=== PATIENT | male | born 1935 | race African-American/Black ===

== ENCOUNTER → 2016-09-22 | Outpatient (CLI) | payer MEDICARE, OTHER ==
[2016-03-27 14:38] VITALS: BP 157/66
[~2016-09-22] MED LIST: AMLO10TA2 PO; AMOX125T PO; ASPI-252 PO; ATEN50TA PO; DIPH25CA58 PO; GABA-585 PO; HYDR-971 PO; KRIL500C PO; LISI-338 PO; MAGN400O4 PO; METH4TAB2 PO; METH750T2 PO; MULT-659 PO; OMEP20CA9 PO
--- NOTE | 2016-09-22 16:35 | KCIC ---
PROCEDURE AP and lateral cervical spine radiographs 09/22/2016 HISTORY Neck stiffness. History of previous cervical spine surgery. FINDINGS AP and 2 lateral digital radiographs of the cervical spine were obtained. Comparison is made to a MRI of the cervical spine dated 05/16/2015. The patient is status post laminectomy and posterolateral fusion using pedicle screws and stabilizing rods extending from C3 to C7. Degenerative changes consisting disc space narrowing, vertebral endplate sclerosis and moderate anterior vertebral body osteophyte formation are seen throughout the cervical disc spaces. Degenerative changes are seen involving the uncovertebral and facet joints throughout the cervical disc spaces. No fracture or subluxation is seen. The fusion hardware is intact. The patient is status post median sternotomy. Atherosclerotic calcification is seen in the region of the carotid bifurcations. No prevertebral soft tissue swelling is seen. IMPRESSION 1. Post laminectomy and fusion extending from C3 to C7. 2. Degenerative changes are seen throughout the cervical spine as outlined above. No acute osseous abnormality is seen. Electronically signed by: Damir Florez MD (Sep 22, 2016 16:33:08)
== END | disposition home or self-care (01) ==
LOC: KCIC 15:39
PROVIDERS: ATTEND Neurological Surgery
DX: M43.22 Fusion of spine, cervical region (principal); Z98.1 Arthrodesis status
CPT/HCPCS: 72040

== ENCOUNTER → 2019-05-26 | Outpatient (CLI) | payer MEDICARE, OTHER ==
[2017-11-14 11:00] VITALS: BP 131/75
[~2019-05-26] MED LIST changes: -AMLO10TA2 PO; +AMLO10TA8 PO; +HYDR-3164 PO; -HYDR-971 PO; -MAGN400O4 PO; +MAGN400O7 PO; +OMEP20CA10 PO; -OMEP20CA9 PO
--- NOTE | 2019-05-26 16:53 | CARD ---
MR#: [id number] Date of Study: 05/26/2019 Ordering Physician: JAMI MOSLEY, Referring Physician: Gurwinder CANTOR: Yvonne Cordova APPROVED REPORT EXAM: Two-dimensional and M-mode echocardiogram with Doppler and color Doppler. Other Information Quality : AverageHR: 59bpm INDICATION Cardiac Disease: CAD 2D DIMENSIONS RVDd2.1 (2.9-3.5cm)Left Atrium(2D)2.9 (1.6-4.0cm) IVSd1.1 (0.7-1.1cm)Aortic Root(2D)2.4 (2.0-3.7cm) LVDd4.3 (3.9-5.9cm)LVOT Diameter2.0 (1.8-2.4cm) PWd0.7 (0.7-1.1cm)LVDs2.0 (2.5-4.0cm) FS (%) 52.9 %SV68.1 ml Aortic Valve AoV Peak Arvin.112.1cm/sAoV VTI24.4cm AO Peak GR.5.0mmHgLVOT Peak Arvin.90.9cm/s AO Mean GR.3mmHgAVA (VMAX)2.53cm2 AI P 1/2 [id number] Mitral Valve MV E Wdxztggn18.3cm/sMV E Peak Gr.2mmHg MV DECEL DJGY727inPN A Vohvrtdm85.6cm/s MV E Mean Gr.1mmHgE/A Ratio1.2 Pulmonary Valve PV Peak Stnxmrfn58.6cm/s Tricuspid Valve TR P. Esxzhghx393do/sRAP SVBOKKTV3lxHg TR Peak Gr.69acEwQKKV36tqXi Pulmonary Vein S1 Ydpudfnz23.1cm/sD2 Okfzmnsd62.3cm/s LEFT VENTRICLE The left ventricle is normal size. There is borderline concentric left ventricular hypertrophy. The l eft ventricular systolic function is normal and the ejection fraction is within normal range. The Eje ction Fraction is 55-60%. There is normal LV segmental wall motion. Transmitral Doppler flow pattern is Grade I-abnormal relaxation pattern. RIGHT VENTRICLE The right ventricle is normal size. There is normal right ventricular wall thickness. The right ventr icular systolic function is normal. ATRIA The left atrium is mildly dilated. The right atrium size is normal. The interatrial septum is intact with no evidence for an atrial septal defect or patent foramen ovale as noted on 2-D or Doppler imagi ng. AORTIC VALVE The aortic valve is mildly to moderately sclerotic. Doppler and Color Flow revealed trace to mild aor tic regurgitation. There is no significant aortic valvular stenosis. MITRAL VALVE The mitral valve is thickened but opens well. There is no evidence of mitral valve prolapse. There is no mitral valve stenosis. Doppler and Color-flow revealed trace mitral regurgitation. TRICUSPID VALVE The tricuspid valve is normal in structure and function. Doppler and Color Flow revealed trace tricus pid regurgitation with an estimated PAP of 25 mmHg. There is no tricuspid valve stenosis. PULMONIC VALVE The pulmonic valve is not well visualized. Doppler and Color Flow revealed mild pulmonic valvular reg urgitation. GREAT VESSELS The aortic root is normal in size. The IVC is normal in size and collapses >50% with inspiration. PERICARDIAL EFFUSION There is no evidence of significant pericardial effusion. Critical Notification Critical Value: No <Conclusion> The left ventricle is normal size. The left ventricular systolic function is normal and the ejection fraction is within normal range. The Ejection Fraction is 55-60%. There is borderline concentric left ventricular hypertrophy. Doppler and Color Flow revealed trace to mild aortic regurgitation. There is no significant aortic valvular stenosis. Doppler and Color-flow revealed trace mitral regurgitation. Doppler and Color Flow revealed trace tricuspid regurgitation with an estimated PAP of 25 mmHg. Signed by : Sid Dodd MD Electronically Approved : 05/26/2019 16:52:27
== END | disposition home or self-care (01) ==
LOC: ECHO 13:59
PROVIDERS: ATTEND Internal Medicine Cardiovascular Disease
DX: I08.8 Other rheumatic multiple valve diseases (principal); I11.9 Hypertensive heart disease without heart failure; I25.10 Atherosclerotic heart disease of native coronary artery without angina pectoris
CPT/HCPCS: 93306

== ENCOUNTER 2019-09-16 16:35 | Emergency (ER) | payer MEDICARE, OTHER ==
[~2019-09-16] VITALS: Ht 170.2 cm; Wt 57.7 kg
[~2019-09-16 16:35] MED LIST changes: -OMEP20CA10 PO; +OMEP20CA16 PO
--- NOTE | 2019-09-16 18:24 | PHYS DOC ---
Past Medical History Past Medical History: Arthritis, GERD, High Cholesterol, Heart Disease, Hypertension Additional Past Medical Histor: BACK PAIN Past Surgical History: Other Additional Past Surgical Histo: CARDIAC SURGERY, neck Smoking Status: Former Smoker Alcohol Use: Sober Drug Use: None Adult General Chief Complaint Chief Complaint: MECHANICAL FALL HPI HPI Patient is a 84 year old male who presents with the states he is walking with his walker from the kitchen into the dining room and his pajama pants were pulled up all the way and he tripped over the patient apparently leg and fell down one step. He states he fell onto his nose. Patient denies LOC, chest pain, shortness of air, nausea, vomiting, dizziness, headache, neck pain, back pain, visual changes, numbness or tingling. Patient rates his pain 0 out 10. Review of Systems Review of Systems HENT: Denies nasal congestion or sore throat. Pain to nasal bridge. [] All other systems were reviewed and found to be within normal limits, except as documented in this note. Allergies Allergies Allergies Coded Allergies Type Severity Reaction Last Updated Verified No Known Drug Allergies 07/28/15 No Physical Exam Physical Exam Constitutional: Well developed, well nourished, no acute distress, non-toxic appearance. [] HENT: Normocephalic, atraumatic, bilateral external ears normal, oropharynx moist, no oral exudates, nose normal. Nasal bridge tenderness. [] Eyes: PERRLA, EOMI, conjunctiva normal, no discharge. [] Neck: Normal range of motion, no tenderness, supple, no stridor. [] Cardiovascular:Heart rate regular rhythm, no murmur [] Lungs & Thorax: Bilateral breath sounds clear to auscultation [] Abdomen: Bowel sounds normal, soft, no tenderness, no masses, no pulsatile masses. [] Skin: Warm, dry, no erythema, no rash. [] Back: No tenderness, no CVA tenderness. [] Extremities: No tenderness, no cyanosis, no clubbing, ROM intact, no edema. [] Neurologic: Alert and oriented X 3, normal motor function, normal sensory function, no focal deficits noted. [] Psychologic: Affect normal, judgement normal, mood normal. [] Current Patient Data Vital Signs Vital Signs Date Time Temp Pulse Resp B/P (MAP) Pulse Ox O2 Delivery O2 Flow Rate FiO2 09/16/19 18:09 64 99 09/16/19 17:26 98.4 16 149/71 (97) Room Air 98.4 Lab Values Laboratory Tests Test 09/16/19 19:05 09/16/19 19:52 Prothrombin Time 13.5 SEC (11.7-14.0) Prothrombin Time INR 1.1 (0.8-1.1) White Blood Count 5.3 x10^3/uL (4.0-11.0) Red Blood Count 3.98 x10^6/uL (4.30-5.70) L Hemoglobin 12.8 g/dL (13.0-17.5) L Hematocrit 38.6 % (39.0-53.0) L Mean Corpuscular Volume 97 fL (79-100) Mean Corpuscular Hemoglobin 32 pg (25-35) Mean Corpuscular Hemoglobin Concent 33 g/dL (31-37) Red Cell Distribution Width 14.0 % (11.5-14.5) Platelet Count 154 x10^3/uL (140-400) Neutrophils (%) (Auto) 57 % (31-73) Lymphocytes (%) (Auto) 34 % (24-48) Monocytes (%) (Auto) 8 % (0-9) Eosinophils (%) (Auto) 2 % (0-3) Basophils (%) (Auto) 1 % (0-3) Neutrophils # (Auto) 3.0 x10^3/uL (1.8-7.7) Lymphocytes # (Auto) 1.8 x10^3/uL (1.0-4.8) Monocytes # (Auto) 0.4 x10^3/uL (0.0-1.1) Eosinophils # (Auto) 0.1 x10^3/uL (0.0-0.7) Basophils # (Auto) 0.0 x10^3/uL (0.0-0.2) Sodium Level 138 mmol/L (136-145) Potassium Level 4.0 mmol/L (3.5-5.1) Chloride Level 103 mmol/L (98-107) Carbon Dioxide Level 28 mmol/L (21-32) Anion Gap 7 (6-14) Blood Urea Nitrogen 10 mg/dL (8-26) Creatinine 1.0 mg/dL (0.7-1.3) Estimated GFR (Cockcroft-Gault) 86.3 BUN/Creatinine Ratio 10 (6-20) Glucose Level 95 mg/dL (70-99) Calcium Level 8.7 mg/dL (8.5-10.1) Total Bilirubin 0.5 mg/dL (0.2-1.0) Aspartate Amino Transferase (AST) 82 U/L (15-37) H Alanine Aminotransferase (ALT) 125 U/L (16-63) H Alkaline Phosphatase 105 U/L (46-116) Troponin I Quantitative < 0.017 ng/mL (0.000-0.055) Total Protein 6.6 g/dL (6.4-8.2) Albumin 3.3 g/dL (3.4-5.0) L Albumin/Globulin Ratio 1.0 (1.0-1.7) Laboratory Tests 09/16/19 19:52 Laboratory Tests 09/16/19 19:52 EKG EKG Sinus rhythm and no STEMI[] Interpretation Time: [address] Preciado Radiology/Procedures Radiology/Procedures [] Impressions: [facility] [address] [place] [address] IMAGING REPORT Signed PATIENT: SALTY COLLAZO EACCOUNT: [id number] : 1935 LOCATION: ER AGE: 84 SEX: M EXAM STATUS: REG ER ORD. PHYSICIAN: FRANSISCO VARELA APRN REASON: fall PROCEDURE: CT MAXILLOFACIAL WO CONTRAST CT brain without contrast, CT facial bones without contrast, CT cervical spine without contrast. HISTORY: Fall CT maxillofacial Axial CT images were obtained through the facial bones. There is mild mucosal thickening in the right sphenoid and ethmoid sinuses. There is mucosal thickening in the right maxillary sinus. Mandible is intact without fracture. Zygomatic arches are intact. There is no facial fracture or orbital fracture evident. Nasal septum is in the midline. IMPRESSION: 1. Mild sinusitis. 2. No acute facial fracture noted. End impression CT brain CT scan of brain was done without contrast. A skull fracture is not identified. There is diffuse atrophy. There is an old lacunar infarct in the right brainstem. There is no intracranial hemorrhage or subdural hematoma. There is an old lacunar infarct in the anterior limb of the internal capsule on the right. There is decreased density in the periventricular white matter. IMPRESSION: 1. Atrophy and chronic white matter changes. 2. Old lacunar infarcts. 3. No intracranial hemorrhage or acute finding noted. End impression CT cervical spine Axial CT images were obtained to the cervical spine. Sagittal and coronal reconstructed images were reviewed. Patient has marked hypertrophic change in the cervical spine. An acute fracture is not identified. Patient had a multilevel laminectomy and fusion. Thyroid is homogeneous. There is mild carotid artery calcification. Previous fusion extends from C3 to T1. There is degenerative disc disease at all levels in the cervical spine. There is prominent hypertrophic spurring. There is also spurring at C2-3. There is no acute fracture. There is lucency about the screws at C7-T1 suggesting motion. IMPRESSION: 1. Marked degenerative and hypertrophic changes in the cervical spine. 2. Previous fusion and laminectomy. 3. Lucency about the screws at C7-T1 suggesting motion at that level. PQRS Compliance Statement: One or more of the following individualized dose reduction techniques were utilized for this examination: 1. Automated exposure control 2. Adjustment of the mA and/or kV according to patient size 3. Use of iterative reconstruction technique Electronically signed by: Tom Porter MD (09/16/2019 7:07 PM) [id number] DICTATED and SIGNED BY: TOM PROTER MD DATE: 09/16/191906 [facility] [address] [place] [address] IMAGING REPORT Signed PATIENT: SALTY COLLAZO EACCOUNT: [id number] : 1935 LOCATION: ER AGE: 84 SEX: M EXAM STATUS: REG ER ORD. PHYSICIAN: FRANSISCO VARELA APRN REASON: fall PROCEDURE: PORTABLE CHEST 1V Portable AP chest. HISTORY: Fall AP view was taken of the chest. There is elevation of the left diaphragm which is chronic. There is mild linear scarring or atelectasis in the left lung base. There are no acute infiltrates. Heart is normal in size with evidence of prior bypass. IMPRESSION: 1. Elevated left diaphragm. 2. Linear basilar scarring or atelectasis. 3. No other acute chest disease. Electronically signed by: Tom Porter MD (09/16/2019 7:30 PM) [id number] DICTATED and SIGNED BY: TOM PORTER MD DATE: 09/16/191929 Course & Med Decision Making Course & Med Decision Making Pertinent Labs and Imaging studies reviewed. (See chart for details) Alert and oriented. Speaks in full clear sentences. Lungs are clear to auscultation in all lobes. No extremity swelling. No extremity tenderness with palpation. No joint deformity, swelling, redness. No tenderness to the patient's skull. Only tenderness to the patient's face is to the bridge of his nose. There is no deformity no swelling seen. No lacerations to the patients bodies. No bruising. Patient is moving all extremities without complication. No laxity in any joints. No pelvic or hip pain with pelvic rock. No pain or crepitus with palpation over the rib cage or the chest. No bruising over the chest or rib cage. Full range of motion of the neck. No tenderness with palpation over cervical spine, thoracic spine, lumbar spine. No bruising to his back. Patient denies any pain. ALENA. [] Dragon Disclaimer Dragon Disclaimer This electronic medical record was generated, in whole or in part, using a voice recognition dictation system. Departure Departure Impression: Primary Impression: Fall Additional Impression: Facial pain Disposition: 01 HOME, SELF-CARE Condition: STABLE Referrals: NORA CONTRERAS (PCP) Patient Instructions: Fall Prevention and Home Safety, [id number] Additional Instructions: Follow-up with primary care provider if needed. Take Tylenol or ibuprofen for ear pain. Problem Qualifiers Primary Impression: Fall Encounter type: initial encounter Qualified Codes: W19.XXXA - Unspecified fall, initial encounter FRANSISCO VARELA APRN Sep 16, 2019 18:24
--- NOTE | 2019-09-16 19:10 | RAD ---
CT brain without contrast, CT facial bones without contrast, CT cervical spine without contrast. HISTORY: Fall CT maxillofacial Axial CT images were obtained through the facial bones. There is mild mucosal thickening in the right sphenoid and ethmoid sinuses. There is mucosal thickening in the right maxillary sinus. Mandible is intact without fracture. Zygomatic arches are intact. There is no facial fracture or orbital fracture evident. Nasal septum is in the midline. IMPRESSION: 1. Mild sinusitis. 2. No acute facial fracture noted. End impression CT brain CT scan of brain was done without contrast. A skull fracture is not identified. There is diffuse atrophy. There is an old lacunar infarct in the right brainstem. There is no intracranial hemorrhage or subdural hematoma. There is an old lacunar infarct in the anterior limb of the internal capsule on the right. There is decreased density in the periventricular white matter. IMPRESSION: 1. Atrophy and chronic white matter changes. 2. Old lacunar infarcts. 3. No intracranial hemorrhage or acute finding noted. End impression CT cervical spine Axial CT images were obtained to the cervical spine. Sagittal and coronal reconstructed images were reviewed. Patient has marked hypertrophic change in the cervical spine. An acute fracture is not identified. Patient had a multilevel laminectomy and fusion. Thyroid is homogeneous. There is mild carotid artery calcification. Previous fusion extends from C3 to T1. There is degenerative disc disease at all levels in the cervical spine. There is prominent hypertrophic spurring. There is also spurring at C2-3. There is no acute fracture. There is lucency about the screws at C7-T1 suggesting motion. IMPRESSION: 1. Marked degenerative and hypertrophic changes in the cervical spine. 2. Previous fusion and laminectomy. 3. Lucency about the screws at C7-T1 suggesting motion at that level. PQRS Compliance Statement: One or more of the following individualized dose reduction techniques were utilized for this examination: 1. Automated exposure control 2. Adjustment of the mA and/or kV according to patient size 3. Use of iterative reconstruction technique Electronically signed by: Tom Porter MD (09/16/2019 7:07 PM) [id number]
[2019-09-16 19:27] LABS: PROTHROMBIN TIME PATIENT 13.5 SEC (11.7-14.0)
--- NOTE | 2019-09-16 19:33 | RAD ---
Portable AP chest. HISTORY: Fall AP view was taken of the chest. There is elevation of the left diaphragm which is chronic. There is mild linear scarring or atelectasis in the left lung base. There are no acute infiltrates. Heart is normal in size with evidence of prior bypass. IMPRESSION: 1. Elevated left diaphragm. 2. Linear basilar scarring or atelectasis. 3. No other acute chest disease. Electronically signed by: Tom Porter MD (09/16/2019 7:30 PM) [email or web address]
[2019-09-16 20:05] LABS: BASO % 1 % (0-3); EOS # 0.1 x10^3/uL (0.0-0.7); EOS % 2 % (0-3); HEMATOCRIT 38.6 % (39.0-53.0); HEMOGLOBIN 12.8 g/dL (13.0-17.5); LYMPH # 1.8 x10^3/uL (1.0-4.8); LYMPH % 34 % (24-48); MEAN CORPUSCULAR HEMOGLOBIN 32 pg (25-35); MEAN CORPUSCULAR HGB CONC 33 g/dL (31-37); MEAN CORPUSCULAR VOLUME 97 fL (79-100); MONO # 0.4 x10^3/uL (0.0-1.1); MONO % 8 % (0-9); NEUT % 57 % (31-73); PLATELET COUNT 154 x10^3/uL (140-400); RED BLOOD COUNT 3.98 x10^6/uL (4.30-5.70); WHITE BLOOD COUNT 5.3 x10^3/uL (4.0-11.0)
[2019-09-16 20:17] LABS: CALCIUM 8.7 mg/dL (8.5-10.1); GFR 86.3
[2019-09-16 20:22] LABS: ALBUMIN 3.3 g/dL (3.4-5.0); TOTAL BILIRUBIN 0.5 mg/dL (0.2-1.0); TOTAL PROTEIN 6.6 g/dL (6.4-8.2)
[2019-09-16 21:39] VITALS: BP 135/92
--- NOTE | 2019-09-17 06:10 | EKG ---
[facility] [address] [place] [address] Test Date: 2019-09-16 Test Time: 17:35:54 Pat Name: SALTY COLLAZO Department: Room: Gender: M [employer]: : 1935 Requested By: FRANSISCO VARELA Order Number: [id number] Reading MD: Measurements Intervals [place] Rate: 67 P: 54 [place]: 132 QRS: 32 QRSD: 94 T: -10 QT: 380 QTc: 404 Interpretive Statements SINUS RHYTHM QRS(T) CONTOUR ABNORMALITY CANNOT RULE OUT ANTEROSEPTAL MYOCARDIAL DAMAGE BORDERLINE ECG No previous ECG available for comparison
== END 2019-09-16 21:50 | disposition home or self-care (01) ==
LOC: ER 16:35
DX: R51 Headache (principal); J34.89 Other specified disorders of nose and nasal sinuses; G89.11 Acute pain due to trauma; K21.9 Gastro-esophageal reflux disease without esophagitis; I11.9 Hypertensive heart disease without heart failure; E78.00 Pure hypercholesterolemia, unspecified; Z87.891 Personal history of nicotine dependence; W01.0XXA Fall on same level from slipping, tripping and stumbling without subsequent striking against object, initial encounter; Y93.01 Activity, walking, marching and hiking; Y92.090 Kitchen in other non-institutional residence as the place of occurrence of the external cause; Y99.8 Other external cause status
CPT/HCPCS: 36415; 70450; 70486; 71045; 72125; 80053; 84484; 85025; 85610; 93005; 99285-25

== ENCOUNTER 2020-02-08 18:35 | Emergency (ER) | payer MEDICARE, OTHER ==
[~2020-02-08] VITALS: Ht 170.2 cm; Wt 59.0 kg
[2020-02-08] MEDS ORDERED: NEOMY/BACITR/POLYMYXIN OINT PACKET. TP ONE (19:00)
[2020-02-08 19:06] LABS: BASO % 1 % (0-3); EOS # 0.1 x10^3/uL (0.0-0.7); EOS % 3 % (0-3); HEMATOCRIT 35.6 % (39.0-53.0); HEMOGLOBIN 12.2 g/dL (13.0-17.5); LYMPH # 1.7 x10^3/uL (1.0-4.8); LYMPH % 38 % (24-48); MEAN CORPUSCULAR HEMOGLOBIN 33 pg (25-35); MEAN CORPUSCULAR HGB CONC 34 g/dL (31-37); MEAN CORPUSCULAR VOLUME 98 fL (79-100); MONO # 0.4 x10^3/uL (0.0-1.1); MONO % 8 % (0-9); NEUT # 2.4 x10^3/uL (1.8-7.7); NEUT % 51 % (31-73); PLATELET COUNT 142 x10^3/uL (140-400); RED BLOOD COUNT 3.64 x10^6/uL (4.30-5.70); RED CELL DISTRIBUTION WIDTH 13.8 % (11.5-14.5); WHITE BLOOD COUNT 4.7 x10^3/uL (4.0-11.0)
[2020-02-08 19:14] LABS: CALCIUM 8.2 mg/dL (8.5-10.1); CREATININE 1.3 mg/dL (0.7-1.3); GFR 63.8; POTASSIUM 4.1 mmol/L (3.5-5.1)
[2020-02-08 19:20] LABS: ALBUMIN/GLOBULIN RATIO 0.8 (1.0-1.7); TOTAL BILIRUBIN 0.3 mg/dL (0.2-1.0); TOTAL PROTEIN 6.6 g/dL (6.4-8.2)
[2020-02-08 19:24] LABS: PROTHROMBIN TIME PATIENT 14.3 SEC (11.7-14.0)
--- NOTE | 2020-02-08 19:43 | RAD ---
Exam: CT head, maxillofacial and cervical spine without contrast INDICATION: Hit head on carotid or TECHNIQUE: Sequential axial images through the head, face and cervical spine were obtained without the administration of IV contrast. Comparisons: 09/16/2019 FINDINGS: Head: No focal parenchymal lesion or hemorrhage is identified. There is no midline shift or sulcal effacement. Patchy hypodensity in the periventricular white matter. No acute vascular territory infarction is identified. Enciso-white distinction is preserved. The ventricular system is within normal limits without compression hydrocephalus. The basal cisterns are well maintained. Face: Globes and intraorbital contents are normal. The visualized portions of the paranasal sinuses and mastoid air cells are well-pneumatized. No acute fractures. Extensive periodontal disease with edentulous mandible. Cervical spine: Posterior cervical fusion hardware from C3 to C6 with bilateral advanced facet screws and laminectomy changes. Fracture through the cervical spine is not identified. Multilevel spondylotic change in cervical spine with degenerative disc disease diffusely present. Visualized paraspinal soft tissues are unremarkable. IMPRESSION: 1. No acute intracranial abnormality. 2. No acute traumatic injury identified at the face. 3. Negative CT C-spine for acute traumatic injury. Exposure: One or more of the following in the visualized dose reduction techniques were utilized for this examination: 1. Automated exposure control 2. Adjustment of the MA and/or KV according to patient size Use of iterative of reconstructive technique Electronically signed by: France Gomes MD (02/08/2020 7:41 PM) [id number]
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
[2020-02-08 20:27] LABS: BILIRUBIN,URINE NEGATIVE (NEG); CLARITY,URINE CLEAR; COLOR,URINE YELLOW; NITRITE,URINE NEGATIVE (NEG); PH,URINE 6.5 (<5.0-8.0); PROTEIN,URINE NEGATIVE (NEG-TRACE); UROBILINOGEN,URINE 0.2 mg/dL (0.2 mg/dL)
[2020-02-08 20:31] LABS: BACTERIA,URINE 0 /HPF (0-FEW); RBC,URINE 0 /HPF (0-2); WBC,URINE OCC /HPF (0-4)
[2020-02-08 20:32] LABS: HYALINE CASTS, URINE FEW /HPF; SQUAMOUS EPITHELIAL CELL,UR OCC /LPF
[2020-02-08 20:40] VITALS: BP 162/85
--- NOTE | 2020-02-10 07:10 | EKG ---
[facility] [address] [place] [address] Test Date: 2020-02-08 Test Time: 18:44:45 Pat Name: SALTY COLLAZO Department: Room: Gender: M Spike Maker: : [id number] Requested By: COCO WERNER Order Number: [id number] Reading MD: Measurements Intervals [place] Rate: 76 P: 54 UT: 126 QRS: 39 QRSD: 80 T: 0 QT: 370 QTc: 420 Interpretive Statements SINUS RHYTHM NO SPECIFIC ECG ABNORMALITIES RI6.01 No previous ECG available for comparison
== END 2020-02-08 21:06 | disposition home or self-care (01) ==
LOC: ER 18:35
DX: S00.31XA Abrasion of nose, initial encounter (principal); R79.89 Other specified abnormal findings of blood chemistry; R41.0 Disorientation, unspecified; K21.9 Gastro-esophageal reflux disease without esophagitis; E78.00 Pure hypercholesterolemia, unspecified; I11.9 Hypertensive heart disease without heart failure; F03.90 Unspecified dementia, unspecified severity, without behavioral disturbance, psychotic disturbance, mood disturbance, and anxiety; I25.2 Old myocardial infarction; Z87.891 Personal history of nicotine dependence; W17.81XA Fall down embankment (hill), initial encounter; Y93.89 Activity, other specified; Y92.89 Other specified places as the place of occurrence of the external cause; Y99.8 Other external cause status
CPT/HCPCS: 36415; 70450; 70486; 72125; 80053; 81001; 82553; 85025; 85610; 85730; 93005; 99285-25

== ENCOUNTER 2020-03-02 16:30 | Inpatient (IN) | payer MEDICARE, OTHER ==
[~2020-03-02] VITALS: Ht 170.2 cm; Wt 64.3 kg
[2020-03-02] MEDS ORDERED: IV NORMAL SALINE 500ML BAG 500 ML IV ONE (18:30)
--- NOTE | 2020-03-02 19:04 | RAD ---
EXAM: CT Head without IV contrast CLINICAL HISTORY: Multiple falls, head injury COMPARISON: CT head 09/16/2019, 02/08/2020 TECHNIQUE: Routine CT of the head without contrast. PQRS compliance statement - One or more of the following individualized dose reduction techniques were utilized for this study: 1. Automated exposure control 2. Adjustment of the mA and/or kV according to patient size 3. Use of iterative reconstruction technique FINDINGS: There is no evidence of hemorrhage, mass or extra-axial fluid collection. Houser-white differentiation is maintained with no evidence of edema. Subcortical, periventricular as well as deep white matter and pontine hypoattenuation likely changes of chronic small vessel disease. There is no mass effect or shift of the intracranial structures. There is prominence of the ventricles and sulci bilaterally consistent with generalized cerebral atrophy. The cerebellum and brainstem are unremarkable. The calvarium demonstrates no evidence of fracture or focal lesion. Mastoid air cells are clear. Multifocal paranasal sinus thickening/partial opacification, sinusitis. No air fluid levels are seen. The visualized portions of the orbits are normal. Atherosclerotic calcifications of the intracranial internal carotid and vertebral arteries is seen. IMPRESSION: 1. No evidence for acute intracranial process. 2. White matter changes likely chronic small vessel disease 3. Changes of generalized cerebral volume loss/atrophy. 4. Multifocal paranasal sinus disease. Electronically signed by: Zoltan Naranjo MD (03/02/2020 7:00 PM) [facility]UCE
--- NOTE | 2020-03-02 20:07 | RAD ---
CHEST AP ONLY History: Reason: fall left arm trauma / Spl. Instructions: / History: Pain. Comparison: September 16, 2019 Findings: Elevation of the left hemidiaphragm, unchanged. No consolidation or pleural effusion. No pneumothorax. Prior median sternotomy. Partially imaged postoperative changes lower cervical spine. Impression: 1. No acute cardiopulmonary process. Electronically signed by: Johnny Machado DO (03/02/2020 8:04 PM) [facility]
--- NOTE | 2020-03-02 20:10 | RAD ---
SHOULDER 2+V LEFT, HUMERUS LEFT History: Reason: fall left arm trauma / Spl. Instructions: / History: PA pain. Technique: 3 views left shoulder and 2 views left humerus. Comparison: None. Findings: Normal alignment of the left glenohumeral and acromioclavicular joints. No fracture. Soft tissues unremarkable. Normal alignment of the humerus. No fracture. Impression: 1. No acute osseous abnormality. Electronically signed by: Johnny Machado DO (03/02/2020 8:07 PM) DELISA
--- NOTE | 2020-03-02 20:22 | PHYS DOC ---
Past Medical History Past Medical History: Arthritis, Dementia, GERD, High Cholesterol, Heart Disease, Hypertension, [place], Other Additional Past Medical Histor: BACK PAIN Past Surgical History: Other Additional Past Surgical Histo: CARDIAC SURGERY, neck Smoking Status: Former Smoker Alcohol Use: Sober Drug Use: None General Adult EDM: Chief Complaint: MECHANICAL FALL HPI: HPI: Patient is an 84-year-old male who lives at home who has been falling multiple times every day. At this point, he is unable to perform his activities of daily living. He is not had any fever chills or sweats. He denies any chest pain. He does state that he just does not feel like his arms and his legs work right. The most recent fall patient states he landed on his left side injured his left shoulder and arm. He states it is painful when he tries to move it. He also has had increased swelling in his hands to the point that the family thinks that his wedding ring is cutting into the skin of his left fourth finger. There is also been some issues with lower extremity swelling. He does not have any pain in that area. [] Review of Systems: Review of Systems: Constitutional: Denies fever or chills. [] Eyes: Denies change in visual acuity. [] HENT: Denies nasal congestion or sore throat. [] Respiratory: Denies cough or shortness of breath. [] Cardiovascular: Denies chest pain or edema. [] GI: Denies abdominal pain, nausea, vomiting, bloody stools or diarrhea. [] : Denies dysuria. [] Musculoskeletal: Denies back pain or joint pain. [] Integument: Reports lower extremity swelling. [] Neurologic: Denies headache, focal weakness or sensory changes. [] Endocrine: Denies polyuria or polydipsia. [] Lymphatic: Denies swollen glands. [] Psychiatric: Depressed. [] Heart Score: Risk Factors: Risk Factors: DM, Current or recent (<one month) smoker, HTN, HLP, family history of CAD, obesity. Risk Scores: Score 0 - 3: 2.5% MACE over next 6 weeks - Discharge Home Score 4 - 6: 20.3% MACE over next 6 weeks - Admit for Clinical Observation Score 7 - 10: 72.7% MACE over next 6 weeks - Early Invasive Strategies Current Medications: Current Medications Medications (Trade) Dose Ordered Sig/Kay Start Time Stop Time Status Last Admin Dose Admin Sodium Chloride 500 ml @ 500 mls/hr 1X ONCE 03/02/20 18:30 03/02/20 19:29 DC 03/02/20 19:00 500 MLS/HR Allergies: Allergies: Allergies Coded Allergies Type Severity Reaction Last Updated Verified No Known Drug Allergies 07/28/15 No Physical Exam: PE: Constitutional: Well developed, well nourished, no acute distress, non-toxic appearance. [] HENT: Normocephalic, atraumatic, bilateral external ears normal, oropharynx moist, no oral exudates, nose normal. [] Eyes: PERRLA, EOMI, conjunctiva normal, no discharge. [] Neck: Normal range of motion, no tenderness, supple, no stridor. [] Cardiovascular:Heart rate regular rhythm, no murmur [] Lungs & Thorax: Bilateral breath sounds clear to auscultation [] Abdomen: Bowel sounds normal, soft, no tenderness, no masses, no pulsatile mass es. [] Skin: Warm, dry, no erythema, no rash. [] Back: No tenderness, no CVA tenderness. [] Extremities: No tenderness, no cyanosis, no clubbing, ROM intact, no edema. [] Neurologic: Alert and oriented X 3, normal motor function, normal sensory function, no focal deficits noted. [] Psychologic: Affect normal, judgement normal, mood normal. [] Current Patient Data: Vital Signs: Vital Signs Date Time Temp Pulse Resp B/P (MAP) Pulse Ox O2 Delivery O2 Flow Rate FiO2 03/02/20 17:30 98.3 67 18 176/74 (108) 100 Room Air 98.3 EKG: EKG: [] Radiology/Procedures: Radiology/Procedures: []REASON: multiple falls PROCEDURE: CT HEAD WO CONTRAST EXAM: CT Head without IV contrast CLINICAL HISTORY: Multiple falls, head injury COMPARISON: CT head 09/16/2019, 02/08/2020 TECHNIQUE: Routine CT of the head without contrast. PQRS compliance statement - One or more of the following individualized dose reduction techniques were utilized for this study: 1. Automated exposure control 2. Adjustment of the mA and/or kV according to patient size 3. Use of iterative reconstruction technique FINDINGS: There is no evidence of hemorrhage, mass or extra-axial fluid collection. Houser-white differentiation is maintained with no evidence of edema. Subcortical, periventricular as well as deep white matter and pontine hypoattenuation likely changes of chronic small vessel disease. There is no mass effect or shift of the intracranial structures. There is prominence of the ventricles and sulci bilaterally consistent with generalized cerebral atrophy. The cerebellum and brainstem are unremarkable. The calvarium demonstrates no evidence of fracture or focal lesion. Mastoid air cells are clear. Multifocal paranasal sinus thickening/partial opacification, sinusitis. No air fluid levels are seen. The visualized portions of the orbits are normal. Atherosclerotic calcifications of the intracranial internal carotid and vertebral arteries is seen. IMPRESSION: 1. No evidence for acute intracranial process. 2. White matter changes likely chronic small vessel disease 3. Changes of generalized cerebral volume loss/atrophy. 4. Multifocal paranasal sinus disease. Impression: REASON: fall left arm trauma PROCEDURE: CHEST AP ONLY CHEST AP ONLY History: Reason: fall left arm trauma / Spl. Instructions: / History: Pain. Comparison: September 16, 2019 Findings: Elevation of the left hemidiaphragm, unchanged. No consolidation or pleural effusion. No pneumothorax. Prior median sternotomy. Partially imaged postoperative changes lower cervical spine. Impression: 1. No acute cardiopulmonary process. PROCEDURE: HUMERUS LEFT SHOULDER 2+V LEFT, HUMERUS LEFT History: Reason: fall left arm trauma / Spl. Instructions: / History: PA pain. Technique: 3 views left shoulder and 2 views left humerus. Comparison: None. Findings: Normal alignment of the left glenohumeral and acromioclavicular joints. No fracture. Soft tissues unremarkable. Normal alignment of the humerus. No fracture. Impression: 1. No acute osseous abnormality. Course & Med Decision Making: Course & Med Decision Making Pertinent Labs and Imaging studies reviewed. (See chart for details) [Procedure: Ring removal Patient had a gold band on his left fourth finger with significant swelling distal to the ring. Using a ring cutter the ring was easily removed there was no underlying skin breakdown.] Zeina Disclaimer: Zeina Disclaimer: This electronic medical record was generated, in whole or in part, using a voice recognition dictation system. Departure Departure Impression: Primary Impression: Multiple falls Disposition: 09 ADMITTED INPATIENT Admitting Physician: AMELIA Condition: STABLE Referrals: NORA CONTRERAS (PCP) Justicifation of Admission Dx: Justifications for Admission: Justification of Admission Dx: Yes Comments: multiple falls MERCY SUAREZ DO Mar 02, 2020 20:22
[2020-03-02 20:29] LABS: BASO % 1 % (0-3); EOS # 0.1 x10^3/uL (0.0-0.7); EOS % 3 % (0-3); LYMPH # 2.2 x10^3/uL (1.0-4.8); LYMPH % 42 % (24-48); MEAN CORPUSCULAR HEMOGLOBIN 34 pg (25-35); MEAN CORPUSCULAR HGB CONC 34 g/dL (31-37); MEAN CORPUSCULAR VOLUME 98 fL (79-100); MONO # 0.5 x10^3/uL (0.0-1.1); MONO % 9 % (0-9); NEUT # 2.4 x10^3/uL (1.8-7.7); NEUT % 46 % (31-73); PLATELET COUNT 137 x10^3/uL (140-400); RED BLOOD COUNT 3.29 x10^6/uL (4.30-5.70); RED CELL DISTRIBUTION WIDTH 13.3 % (11.5-14.5); WHITE BLOOD COUNT 5.3 x10^3/uL (4.0-11.0)
[2020-03-02 20:45] LABS: CALCIUM 8.2 mg/dL (8.5-10.1); GFR 86.3
[2020-03-02 20:51] LABS: ALBUMIN 2.6 g/dL (3.4-5.0); ALBUMIN/GLOBULIN RATIO 0.8 (1.0-1.7); MAGNESIUM 1.7 mg/dL (1.8-2.4); TOTAL BILIRUBIN 0.4 mg/dL (0.2-1.0); TOTAL PROTEIN 5.9 g/dL (6.4-8.2)
[2020-03-02] MEDS ORDERED: ONDANSETRON PF 4 MG/2 ML VIAL. IV PRN (21:00)
--- NOTE | 2020-03-02 21:31 | PDOC1 ---
History and Physical Date of Admission: Date of Admission DATE: 03/02/20 TIME: 21:24 Chief Complaint: Chief Complain: Multiple falls History of Present Illness: HPI: Patient is a 84-year-old male with past medical history of dementia, dyslipidemia, hypertension, CABG who presents to the ED for a fall. Most of the history was obtained from the daughter in the room due to patient's dementia. Daughter states that the patient is currently not at his baseline. It appears that the patient has a mild hypo-delirium. He will wax and wane with consciousness but still able to follow commands and answer questions appropriately at times. Daughter states that patient has been falling multiple times in the past 6 months. Finally the patient who lives with his stated that the patient fell off the bed and had multiple abrasions on his left arm and shoulder and also a skin tear on his the bridge of the nose. Patient's was concerned that he was appearing more swollen and that he had a ring on his third digit that looks like circulation was being cut off. In the ED this ring was removed. On baseline, patient's daughter states that he is able to walk around the block without assistance. Patient states that he is able to clean and do some painting at home. Past Medical/Surgical History: PMH/PSH: Past Medical History: Arthritis, Dementia, GERD, High Cholesterol, Heart Di sease, Hypertension, [place] Past Surgical History: CABG Allergies: Allergies: Coded Allergies: No Known Drug Allergies (Unverified , 07/28/15) Family History: Family History: Reviewed and none reported Social History: Social History: Smoking Status: Former Smoker Alcohol Use: Denies Drug Use: None Current Medications: Current Medications Current Medications Sodium Chloride 500 ml @ 500 mls/hr 1X ONCE IV Last administered on 03/02/20at 19:00; Start 03/02/20 at 18:30; Stop 03/02/20 at 19:29; Status DC Ondansetron HCl (Zofran) 4 mg PRN Q8HRS PRN IV NAUSEA/VOMITING; Start 03/02/20 at 21:00; Stop 03/03/20 at 20:59 Sodium Chloride 1,000 ml @ 125 mls/hr Q8H IV ; Start 03/02/20 at 21:15; Stop 03/03/20 at 21:14 Active Scripts Active Amlodipine Besylate 10 Mg Tablet 10 Mg PO DAILY [place] 5-325 Tablet (Acetaminophen/Hydrocodone Bitart) 1 Each Tablet 1 Tab PO PRN BID PRN Reported Milk Of Magnesia (Magnesium Hydroxide) 400 Mg/5 Ml Oral.susp 400 Mg PO QHS PRN Methocarbamol 750 Mg Tablet 750 Mg PO QHS Benadryl (Diphenhydramine Hcl) 25 Mg Capsule 1 Cap PO QHS Amoxicillin 125 Mg Tab.chew 125 Mg PO BID Krill Oil 500 Mg Capsule 500 Mg PO DAILY Centrum Men's Tablet (Multivits,Ca,Min/Iron/FA/Lycop) 1 Each Tablet 1 Each PO DAILY Gabapentin 100 Mg Capsule 100 Mg PO DAILY Lisinopril 5 Mg Tablet 5 Mg PO DAILY Omeprazole 20 Mg Capsule. 20 Mg PO DAILY Ecotrin (Aspirin) 325 Mg Tablet. 325 Mg PO DAILY ROS: Review of Systems Review of System REVIEW OF SYSTEMS: GENERAL: Denies weakness SKIN: No bruising, hair changes or rashes. EYES: No blurred, double or loss of vision. NOSE AND THROAT: No history of nosebleeds, hoarseness or sore throat. HEART: No history of palpitations, chest pain or shortness of breath on exertion. LUNGS: Denies cough, hemoptysis, wheezing or shortness of breath. GASTROINTESTINAL: Denies changes in appetite, nausea, vomiting, diarrhea or constipation. GENITOURINARY: No history of frequency, urgency, hesitancy or nocturia. NEUROLOGIC: Denies history of numbness, tingling, or tremor. PSYCHIATRIC: No history of panic, anxiety or depression. ENDOCRINE: No history of heat or cold intolerance, polyuria or polydipsia. EXTREMITIES: Denies joint pain, pain on walking or stiffness. Physical Exam: Vital Signs: Vital Signs Date Time Temp Pulse Resp B/P (MAP) Pulse Ox O2 Delivery O2 Flow Rate FiO2 03/02/20 17:30 98.3 67 18 176/74 (108) 100 Room Air 98.3 Physcial Exam: GEN: No apparent distress. Alert and oriented HEENT: Normal cephalic, atraumatic, external auditory canals are patent EYES: Extraocular muscles are intact, pupil are equally round and reactive to light and accommodation MUSCULOSKELETAL: Well developed , well nourished, good range of motion ENDOCRINE: No thyromegaly was palpated LYMPHATICS: No cervical chain or axillary nodes were noted HEMATOPOIETIC: No bruising NECK: Supple, no JVD, no thyromegaly was noted LUNGS: Clear to auscultation in all lung cardona without rhonchi or wheezing HEART: RRR, S!, S2 present. Peripheral pulses intact, no obvious murmurs noted ABDOMEN: Soft, nontender. Positive bowel sounds, no organomegaly, normal bowel sounds EXTREMITIES: Without clubbing, cyanosis, or edema. Pedal pulses intact. Negative Homans sign NEUROLOGIC: Normal speech and tone. A&O x 3, moves all extremities, no obvious focal deficits PSYCHIATRIC: Normal affect, normal mood. Stable SKIN: No ulcerations or rashes, good skin turgor, no jaundice VASCULAR: Good capillary refill, neurovascular bundle appears to be intact Labs: Labs: Laboratory Tests Test 03/02/20 20:19 White Blood Count 5.3 x10^3/uL (4.0-11.0) Red Blood Count 3.29 x10^6/uL (4.30-5.70) Hemoglobin 11.0 g/dL (13.0-17.5) Hematocrit 32.0 % (39.0-53.0) Mean Corpuscular Volume 98 fL (79-100) Mean Corpuscular Hemoglobin 34 pg (25-35) Mean Corpuscular Hemoglobin Concent 34 g/dL (31-37) Red Cell Distribution Width 13.3 % (11.5-14.5) Platelet Count 137 x10^3/uL (140-400) Neutrophils (%) (Auto) 46 % (31-73) Lymphocytes (%) (Auto) 42 % (24-48) Monocytes (%) (Auto) 9 % (0-9) Eosinophils (%) (Auto) 3 % (0-3) Basophils (%) (Auto) 1 % (0-3) Neutrophils # (Auto) 2.4 x10^3/uL (1.8-7.7) Lymphocytes # (Auto) 2.2 x10^3/uL (1.0-4.8) Monocytes # (Auto) 0.5 x10^3/uL (0.0-1.1) Eosinophils # (Auto) 0.1 x10^3/uL (0.0-0.7) Basophils # (Auto) 0.0 x10^3/uL (0.0-0.2) Sodium Level 141 mmol/L (136-145) Potassium Level 4.0 mmol/L (3.5-5.1) Chloride Level 109 mmol/L (98-107) Carbon Dioxide Level 25 mmol/L (21-32) Anion Gap 7 (6-14) Blood Urea Nitrogen 11 mg/dL (8-26) Creatinine 1.0 mg/dL (0.7-1.3) Estimated GFR (Cockcroft-Gault) 86.3 BUN/Creatinine Ratio 11 (6-20) Glucose Level 83 mg/dL (70-99) Calcium Level 8.2 mg/dL (8.5-10.1) Magnesium Level 1.7 mg/dL (1.8-2.4) Total Bilirubin 0.4 mg/dL (0.2-1.0) Aspartate Amino Transf (AST/SGOT) 91 U/L (15-37) Alanine Aminotransferase (ALT/SGPT) 117 U/L (16-63) Alkaline Phosphatase 131 U/L (46-116) Creatine Kinase 97 U/L (39-308) Troponin I Quantitative 0.018 ng/mL (0.000-0.055) WY-Vpw-L-Type Natriuretic Peptide 417 pg/mL (0-449) Total Protein 5.9 g/dL (6.4-8.2) Albumin 2.6 g/dL (3.4-5.0) Albumin/Globulin Ratio 0.8 (1.0-1.7) Laboratory Tests Test 03/02/20 20:19 White Blood Count 5.3 x10^3/uL (4.0-11.0) Red Blood Count 3.29 x10^6/uL (4.30-5.70) Hemoglobin 11.0 g/dL (13.0-17.5) Hematocrit 32.0 % (39.0-53.0) Mean Corpuscular Volume 98 fL (79-100) Mean Corpuscular Hemoglobin 34 pg (25-35) Mean Corpuscular Hemoglobin Concent 34 g/dL (31-37) Red Cell Distribution Width 13.3 % (11.5-14.5) Platelet Count 137 x10^3/uL (140-400) Neutrophils (%) (Auto) 46 % (31-73) Lymphocytes (%) (Auto) 42 % (24-48) Monocytes (%) (Auto) 9 % (0-9) Eosinophils (%) (Auto) 3 % (0-3) Basophils (%) (Auto) 1 % (0-3) Neutrophils # (Auto) 2.4 x10^3/uL (1.8-7.7) Lymphocytes # (Auto) 2.2 x10^3/uL (1.0-4.8) Monocytes # (Auto) 0.5 x10^3/uL (0.0-1.1) Eosinophils # (Auto) 0.1 x10^3/uL (0.0-0.7) Basophils # (Auto) 0.0 x10^3/uL (0.0-0.2) Sodium Level 141 mmol/L (136-145) Potassium Level 4.0 mmol/L (3.5-5.1) Chloride Level 109 mmol/L (98-107) Carbon Dioxide Level 25 mmol/L (21-32) Anion Gap 7 (6-14) Blood Urea Nitrogen 11 mg/dL (8-26) Creatinine 1.0 mg/dL (0.7-1.3) Estimated GFR (Cockcroft-Gault) 86.3 BUN/Creatinine Ratio 11 (6-20) Glucose Level 83 mg/dL (70-99) Calcium Level 8.2 mg/dL (8.5-10.1) Magnesium Level 1.7 mg/dL (1.8-2.4) Total Bilirubin 0.4 mg/dL (0.2-1.0) Aspartate Amino Transf (AST/SGOT) 91 U/L (15-37) Alanine Aminotransferase (ALT/SGPT) 117 U/L (16-63) Alkaline Phosphatase 131 U/L (46-116) Creatine Kinase 97 U/L (39-308) Troponin I Quantitative 0.018 ng/mL (0.000-0.055) EX-Ckt-V-Type Natriuretic Peptide 417 pg/mL (0-449) Total Protein 5.9 g/dL (6.4-8.2) Albumin 2.6 g/dL (3.4-5.0) Albumin/Globulin Ratio 0.8 (1.0-1.7) Images: Images All labs, images, and reports were reviewed by me personally CHEST AP ONLY History: Reason: fall left arm trauma / Spl. Instructions: / History: Pain. Comparison: September 16, 2019 Findings: Elevation of the left hemidiaphragm, unchanged. No consolidation or pleural effusion. No pneumothorax. Prior median sternotomy. Partially imaged postoperative changes lower cervical spine. Impression: 1. No acute cardiopulmonary process. EXAM: CT Head without IV contrast CLINICAL HISTORY: Multiple falls, head injury COMPARISON: CT head 09/16/2019, 02/08/2020 TECHNIQUE: Routine CT of the head without contrast. PQRS compliance statement - One or more of the following individualized dose reduction techniques were utilized for this study: 1. Automated exposure control 2. Adjustment of the mA and/or kV according to patient size 3. Use of iterative reconstruction technique FINDINGS: There is no evidence of hemorrhage, mass or extra-axial fluid collection. Houser-white differentiation is maintained with no evidence of edema. Subcortical, periventricular as well as deep white matter and pontine hypoattenuation likely changes of chronic small vessel disease. There is no mass effect or shift of the intracranial structures. There is prominence of the ventricles and sulci bilaterally consistent with generalized cerebral atrophy. The cerebellum and brainstem are unremarkable. The calvarium demonstrates no evidence of fracture or focal lesion. Mastoid air cells are clear. Multifocal paranasal sinus thickening/partial opacification, sinusitis. No air fluid levels are seen. The visualized portions of the orbits are normal. Atherosclerotic calcifications of the intracranial internal carotid and vertebral arteries is seen. IMPRESSION: 1. No evidence for acute intracranial process. 2. White matter changes likely chronic small vessel disease 3. Changes of generalized cerebral volume loss/atrophy. 4. Multifocal paranasal sinus disease. SHOULDER 2+V LEFT, HUMERUS LEFT History: Reason: fall left arm trauma / Spl. Instructions: / History: PA pain. Technique: 3 views left shoulder and 2 views left humerus. Comparison: None. Findings: Normal alignment of the left glenohumeral and acromioclavicular joints. No fracture. Soft tissues unremarkable. Normal alignment of the humerus. No fracture. Impression: 1. No acute osseous abnormality. SHOULDER 2+V LEFT, HUMERUS LEFT History: Reason: fall left arm trauma / Spl. Instructions: / History: PA pain. Technique: 3 views left shoulder and 2 views left humerus. Comparison: None. Findings: Normal alignment of the left glenohumeral and acromioclavicular joints. No fracture. Soft tissues unremarkable. Normal alignment of the humerus. No fracture. Impression: 1. No acute osseous abnormality. Assessment/Plan Assessment/Plan Multiple falls Acute hypo-delirium or confusional state due to infectious versus toxic versus metabolic disturbance Anasarca Normocytic anemia Hypomagnesemia Mild transaminitis Elevated alkaline phosphatase suggesting hepatobiliary disease Moderate debilitation Moderate frailty Severe malnutrition History of CABG Hypertension Admit to medicine No obvious centrally acting medications currently. No obvious signs of infection on physical exam. No fevers or nuchal rigidity. CT head is negative for acute etiology. No history or signs of trauma Pending orthostatic vital signs Pending medication reconciliation Will hold amlodipine for now as this can contribute to his pedal edema Pending TSH, B12, levels Pending UA Performed bladder scan if there is concern for urinary retention Consider dementia prevention protocol Provide adequate lighting (open curtains during the day, turn the lights off at night) Provide frequent personal contact with family, friends, and staff or TV Encourage early and frequent mobilization Rehab screening ordered Avoid physical restraints, catheters or tubes, and benzodiazepines Nutrition consult if there is malnutrition or concern for vitamin deficiencies SCD for DVT prophylaxis Protonix for GI prophylaxis Cardiac diet Full code Discussed with RN and ED physician Dispo pending discussion with healthcare social worker for safe discharge Justicifation of Admission Dx: Justifications for Admission: Justification of Admission Dx: N/A ALPHONSO RODRÍGUEZ MD Mar 02, 2020 21:31
[2020-03-02 22:40] VITALS: BP 143/67
--- NOTE | 2020-03-02 22:45 | NUR ---
The patient, SALTY COLLAZO, 84 y/o, M admitted by ALPHONSO RODRÍGUEZ MD, was given written information regarding hospital policies, unit procedures and contact persons. Valuables were checked and left with him.
[2020-03-03] MEDS: IV NORMAL SALINE 1000ML BAG 1,000 ML IV SCH ×3 (00:53→13:15)
[2020-03-03 03:02] VITALS: BP 148/65
--- NOTE | 2020-03-03 04:19 | EKG ---
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
[2020-03-03] MEDS ORDERED: AMLO5TAB10 PO (04:50)
[2020-03-03] MEDS ORDERED: TAMS0.4C97 PO (04:57)
[2020-03-03] MEDS ORDERED: ATOR10TA60 PO (04:57)
[2020-03-03] MEDS ORDERED: LATA2.5D3 EACHEYE (04:57)
[2020-03-03] MEDS ORDERED: HYDR25TA PO (04:57)
[2020-03-03 07:00] VITALS: BP 161/76
--- NOTE | 2020-03-03 07:54 | NUR ---
Bag of fluids still running, non administered 0500 dose.
--- NOTE | 2020-03-03 10:02 | PDOC ---
PROGRESS NOTES Chief Complaint Chief Complaint Multiple falls Acute delirium toxic versus metabolic disturbance Anasarca Normocytic anemia Hypomagnesemia Mild transaminitis Elevated alkaline phosphatase suggesting hepatobiliary disease Moderate debilitation Moderate frailty Severe malnutrition History of CABG Hypertension Vitals Vitals Vital Signs Date Time Temp Pulse Resp B/P (MAP) Pulse Ox O2 Delivery O2 Flow Rate FiO2 03/03/20 07:00 97.6 57 18 161/76 (104) 99 Room Air 97.6 Physical Exam General: Cooperative, No acute distress Heart: Regular rate Lungs: Clear, Other Extremities: No clubbing, No cyanosis Skin: No breakdown Labs LABS Laboratory Tests Test 03/02/20 20:19 White Blood Count 5.3 x10^3/uL (4.0-11.0) Red Blood Count 3.29 x10^6/uL (4.30-5.70) Hemoglobin 11.0 g/dL (13.0-17.5) Hematocrit 32.0 % (39.0-53.0) Mean Corpuscular Volume 98 fL (79-100) Mean Corpuscular Hemoglobin 34 pg (25-35) Mean Corpuscular Hemoglobin Concent 34 g/dL (31-37) Red Cell Distribution Width 13.3 % (11.5-14.5) Platelet Count 137 x10^3/uL (140-400) Neutrophils (%) (Auto) 46 % (31-73) Lymphocytes (%) (Auto) 42 % (24-48) Monocytes (%) (Auto) 9 % (0-9) Eosinophils (%) (Auto) 3 % (0-3) Basophils (%) (Auto) 1 % (0-3) Neutrophils # (Auto) 2.4 x10^3/uL (1.8-7.7) Lymphocytes # (Auto) 2.2 x10^3/uL (1.0-4.8) Monocytes # (Auto) 0.5 x10^3/uL (0.0-1.1) Eosinophils # (Auto) 0.1 x10^3/uL (0.0-0.7) Basophils # (Auto) 0.0 x10^3/uL (0.0-0.2) Sodium Level 141 mmol/L (136-145) Potassium Level 4.0 mmol/L (3.5-5.1) Chloride Level 109 mmol/L (98-107) Carbon Dioxide Level 25 mmol/L (21-32) Anion Gap 7 (6-14) Blood Urea Nitrogen 11 mg/dL (8-26) Creatinine 1.0 mg/dL (0.7-1.3) Estimated GFR (Cockcroft-Gault) 86.3 BUN/Creatinine Ratio 11 (6-20) Glucose Level 83 mg/dL (70-99) Calcium Level 8.2 mg/dL (8.5-10.1) Magnesium Level 1.7 mg/dL (1.8-2.4) Total Bilirubin 0.4 mg/dL (0.2-1.0) Gamma Glutamyl Transpeptidase 129 U/L (10-85) Aspartate Amino Transf (AST/SGOT) 91 U/L (15-37) Alanine Aminotransferase (ALT/SGPT) 117 U/L (16-63) Alkaline Phosphatase 131 U/L (46-116) Creatine Kinase 97 U/L (39-308) Troponin I Quantitative 0.018 ng/mL (0.000-0.055) NV-Wkh-R-Type Natriuretic Peptide 417 pg/mL (0-449) Total Protein 5.9 g/dL (6.4-8.2) Albumin 2.6 g/dL (3.4-5.0) Albumin/Globulin Ratio 0.8 (1.0-1.7) Vitamin B12 Level 1466 pg/mL (247-911) Thyroid Stimulating Hormone (TSH) 1.677 uIU/mL (0.358-3.74) Review of Systems Review of Systems no n.v.d Comment Review of Relevant I have reviewed the following items rahul (where applicable) has been applied. Labs Laboratory Tests Test 03/02/20 20:19 White Blood Count 5.3 x10^3/uL (4.0-11.0) Red Blood Count 3.29 x10^6/uL (4.30-5.70) Hemoglobin 11.0 g/dL (13.0-17.5) Hematocrit 32.0 % (39.0-53.0) Mean Corpuscular Volume 98 fL (79-100) Mean Corpuscular Hemoglobin 34 pg (25-35) Mean Corpuscular Hemoglobin Concent 34 g/dL (31-37) Red Cell Distribution Width 13.3 % (11.5-14.5) Platelet Count 137 x10^3/uL (140-400) Neutrophils (%) (Auto) 46 % (31-73) Lymphocytes (%) (Auto) 42 % (24-48) Monocytes (%) (Auto) 9 % (0-9) Eosinophils (%) (Auto) 3 % (0-3) Basophils (%) (Auto) 1 % (0-3) Neutrophils # (Auto) 2.4 x10^3/uL (1.8-7.7) Lymphocytes # (Auto) 2.2 x10^3/uL (1.0-4.8) Monocytes # (Auto) 0.5 x10^3/uL (0.0-1.1) Eosinophils # (Auto) 0.1 x10^3/uL (0.0-0.7) Basophils # (Auto) 0.0 x10^3/uL (0.0-0.2) Sodium Level 141 mmol/L (136-145) Potassium Level 4.0 mmol/L (3.5-5.1) Chloride Level 109 mmol/L (98-107) Carbon Dioxide Level 25 mmol/L (21-32) Anion Gap 7 (6-14) Blood Urea Nitrogen 11 mg/dL (8-26) Creatinine 1.0 mg/dL (0.7-1.3) Estimated GFR (Cockcroft-Gault) 86.3 BUN/Creatinine Ratio 11 (6-20) Glucose Level 83 mg/dL (70-99) Calcium Level 8.2 mg/dL (8.5-10.1) Magnesium Level 1.7 mg/dL (1.8-2.4) Total Bilirubin 0.4 mg/dL (0.2-1.0) Gamma Glutamyl Transpeptidase 129 U/L (10-85) Aspartate Amino Transf (AST/SGOT) 91 U/L (15-37) Alanine Aminotransferase (ALT/SGPT) 117 U/L (16-63) Alkaline Phosphatase 131 U/L (46-116) Creatine Kinase 97 U/L (39-308) Troponin I Quantitative 0.018 ng/mL (0.000-0.055) ER-Rhn-F-Type Natriuretic Peptide 417 pg/mL (0-449) Total Protein 5.9 g/dL (6.4-8.2) Albumin 2.6 g/dL (3.4-5.0) Albumin/Globulin Ratio 0.8 (1.0-1.7) Vitamin B12 Level 1466 pg/mL (247-911) Thyroid Stimulating Hormone (TSH) 1.677 uIU/mL (0.358-3.74) Laboratory Tests Test 03/02/20 20:19 White Blood Count 5.3 x10^3/uL (4.0-11.0) Red Blood Count 3.29 x10^6/uL (4.30-5.70) Hemoglobin 11.0 g/dL (13.0-17.5) Hematocrit 32.0 % (39.0-53.0) Mean Corpuscular Volume 98 fL (79-100) Mean Corpuscular Hemoglobin 34 pg (25-35) Mean Corpuscular Hemoglobin Concent 34 g/dL (31-37) Red Cell Distribution Width 13.3 % (11.5-14.5) Platelet Count 137 x10^3/uL (140-400) Neutrophils (%) (Auto) 46 % (31-73) Lymphocytes (%) (Auto) 42 % (24-48) Monocytes (%) (Auto) 9 % (0-9) Eosinophils (%) (Auto) 3 % (0-3) Basophils (%) (Auto) 1 % (0-3) Neutrophils # (Auto) 2.4 x10^3/uL (1.8-7.7) Lymphocytes # (Auto) 2.2 x10^3/uL (1.0-4.8) Monocytes # (Auto) 0.5 x10^3/uL (0.0-1.1) Eosinophils # (Auto) 0.1 x10^3/uL (0.0-0.7) Basophils # (Auto) 0.0 x10^3/uL (0.0-0.2) Sodium Level 141 mmol/L (136-145) Potassium Level 4.0 mmol/L (3.5-5.1) Chloride Level 109 mmol/L (98-107) Carbon Dioxide Level 25 mmol/L (21-32) Anion Gap 7 (6-14) Blood Urea Nitrogen 11 mg/dL (8-26) Creatinine 1.0 mg/dL (0.7-1.3) Estimated GFR (Cockcroft-Gault) 86.3 BUN/Creatinine Ratio 11 (6-20) Glucose Level 83 mg/dL (70-99) Calcium Level 8.2 mg/dL (8.5-10.1) Magnesium Level 1.7 mg/dL (1.8-2.4) Total Bilirubin 0.4 mg/dL (0.2-1.0) Gamma Glutamyl Transpeptidase 129 U/L (10-85) Aspartate Amino Transf (AST/SGOT) 91 U/L (15-37) Alanine Aminotransferase (ALT/SGPT) 117 U/L (16-63) Alkaline Phosphatase 131 U/L (46-116) Creatine Kinase 97 U/L (39-308) Troponin I Quantitative 0.018 ng/mL (0.000-0.055) ED-Qvk-I-Type Natriuretic Peptide 417 pg/mL (0-449) Total Protein 5.9 g/dL (6.4-8.2) Albumin 2.6 g/dL (3.4-5.0) Albumin/Globulin Ratio 0.8 (1.0-1.7) Vitamin B12 Level 1466 pg/mL (247-911) Thyroid Stimulating Hormone (TSH) 1.677 uIU/mL (0.358-3.74) Medications Current Medications Sodium Chloride 500 ml @ 500 mls/hr 1X ONCE IV Last administered on 03/02/20at 19:00; Start 03/02/20 at 18:30; Stop 03/02/20 at 19:29; Status DC Ondansetron HCl (Zofran) 4 mg PRN Q8HRS PRN IV NAUSEA/VOMITING; Start 03/02/20 at 21:00; Stop 03/03/20 at 20:59 Sodium Chloride 1,000 ml @ 125 mls/hr Q8H IV Last administered on 03/03/20at 00:53; Start 03/02/20 at 21:15; Stop 03/03/20 at 21:14 Active Scripts Active Reported Latanoprost 2.5 Ml Drops 1 Drop EACHEYE QHS Atorvastatin Calcium 10 Mg Tablet 10 Mg PO HS Flomax (Tamsulosin Hcl) 0.4 Mg Cap.er.24h 0.4 Mg PO DAILY Hydroxyzine Hcl 25 Mg Tablet 1 Tab PO HS Amlodipine Besylate 5 Mg Tablet 5 Mg PO DAILY Methocarbamol 750 Mg Tablet 750 Mg PO QHS Lisinopril 5 Mg Tablet 5 Mg PO DAILY Ecotrin (Aspirin) 325 Mg Tablet.dr 325 Mg PO DAILY Vitals/I & O Vital Sign - Last 24 Hours 03/02/20 03/02/20 03/02/20 03/02/20 17:30 17:57 18:27 19:00 Temp 98.3 98.3 Pulse 67 62 68 68 Resp 18 22 B/P (MAP) 176/74 (108) Pulse Ox 100 100 100 100 O2 Delivery Room Air 03/02/20 03/02/20 03/02/20 03/02/20 19:30 20:00 20:30 22:40 Temp 98.5 98.5 Pulse 68 62 68 62 Resp 23 20 B/P (MAP) 143/67 (92) Pulse Ox 100 100 100 98 O2 Delivery Room Air 03/02/20 03/03/20 03/03/20 22:45 03:02 07:00 Temp 97.6 97.6 97.6 97.6 Pulse 60 57 Resp 18 B/P (MAP) 148/65 (92) 161/76 (104) Pulse Ox 98 99 O2 Delivery Room Air Room Air Room Air Intake and Output 03/02/20 03/02/20 03/03/20 15:00 23:00 07:00 Intake Total 500 ml Output Total 0 ml Balance 500 ml 0 ml Justicifation of Admission Dx: Justifications for Admission: Justification of Admission Dx: Yes SAIDA GLYNN MD Mar 03, 2020 10:02
[2020-03-03] MEDS ORDERED: MAGNESIUM SULFATE 2GM 50 ML IV ONE (10:30)
[2020-03-03 10:52] VITALS: BP 145/64
--- NOTE | 2020-03-03 11:27 | NUR ---
SW following. Discussed with RN, pt from home with . unable to take care of patient at home, as she has mobility issues herself. PT/OT ordered, pt has dementia. COVID swab needed for placement. SW will continue to follow.
[2020-03-03] MEDS: DICLOFENAC SODIUM 1% TOPICAL GEL 100GM TUBE. TP SCH (11:42)
[2020-03-03] MEDS: LISINOPRIL 5 MG TABLET. PO SCH (11:42)
[2020-03-03] MEDS: TAMSULOSIN 0.4 MG CAP.ER.24H. PO SCH (11:42)
[2020-03-03] MEDS: amLODIPine BESYLATE 5 MG TABLET PO SCH (11:43)
[2020-03-03] MEDS ORDERED: HALOPERIDOL 2 MG TABLET. PO ONE (13:15)
[2020-03-03 14:52] VITALS: BP 138/62
[2020-03-03 19:00] VITALS: BP 168/69
[2020-03-03] MEDS: ATORVASTATIN CALCIUM 10 MG TABLET. PO SCH (21:10)
[2020-03-03] MEDS: LATANOPROST 0.005% OPHTH SOLUTION 2.5ML BOTTLE. OU SCH (21:11)
[2020-03-03 23:00] VITALS: BP_SYST 105; BP_SYST 155; BP_DIAS 47; BP_DIAS 69
[2020-03-04 03:00] VITALS: BP 178/84
[2020-03-04 07:00] VITALS: BP 148/75
[2020-03-04] MEDS ORDERED: LORazepam 0.5 MG TABLET PO ONE ×2 (07:45→12:15)
[2020-03-04] MEDS: TAMSULOSIN 0.4 MG CAP.ER.24H. PO SCH (08:00)
[2020-03-04] MEDS: LISINOPRIL 5 MG TABLET. PO SCH (08:00)
[2020-03-04] MEDS: amLODIPine BESYLATE 5 MG TABLET PO SCH (08:01)
[2020-03-04] MEDS: DICLOFENAC SODIUM 1% TOPICAL GEL 100GM TUBE. TP SCH (08:01)
--- NOTE | 2020-03-04 08:10 | NUR ---
patient seen pressing buttons at the edge of bed. Patient educated on need for bed alarm. Chair alarm put under patient. Will continue to monitor.
--- NOTE | 2020-03-04 09:03 | NUR ---
PREETHI following Chart reviewed, PT/OT recommending SNU. PREETHI spoke with pt's , Maru (ph: [phone]), she would like referral to sent to [facility], as pt has been there before. PREETHI faxed referral, pt will need 1 more midnight, and COVID result (pending) for placement. Awaiting acceptance decision. Addendum: 03/04/20 at 1342 by NICHOLE ORO Pt accepted at [facility], pending COVID result. RN notified. PREETHI attempted to call pt's to notify - no answer.
--- NOTE | 2020-03-04 10:05 | EKG ---
[facility] [address] [place] [address] Test Date: 2020-03-02 Test Time: 19:14:15 Pat Name: SALTY COLLAZO Department: Room: Gender: M [employer] House [employer]: : 1935 Requested By: MERCY SUAREZ Order Number: [id number] Reading MD: Measurements Intervals [place] Rate: 66 P: 54 RI: 110 QRS: 59 QRSD: 68 T: 17 QT: 394 QTc: 415 Interpretive Statements SINUS RHYTHM NORMAL ECG RI6.01 Compared to ECG 02/08/2020 18:44:45 No significant changes
[2020-03-04 11:00] VITALS: BP 147/70
--- NOTE | 2020-03-04 12:27 | CONS ---
DATE OF CONSULTATION: 03/04/2020 ATTENDING PHYSICIAN: Dr. Banerjee. REASON FOR CONSULTATION: The patient was seen at the request of Dr. Baker for rehab evaluation. HISTORY OF PRESENT ILLNESS: This is an 84-year-old male with known dementia, dyslipidemia, hypertension, coronary artery bypass graft, degenerative joint disease, gastroesophageal reflux disease, hypercholesterolemia, hypertension, previous myocardial infarction, also cervical spinal stenosis, admitted through the Emergency Room on 03/02/2020 after recent falls and more confusion. The patient lives with his and he fell out of bed and had multiple abrasions in the left arm and shoulder area and also a skin tear over the bridge of his nose. The patient used to walk around the block without assistance until recently. The patient also used to clean and do some painting at home, which apparently he could not do recently. ALLERGIES: The patient is not known allergic to any medication. SOCIAL HISTORY: He is a former smoker. PHYSICAL EXAMINATION: On physical examination today revealed an elderly male. He is awake, oriented to place and person, follows commands appropriately, moves all 4 extremities voluntarily where he had generalized muscle weakness more so of hip abductors. Deep tendon reflexes are 1-2+ and symmetrical and he had equal perception of touch and pinprick sensation bilaterally. He had crepitus on range of motion of his knees with mild right knee joint effusion and he had minimal tenderness to palpation over right sacroiliac joint area and straight leg raising test is negative bilaterally. He had pain free range of motion of both hip joints. He requires significant assistance with bed mobility and transfers. Once up, he tries to walk with narrow base gait, not quite steady requiring physical assistance and recent roller walker. No obvious facial asymmetry or visual field cut noted. He had incoordination using both upper and lower extremities. ASSESSMENT: Elderly male with known degenerative joint disease of knees, chronic lower back pain from degenerative disk disease of lumbar vertebrae without any clinical evidence of ongoing lumbar radiculopathy, cervical spinal stenosis, dementia, gastroesophageal reflux disease, hypercholesterolemia, hypertension, and status post coronary artery bypass graft, presents with frequent falls, most probably ataxia from cervical spinal stenosis recent with dementia. RECOMMENDATIONS: Agree with the plan for physical therapy and occupational therapy to get him up as tolerated and to [facility] care unit when medically stable for continued care. Dr. Baker, I appreciate asking me to participate in the care of this interesting patient. I will be glad to follow him with you as needed for rehabilitation. NIECY VICENTE MD DR: JANNETH/sylvie JOB#: [id number] / [id number]
[2020-03-04] MEDS ORDERED: cefTRIAXone IV Push 1 GM VIAL. IVP SCH (13:00)
--- NOTE | 2020-03-04 14:04 | NUR ---
At approximately 1330 RN was called to patients room. Patient in bed, vitals being taken, at bedside and 2 CNAs in room. Per , patient " just stood up and wanted to walk. He didnt say anything. Then he just fell." VSS. Dr. Lao came to bedside. Dr. Lao completed bedside physical assessment. Dr. Baker notified. Patient has yellow socks present, fall protocol in place for patient. Will continue to monitor.
[2020-03-04 15:00] VITALS: BP 164/86
--- NOTE | 2020-03-04 18:10 | NUR ---
At approximately 1810 RN was called to room by family member of patient. Family member wanted to know why patient was "so confused". Patient vital signs were checked and as follows : BP : 159/77, HR 65 100 O2 and RR 16. Patient stated " I just want to get to [facility]." Family member became upset by this statement by patient. Family member stated " He has just been declining so much these last 3 to 4 months. He keeps losing weight." Will continue to monitor.
[2020-03-04 19:00] VITALS: BP 172/72
[2020-03-04] MEDS: ATORVASTATIN CALCIUM 10 MG TABLET. PO SCH (22:09)
[2020-03-04] MEDS: LATANOPROST 0.005% OPHTH SOLUTION 2.5ML BOTTLE. OU SCH (22:10)
[2020-03-04 23:00] VITALS: BP 181/76
[2020-03-05] MEDS ORDERED: amLODIPine BESYLATE 5 MG TABLET PO ONE (00:30)
[2020-03-05 03:00] VITALS: BP 172/86
[2020-03-05 07:54] VITALS: BP 163/76
--- NOTE | 2020-03-05 08:59 | PDOC ---
PROGRESS NOTES Chief Complaint Chief Complaint LATE ENTRY, pt seen 03/04 Multiple falls Acute delirium toxic versus metabolic disturbance Anasarca Normocytic anemia Hypomagnesemia Mild transaminitis Elevated alkaline phosphatase suggesting hepatobiliary disease Moderate debilitation Moderate frailty Severe malnutrition History of CABG Hypertension History of Present Illness History of Present Illness consult Dr. Lao for odd gait pattern confusion, a little better, stop the anticholenergic HS, Vitals Vitals Vital Signs Date Time Temp Pulse Resp B/P (MAP) Pulse Ox O2 Delivery O2 Flow Rate FiO2 03/05/20 07:54 97.9 64 18 163/76 (105) 99 Room Air 97.9 Physical Exam General: Cooperative, No acute distress Heart: Regular rate Lungs: Clear, Other Extremities: No clubbing, No cyanosis Skin: No breakdown Comment Review of Relevant I have reviewed the following items rahul (where applicable) has been applied. Labs Laboratory Tests Test 03/03/20 22:05 Coronavirus (PCR) Not detected (Not Detected) Medications Current Medications Sodium Chloride 500 ml @ 500 mls/hr 1X ONCE IV Last administered on 03/02/20at 19:00; Start 03/02/20 at 18:30; Stop 03/02/20 at 19:29; Status DC Ondansetron HCl (Zofran) 4 mg PRN Q8HRS PRN IV NAUSEA/VOMITING; Start 03/02/20 at 21:00; Stop 03/03/20 at 20:59; Status DC Sodium Chloride 1,000 ml @ 125 mls/hr Q8H IV Last administered on 03/03/20at 00:53; Start 03/02/20 at 21:15; Stop 03/03/20 at 21:14; Status DC Amlodipine Besylate (Norvasc) 5 mg DAILY PO Last administered on 03/04/20at 08:01; Start 03/03/20 at 11:00 Atorvastatin Calcium (Lipitor) 10 mg HS PO Last administered on 03/04/20at 22:09; Start 03/03/20 at 21:00 Latanoprost (Xalatan) 1 drop QHS OU Last administered on 03/04/20at 22:10; Start 03/03/20 at 21:00 Lisinopril (Prinivil) 5 mg DAILY PO Last administered on 03/04/20at 08:00; Start 03/03/20 at 11:00 Tamsulosin HCl (Flomax) 0.4 mg DAILY PO Last administered on 03/04/20at 08:00; Start 03/03/20 at 11:00 Magnesium Sulfate 50 ml @ 25 mls/hr 1X ONCE IV Last administered on 03/03/20at 11:42; Start 03/03/20 at 10:30; Stop 03/03/20 at 12:29; Status DC Diclofenac Sodium (Voltaren) 1 ernestina DAILY TP Last administered on 03/04/20at 08:01; Start 03/03/20 at 10:15 Haloperidol (Haldol) 2 mg 1X ONCE PO Last administered on 03/03/20at 14:05; Start 03/03/20 at 13:15; Stop 03/03/20 at 13:16; Status DC Lorazepam (Ativan) 0.5 mg 1X ONCE PO Last administered on 03/04/20at 08:01; Start 03/04/20 at 07:45; Stop 03/04/20 at 07:46; Status DC Ceftriaxone Sodium (Rocephin) 1 gm Q24H IVP Last administered on 03/04/20at 17:02; Start 03/04/20 at 13:00 Lorazepam (Ativan) 0.5 mg 1X ONCE PO Last administered on 03/04/20at 17:02; Start 03/04/20 at 12:15; Stop 03/04/20 at 12:16; Status DC Amlodipine Besylate (Norvasc) 5 mg 1X ONCE PO Last administered on 03/05/20at 00:35; Start 03/05/20 at 00:30; Stop 03/05/20 at 00:31; Status DC Active Scripts Active Reported Latanoprost 2.5 Ml Drops 1 Drop EACHEYE QHS Atorvastatin Calcium 10 Mg Tablet 10 Mg PO HS Flomax (Tamsulosin Hcl) 0.4 Mg Cap.er.24h 0.4 Mg PO DAILY Hydroxyzine Hcl 25 Mg Tablet 1 Tab PO HS Amlodipine Besylate 5 Mg Tablet 5 Mg PO DAILY Methocarbamol 750 Mg Tablet 750 Mg PO QHS Lisinopril 5 Mg Tablet 5 Mg PO DAILY Ecotrin (Aspirin) 325 Mg Tablet.dr 325 Mg PO DAILY Vitals/I & O Vital Sign - Last 24 Hours 03/04/20 03/04/20 03/04/20 03/04/20 11:00 15:00 19:00 20:00 Temp 97.7 98.9 98.9 97.7 98.9 98.9 Pulse 65 76 65 Resp 16 18 18 B/P (MAP) 147/70 (95) 164/86 (112) 172/72 (105) Pulse Ox 98 98 96 O2 Delivery Room Air Room Air Room Air Room Air 03/04/20 03/05/20 03/05/20 03/05/20 23:00 00:35 03:00 07:54 Temp 97.8 97.0 97.9 97.8 97.0 97.9 Pulse 64 64 69 64 Resp 18 18 18 B/P (MAP) 181/76 (111) 181/76 172/86 (114) 163/76 (105) Pulse Ox 100 99 99 O2 Delivery Room Air Room Air Room Air Nutrition Consultation Dietary Evaluation: Recommendations by RD: Dietary education by RD, Increase Calorie Intake, Protei n supplementation Comments: cardiac ensure bid Expected Outcomes/Goals: to meet >75% est nurtition needs Malnutrition Findings: Body Fat Depletion (Non Severe: Mild Depletion Weight Status: Underweight Justicifation of Admission Dx: Justifications for Admission: Justification of Admission Dx: Yes SAIDA GLYNN MD Mar 05, 2020 08:59
[2020-03-05] MEDS ORDERED: TRAM-48 PO (09:00)
--- NOTE | 2020-03-05 09:02 | SNU/HH DC ---
DISCHARGE ORDERS DISCHARGE INFORMATION: DISCHARGE DATE: Mar 05, 2020 FINAL DIAGNOSIS Multiple falls Acute delirium toxic versus metabolic disturbance Anasarca Normocytic anemia Hypomagnesemia Mild transaminitis Elevated alkaline phosphatase suggesting hepatobiliary disease Moderate debilitation Moderate frailty Severe malnutrition History of CABG Hypertension CONDITION ON DISCHARGE: Stable CODE STATUS: Code Status: Full PENITENTIARY: SNF STAY <30 DAYS: Yes POST DISCHARGE ORDERS: ACTIVITY ORDERS: No restrictions WEIGHT BEARING STATUS: No restrictions BATHING ORDERS: Shower-keep dressing dry DIET AFTER DISCHARGE: Cardiac WOUND/INCISION CARE: Change dressing FOLLOW-UP: PHYSICIAN FOLLOW-UP: primary care 2 weeks TREATMENT/EQUIPMENT ORDERS: ADAPTIVE EQUIPMENT NEEDED: None Physical Therapy For: Evalulation/Treatment Occupational Therapy For: Evaluation/Treatment DISCHARGE MEDICATIONS: Home Meds Active Scripts Tramadol Hcl (ULTRAM) 50 Mg Tablet, 1 TAB PO PRN BID PRN for pain MDD 2 Tablet(s) for 15 Days, #25 TAB 0 Refills Prov:SAIDA GLYNN MD 03/05/20 Reported Medications Latanoprost (LATANOPROST) 2.5 Ml Drops, 1 DROP EACHEYE QHS for dry eye, #7.5 ML 3 Refills 03/03/20 Atorvastatin Calcium (ATORVASTATIN CALCIUM) 10 Mg Tablet, 10 MG PO HS for FOR CHOLESTEROL, #30 TAB 0 Refills 03/03/20 Tamsulosin Hcl (FLOMAX) 0.4 Mg Cap.er.24h, 0.4 MG PO DAILY for prostate, TAB 03/03/20 Amlodipine Besylate (AMLODIPINE BESYLATE) 5 Mg Tablet, 5 MG PO DAILY for HTN, TAB 03/03/20 Lisinopril (LISINOPRIL) 5 Mg Tablet, 5 MG PO DAILY for FOR HYPERTENSION, #30 TAB 0 Refills 06/18/15 Aspirin (ECOTRIN) 325 Mg Tablet.dr, 325 MG PO DAILY 10/01/13 Discontinued Reported Medications Hydroxyzine Hcl (HYDROXYZINE HCL) 25 Mg Tablet, 1 TAB PO HS for itching, #30 TAB 03/03/20 Methocarbamol (METHOCARBAMOL) 750 Mg Tablet, 750 MG PO QHS, #30 12/26/15 Magnesium Hydroxide (MILK OF MAGNESIA) 400 Mg/5 Ml Oral.susp, 400 MG PO QHS PRN for MUSCLE SPASMS 12/26/15 Diphenhydramine Hcl (BENADRYL) 25 Mg Capsule, 1 CAP PO QHS for ITCHING, #30 CAP 1 Refill 06/18/15 Amoxicillin (AMOXICILLIN) 125 Mg Tab.chew, 125 MG PO BID, TAB.CHEW 0 Refills 06/18/15 Krill Oil (KRILL OIL) 500 Mg Capsule, 500 MG PO DAILY 06/18/15 Multivits,Ca,Min/Iron/FA/Lycop (Centrum Men's Tablet) 1 Each Tablet, 1 EACH PO DAILY 06/18/15 Gabapentin (GABAPENTIN ) 100 Mg Capsule, 100 MG PO DAILY, CAP 06/18/15 Omeprazole (OMEPRAZOLE) 20 Mg Capsule.dr, 20 MG PO DAILY, CAP 06/18/15 SAIDA GLYNN MD Mar 05, 2020 09:02
--- NOTE | 2020-03-05 09:10 | NUR ---
PREETHI following. Discussed with RN, pt COVID-19 negative. Pt discharging to [facility] today for SNU. PREETHI notified pt's , Maru. Discharge orders faxed, awaiting transportation time. Addendum: 03/05/20 at 1007 by [employer] Transportation set up for 1130. PREETHI attempted to notify pt's - no answer. PREETHI had advised pt's of possibility of time being 1130 during last conversation. RN notified. No further PREETHI needs.
--- NOTE | 2020-03-05 09:24 | PDOC ---
PROGRESS NOTES Subjective Subjective No new complaints. Objective Objective Vital Signs Date Time Temp Pulse Resp B/P (MAP) Pulse Ox O2 Delivery O2 Flow Rate FiO2 03/05/20 07:54 97.9 64 18 163/76 (105) 99 Room Air 97.9 Intake and Output 03/05/20 07:00 # Voids 7 Physical Exam Physical Exam He is supine in bed and seems to be slightly more confused today when compared to yesterday and he continues with ataxia and he is a fall risk when he gets up without maximal assistance. I spoke to his yesterday after he fell off bed with her in the room. Plan Plan of Care To SNF when medically stable. Comment Review of Relevant I have reviewed the following items rahul (where applicable) has been applied. Labs Laboratory Tests Test 03/03/20 22:05 Coronavirus (PCR) Not detected (Not Detected) Medications Current Medications Sodium Chloride 500 ml @ 500 mls/hr 1X ONCE IV Last administered on 03/02/20at 19:00; Start 03/02/20 at 18:30; Stop 03/02/20 at 19:29; Status DC Ondansetron HCl (Zofran) 4 mg PRN Q8HRS PRN IV NAUSEA/VOMITING; Start 03/02/20 at 21:00; Stop 03/03/20 at 20:59; Status DC Sodium Chloride 1,000 ml @ 125 mls/hr Q8H IV Last administered on 03/03/20at 00:53; Start 03/02/20 at 21:15; Stop 03/03/20 at 21:14; Status DC Amlodipine Besylate (Norvasc) 5 mg DAILY PO Last administered on 03/04/20at 08:01; Start 03/03/20 at 11:00 Atorvastatin Calcium (Lipitor) 10 mg HS PO Last administered on 03/04/20 22:09; Start 03/03/20 at 21:00 Latanoprost (Xalatan) 1 drop QHS OU Last administered on 03/04/20 22:10; Start 03/03/20 at 21:00 Lisinopril (Prinivil) 5 mg DAILY PO Last administered on 03/04/20at 08:00; Start 03/03/20 at 11:00 Tamsulosin HCl (Flomax) 0.4 mg DAILY PO Last administered on 7/30/20at 08:00; Start 03/03/20 at 11:00 Magnesium Sulfate 50 ml @ 25 mls/hr 1X ONCE IV Last administered on 03/03/20at 11:42; Start 03/03/20 at 10:30; Stop 03/03/20 at 12:29; Status DC Diclofenac Sodium (Voltaren) 1 ernestina DAILY TP Last administered on 03/04/20at 08:01; Start 03/03/20 at 10:15 Haloperidol (Haldol) 2 mg 1X ONCE PO Last administered on 03/03/20at 14:05; Start 03/03/20 at 13:15; Stop 03/03/20 at 13:16; Status DC Lorazepam (Ativan) 0.5 mg 1X ONCE PO Last administered on 03/04/20at 08:01; Start 03/04/20 at 07:45; Stop 03/04/20 at 07:46; Status DC Ceftriaxone Sodium (Rocephin) 1 gm Q24H IVP Last administered on 03/04/20at 17:02; Start 03/04/20 at 13:00 Lorazepam (Ativan) 0.5 mg 1X ONCE PO Last administered on 03/04/20at 17:02; Start 03/04/20 at 12:15; Stop 03/04/20 at 12:16; Status DC Amlodipine Besylate (Norvasc) 5 mg 1X ONCE PO Last administered on 03/05/20at 00:35; Start 03/05/20 at 00:30; Stop 03/05/20 at 00:31; Status DC Active Scripts Active Ultram (Tramadol Hcl) 50 Mg Tablet 1 Tab PO PRN BID PRN MDD 2 Tablet(s) 15 Days Reported Latanoprost 2.5 Ml Drops 1 Drop EACHEYE QHS Atorvastatin Calcium 10 Mg Tablet 10 Mg PO HS Flomax (Tamsulosin Hcl) 0.4 Mg Cap.er.24h 0.4 Mg PO DAILY Amlodipine Besylate 5 Mg Tablet 5 Mg PO DAILY Lisinopril 5 Mg Tablet 5 Mg PO DAILY Ecotrin (Aspirin) 325 Mg Tablet.dr 325 Mg PO DAILY Vitals/I & O Vital Sign - Last 24 Hours 03/04/20 03/04/20 03/04/20 03/04/20 11:00 15:00 19:00 20:00 Temp 97.7 98.9 98.9 97.7 98.9 98.9 Pulse 65 76 65 Resp 16 18 18 B/P (MAP) 147/70 (95) 164/86 (112) 172/72 (105) Pulse Ox 98 98 96 O2 Delivery Room Air Room Air Room Air Room Air 03/04/20 03/05/20 03/05/20 03/05/20 23:00 00:35 03:00 07:54 Temp 97.8 97.0 97.9 97.8 97.0 97.9 Pulse 64 64 69 64 Resp 18 18 18 B/P (MAP) 181/76 (111) 181/76 172/86 (114) 163/76 (105) Pulse Ox 100 99 99 O2 Delivery Room Air Room Air Room Air Justicifation of Admission Dx: Justifications for Admission: Justification of Admission Dx: Yes Nutrition Consultation Dietary Evaluation: Recommendations by RD: Dietary education by RD, Increase Calorie Intake, Protein supplementation Comments: cardiac ensure bid Expected Outcomes/Goals: to meet >75% est nurtition needs Malnutrition Findings: Body Fat Depletion (Non Severe: Mild Depletion Weight Status: Underweight NIECY VICENTE MD Mar 05, 2020 09:24
[2020-03-05] MEDS: TAMSULOSIN 0.4 MG CAP.ER.24H. PO SCH (10:12)
[2020-03-05] MEDS: LISINOPRIL 5 MG TABLET. PO SCH (10:13)
[2020-03-05] MEDS: amLODIPine BESYLATE 5 MG TABLET PO SCH (10:13)
[2020-03-05] MEDS: DICLOFENAC SODIUM 1% TOPICAL GEL 100GM TUBE. TP SCH (10:13)
[2020-03-05 11:05] VITALS: BP 162/78
--- NOTE | 2020-03-05 11:52 | NUR ---
pt is discharged to [facility] at 1141 via wheelchair via transportation. pt is in stable condition. pt has all belongings with him. discharge instructions and report given to [place], at [facility] and she stated she had no further questions for me. discharge packet given to transportation with prescriptions inside.
[2020-03-10] MEDS ORDERED: GUAI100L12 PO (10:54)
[2020-03-10] MEDS ORDERED: LACT1CAP19 PO (10:54)
[2020-03-10] MEDS ORDERED: ALBU2.5V8 NEB (10:54)
[2020-03-10] MEDS ORDERED: AMOX1TAB58 PO (10:54)
[2020-03-10] MEDS ORDERED: DOCU-153 PO (10:54)
--- NOTE | 2020-03-19 15:39 | PDOC3 ---
Discharge Summary Visit Information Date of Admission: Mar 02, 2020 Date of Discharge: Mar 05, 2020 Final Diagnosis Multiple falls Acute delirium toxic versus metabolic disturbance Anasarca Normocytic anemia Hypomagnesemia Mild transaminitis Elevated alkaline phosphatase suggesting hepatobiliary disease Moderate debilitation Moderate frailty Severe malnutrition History of CABG Hypertension Brief Hospital Course Allergies Allergies Coded Allergies Type Severity Reaction Last Updated Verified No Known Drug Allergies 07/28/15 No Brief Hospital Course Mr. Osorio is a 84 old male with past medical history of dementia, dyslipidemia, hypertension, CABG who presents to the ED for a fall. Most of the history was obtained from the daughter in the room due to patient's dementia. consulted Dr. Lao for odd gait pattern, he improved slowly, confusion was better over days stoped the anticholenergic HS, Discharge Information Condition at Discharge: Improved Follow Up: Weeks Disposition/Orders: D/C to Home Scheduled Amlodipine Besylate (Amlodipine Besylate) 5 Mg Tablet, 5 MG PO DAILY for HTN, (Reported) Entered as Reported by: TABITHA TOLBERT on 03/03/20449 Last Action: Continued on 03/03/201002 by SAIDA GLYNN Amoxicillin/Potassium Clav (Augmentin 500-125 Tablet) 1 Each Tablet, 1 TAB PO BID for COUGH for 7 Days, #14 Ref 0 Prescribed by: JERMAIN GOMEZ MD on 03/10/20 1054 Aspirin (Ecotrin) 325 Mg Tablet.dr, 325 MG PO DAILY, (Reported) Entered as Reported by: NIMISHA MAST on 10/01/13 0659 Last Action: Reviewed on 03/03/20452 by TABITHA TOLBERT Atorvastatin Calcium (Atorvastatin Calcium) 10 Mg Tablet, 10 MG PO HS for FOR CHOLESTEROL, #30 Ref 0 (Reported) Entered as Reported by: TABITHA TOLBERT on 03/03/20456 Last Action: Continued on 03/03/201002 by SAIDA GLYNN Lactobacillus Rhamnosus Gg (Culturelle) 1 Each Cap.sprink, 1 CAP PO BID for SUPPLEMENT for 30 Days, #60 Prescribed by: JERMAIN GOMEZ MD on 03/10/20 1054 Latanoprost (Latanoprost) 2.5 Ml Drops, 1 DROP EACHEYE QHS for dry eye, #7.5 Ref 3 (Reported) Entered as Reported by: TABITHA TOLBERT on 7/29/20 0457 Last Action: Continued on 03/03/20 1003 by SAIDA GLYNN Lisinopril (Lisinopril) 5 Mg Tablet, 5 MG PO DAILY for FOR HYPERTENSION, #30 Ref 0 (Reported) Entered as Reported by: SABRINA CHEN on 06/18/15 1134 Last Action: Continued on 03/03/20 1003 by SAIDA GLNYN Tamsulosin Hcl (Flomax) 0.4 Mg Cap.er.24h, 0.4 MG PO DAILY for prostate, (Reported) Entered as Reported by: TABITHA TOLBERT on 03/03/207 Last Action: Continued on 03/03/20 1003 by SAIDA GLYNN Scheduled PRN Albuterol Sulfate (Proair Hfa) 8.5 Gm Hfa.aer.ad, 2.5 MG NEB PRN Q4HRS PRN for SHORTNESS OF BREATH for 14 Days, #90 Prescribed by: JERMAIN GOMEZ MD on 03/10/20 1054 Docusate Sodium (Dok) 100 Mg Capsule, 100 MG PO PRN BID PRN for HARD STOOLS 1ST CHOICE for 30 Days, #60 Prescribed by: JERMAIN GOMZE MD on 03/10/20 1054 Guaifenesin (Guaifenesin) 100 Mg/5 Ml Liquid, 200 MG PO PRN Q4HRS PRN for COUGH for 10 Days, #240 Prescribed by: JERMAIN GOMEZ MD on 03/10/20 1054 Patient Instructions Patient Instructions face to face Justicifation of Admission Dx: Justifications for Admission: Justification of Admission Dx: Yes SAIDA GLYNN MD Mar 19, 2020 15:39
== END 2020-03-05 11:41 | DRG 70 ==
LOC: ER 16:30 → ED HOLD 20:35 → 4 NORTH 21:59
PROVIDERS: ADMIT Internal Medicine; ATTEND Internal Medicine
DX: G93.41 Metabolic encephalopathy (principal); E43 Unspecified severe protein-calorie malnutrition; E88.9 Metabolic disorder, unspecified; E83.42 Hypomagnesemia; D64.9 Anemia, unspecified; E78.00 Pure hypercholesterolemia, unspecified; E78.5 Hyperlipidemia, unspecified; F03.90 Unspecified dementia, unspecified severity, without behavioral disturbance, psychotic disturbance, mood disturbance, and anxiety; G89.29 Other chronic pain; I10 Essential (primary) hypertension; I25.2 Old myocardial infarction; I73.9 Peripheral vascular disease, unspecified; K21.9 Gastro-esophageal reflux disease without esophagitis; M17.0 Bilateral primary osteoarthritis of knee; M48.02 Spinal stenosis, cervical region; M51.36 Other intervertebral disc degeneration, lumbar region; R29.6 Repeated falls; Z87.891 Personal history of nicotine dependence; Z95.1 Presence of aortocoronary bypass graft; Z20.828 Contact with and (suspected) exposure to other viral communicable diseases; W18.39XA Other fall on same level, initial encounter; Y93.89 Activity, other specified; Y92.89 Other specified places as the place of occurrence of the external cause; Y99.8 Other external cause status; Z68.22 Body mass index [BMI] 22.0-22.9, adult; R74.0 Nonspecific elevation of levels of transaminase and lactic acid dehydrogenase [LDH]
CPT/HCPCS: 36415; 70450; 71045; 73030; 73060; 80053; 82550; 82607; 82977; 83735; 83880; 84443; 84484; 85025; 93005; 96360; 99285; J0696; J3475; J7030; J7040; 97116-GP; 97530-GP; G0378; U0003-CS

== ENCOUNTER 2020-03-08 10:59 | Inpatient (IN) | payer MEDICARE, OTHER ==
[~2020-03-08] VITALS: Ht 170.2 cm; Wt 57.9 kg
[~2020-03-08 10:59] MED LIST changes: +AMLO5TAB10 PO; +ATOR10TA60 PO; +HYDR25TA PO; +LATA2.5D3 EACHEYE; +TAMS0.4C97 PO; +TRAM-48 PO
[2020-03-08] MEDS ORDERED: IV NORMAL SALINE 1000ML BAG 1,000 ML IV ONE (11:45)
[2020-03-08 11:53] LABS: BASO % 1 % (0-3); EOS # 0.1 x10^3/uL (0.0-0.7); EOS % 2 % (0-3); HEMATOCRIT 36.8 % (39.0-53.0); HEMOGLOBIN 12.3 g/dL (13.0-17.5); LYMPH # 1.6 x10^3/uL (1.0-4.8); LYMPH % 31 % (24-48); MEAN CORPUSCULAR HEMOGLOBIN 33 pg (25-35); MEAN CORPUSCULAR HGB CONC 33 g/dL (31-37); MEAN CORPUSCULAR VOLUME 98 fL (79-100); MONO # 0.5 x10^3/uL (0.0-1.1); MONO % 10 % (0-9); NEUT # 2.8 x10^3/uL (1.8-7.7); NEUT % 56 % (31-73); PLATELET COUNT 153 x10^3/uL (140-400); RED BLOOD COUNT 3.77 x10^6/uL (4.30-5.70); RED CELL DISTRIBUTION WIDTH 13.4 % (11.5-14.5)
[2020-03-08 12:02] LABS: CALCIUM 8.6 mg/dL (8.5-10.1); GFR 86.3; POTASSIUM 4.2 mmol/L (3.5-5.1)
[2020-03-08 12:18] LABS: ALBUMIN 2.8 g/dL (3.4-5.0); ALBUMIN/GLOBULIN RATIO 0.8 (1.0-1.7); TOTAL BILIRUBIN 0.6 mg/dL (0.2-1.0); TOTAL PROTEIN 6.5 g/dL (6.4-8.2)
--- NOTE | 2020-03-08 12:48 | RAD ---
EXAM: AP View of the chest DATE: 03/08/2020 11:12 AM INDICATION: Altered mental status COMPARISON: No Prior FINDINGS: The heart is not enlarged. Aorta is mildly tortuous. Patchy opacity left lung base likely atelectasis. Trace left pleural effusion. No pneumothorax. IMPRESSION: Mild patchy opacities left lung base may represent atelectasis given elevated left hemidiaphragm. Trace left pleural effusion. Electronically signed by: Zoltan Naranjo MD (03/08/2020 12:45 PM) [id number]
--- NOTE | 2020-03-08 13:49 | PHYS DOC ---
Past Medical History Past Medical History: Arthritis, Dementia, GERD, High Cholesterol, Heart Disease, Hypertension, SC, Other Additional Past Medical Histor: BACK PAIN Past Surgical History: Other Additional Past Surgical Histo: CARDIAC SURGERY, neck Smoking Status: Former Smoker Alcohol Use: Sober Drug Use: None General Adult EDM: Chief Complaint: ALTERED MENTAL STATUS HPI: HPI: The history was obtained from EMS. Patient is a 84-year-old male with PMH dementia who presents with a chief complaint of altered mental status. Per EMS were called the patient's assisted living facility due to altered mentation. They state that he is normally oriented to person only at baseline. They state the staff were concerned that he was less vocal than normal. EMS states that the staff reported low blood pressures at his facility. EMS states upon their arrival the patient had normal blood pressure and vitals. No further history can be obtained from the patient given his history of dementia. Review of Systems: Review of Systems: Unable to obtain review of systems secondary to patient's history of dementia Heart Score: Risk Factors: Risk Factors: DM, Current or recent (<one month) smoker, HTN, HLP, family history of CAD, obesity. Risk Scores: Score 0 - 3: 2.5% MACE over next 6 weeks - Discharge Home Score 4 - 6: 20.3% MACE over next 6 weeks - Admit for Clinical Observation Score 7 - 10: 72.7% MACE over next 6 weeks - Early Invasive Strategies Current Medications: Current Medications Medications (Trade) Dose Ordered Sig/Kay Start Time Stop Time Status Last Admin Dose Admin Sodium Chloride 1,000 ml @ 1,000 mls/hr 1X ONCE 03/08/20 11:45 03/08/20 12:44 DC 03/08/20 11:45 1,000 MLS/HR Allergies: Allergies: Allergies Coded Allergies Type Severity Reaction Last Updated Verified No Known Drug Allergies 07/28/15 No Physical Exam: PE: Constitutional: Well developed, well nourished, no acute distress, non-toxic appearance. [] HENT: Normocephalic, atraumatic, bilateral external ears normal, oropharynx moist, no oral exudates, nose normal. [] Eyes: PERRLA, EOMI, conjunctiva normal, no discharge. [] Neck: Normal range of motion, no tenderness, supple, no stridor. [] Cardiovascular:Heart rate regular rhythm, no murmur [] Lungs & Thorax: Bilateral breath sounds clear to auscultation [] Abdomen: Bowel sounds normal, soft, no tenderness, no masses, no pulsatile masses. [] Skin: Warm, dry, no erythema, no rash. [] Back: No tenderness, no CVA tenderness. [] Extremities: No tenderness, no cyanosis, no clubbing, ROM intact, no edema. [] Neurologic: Alert, oriented to person only. Moves all 4 extremities spontaneously. Current Patient Data: Labs: Laboratory Tests Test 03/08/20 11:34 White Blood Count 5.0 x10^3/uL (4.0-11.0) Red Blood Count 3.77 x10^6/uL (4.30-5.70) L Hemoglobin 12.3 g/dL (13.0-17.5) L Hematocrit 36.8 % (39.0-53.0) L Mean Corpuscular Volume 98 fL (79-100) Mean Corpuscular Hemoglobin 33 pg (25-35) Mean Corpuscular Hemoglobin Concent 33 g/dL (31-37) Red Cell Distribution Width 13.4 % (11.5-14.5) Platelet Count 153 x10^3/uL (140-400) Neutrophils (%) (Auto) 56 % (31-73) Lymphocytes (%) (Auto) 31 % (24-48) Monocytes (%) (Auto) 10 % (0-9) H Eosinophils (%) (Auto) 2 % (0-3) Basophils (%) (Auto) 1 % (0-3) Neutrophils # (Auto) 2.8 x10^3/uL (1.8-7.7) Lymphocytes # (Auto) 1.6 x10^3/uL (1.0-4.8) Monocytes # (Auto) 0.5 x10^3/uL (0.0-1.1) Eosinophils # (Auto) 0.1 x10^3/uL (0.0-0.7) Basophils # (Auto) 0.0 x10^3/uL (0.0-0.2) Sodium Level 141 mmol/L (136-145) Potassium Level 4.2 mmol/L (3.5-5.1) Chloride Level 107 mmol/L (98-107) Carbon Dioxide Level 27 mmol/L (21-32) Anion Gap 7 (6-14) Blood Urea Nitrogen 16 mg/dL (8-26) Creatinine 1.0 mg/dL (0.7-1.3) Estimated GFR (Cockcroft-Gault) 86.3 BUN/Creatinine Ratio 16 (6-20) Glucose Level 63 mg/dL (70-99) L Lactic Acid Level 1.7 mmol/L (0.4-2.0) Calcium Level 8.6 mg/dL (8.5-10.1) Total Bilirubin 0.6 mg/dL (0.2-1.0) Aspartate Amino Transferase (AST) 130 U/L (15-37) H Alanine Aminotransferase (ALT) 144 U/L (16-63) H Alkaline Phosphatase 120 U/L (46-116) H Total Protein 6.5 g/dL (6.4-8.2) Albumin 2.8 g/dL (3.4-5.0) L Albumin/Globulin Ratio 0.8 (1.0-1.7) L Laboratory Tests 03/08/20 11:34 Laboratory Tests 03/08/20 11:34 Vital Signs: Vital Signs Date Time Temp Pulse Resp B/P (MAP) Pulse Ox O2 Delivery O2 Flow Rate FiO2 03/08/20 11:00 98.0 72 17 98.0 EKG: EKG: EKG consistent with normal sinus rhythm. Ventricular to 74 bpm. [place] normal. Significant artifact present. No obvious ST elevation appreciated. Intervals otherwise normal. Radiology/Procedures: Radiology/Procedures: [] Course & Med Decision Making: Course & Med Decision Making Pertinent Labs and Imaging studies reviewed. (See chart for details) Patient is a an 84-year-old malnourished appearing male who presents with a chief complaint of altered mental status from his alf facility. Vital signs grossly unremarkable. No focal neurologic deficits appreciated. He does move all 4 extremity spontaneously. Broad work-up was obtained. Does have concerning findings for right lower lobe pneumonia. On chart review patient was recently hospitalized for adult failure to thrive. I do feel it is reasonable to hospitalize the patient for further care given his change in mentation. He will be given broad-spectrum antibiotics including vancomycin and cefepime given his recent hospitalization and residence at a local alf facility. COVID swab obtained and pending. He has remained hemodynamically stable while in the ER. Signout given to hospitalist. Zeina Disclaimer: Zeina Disclaimer: This electronic medical record was generated, in whole or in part, using a voice recognition dictation system. Departure Departure Disposition: ADMITTED INPATIENT Condition: IMPROVED Referrals: SAIDA GLYNN MD (PCP) Justicifation of Admission Dx: Justifications for Admission: Justification of Admission Dx: Yes Comments: pneumonia with AMS SURINDER GABRIEL DO Mar 08, 2020 13:49
[2020-03-08] MEDS ORDERED: VANCOMYCIN 1.75 GM in IV NORMAL SALINE 500ML BAG 500 ML IV ONE (15:15)
[2020-03-08] MEDS ORDERED: CEFEPIME HCL IV Push 1 GM VIAL. IVP ONE (15:15)
--- NOTE | 2020-03-08 15:22 | PDOC1 ---
History and Physical Date of Admission Date of Admission DATE: 03/08/20 TIME: 15:21 Identification/Chief Complaint Chief Complaint seen in er with concern for covid-19 [id number] male with PMH dementia who presents with a chief complaint of altered mental status. Per EMS were called the patient's assisted living facility due to altered mentation. They state that he is normally oriented to person only at baseline. staff at [facility] concerned that he was less vocal than normal. EMS states that the staff reported low blood pressures at his facility. EMS states upon their arrival the patient had normal blood pressure and vitals. No further history can be obtained from the patient given his history of dementia. Past Medical History Past Medical History Past Medical History Past Medical History Past Medical History: Arthritis, Dementia, GERD, High Cholesterol, Heart Disease, Hypertension, [place], Other Additional Past Medical Histor: BACK PAIN Past Surgical History: Other Additional Past Surgical Histo: CARDIAC SURGERY, neck Smoking Status: Former Smoker Alcohol Use: Sober Drug Use: None Past Medical/Surgical History: PMH/PSH: Past Medical History: Arthritis, Dementia, GERD, High Cholesterol, Heart Disease, Hypertension, TN Past Surgical History: CABG Allergies: Allergies: Coded Allergies: No Known Drug Allergies (Unverified , 07/28/15) Family History: Family History: HTN Social History: Social History: Smoking Status: Former Smoker Alcohol Use: Denies Drug Use: None FHX HTN Cardiovascular: CAD, HTN, Hyperlipidemia Pulmonary: No pertinent hx CENTRAL NERVOUS SYSTEM: Other GI: GERD Heme/Onc: No pertinent hx Hepatobiliary: No pertinent hx Psych: No pertinent hx Musculoskeletal: Other Rheumatologic: No pertinent hx Infectious disease: No pertinent hx Renal/: Benign prostatic enlarg. Endocrine: No pertinent hx Past Surgical History Past Surgical History: CABG, Hernia Repair, Other Family History Family History: Heart Disease, High Cholestrol Social History Smoke: No ALCOHOL: none Drugs: None Current Medications Current Medications Current Medications Sodium Chloride 1,000 ml @ 1,000 mls/hr 1X ONCE IV Last administered on 03/08/20at 11:45; Start 03/08/20 at 11:45; Stop 03/08/20 at 12:44; Status DC Vancomycin HCl 1.75 gm/Sodium Chloride 500 ml @ 250 mls/hr 1X ONCE IV ; Start 03/08/20 at 15:15; Stop 8/3/20 at 17:14; Status UNV Cefepime HCl (Maxipime) 1 gm 1X ONCE IVP ; Start 03/08/20 at 15:15; Stop 03/08/20 at 15:18; Status DC Active Scripts Active Ultram (Tramadol Hcl) 50 Mg Tablet 1 Tab PO PRN BID PRN MDD 2 Tablet(s) 15 Days Reported Latanoprost 2.5 Ml Drops 1 Drop EACHEYE QHS Atorvastatin Calcium 10 Mg Tablet 10 Mg PO HS Flomax (Tamsulosin Hcl) 0.4 Mg Cap.er.24h 0.4 Mg PO DAILY Amlodipine Besylate 5 Mg Tablet 5 Mg PO DAILY Lisinopril 5 Mg Tablet 5 Mg PO DAILY Ecotrin (Aspirin) 325 Mg Tablet.dr 325 Mg PO DAILY Allergies Allergies: Coded Allergies: No Known Drug Allergies (Unverified , 07/28/15) ROS Review of System UNABLE TO PARTICIPATE DUE TO DEMENTIA Physical Exam Physical Exam Constitutional: Well developed, well nourished, no acute distress, non-toxic appearance. [] HENT: Normocephalic, atraumatic, bilateral external ears normal, oropharynx moist, no oral exudates, nose normal. [] Eyes: PERRLA, EOMI, conjunctiva normal, no discharge. [] Neck: Normal range of motion, no tenderness, supple, no stridor. [] Cardiovascular:Heart rate regular rhythm, no murmur [] Lungs & Thorax: Bilateral breath sounds clear to auscultation [] Abdomen: Bowel sounds normal, soft, no tenderness, no masses, no pulsatile masses. [] Skin: Warm, dry, no erythema, no rash. [] Back: No tenderness, no CVA tenderness. [] Extremities: No tenderness, no cyanosis, no clubbing, ROM intact, no edema. [] Neurologic: Alert, oriented to person only. Moves all 4 extremities spontaneously. General: Cooperative HEENT: Atraumatic Abdomen: Soft Extremities: No cyanosis Vitals Vitals Vital Signs Date Time Temp Pulse Resp B/P (MAP) Pulse Ox O2 Delivery O2 Flow Rate FiO2 03/08/20 11:00 98.0 72 17 98.0 Labs Labs Laboratory Tests Test 03/08/20 11:34 White Blood Count 5.0 x10^3/uL (4.0-11.0) Red Blood Count 3.77 x10^6/uL (4.30-5.70) Hemoglobin 12.3 g/dL (13.0-17.5) Hematocrit 36.8 % (39.0-53.0) Mean Corpuscular Volume 98 fL (79-100) Mean Corpuscular Hemoglobin 33 pg (25-35) Mean Corpuscular Hemoglobin Concent 33 g/dL (31-37) Red Cell Distribution Width 13.4 % (11.5-14.5) Platelet Count 153 x10^3/uL (140-400) Neutrophils (%) (Auto) 56 % (31-73) Lymphocytes (%) (Auto) 31 % (24-48) Monocytes (%) (Auto) 10 % (0-9) Eosinophils (%) (Auto) 2 % (0-3) Basophils (%) (Auto) 1 % (0-3) Neutrophils # (Auto) 2.8 x10^3/uL (1.8-7.7) Lymphocytes # (Auto) 1.6 x10^3/uL (1.0-4.8) Monocytes # (Auto) 0.5 x10^3/uL (0.0-1.1) Eosinophils # (Auto) 0.1 x10^3/uL (0.0-0.7) Basophils # (Auto) 0.0 x10^3/uL (0.0-0.2) Sodium Level 141 mmol/L (136-145) Potassium Level 4.2 mmol/L (3.5-5.1) Chloride Level 107 mmol/L (98-107) Carbon Dioxide Level 27 mmol/L (21-32) Anion Gap 7 (6-14) Blood Urea Nitrogen 16 mg/dL (8-26) Creatinine 1.0 mg/dL (0.7-1.3) Estimated GFR (Cockcroft-Gault) 86.3 BUN/Creatinine Ratio 16 (6-20) Glucose Level 63 mg/dL (70-99) Lactic Acid Level 1.7 mmol/L (0.4-2.0) Calcium Level 8.6 mg/dL (8.5-10.1) Total Bilirubin 0.6 mg/dL (0.2-1.0) Aspartate Amino Transf (AST/SGOT) 130 U/L (15-37) Alanine Aminotransferase (ALT/SGPT) 144 U/L (16-63) Alkaline Phosphatase 120 U/L (46-116) Total Protein 6.5 g/dL (6.4-8.2) Albumin 2.8 g/dL (3.4-5.0) Albumin/Globulin Ratio 0.8 (1.0-1.7) Laboratory Tests Test 03/08/20 11:34 White Blood Count 5.0 x10^3/uL (4.0-11.0) Red Blood Count 3.77 x10^6/uL (4.30-5.70) Hemoglobin 12.3 g/dL (13.0-17.5) Hematocrit 36.8 % (39.0-53.0) Mean Corpuscular Volume 98 fL (79-100) Mean Corpuscular Hemoglobin 33 pg (25-35) Mean Corpuscular Hemoglobin Concent 33 g/dL (31-37) Red Cell Distribution Width 13.4 % (11.5-14.5) Platelet Count 153 x10^3/uL (140-400) Neutrophils (%) (Auto) 56 % (31-73) Lymphocytes (%) (Auto) 31 % (24-48) Monocytes (%) (Auto) 10 % (0-9) Eosinophils (%) (Auto) 2 % (0-3) Basophils (%) (Auto) 1 % (0-3) Neutrophils # (Auto) 2.8 x10^3/uL (1.8-7.7) Lymphocytes # (Auto) 1.6 x10^3/uL (1.0-4.8) Monocytes # (Auto) 0.5 x10^3/uL (0.0-1.1) Eosinophils # (Auto) 0.1 x10^3/uL (0.0-0.7) Basophils # (Auto) 0.0 x10^3/uL (0.0-0.2) Sodium Level 141 mmol/L (136-145) Potassium Level 4.2 mmol/L (3.5-5.1) Chloride Level 107 mmol/L (98-107) Carbon Dioxide Level 27 mmol/L (21-32) Anion Gap 7 (6-14) Blood Urea Nitrogen 16 mg/dL (8-26) Creatinine 1.0 mg/dL (0.7-1.3) Estimated GFR (Cockcroft-Gault) 86.3 BUN/Creatinine Ratio 16 (6-20) Glucose Level 63 mg/dL (70-99) Lactic Acid Level 1.7 mmol/L (0.4-2.0) Calcium Level 8.6 mg/dL (8.5-10.1) Total Bilirubin 0.6 mg/dL (0.2-1.0) Aspartate Amino Transf (AST/SGOT) 130 U/L (15-37) Alanine Aminotransferase (ALT/SGPT) 144 U/L (16-63) Alkaline Phosphatase 120 U/L (46-116) Total Protein 6.5 g/dL (6.4-8.2) Albumin 2.8 g/dL (3.4-5.0) Albumin/Globulin Ratio 0.8 (1.0-1.7) Images Images CT HEAD WO CONTRAST History: Reason: ALTERED MENTAL STATUS / Spl. Instructions: / History: Comparison: March 02, 2020 Technique: Noncontrast CT imaging was performed of the head. Exposure: One or more of the following individualized dose reduction techniques were utilized for this examination: 1. Automated exposure control 2. Adjustment of the mA and/or kV according to patient size 3. Use of iterative reconstruction technique. Findings: No intracranial hemorrhage. No mass effect. No hydrocephalus. Mild brain parenchymal volume loss. Moderate foci of decreased aeration within the hemispheric white matter, most often due to chronic microvascular ischemia, unchanged. Intracranial atheromatous calcifications. Chronic right pontine infarct. Imaged orbits are unremarkable. Secretions within the right sphenoid sinus. Scattered mucosal thickening. Mastoid air cells are clear. No acute calvarial fracture. Impression: 1. No acute intracranial abnormality. 2. Sequela chronic microvascular ischemia, unchanged. 3. Chronic right pontine infarct. Electronically signed by: Johnny Jean DO (03/08/2020 4:24 PM) [id number] DICTATED and SIGNED BY: JOHNNY JEAN DO DATE: 03/08/20 1624 EXAM: AP View of the chest DATE: 03/08/2020 11:12 AM INDICATION: Altered mental status COMPARISON: No Prior FINDINGS: The heart is not enlarged. Aorta is mildly tortuous. Patchy opacity left lung base likely atelectasis. Trace left pleural effusion. No pneumothorax. IMPRESSION: Mild patchy opacities left lung base may represent atelectasis given elevated left hemidiaphragm. Trace left pleural effusion. Electronically signed by: Zoltan Jung MD (03/08/2020 12:45 PM) [id number] DICTATED and SIGNED BY: ZOLTAN JUNG MD DATE: 03/08/20 1245 VTE Prophylaxis Ordered VTE Prophylaxis Devices: Yes VTE Pharmacological Prophylaxi: Yes Assessment/Plan Assessment/Plan IMPRESSION: Mild patchy opacities left lung base may represent atelectasis given elevated left hemidiaphragm. Trace left pleural effusion. CONCERN FOR COVID-19 SYNDROME Altered mental status confusional state due to infectious versus toxic versus metabolic disturbance, hold tramadol Sequela chronic microvascular ischemia, unchanged. on ct head Chronic right pontine infarct. Anasarca Normocytic anemia Hypomagnesemia Mild transaminitis Elevated alkaline phosphatase suggesting hepatobiliary disease Moderate debilitation Moderate frailty malnutrition History of CABG Hypertension recent CT head is negative for acute etiology. No history or signs of trauma d/c tramadol due to potential for toxicity in the elderly Provide adequate lighting (open curtains during the day, turn the lights off at night) Avoid physical restraints, catheters or tubes, and benzodiazepines Nutrition consult SCD for DVT prophylaxis Protonix for GI prophylaxis Cardiac diet Full code Discussed with ED physician iv antibiotics, emperic PLAN ADMIT COVID-19 SCREEN PULM CONSULT blood cult urine culture emperic iv zosyn ua 67 min pt exam, chart review, > 50% of time spent with exam, chart review, pt care cfoordination Justicifation of Admission Dx: Justifications for Admission: Justification of Admission Dx: Yes JERMAIN GOMEZ MD Mar 08, 2020 15:22
[2020-03-08 15:23] LABS: BILIRUBIN,URINE NEGATIVE (NEG); CLARITY,URINE CLEAR; COLOR,URINE YELLOW; NITRITE,URINE NEGATIVE (NEG); PROTEIN,URINE NEGATIVE (NEG-TRACE)
[2020-03-08] MEDS ORDERED: PIP/TAZO PER PHARMACY MC PRN (15:30)
[2020-03-08] MEDS ORDERED: ONDANSETRON PF 4 MG/2 ML VIAL. IV PRN ×2 (15:30→21:45)
[2020-03-08 15:51] LABS: BACTERIA,URINE 0 /HPF (0-FEW); RBC,URINE 0 /HPF (0-2); WBC,URINE 0 /HPF (0-4)
--- NOTE | 2020-03-08 16:27 | RAD ---
CT HEAD WO CONTRAST History: Reason: ALTERED MENTAL STATUS / Spl. Instructions: / History: Comparison: March 02, 2020 Technique: Noncontrast CT imaging was performed of the head. Exposure: One or more of the following individualized dose reduction techniques were utilized for this examination: 1. Automated exposure control 2. Adjustment of the mA and/or kV according to patient size 3. Use of iterative reconstruction technique. Findings: No intracranial hemorrhage. No mass effect. No hydrocephalus. Mild brain parenchymal volume loss. Moderate foci of decreased aeration within the hemispheric white matter, most often due to chronic microvascular ischemia, unchanged. Intracranial atheromatous calcifications. Chronic right pontine infarct. Imaged orbits are unremarkable. Secretions within the right sphenoid sinus. Scattered mucosal thickening. Mastoid air cells are clear. No acute calvarial fracture. Impression: 1. No acute intracranial abnormality. 2. Sequela chronic microvascular ischemia, unchanged. 3. Chronic right pontine infarct. Electronically signed by: Johnny Machado DO (03/08/2020 4:24 PM) [id number]
[2020-03-08 19:00] VITALS: BP 121/56
[2020-03-08] MEDS: LATANOPROST 0.005% OPHTH SOLUTION 2.5ML BOTTLE. OU SCH (21:00)
[2020-03-08] MEDS: PIPERACILLIN/TAZOBACTAM 4.5 GM in IV NORMAL SALINE 100ML 100 ML IV SCH (21:15)
[2020-03-08] MEDS: ATORVASTATIN CALCIUM 10 MG TABLET. PO SCH (21:15)
[2020-03-08] MEDS ORDERED: guaiFENesin ORAL 200 MG/10 ML LIQUID. PO PRN (21:45)
[2020-03-08] MEDS ORDERED: MAG HYDROX/ALUMINUM HYD/SIMETH 30 ML ORAL.SUSP PO PRN (21:45)
[2020-03-08] MEDS ORDERED: ALBUTEROL SULFATE 2.5 MG/3 ML NEBU. NEB PRN (21:45)
[2020-03-08] MEDS ORDERED: DOCUSATE SODIUM 100 MG CAPSULE. PO PRN (21:45)
[2020-03-08] MEDS ORDERED: SODIUM PHOSPHATES 19/7GM 133 ML ENEMA. PR PRN (21:45)
[2020-03-08] MEDS ORDERED: 0.9 % SODIUM CHLORIDE 10 ML DISP.SYRIN. IV PRN (21:45)
[2020-03-08 23:00] VITALS: BP 155/72
[2020-03-08] MEDS: ENOXAPARIN 40 MG/0.4 ML SYRINGE. SQ SCH (23:02)
[2020-03-08] MEDS: IV NORMAL SALINE 1000ML BAG 1,000 ML IV SCH (23:02)
[2020-03-09] MEDS ORDERED: PIPERACILLIN/TAZOBACTAM 3.375 GM in IV NORMAL SALINE 50ML 50 ML IV SCH
[2020-03-09] MEDS: PIPERACILLIN/TAZOBACTAM 4.5 GM in IV NORMAL SALINE 100ML 100 ML IV SCH ×4 (02:27→18:06)
[2020-03-09 03:24] VITALS: BP 155/75
[2020-03-09 07:15] VITALS: BP 154/79
[2020-03-09] MEDS: TAMSULOSIN 0.4 MG CAP.ER.24H. PO SCH (08:10)
[2020-03-09] MEDS: amLODIPine BESYLATE 5 MG TABLET PO SCH (08:10)
[2020-03-09] MEDS: ASPIRIN ENTERIC COATED 325 MG TABLET.DR. PO SCH (08:11)
[2020-03-09] MEDS: LISINOPRIL 5 MG TABLET. PO SCH (08:11)
--- NOTE | 2020-03-09 10:34 | EKG ---
[facility] [address] [place] [address] Test Date: 2020-03-08 Test Time: 11:18:22 Pat Name: SALTY COLLAZO Department: Room: 673 1 Gender: M [place] [employer] Installer: : 1935 Requested By: SURINDER GABRIEL Order Number: [id number] Reading MD: Measurements Intervals [place] Rate: 74 P: 90 VT: 132 QRS: 73 QRSD: 88 T: -77 QT: 386 QTc: 429 Interpretive Statements SINUS RHYTHM LEFT ATRIAL ABNORMALITY T ABNORMALITY IN ANTEROLATERAL LEADS INFEROLATERAL LEADS ABNORMAL ECG RI6.02 Compared to ECG 03/02/2020 19:14:15 Atrial abnormality now present T-wave abnormality now present
[2020-03-09 10:40] VITALS: BP 143/80
--- NOTE | 2020-03-09 10:50 | CONS ---
DATE OF CONSULTATION: PULMONARY CONSULTATION ATTENDING PHYSICIAN: Efrain Lu MD REASON FOR CONSULTATION: Possible COVID pneumonia. HISTORY OF PRESENT ILLNESS: The patient is an 84-year-old male who has history of dementia. He was brought into the hospital with altered mental status. He lives at assisted living facility. The patient denies any obvious respiratory distress. I am unable to obtain much history from the patient due to his confusion. I have reviewed the patient's chest x-ray and there is an elevated left hemidiaphragm with associated atelectasis. No definite consolidation seen. His COVID testing is pending. PAST MEDICAL HISTORY: Significant for dementia, GERD, dyslipidemia, heart disease, hypertension, ND, back pain. PAST SURGICAL HISTORY: Cardiac surgery and neck surgery. SOCIAL HISTORY: Former smoker. ALLERGIES: None. CURRENT MEDICATIONS: Reviewed as listed in the MRAD including antibiotic Zosyn. REVIEW OF SYSTEMS: Unable to obtain from the patient. PHYSICAL EXAMINATION: VITAL SIGNS: Reviewed. He is afebrile, pulse ox 100% on room air. NECK: Supple. LUNGS: Clear. CARDIOVASCULAR: With a regular rate. ABDOMEN: Soft. EXTREMITIES: With no pitting edema. LABORATORY DATA: Reviewed. White cell count 5.0, hemoglobin 12.3 and platelets are 153. BUN 16, creatinine 1.0. AST and ALT elevated. IMPRESSION: 1. Abnormal chest x-ray with elevated left hemidiaphragm with no obvious consolidation. The patient has no cough, no fever. From a pulmonary standpoint, he is very stable. He is on room air. COVID testing is pending, but clinical suspicion is low. 2. Underlying dementia with a recent admission for altered mental status. Clinically, looked stable. 3. Abnormal LFTs. 4. Moderate protein-calorie malnutrition. RECOMMENDATIONS: 1. From a pulmonary standpoint, his saturation is 99% on room air. He is stable. I do not see any obvious consolidation on his chest x-ray. He does not have a fever. COVID testing is pending. I have no further recommendation from a pulmonary standpoint. He could be discharged back to assisted living facility. 2. Abnormal LFTs, followed by GI. 3. Underlying dementia. 4. Discussed with RN. Discussed with Dr. Evans. RAFFY SERRANO MD DR: YARELY/sylvie JOB#: [id number] / [id number]
--- NOTE | 2020-03-09 10:53 | NUR ---
SW following. Reviewed chart and spoke with RN. Pt discharged from [facility] last month to [facility]. Spoke with Vil[facility] form [facility], , (fax) and they will take pt back at discharge. Pt's long-term plan remains rehab to home. PREETHI attempted to call pt's [facility] ([phone]) but there was no answer or ability to leave a message. Pt on IV Zosyn and room air. SW to follow. Addendum: 03/09/20 at 1101 by MIREYA ORO Pt is COVID pending.
[2020-03-09 11:15] LABS: BASO % 1 % (0-3); EOS # 0.1 x10^3/uL (0.0-0.7); EOS % 3 % (0-3); HEMATOCRIT 35.5 % (39.0-53.0); HEMOGLOBIN 11.8 g/dL (13.0-17.5); LYMPH # 1.5 x10^3/uL (1.0-4.8); LYMPH % 34 % (24-48); MEAN CORPUSCULAR HEMOGLOBIN 33 pg (25-35); MEAN CORPUSCULAR HGB CONC 33 g/dL (31-37); MEAN CORPUSCULAR VOLUME 98 fL (79-100); MONO # 0.4 x10^3/uL (0.0-1.1); MONO % 9 % (0-9); NEUT # 2.5 x10^3/uL (1.8-7.7); NEUT % 54 % (31-73); PLATELET COUNT 170 x10^3/uL (140-400); RED BLOOD COUNT 3.63 x10^6/uL (4.30-5.70); RED CELL DISTRIBUTION WIDTH 13.7 % (11.5-14.5); WHITE BLOOD COUNT 4.6 x10^3/uL (4.0-11.0)
[2020-03-09 11:27] LABS: CALCIUM 8.3 mg/dL (8.5-10.1); CREATININE 0.9 mg/dL (0.7-1.3); GFR 97.5; POTASSIUM 4.5 mmol/L (3.5-5.1)
[2020-03-09 11:32] LABS: ALBUMIN 2.7 g/dL (3.4-5.0); ALBUMIN/GLOBULIN RATIO 0.8 (1.0-1.7); TOTAL BILIRUBIN 0.9 mg/dL (0.2-1.0); TOTAL PROTEIN 5.9 g/dL (6.4-8.2)
--- NOTE | 2020-03-09 11:50 | PDOC ---
[employer] PROGRESS NOTE Date of Service DOS: DATE: 03/09/20 TIME: 11:41 Chief Complaint Chief Complaint Pneumonia Ams Dementia History of Present Illness History of Present Illness 03/09/20 Patient seen and examined Chart reviewed Discussed with RN Patient gets confused Vitals/I&O Vitals/I&O: Vital Signs Date Time Temp Pulse Resp B/P (MAP) Pulse Ox O2 Delivery O2 Flow Rate FiO2 03/09/20 10:40 97.3 66 16 143/80 (101) 99 Room Air 97.3 I & O 03/08/20 03/08/20 03/09/20 15:00 23:00 07:00 Intake Total 200 ml Output Total 150 ml Balance 50 ml Physical Exam General: Alert, Cooperative Heart: Regular rate Lungs: Clear, Other Abdomen: Soft Extremities: No cyanosis Skin: No breakdown Labs Labs: Laboratory Tests Test 03/08/20 15:10 03/09/20 05:00 Urine Collection Type Void Urine Color Yellow Urine Clarity Clear Urine pH 7.0 (<5.0-8.0) Urine Specific [place] 1.020 (1.000-1.030) Urine Protein Negative mg/dL (NEG-TRACE) Urine Glucose (UA) Negative mg/dL (NEG) Urine Ketones (Stick) Negative mg/dL (NEG) Urine Blood Negative (NEG) Urine Nitrite Negative (NEG) Urine Bilirubin Negative (NEG) Urine Urobilinogen Dipstick 1.0 mg/dL (0.2 mg/dL) Urine Leukocyte Esterase Negative (NEG) Urine RBC 0 /HPF (0-2) Urine WBC 0 /HPF (0-4) Urine Squamous Epithelial Cells None /LPF Urine Bacteria 0 /HPF (0-FEW) Urine Mucus Slight /LPF Sodium Level 142 mmol/L (136-145) Potassium Level 4.5 mmol/L (3.5-5.1) Chloride Level 109 mmol/L (98-107) Carbon Dioxide Level 27 mmol/L (21-32) Anion Gap 6 (6-14) Blood Urea Nitrogen 13 mg/dL (8-26) Creatinine 0.9 mg/dL (0.7-1.3) Estimated GFR (Cockcroft-Gault) 97.5 BUN/Creatinine Ratio 14 (6-20) Glucose Level 59 mg/dL (70-99) Calcium Level 8.3 mg/dL (8.5-10.1) Total Bilirubin 0.9 mg/dL (0.2-1.0) Aspartate Amino Transf (AST/SGOT) 126 U/L (15-37) Alanine Aminotransferase (ALT/SGPT) 135 U/L (16-63) Alkaline Phosphatase 111 U/L (46-116) Total Protein 5.9 g/dL (6.4-8.2) Albumin 2.7 g/dL (3.4-5.0) Albumin/Globulin Ratio 0.8 (1.0-1.7) Assessment and Plan Assessmemt and Plan Assessment: Pneumonia Ams Dementia Covid results pending Chest X-ray showed some mild patchy opacities in the L lung base Patient at baseline only oriented to person Plan: Respiratory isolation Full code DVT prophylaxis Cardiac monitoring Await pulmonary input Continue Zosyn PT/OT Trend labs Comment Review of Relevant I have reviewed the following items rahul (where applicable) has been applied. Medications: Current Medications Medications (Trade) Dose Ordered Sig/Kay Route PRN Reason Start Time Stop Time Status Last Admin Dose Admin Sodium Chloride 1,000 ml @ 1,000 mls/hr 1X ONCE IV 03/08/20 11:45 03/08/20 12:44 DC 03/08/20 11:45 Vancomycin HCl 1.75 gm/Sodium Chloride 500 ml @ 250 mls/hr 1X ONCE IV 03/08/20 15:15 03/08/20 17:14 DC 03/08/20 16:33 Cefepime HCl (Maxipime) 1 gm 1X ONCE IVP 03/08/20 15:15 03/08/20 15:18 DC 03/08/20 16:32 Piperacillin Sod/ Tazobactam Sod 4.5 gm/Sodium Chloride 100 ml @ 200 mls/hr Q6HRS IV 03/08/20 18:00 03/09/20 05:28 Amlodipine Besylate (Norvasc) 5 mg DAILY PO 03/09/20 09:00 03/09/20 08:10 Aspirin (Ecotrin) 325 mg DAILY PO 03/09/20 09:00 03/09/20 08:11 Atorvastatin Calcium (Lipitor) 10 mg HS PO 03/08/20 21:00 03/08/20 21:15 Lisinopril (Prinivil) 5 mg DAILY PO 03/09/20 09:00 03/09/20 08:11 Tamsulosin HCl (Flomax) 0.4 mg DAILY PO 03/09/20 09:00 03/09/20 08:10 Sodium Chloride 1,000 ml @ 70 mls/hr [id number] IV 03/08/20 21:35 03/08/20 23:02 Enoxaparin Sodium (Lovenox 40mg Syringe) 40 mg Q24H SQ 03/08/20 22:00 03/08/20 23:02 Lorazepam (Ativan Inj) 1 mg PRN Q6HRS PRN IVP ANXIETY / AGITATION 03/09/20 09:45 03/09/20 10:38 Justicifation of Admission Dx: Justifications for Admission: Justification of Admission Dx: Yes KELLY SPEARS III DO Mar 09, 2020 11:50
[2020-03-09] MEDS: IV NORMAL SALINE 1000ML BAG 1,000 ML IV SCH (12:08)
[2020-03-09 15:15] VITALS: BP 143/70
[2020-03-09 20:30] VITALS: BP 143/82
[2020-03-09] MEDS: LATANOPROST 0.005% OPHTH SOLUTION 2.5ML BOTTLE. OU SCH ×2 (21:00→22:27)
[2020-03-09] MEDS: LACTOBACILLUS RHAMNOSUS GG 1 CAPSULE. PO SCH ×2 (21:00→22:27)
[2020-03-09] MEDS: ATORVASTATIN CALCIUM 10 MG TABLET. PO SCH ×2 (21:00→22:27)
[2020-03-09] MEDS: ENOXAPARIN 40 MG/0.4 ML SYRINGE. SQ SCH ×2 (22:00→22:28)
[2020-03-09 23:05] VITALS: BP 143/86
[2020-03-10] MEDS: PIPERACILLIN/TAZOBACTAM 4.5 GM in IV NORMAL SALINE 100ML 100 ML IV SCH ×3 (00:15→11:34)
--- NOTE | 2020-03-10 02:56 | NUR ---
Patient rec'd to room 506, drowsy, belongings with him, this journalists and other writers had noted that in an order per Dr Lu, documented on 03/08/2020, @ 4667, that patient is to have a medical monitored bed, requested to be given a set of leads to monitor the patient.
[2020-03-10] MEDS: IV NORMAL SALINE 1000ML BAG 1,000 ML IV SCH (03:41)
[2020-03-10 06:40] VITALS: BP 180/76
[2020-03-10] MEDS: ASPIRIN ENTERIC COATED 325 MG TABLET.DR. PO SCH (08:20)
[2020-03-10] MEDS: LACTOBACILLUS RHAMNOSUS GG 1 CAPSULE. PO SCH (08:20)
[2020-03-10] MEDS: LISINOPRIL 5 MG TABLET. PO SCH (08:20)
[2020-03-10] MEDS: amLODIPine BESYLATE 5 MG TABLET PO SCH (08:20)
[2020-03-10] MEDS: TAMSULOSIN 0.4 MG CAP.ER.24H. PO SCH (08:20)
--- NOTE | 2020-03-10 09:31 | PDOC ---
PROGRESS NOTES Date of Service: DATE: 03/10/20 TIME: 09:30 Chief Complaint Chief Complaint Pneumonia Ams Dementia VTE Prophylaxis Ordered VTE Prophylaxis Devices: Yes VTE Pharmacological Prophylaxi: Yes DISCHARGE DX Assessment/Plan IMPRESSION: Mild patchy opacities left lung base may represent atelectasis given elevated left hemidiaphragm. Trace left pleural effusion. CONCERN FOR COVID-19 SYNDROME Altered mental status confusional state due to infectious versus toxic versus metabolic disturbance, hold tramadol Sequela chronic microvascular ischemia, unchanged. on ct head Chronic right pontine infarct. Anasarca Normocytic anemia Hypomagnesemia Mild transaminitis Elevated alkaline phosphatase suggesting hepatobiliary disease Moderate debilitation Moderate frailty malnutrition History of CABG Hypertension recent CT head is negative for acute etiology. No history or signs of trauma d/c tramadol due to potential for toxicity in the elderly Provide adequate lighting (open curtains during the day, turn the lights off at night) Avoid physical restraints, catheters or tubes, and benzodiazepines Nutrition consult SCD for DVT prophylaxis Protonix for GI prophylaxis Cardiac diet Full code Discussed with ED physician iv antibiotics, emperic PLAN ADMIT COVID-19 SCREEN PULM CONSULT blood cult urine culture emperic iv zosyn, d/c ua d/c tramadol po augmentin 500mg po bid x 7 days 37 min pt exam, chart review d/c planning , > 50% of time spent with exam, chart review, pt care cfoordination Justicifation of Admission Dx: Justicifation of Admission Dx: Justifications for Admission: Justification of Admission Dx: Yes History of Present Illness History of Present Illness 03/10/20 Patient seen and examined Chart reviewed Discussed with RN Patient gets confused Vitals Vitals Vital Signs Date Time Temp Pulse Resp B/P (MAP) Pulse Ox O2 Delivery O2 Flow Rate FiO2 03/10/20 08:20 67 180/76 03/10/20 06:40 98.3 20 99 Room Air 98.3 Physical Exam General: Alert, Cooperative Heart: Regular rate Lungs: Clear, Other Abdomen: Soft Extremities: No cyanosis Skin: No breakdown Comment Review of Relevant I have reviewed the following items rahul (where applicable) has been applied. Labs Laboratory Tests Test 03/08/20 11:34 03/08/20 15:10 03/08/20 17:07 03/09/20 05:00 White Blood Count 5.0 x10^3/uL (4.0-11.0) 4.6 x10^3/uL (4.0-11.0) Red Blood Count 3.77 x10^6/uL (4.30-5.70) 3.63 x10^6/uL (4.30-5.70) Hemoglobin 12.3 g/dL (13.0-17.5) 11.8 g/dL (13.0-17.5) Hematocrit 36.8 % (39.0-53.0) 35.5 % (39.0-53.0) Mean Corpuscular Volume 98 fL (79-100) 98 fL (79-100) Mean Corpuscular Hemoglobin 33 pg (25-35) 33 pg (25-35) Mean Corpuscular Hemoglobin Concent 33 g/dL (31-37) 33 g/dL (31-37) Red Cell Distribution Width 13.4 % (11.5-14.5) 13.7 % (11.5-14.5) Platelet Count 153 x10^3/uL (140-400) 170 x10^3/uL (140-400) Neutrophils (%) (Auto) 56 % (31-73) 54 % (31-73) Lymphocytes (%) (Auto) 31 % (24-48) 34 % (24-48) Monocytes (%) (Auto) 10 % (0-9) 9 % (0-9) Eosinophils (%) (Auto) 2 % (0-3) 3 % (0-3) Basophils (%) (Auto) 1 % (0-3) 1 % (0-3) Neutrophils # (Auto) 2.8 x10^3/uL (1.8-7.7) 2.5 x10^3/uL (1.8-7.7) Lymphocytes # (Auto) 1.6 x10^3/uL (1.0-4.8) 1.5 x10^3/uL (1.0-4.8) Monocytes # (Auto) 0.5 x10^3/uL (0.0-1.1) 0.4 x10^3/uL (0.0-1.1) Eosinophils # (Auto) 0.1 x10^3/uL (0.0-0.7) 0.1 x10^3/uL (0.0-0.7) Basophils # (Auto) 0.0 x10^3/uL (0.0-0.2) 0.0 x10^3/uL (0.0-0.2) Sodium Level 141 mmol/L (136-145) 142 mmol/L (136-145) Potassium Level 4.2 mmol/L (3.5-5.1) 4.5 mmol/L (3.5-5.1) Chloride Level 107 mmol/L (98-107) 109 mmol/L (98-107) Carbon Dioxide Level 27 mmol/L (21-32) 27 mmol/L (21-32) Anion Gap 7 (6-14) 6 (6-14) Blood Urea Nitrogen 16 mg/dL (8-26) 13 mg/dL (8-26) Creatinine 1.0 mg/dL (0.7-1.3) 0.9 mg/dL (0.7-1.3) Estimated GFR (Cockcroft-Gault) 86.3 97.5 BUN/Creatinine Ratio 16 (6-20) 14 (6-20) Glucose Level 63 mg/dL (70-99) 59 mg/dL (70-99) Lactic Acid Level 1.7 mmol/L (0.4-2.0) Calcium Level 8.6 mg/dL (8.5-10.1) 8.3 mg/dL (8.5-10.1) Total Bilirubin 0.6 mg/dL (0.2-1.0) 0.9 mg/dL (0.2-1.0) Aspartate Amino Transf (AST/SGOT) 130 U/L (15-37) 126 U/L (15-37) Alanine Aminotransferase (ALT/SGPT) 144 U/L (16-63) 135 U/L (16-63) Alkaline Phosphatase 120 U/L (46-116) 111 U/L (46-116) Total Protein 6.5 g/dL (6.4-8.2) 5.9 g/dL (6.4-8.2) Albumin 2.8 g/dL (3.4-5.0) 2.7 g/dL (3.4-5.0) Albumin/Globulin Ratio 0.8 (1.0-1.7) 0.8 (1.0-1.7) Urine Collection Type Void Urine Color Yellow Urine Clarity Clear Urine pH 7.0 (<5.0-8.0) Urine Specific [place] 1.020 (1.000-1.030) Urine Protein Negative mg/dL (NEG-TRACE) Urine Glucose (UA) Negative mg/dL (NEG) Urine Ketones (Stick) Negative mg/dL (NEG) Urine Blood Negative (NEG) Urine Nitrite Negative (NEG) Urine Bilirubin Negative (NEG) Urine Urobilinogen Dipstick 1.0 mg/dL (0.2 mg/dL) Urine Leukocyte Esterase Negative (NEG) Urine RBC 0 /HPF (0-2) Urine WBC 0 /HPF (0-4) Urine Squamous Epithelial Cells None /LPF Urine Bacteria 0 /HPF (0-FEW) Urine Mucus Slight /LPF Coronavirus (PCR) Not detected (Not Detected) Procalcitonin 0.32 ng/mL (0.00-0.10) Microbiology 03/08/20 Blood Culture - Preliminary, Resulted NO GROWTH AFTER 1 DAY Medications Current Medications Sodium Chloride 1,000 ml @ 1,000 mls/hr 1X ONCE IV Last administered on 03/08/20at 11:45; Start 03/08/20 at 11:45; Stop 03/08/20 at 12:44; Status DC Vancomycin HCl 1.75 gm/Sodium Chloride 500 ml @ 250 mls/hr 1X ONCE IV Last administered on 03/08/20at 16:33; Start 03/08/20 at 15:15; Stop 03/08/20 at 17:14; Status DC Cefepime HCl (Maxipime) 1 gm 1X ONCE IVP Last administered on 03/08/20at 16:32; Start 03/08/20 at 15:15; Stop 03/08/20 at 15:18; Status DC Ondansetron HCl (Zofran) 4 mg PRN Q8HRS PRN IV NAUSEA/VOMITING; Start 03/08/20 at 15:30; Stop 03/09/20 at 15:29; Status DC Piperacillin Sod/ Tazobactam Sod (Zosyn Per Pharmacy) 1 each PRN DAILY PRN MC SEE COMMENTS; Start 03/08/20 at 15:30 Piperacillin Sod/ Tazobactam Sod 4.5 gm/Sodium Chloride 100 ml @ 200 mls/hr Q 6HRS IV Last administered on 03/10/20at 06:17; Start 03/08/20 at 18:00 Amlodipine Besylate (Norvasc) 5 mg DAILY PO Last administered on 03/10/20at 08:20; Start 03/09/20 at 09:00 Aspirin (Ecotrin) 325 mg DAILY PO Last administered on 03/10/20at 08:20; Start 03/09/20 at 09:00 Atorvastatin Calcium (Lipitor) 10 mg HS PO Last administered on 03/08/20at 21:15; Start 03/08/20 at 21:00 Latanoprost (Xalatan) 1 drop QHS OU ; Start 03/08/20 at 21:00 Lisinopril (Prinivil) 5 mg DAILY PO Last administered on 03/10/20at 08:20; Start 03/09/20 at 09:00 Tamsulosin HCl (Flomax) 0.4 mg DAILY PO Last administered on 03/10/20at 08:20; Start 03/09/20 at 09:00 Sodium Chloride (Normal Saline Flush) 3 ml QSHIFT PRN IV AFTER MEDS AND BLOOD DRAWS; Start 03/08/20 at 21:45 Sodium Chloride 1,000 ml @ 70 mls/hr [id number] IV Last administered on 03/10/20at 03:41; Start 03/08/20 at 21:35 Ondansetron HCl (Zofran) 4 mg PRN Q4HRS PRN IV NAUSEA/VOMITING 1ST CHOICE; Start 03/08/20 at 21:45 Al Hydroxide/Mg Hydroxide (Mylanta Plus Xs) 30 ml PRN DAILY PRN PO HEARTBURN / GAS; Start 03/08/20 at 21:45 Sodium Monofluorophosphate (Fleet Adult) 133 ml PRN DAILY PRN [place] CONSTIPATION 2ND CHOICE; Start 03/08/20 at 21:45 Docusate Sodium (Colace) 100 mg PRN BID PRN PO HARD STOOLS 1ST CHOICE; Start 03/08/20 at 21:45 Albuterol Sulfate (Ventolin Neb Soln) 2.5 mg PRN Q4HRS PRN NEB SHORTNESS OF BREATH; Start 03/08/20 at 21:45 Guaifenesin (Robitussin) 200 mg PRN Q4HRS PRN PO COUGH; Start 03/08/20 at 21:45 Enoxaparin Sodium (Lovenox 40mg Syringe) 40 mg Q24H SQ Last administered on 03/08/20at 23:02; Start 03/08/20 at 22:00 Piperacillin Sod/ Tazobactam Sod 3.375 gm/Sodium Chloride 50 ml @ 100 mls/hr Q6HRS IV ; Start 03/09/20 at 00:00; Status UNV Lorazepam (Ativan Inj) 1 mg PRN Q6HRS PRN IVP ANXIETY / AGITATION Last administered on 03/09/20at 10:38; Start 03/09/20 at 09:45 Lactobacillus Rhamnosus (Culturelle) 1 cap BID PO Last administered on 03/10/20at 08:20; Start 03/09/20 at 21:00 Active Scripts Active Ultram (Tramadol Hcl) 50 Mg Tablet 1 Tab PO PRN BID PRN MDD 2 Tablet(s) 15 Days Reported Latanoprost 2.5 Ml Drops 1 Drop EACHEYE QHS Atorvastatin Calcium 10 Mg Tablet 10 Mg PO HS Flomax (Tamsulosin Hcl) 0.4 Mg Cap.er.24h 0.4 Mg PO DAILY Amlodipine Besylate 5 Mg Tablet 5 Mg PO DAILY Lisinopril 5 Mg Tablet 5 Mg PO DAILY Ecotrin (Aspirin) 325 Mg Tablet.dr 325 Mg PO DAILY Vitals/I & O Vital Sign - Last 24 Hours 03/09/20 03/09/20 03/09/20 03/09/20 10:40 15:15 19:00 20:00 Temp 97.3 97.5 97.3 97.5 Pulse 66 60 60 Resp 16 16 B/P (MAP) 143/80 (101) 143/70 (94) Pulse Ox 99 100 O2 Delivery Room Air Room Air Room Air 03/09/20 03/09/20 03/10/20 03/10/20 20:30 23:05 06:40 08:20 Temp 97.2 97.7 98.3 97.2 97.7 98.3 Pulse 61 64 67 67 Resp 20 20 20 B/P (MAP) 143/82 (102) 143/86 (105) 180/76 (110) 180/76 Pulse Ox 98 98 99 O2 Delivery Room Air Room Air Room Air 03/10/20 08:20 Pulse 67 B/P (MAP) 180/76 Intake and Output 03/09/20 03/09/20 03/10/20 15:00 23:00 07:00 Intake Total 0 ml Balance 0 ml Nutrition Consultation Dietary Evaluation: Recommendations by RD: Dietary education by RD, Increase Calorie Intake, Protein supplementation Comments: sending ensure enlive bid for extra 240 ml, 350 kcal, 20 g protein per serving Expected Outcomes/Goals: to meet >75% est nutr needs Malnutrition Findings: Body Fat Depletion (Non Severe: Mild Depletion Weight Status: Underweight Justicifation of Admission Dx: Justifications for Admission: Justification of Admission Dx: Yes JERMAIN GOMEZ MD Mar 10, 2020 09:31
[2020-03-10 10:34] VITALS: BP 130/69
--- NOTE | 2020-03-10 10:43 | PDOC ---
PULMONARY PROGRESS NOTES DATE: 03/10/20 TIME: 10:42 Subjective no soa on RA Vitals Vital Signs Date Time Temp Pulse Resp B/P (MAP) Pulse Ox O2 Delivery O2 Flow Rate FiO2 03/10/20 10:34 98.0 79 18 130/69 (89) 99 Room Air 98.0 General: Alert, No acute distress Lungs: Clear Cardiovascular: S1 Abdomen: Soft Neuro Exam: Alert Extremities: No Edema Skin: Warm Labs Laboratory Tests Test 03/08/20 11:34 03/08/20 15:10 03/08/20 17:07 03/09/20 05:00 White Blood Count 5.0 x10^3/uL (4.0-11.0) 4.6 x10^3/uL (4.0-11.0) Red Blood Count 3.77 x10^6/uL (4.30-5.70) 3.63 x10^6/uL (4.30-5.70) Hemoglobin 12.3 g/dL (13.0-17.5) 11.8 g/dL (13.0-17.5) Hematocrit 36.8 % (39.0-53.0) 35.5 % (39.0-53.0) Mean Corpuscular Volume 98 fL (79-100) 98 fL (79-100) Mean Corpuscular Hemoglobin 33 pg (25-35) 33 pg (25-35) Mean Corpuscular Hemoglobin Concent 33 g/dL (31-37) 33 g/dL (31-37) Red Cell Distribution Width 13.4 % (11.5-14.5) 13.7 % (11.5-14.5) Platelet Count 153 x10^3/uL (140-400) 170 x10^3/uL (140-400) Neutrophils (%) (Auto) 56 % (31-73) 54 % (31-73) Lymphocytes (%) (Auto) 31 % (24-48) 34 % (24-48) Monocytes (%) (Auto) 10 % (0-9) 9 % (0-9) Eosinophils (%) (Auto) 2 % (0-3) 3 % (0-3) Basophils (%) (Auto) 1 % (0-3) 1 % (0-3) Neutrophils # (Auto) 2.8 x10^3/uL (1.8-7.7) 2.5 x10^3/uL (1.8-7.7) Lymphocytes # (Auto) 1.6 x10^3/uL (1.0-4.8) 1.5 x10^3/uL (1.0-4.8) Monocytes # (Auto) 0.5 x10^3/uL (0.0-1.1) 0.4 x10^3/uL (0.0-1.1) Eosinophils # (Auto) 0.1 x10^3/uL (0.0-0.7) 0.1 x10^3/uL (0.0-0.7) Basophils # (Auto) 0.0 x10^3/uL (0.0-0.2) 0.0 x10^3/uL (0.0-0.2) Sodium Level 141 mmol/L (136-145) 142 mmol/L (136-145) Potassium Level 4.2 mmol/L (3.5-5.1) 4.5 mmol/L (3.5-5.1) Chloride Level 107 mmol/L (98-107) 109 mmol/L (98-107) Carbon Dioxide Level 27 mmol/L (21-32) 27 mmol/L (21-32) Anion Gap 7 (6-14) 6 (6-14) Blood Urea Nitrogen 16 mg/dL (8-26) 13 mg/dL (8-26) Creatinine 1.0 mg/dL (0.7-1.3) 0.9 mg/dL (0.7-1.3) Estimated GFR (Cockcroft-Gault) 86.3 97.5 BUN/Creatinine Ratio 16 (6-20) 14 (6-20) Glucose Level 63 mg/dL (70-99) 59 mg/dL (70-99) Lactic Acid Level 1.7 mmol/L (0.4-2.0) Calcium Level 8.6 mg/dL (8.5-10.1) 8.3 mg/dL (8.5-10.1) Total Bilirubin 0.6 mg/dL (0.2-1.0) 0.9 mg/dL (0.2-1.0) Aspartate Amino Transf (AST/SGOT) 130 U/L (15-37) 126 U/L (15-37) Alanine Aminotransferase (ALT/SGPT) 144 U/L (16-63) 135 U/L (16-63) Alkaline Phosphatase 120 U/L (46-116) 111 U/L (46-116) Total Protein 6.5 g/dL (6.4-8.2) 5.9 g/dL (6.4-8.2) Albumin 2.8 g/dL (3.4-5.0) 2.7 g/dL (3.4-5.0) Albumin/Globulin Ratio 0.8 (1.0-1.7) 0.8 (1.0-1.7) Urine Collection Type Void Urine Color Yellow Urine Clarity Clear Urine pH 7.0 (<5.0-8.0) Urine Specific [place] 1.020 (1.000-1.030) Urine Protein Negative mg/dL (NEG-TRACE) Urine Glucose (UA) Negative mg/dL (NEG) Urine Ketones (Stick) Negative mg/dL (NEG) Urine Blood Negative (NEG) Urine Nitrite Negative (NEG) Urine Bilirubin Negative (NEG) Urine Urobilinogen Dipstick 1.0 mg/dL (0.2 mg/dL) Urine Leukocyte Esterase Negative (NEG) Urine RBC 0 /HPF (0-2) Urine WBC 0 /HPF (0-4) Urine Squamous Epithelial Cells None /LPF Urine Bacteria 0 /HPF (0-FEW) Urine Mucus Slight /LPF Coronavirus (PCR) Not detected (Not Detected) Procalcitonin 0.32 ng/mL (0.00-0.10) Medications Active Scripts Medications Dose Route/Sig Max Daily Dose Days Date Category Ultram (Tramadol Hcl) 50 Mg Tablet 1 Tab PO PRN BID PRN MDD 2 Tablet(s) 15 03/05/20 Rx Latanoprost 2.5 Ml Drops 1 Drop EACHEYE QHS 03/03/20 Reported Atorvastatin Calcium 10 Mg Tablet 10 Mg PO HS 03/03/20 Reported Flomax (Tamsulosin Hcl) 0.4 Mg Cap.er.24h 0.4 Mg PO DAILY 03/03/20 Reported Amlodipine Besylate 5 Mg Tablet 5 Mg PO DAILY 03/03/20 Reported Lisinopril 5 Mg Tablet 5 Mg PO DAILY 06/18/15 Reported Ecotrin (Aspirin) 325 Mg Tablet. 325 Mg PO DAILY 10/01/13 Reported Impression . 1. Abnormal chest x-ray with elevated left hemidiaphragm with no obvious consolidation. The patient has no cough, no fever. From a pulmonary standpoint, he is very stable. He is on room air. COVID testing is neg but clinical suspicion is low. 2. Underlying dementia with a recent admission for altered mental status. Clinically, looked stable. 3. Abnormal LFTs. 4. Moderate protein-calorie malnutrition. Plan . 1. From a pulmonary standpoint, his saturation is 99% on room air. He is stable. I do not see any obvious consolidation on his chest x-ray. He does not have a fever. COVID testing is neg. I have no further recommendation from a pulmonary standpoint. He could be discharged back to assisted living facility. 2. Abnormal LFTs, followed by GI. 3. Underlying dementia. 4. Discussed with RN. will sign off RAFFY SERRANO MD Mar 10, 2020 10:43
--- NOTE | 2020-03-10 10:51 | PDOC3 ---
Discharge Summary Date of Admission: Mar 08, 2020 Date of Discharge: Mar 10, 2020 Follow-Up: 1-2 days Admitting Diagnosis comment: DISCHARGE DX Assessment/Plan IMPRESSION: Mild patchy opacities left lung base may represent atelectasis given elevated left hemidiaphragm. Trace left pleural effusion. CONCERN FOR COVID-19 SYNDROME Altered mental status confusional state due to infectious versus toxic versus metabolic disturbance, hold tramadol Sequela chronic microvascular ischemia, unchanged. on ct head Chronic right pontine infarct. Anasarca Normocytic anemia Hypomagnesemia Mild transaminitis Elevated alkaline phosphatase suggesting hepatobiliary disease Moderate debilitation Moderate frailty malnutrition History of CABG Hypertension recent CT head is negative for acute etiology. No history or signs of trauma d/c tramadol due to potential for toxicity in the elderly Provide adequate lighting (open curtains during the day, turn the lights off at night) Avoid physical restraints, catheters or tubes, and benzodiazepines Nutrition consult SCD for DVT prophylaxis Protonix for GI prophylaxis Cardiac diet Full code Discussed with ED physician iv antibiotics, emperic PLAN ADMIT COVID-19 SCREEN PULM CONSULT blood cult urine culture emperic iv zosyn, d/c ua d/c tramadol po augmentin 500mg po bid x 7 days 37 min pt exam, chart review d/c planning , > 50% of time spent with exam, chart review, pt care cfoordination Justicifation of Admission Dx: Justicifation of Admission Dx: Justifications for Admission: Justification of Admission Dx: Yes History of Present Illness History of Present Illness 03/10/20 Patient seen and examined Chart reviewed Discussed with RN Patient gets confused Brief Hospital Course Mr. Osorio is a 84 old [sex] who presented with [ALTERED MENTATION ] CONDITION AT DISCHARGE: Improved Discharge Medications Current Medications Sodium Chloride 1,000 ml @ 1,000 mls/hr 1X ONCE IV Last administered on 03/08/20at 11:45; Start 03/08/20 at 11:45; Stop 03/08/20 at 12:44; Status DC Vancomycin HCl 1.75 gm/Sodium Chloride 500 ml @ 250 mls/hr 1X ONCE IV Last administered on 03/08/20at 16:33; Start 03/08/20 at 15:15; Stop 03/08/20 at 17:14; Status DC Cefepime HCl (Maxipime) 1 gm 1X ONCE IVP Last administered on 03/08/20at 16:32; Start 03/08/20 at 15:15; Stop 03/08/20 at 15:18; Status DC Ondansetron HCl (Zofran) 4 mg PRN Q8HRS PRN IV NAUSEA/VOMITING; Start 03/08/20 at 15:30; Stop 03/09/20 at 15:29; Status DC Piperacillin Sod/ Tazobactam Sod (Zosyn Per Pharmacy) 1 each PRN DAILY PRN [facility] SEE COMMENTS; Start 03/08/20 at 15:30 Piperacillin Sod/ Tazobactam Sod 4.5 gm/Sodium Chloride 100 ml @ 200 mls/hr Q6HRS IV Last administered on 03/10/20at 06:17; Start 03/08/20 at 18:00 Amlodipine Besylate (Norvasc) 5 mg DAILY PO Last administered on 03/10/20at 08:20; Start 03/09/20 at 09:00 Aspirin (Ecotrin) 325 mg DAILY PO Last administered on 03/10/20at 08:20; Start 03/09/20 at 09:00 Atorvastatin Calcium (Lipitor) 10 mg HS PO Last administered on 03/08/20at 21:15; Start 03/08/20 at 21:00 Latanoprost (Xalatan) 1 drop QHS OU ; Start 03/08/20 at 21:00 Lisinopril (Prinivil) 5 mg DAILY PO Last administered on 03/10/20at 08:20; Start 03/09/20 at 09:00 Tamsulosin HCl (Flomax) 0.4 mg DAILY PO Last administered on 03/10/20at 08:20; Start 03/09/20 at 09:00 Sodium Chloride (Normal Saline Flush) 3 ml QSHIFT PRN IV AFTER MEDS AND BLOOD DRAWS; Start 03/08/20 at 21:45 Sodium Chloride 1,000 ml @ 70 mls/hr [id number] IV Last administered on 03/10/20at 03:41; Start 03/08/20 at 21:35 Ondansetron HCl (Zofran) 4 mg PRN Q4HRS PRN IV NAUSEA/VOMITING 1ST CHOICE; Start 03/08/20 at 21:45 Al Hydroxide/Mg Hydroxide (Mylanta Plus Xs) 30 ml PRN DAILY PRN PO HEARTBURN / GAS; Start 03/08/20 at 21:45 Sodium Monofluorophosphate (Fleet Adult) 133 ml PRN DAILY PRN [place] CONSTIPATION 2ND CHOICE; Start 03/08/20 at 21:45 Docusate Sodium (Colace) 100 mg PRN BID PRN PO HARD STOOLS 1ST CHOICE; Start 03/08/20 at 21:45 Albuterol Sulfate (Ventolin Neb Soln) 2.5 mg PRN Q4HRS PRN NEB SHORTNESS OF BREATH; Start 03/08/20 at 21:45 Guaifenesin (Robitussin) 200 mg PRN Q4HRS PRN PO COUGH; Start 03/08/20 at 21:45 Enoxaparin Sodium (Lovenox 40mg Syringe) 40 mg Q24H SQ Last administered on 03/08/20at 23:02; Start 03/08/20 at 22:00 Piperacillin Sod/ Tazobactam Sod 3.375 gm/Sodium Chloride 50 ml @ 100 mls/hr Q6HRS IV ; Start 03/09/20 at 00:00; Status UNV Lorazepam (Ativan Inj) 1 mg PRN Q6HRS PRN IVP ANXIETY / AGITATION Last administered on 03/09/20at 10:38; Start 03/09/20 at 09:45 Lactobacillus Rhamnosus (Culturelle) 1 cap BID PO Last administered on 03/10/20at 08:20; Start 03/09/20 at 21:00 Active Scripts Active Ultram (Tramadol Hcl) 50 Mg Tablet 1 Tab PO PRN BID PRN MDD 2 Tablet(s) 15 Days Reported Latanoprost 2.5 Ml Drops 1 Drop EACHEYE QHS Atorvastatin Calcium 10 Mg Tablet 10 Mg PO HS Flomax (Tamsulosin Hcl) 0.4 Mg Cap.er.24h 0.4 Mg PO DAILY Amlodipine Besylate 5 Mg Tablet 5 Mg PO DAILY Lisinopril 5 Mg Tablet 5 Mg PO DAILY Ecotrin (Aspirin) 325 Mg Tablet.dr 325 Mg PO DAILY Vital Signs Vital Signs Date Time Temp Pulse Resp B/P (MAP) Pulse Ox O2 Delivery O2 Flow Rate FiO2 03/10/20 10:34 98.0 79 18 130/69 (89) 99 Room Air 98.0 Labs Laboratory Tests Test 03/08/20 11:34 03/08/20 15:10 03/08/20 17:07 03/09/20 05:00 White Blood Count 5.0 x10^3/uL (4.0-11.0) 4.6 x10^3/uL (4.0-11.0) Red Blood Count 3.77 x10^6/uL (4.30-5.70) 3.63 x10^6/uL (4.30-5.70) Hemoglobin 12.3 g/dL (13.0-17.5) 11.8 g/dL (13.0-17.5) Hematocrit 36.8 % (39.0-53.0) 35.5 % (39.0-53.0) Mean Corpuscular Volume 98 fL (79-100) 98 fL (79-100) Mean Corpuscular Hemoglobin 33 pg (25-35) 33 pg (25-35) Mean Corpuscular Hemoglobin Concent 33 g/dL (31-37) 33 g/dL (31-37) Red Cell Distribution Width 13.4 % (11.5-14.5) 13.7 % (11.5-14.5) Platelet Count 153 x10^3/uL (140-400) 170 x10^3/uL (140-400) Neutrophils (%) (Auto) 56 % (31-73) 54 % (31-73) Lymphocytes (%) (Auto) 31 % (24-48) 34 % (24-48) Monocytes (%) (Auto) 10 % (0-9) 9 % (0-9) Eosinophils (%) (Auto) 2 % (0-3) 3 % (0-3) Basophils (%) (Auto) 1 % (0-3) 1 % (0-3) Neutrophils # (Auto) 2.8 x10^3/uL (1.8-7.7) 2.5 x10^3/uL (1.8-7.7) Lymphocytes # (Auto) 1.6 x10^3/uL (1.0-4.8) 1.5 x10^3/uL (1.0-4.8) Monocytes # (Auto) 0.5 x10^3/uL (0.0-1.1) 0.4 x10^3/uL (0.0-1.1) Eosinophils # (Auto) 0.1 x10^3/uL (0.0-0.7) 0.1 x10^3/uL (0.0-0.7) Basophils # (Auto) 0.0 x10^3/uL (0.0-0.2) 0.0 x10^3/uL (0.0-0.2) Sodium Level 141 mmol/L (136-145) 142 mmol/L (136-145) Potassium Level 4.2 mmol/L (3.5-5.1) 4.5 mmol/L (3.5-5.1) Chloride Level 107 mmol/L (98-107) 109 mmol/L (98-107) Carbon Dioxide Level 27 mmol/L (21-32) 27 mmol/L (21-32) Anion Gap 7 (6-14) 6 (6-14) Blood Urea Nitrogen 16 mg/dL (8-26) 13 mg/dL (8-26) Creatinine 1.0 mg/dL (0.7-1.3) 0.9 mg/dL (0.7-1.3) Estimated GFR (Cockcroft-Gault) 86.3 97.5 BUN/Creatinine Ratio 16 (6-20) 14 (6-20) Glucose Level 63 mg/dL (70-99) 59 mg/dL (70-99) Lactic Acid Level 1.7 mmol/L (0.4-2.0) Calcium Level 8.6 mg/dL (8.5-10.1) 8.3 mg/dL (8.5-10.1) Total Bilirubin 0.6 mg/dL (0.2-1.0) 0.9 mg/dL (0.2-1.0) Aspartate Amino Transf (AST/SGOT) 130 U/L (15-37) 126 U/L (15-37) Alanine Aminotransferase (ALT/SGPT) 144 U/L (16-63) 135 U/L (16-63) Alkaline Phosphatase 120 U/L (46-116) 111 U/L (46-116) Total Protein 6.5 g/dL (6.4-8.2) 5.9 g/dL (6.4-8.2) Albumin 2.8 g/dL (3.4-5.0) 2.7 g/dL (3.4-5.0) Albumin/Globulin Ratio 0.8 (1.0-1.7) 0.8 (1.0-1.7) Urine Collection Type Void Urine Color Yellow Urine Clarity Clear Urine pH 7.0 (<5.0-8.0) Urine Specific [place] 1.020 (1.000-1.030) Urine Protein Negative mg/dL (NEG-TRACE) Urine Glucose (UA) Negative mg/dL (NEG) Urine Ketones (Stick) Negative mg/dL (NEG) Urine Blood Negative (NEG) Urine Nitrite Negative (NEG) Urine Bilirubin Negative (NEG) Urine Urobilinogen Dipstick 1.0 mg/dL (0.2 mg/dL) Urine Leukocyte Esterase Negative (NEG) Urine RBC 0 /HPF (0-2) Urine WBC 0 /HPF (0-4) Urine Squamous Epithelial Cells None /LPF Urine Bacteria 0 /HPF (0-FEW) Urine Mucus Slight /LPF Coronavirus (PCR) Not detected (Not Detected) Procalcitonin 0.32 ng/mL (0.00-0.10) Allergies Allergies Coded Allergies Type Severity Reaction Last Updated Verified No Known Drug Allergies 07/28/15 No Disposition/Orders: Other (D/C TO [facility]) Justicifation of Admission Dx: Justifications for Admission: Justification of Admission Dx: Yes JERMAIN GOMEZ MD Mar 10, 2020 10:51
[2020-03-10] MEDS ORDERED: DOCU-153 PO (10:54)
[2020-03-10] MEDS ORDERED: AMOX1TAB58 PO (10:54)
[2020-03-10] MEDS ORDERED: GUAI100L12 PO (10:54)
[2020-03-10] MEDS ORDERED: LACT1CAP19 PO (10:54)
[2020-03-10] MEDS ORDERED: ALBU2.5V8 NEB (10:54)
--- NOTE | 2020-03-10 10:55 | SNU/HH DC ---
DISCHARGE WITH HOME HEALTH DISCHARGE INFORMATION: Condition on Discharge: Stable CODE STATUS: Code Status: Full HOME HEALTH: Face to Face: I certify this patient is under my care and that I, or a nurse practitioner or physician's assistant manager airside operations working with me, had a face to face encounter that meets the physician face to face encounter requirements with this patient on []. Medical Complications: Dementia, Pneumonia RN For Eval/Treatment: Yes Physical Therapy For: Evalulation/Treatment Occupational Therapy For: Evaluation/Treatment Speech Language Pathology For: Evaluation/Treatment Home Health Aide For: Self-care RELIGION TEACHER For: Community Resources Pt Meets Homebound Status: Fatigue w/ amb. POST DISCHARGE ORDERS: Activity Instructions for Disc: Activity as tolerated Weight Bearing Status after Di: No restrictions Bathing Instructions: Shower-keep dressing dry DIET AFTER DISCHARGE: Cardiac Wound/Incision Care: Change dressing CHECKS AFTER DISCHARGE: Checks after discharge: Check blood press - daily TREATMENT/EQUIPMENT ORDERS: Adaptive Equipment Issued: None, Front wheeled walker CERTIFICATION STATEMENT: Certification Statement: Certification Statement: Based on the above finding, I certify that this patient is confined to the home and needs intermittent correction care, physical therapy and/or speech therapy, or continues to need occupational therapy.~ This patient is under my care, and I have initiated the establishment of the plan of care.~ This patient will be followed by myself or a community physician who will periodically review the plan of care. Home Meds Active Scripts Amoxicillin/Potassium Clav (AUGMENTIN 500-125 TABLET) 1 Each Tablet, 1 TAB PO BID for COUGH for 7 Days, #14 TAB 0 Refills Prov:JERMAIN GOMEZ MD 03/10/20 Lactobacillus Rhamnosus Gg (CULTURELLE) 1 Each Cap.sprink, 1 CAP PO BID for SUPPLEMENT for 30 Days, #60 CAP Prov:JERMAIN GOMEZ MD 03/10/20 Docusate Sodium (DOK) 100 Mg Capsule, 100 MG PO PRN BID PRN for HARD STOOLS 1ST CHOICE for 30 Days, #60 CAP Prov:JERMAIN GOMEZ MD 03/10/20 Guaifenesin (GUAIFENESIN) 100 Mg/5 Ml Liquid, 200 MG PO PRN Q4HRS PRN for COUGH for 10 Days, #240 LIQUID Prov:JERMAIN GOMEZ MD 03/10/20 Albuterol Sulfate (Proair Hfa) 8.5 Gm Hfa.aer.ad, 2.5 MG NEB PRN Q4HRS PRN for SHORTNESS OF BREATH for 14 Days, #90 EACH Prov:JERMAIN GOMEZ MD 03/10/20 Reported Medications Latanoprost (LATANOPROST) 2.5 Ml Drops, 1 DROP EACHEYE QHS for dry eye, #7.5 ML 3 Refills 03/03/20 Atorvastatin Calcium (ATORVASTATIN CALCIUM) 10 Mg Tablet, 10 MG PO HS for FOR CHOLESTEROL, #30 TAB 0 Refills 03/03/20 Tamsulosin Hcl (FLOMAX) 0.4 Mg Cap.er.24h, 0.4 MG PO DAILY for prostate, TAB 03/03/20 Amlodipine Besylate (AMLODIPINE BESYLATE) 5 Mg Tablet, 5 MG PO DAILY for HTN, TAB 03/03/20 Lisinopril (LISINOPRIL) 5 Mg Tablet, 5 MG PO DAILY for FOR HYPERTENSION, #30 TAB 0 Refills 06/18/15 Aspirin (ECOTRIN) 325 Mg Tablet.dr, 325 MG PO DAILY 10/01/13 Discontinued Reported Medications Hydroxyzine Hcl (HYDROXYZINE HCL) 25 Mg Tablet, 1 TAB PO HS for itching, #30 TAB 03/03/20 Methocarbamol (METHOCARBAMOL) 750 Mg Tablet, 750 MG PO QHS, #30 12/26/15 Magnesium Hydroxide (MILK OF MAGNESIA) 400 Mg/5 Ml Oral.susp, 400 MG PO QHS PRN for MUSCLE SPASMS 12/26/15 Diphenhydramine Hcl (BENADRYL) 25 Mg Capsule, 1 CAP PO QHS for ITCHING, #30 CAP 1 Refill 06/18/15 Amoxicillin (AMOXICILLIN) 125 Mg Tab.chew, 125 MG PO BID, TAB.CHEW 0 Refills 06/18/15 Krill Oil (KRILL OIL) 500 Mg Capsule, 500 MG PO DAILY 06/18/15 Multivits,Ca,Min/Iron/FA/Lycop (Centrum Men's Tablet) 1 Each Tablet, 1 EACH PO DAILY 06/18/15 Gabapentin (GABAPENTIN ) 100 Mg Capsule, 100 MG PO DAILY, CAP 06/18/15 Omeprazole (OMEPRAZOLE) 20 Mg Capsule.dr, 20 MG PO DAILY, CAP 06/18/15 Discontinued Scripts Tramadol Hcl (ULTRAM) 50 Mg Tablet, 1 TAB PO PRN BID PRN for pain MDD 2 Tablet(s) for 15 Days, #25 TAB 0 Refills Prov:SAIDA GLYNN MD 03/05/20 JERMAIN GOMEZ MD Mar 10, 2020 10:55
--- NOTE | 2020-03-10 11:25 | SNU/HH DC ---
DISCHARGE ORDERS DISCHARGE INFORMATION: DISCHARGE DATE: Mar 10, 2020 CONDITION ON DISCHARGE: Stable CODE STATUS: Code Status: Full CORRECTION: SNF STAY <30 DAYS: Yes HOSPICE: HOSPICE: No HOSPICE EVAL & TREAT: No LTAC: ADMIT TO LTAC: No POST DISCHARGE ORDERS: ACTIVITY ORDERS: Activity as tolerated WEIGHT BEARING STATUS: No restrictions BATHING ORDERS: Shower-keep dressing dry DIET AFTER DISCHARGE: Cardiac WOUND/INCISION CARE: Change dressing CHECKS AFTER DISCHARGE: CHECKS AFTER DISCHARGE: Check blood press - daily TREATMENT/EQUIPMENT ORDERS: ADAPTIVE EQUIPMENT NEEDED: None, Front wheeled walker RESPIRATORY EQUIPMENT NEEDED: Nebulizer Physical Therapy For: Evalulation/Treatment Occupational Therapy For: Evaluation/Treatment Speech Language Pathology For: Evaluation/Treatment DISCHARGE MEDICATIONS: Home Meds Active Scripts Amoxicillin/Potassium Clav (AUGMENTIN 500-125 TABLET) 1 Each Tablet, 1 TAB PO BID for COUGH for 7 Days, #14 TAB 0 Refills Prov:JERMAIN GOMEZ MD 03/10/20 Lactobacillus Rhamnosus Gg (CULTURELLE) 1 Each Cap.sprink, 1 CAP PO BID for SUPPLEMENT for 30 Days, #60 CAP Prov:JERMAIN GOMEZ MD 03/10/20 Docusate Sodium (DOK) 100 Mg Capsule, 100 MG PO PRN BID PRN for HARD STOOLS 1ST CHOICE for 30 Days, #60 CAP Prov:JERMAIN GOMEZ MD 03/10/20 Guaifenesin (GUAIFENESIN) 100 Mg/5 Ml Liquid, 200 MG PO PRN Q4HRS PRN for COUGH for 10 Days, #240 LIQUID Prov:JERMAIN GOMEZ MD 03/10/20 Albuterol Sulfate (Proair Hfa) 8.5 Gm Hfa.aer.ad, 2.5 MG NEB PRN Q4HRS PRN for SHORTNESS OF BREATH for 14 Days, #90 EACH Prov:JERMAIN GOMEZ MD 03/10/20 Reported Medications Latanoprost (LATANOPROST) 2.5 Ml Drops, 1 DROP EACHEYE QHS for dry eye, #7.5 ML 3 Refills 03/03/20 Atorvastatin Calcium (ATORVASTATIN CALCIUM) 10 Mg Tablet, 10 MG PO HS for FOR CHOLESTEROL, #30 TAB 0 Refills 03/03/20 Tamsulosin Hcl (FLOMAX) 0.4 Mg Cap.er.24h, 0.4 MG PO DAILY for prostate, TAB 03/03/20 Amlodipine Besylate (AMLODIPINE BESYLATE) 5 Mg Tablet, 5 MG PO DAILY for HTN, TAB 03/03/20 Lisinopril (LISINOPRIL) 5 Mg Tablet, 5 MG PO DAILY for FOR HYPERTENSION, #30 TAB 0 Refills 06/18/15 Aspirin (ECOTRIN) 325 Mg Tablet.dr, 325 MG PO DAILY 10/01/13 Discontinued Reported Medications Hydroxyzine Hcl (HYDROXYZINE HCL) 25 Mg Tablet, 1 TAB PO HS for itching, #30 TAB 03/03/20 Methocarbamol (METHOCARBAMOL) 750 Mg Tablet, 750 MG PO QHS, #30 12/26/15 Magnesium Hydroxide (MILK OF MAGNESIA) 400 Mg/5 Ml Oral.susp, 400 MG PO QHS PRN for MUSCLE SPASMS 12/26/15 Diphenhydramine Hcl (BENADRYL) 25 Mg Capsule, 1 CAP PO QHS for ITCHING, #30 CAP 1 Refill 06/18/15 Amoxicillin (AMOXICILLIN) 125 Mg Tab.chew, 125 MG PO BID, TAB.CHEW 0 Refills 06/18/15 Krill Oil (KRILL OIL) 500 Mg Capsule, 500 MG PO DAILY 06/18/15 Multivits,Ca,Min/Iron/FA/Lycop (Centrum Men's Tablet) 1 Each Tablet, 1 EACH PO DAILY 06/18/15 Gabapentin (GABAPENTIN ) 100 Mg Capsule, 100 MG PO DAILY, CAP 06/18/15 Omeprazole (OMEPRAZOLE) 20 Mg Capsule.dr, 20 MG PO DAILY, CAP 06/18/15 Discontinued Scripts Tramadol Hcl (ULTRAM) 50 Mg Tablet, 1 TAB PO PRN BID PRN for pain MDD 2 Tablet(s) for 15 Days, #25 TAB 0 Refills Prov:SAIDA GLYNN MD 03/05/20 JERMAIN GOMEZ MD Mar 10, 2020 11:25
--- NOTE | 2020-03-10 12:06 | NUR ---
SW following. Reviewed chart and spoke with RN. Coordinated care with Dr. Lu. Pt to discharge back to [facility] today. PREETHI phoned and faxed discharge orders to Vilma from [facility], , (fax). Vilma arranged for 1500 transport. Pt to discharge on room air and oral medications. Pt COVID negative. RN to call report. Packet of clinicals ready to be sent with patient. Pt's long-term plan remains rehab to home. No further SW needs at this time.
--- NOTE | 2020-03-10 14:48 | NUR ---
Discharge Note: SALTY COLLAZO [address] Discharge instructions and discharge home medications reviewed with Other facility and a copy given. All questions have been answered and understanding verbalized. The following instructions and handouts were given: Patient sent with education regarding follow ups and discharge paperwork. 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 Patient had pulled on accidemrt. Patient discharged to [facility]. report given to FLYNN Perry.
== END 2020-03-10 14:50 | DRG 177 ==
LOC: ER 10:59 → 6 SOUTH 15:20 → 5 NORTH 03-10 02:54
PROVIDERS: ADMIT Family Medicine; ATTEND Family Medicine
DX: J15.6 Pneumonia due to other Gram-negative bacteria (principal); G93.41 Metabolic encephalopathy; E44.0 Moderate protein-calorie malnutrition; J98.11 Atelectasis; D64.9 Anemia, unspecified; E78.00 Pure hypercholesterolemia, unspecified; E78.5 Hyperlipidemia, unspecified; E83.42 Hypomagnesemia; F03.90 Unspecified dementia, unspecified severity, without behavioral disturbance, psychotic disturbance, mood disturbance, and anxiety; M19.90 Unspecified osteoarthritis, unspecified site; I10 Essential (primary) hypertension; I25.10 Atherosclerotic heart disease of native coronary artery without angina pectoris; K21.9 Gastro-esophageal reflux disease without esophagitis; Z20.828 Contact with and (suspected) exposure to other viral communicable diseases; Z82.49 Family history of ischemic heart disease and other diseases of the circulatory system; Z87.891 Personal history of nicotine dependence; Z95.1 Presence of aortocoronary bypass graft; Z68.20 Body mass index [BMI] 20.0-20.9, adult
CPT/HCPCS: 36415; 70450; 71045; 80053; 81001; 83605; 84145; 85025; 87040; 93005; 96361; 96365; 96366; 96375; 99285; J0692; J1650; J2060; J2543; J3370; J7030; J7040; 97530-GO; 97530-GP; G0378; U0003-CS

== ENCOUNTER 2020-04-29 12:13 | Inpatient (IN) | payer MEDICARE, OTHER ==
[~2020-04-29] VITALS: Ht 170.2 cm; Wt 63.0 kg
[~2020-04-29 12:13] MED LIST changes: +ALBU2.5V8 NEB; +AMOX1TAB58 PO; +DOCU-153 PO; +GUAI100L12 PO; +LACT1CAP19 PO
[2020-04-29] MEDS ORDERED: IV NORMAL SALINE 500ML BAG 500 ML IV ONE (12:30)
[2020-04-29] MEDS ORDERED: CONTRAST GIVEN. MC PRN (12:30)
[2020-04-29] MEDS ORDERED: IOHEXOL 350 MG/ML 100 ML VIAL. IV ONE (12:30)
--- NOTE | 2020-04-29 12:43 | PHYS DOC ---
Past Medical History Past Medical History: Arthritis, Dementia, GERD, High Cholesterol, Heart Disease, Hypertension, [place], Other Additional Past Medical Histor: BACK PAIN Past Surgical History: Other Additional Past Surgical Histo: CARDIAC SURGERY, neck Smoking Status: Former Smoker Alcohol Use: Sober Drug Use: None General Adult EDM: Chief Complaint: HYPOTENSION, syncope, left-sided weakness HPI: HPI: 84-year-old male with a history of CVA in the past presenting to the emergency department today with multiple syncopal episodes. He was originally brought in by paramedics and initially hypotensive in the 80s however on arrival his blood pressure was retaken which was about 130 systolic. On evaluation the patient has dementia and is a poor historian. I am able to speak with his to help clear up his history. He has been passing out about 3 times and then today specifically he passed out about an hour ago. Quick neurologic exam the patient shows left upper extremity drift. It is unclear when the patient's last known well was. Speaking with the the patient over the past 3 weeks has slowly been declining and she reports that this left upper extremity weakness is not acute. She would say his last known well was about 3 weeks ago. He denies having any fevers and has clear speech. Review of systems is negative for chest pain shortness of breath abdominal pain vomiting fevers or chills. All other review of systems negative. ED course: 84-year-old male presenting with multiple syncopal episodes and left upper extremity weakness with last known well of 3 weeks ago. Initially code stroke was called as the timing of this deficit was unclear. Head CT unremarkable. Further clarification shows the patient's last known well to be about [address] angiogram called by radiologist shows supraclinoid right stenosis worse from previous about 60% now was about 50% without large vessel occlusion. Patient is excluded from TPA based on timeframe of the patient's clinical symptoms. Hemoglobin mildly low. Otherwise chemistry panel unremarkable. Will admit the patient to the hospital. I will speak with the hospitalist. We will consult neurology. The patient was then admitted for further treatment and care. Heart Score: Risk Factors: Risk Factors: DM, Current or recent (<one month) smoker, HTN, HLP, family history of CAD, obesity. Risk Scores: Score 0 - 3: 2.5% MACE over next 6 weeks - Discharge Home Score 4 - 6: 20.3% MACE over next 6 weeks - Admit for Clinical Observation Score 7 - 10: 72.7% MACE over next 6 weeks - Early Invasive Strategies Current Medications: Current Medications Medications (Trade) Dose Ordered Sig/Kay Start Time Stop Time Status Last Admin Dose Admin Info (CONTRAST GIVEN -- Rx MONITORING) 1 each PRN DAILY PRN 04/29/20 12:30 05/01/20 12:29 Iohexol (Omnipaque 350 Mg/ml) 75 ml 1X ONCE 04/29/20 12:30 04/29/20 12:31 DC Sodium Chloride 500 ml @ 500 mls/hr 1X ONCE 04/29/20 12:30 04/29/20 13:29 Allergies: Allergies: Allergies Coded Allergies Type Severity Reaction Last Updated Verified No Known Drug Allergies 07/28/15 No Physical Exam: PE: Constitutional: Well developed, well nourished, no acute distress, non-toxic appearance. [] HENT: Normocephalic, atraumatic, bilateral external ears normal, oropharynx moist, no oral exudates, nose normal. [] Eyes: PERRLA, EOMI, conjunctiva normal, no discharge. [] Neck: Normal range of motion, no tenderness, supple, no stridor. [] Cardiovascular:Heart rate regular rhythm, no murmur [] Lungs & Thorax: Bilateral breath sounds clear to auscultation [] Abdomen: Bowel sounds normal, soft, no tenderness, no masses, no pulsatile masses. [] Skin: Warm, dry, no erythema, no rash. [] Back: No tenderness, no CVA tenderness. [] Extremities: No tenderness, no cyanosis, no clubbing, ROM intact, no edema. [] Neurologic: Mental status: Awake oriented and confused (baseline) Cranial nerves: Extraocular movements intact, eyebrows tawanna bilaterally, smile symmetric, uvula elevation nl, shoulder shrug intact bilaterally, tongue protrusion normal Speech is mildly slurred (spoke with about whether this was new, she reports this to be a chronic finding.) DTRs: 2+ Sensation: equal and normal in all extremities Strength: 4 out of 5 strength in the left upper extremity. There is pronator drift present. His left upper extremity does not hit the bed before 5 seconds. 5 out of 5 strength in the lower extremities Psychologic: Affect normal, judgement normal, mood normal. [] Current Patient Data: Labs: Laboratory Tests Test 04/29/20 12:20 Glucose (Fingerstick) 89 mg/dL (70-99) EKG: EKG: [] Radiology/Procedures: Radiology/Procedures: [] Course & Med Decision Making: Course & Med Decision Making Pertinent Labs and Imaging studies reviewed. (See chart for details) [] Dragon Disclaimer: Dragon Disclaimer: This electronic medical record was generated, in whole or in part, using a voice recognition dictation system. Departure Departure Impression: Primary Impression: Syncope Additional Impression: Left arm weakness Referrals: SAIDA GLYNN MD (PCP) Justicifation of Admission Dx: Justifications for Admission: Justification of Admission Dx: Yes Comments: Stroke HANNAH BRYANT MD Apr 29, 2020 12:43
--- NOTE | 2020-04-29 12:45 | RAD ---
Examination: CT CODE STROKE HEAD WO History: Reason: SYNCOPE AND LUE WEAKNESS / Spl. Instructions: / History: Comparison/Correlation: 03/08/2020 CT head without contrast Findings: Axial images were obtained without contrast. Coronal reformatted images were provided. Atrophy and chronic ischemic changes in the white matter noted. Right external capsular lacunar infarct is present. Old pontine infarcts again seen. No midline shift or mass effect. No evidence of evolving infarct. Bony structures are grossly unremarkable. Postoperative cervical spine fusion noted with rods and screws apparently seen on the tomogram. Impression: Atrophy and chronic ischemic change. Old infarcts. No acute process. Consider further imaging if infarct is a persistent concern. Discussed with referring ED provider 04/29/2020 at 12:41 PM. PQRS Compliance Statement: One or more of the following individualized dose reduction techniques were utilized for this examination: 1. Automated exposure control 2. Adjustment of the mA and/or kV according to patient size 3. Use of iterative reconstruction technique Electronically signed by: Juan Carlos Wright MD (04/29/2020 12:42 PM) [email or web address]
[2020-04-29 12:46] LABS: BASO % 1 % (0-3); EOS # 0.1 x10^3/uL (0.0-0.7); EOS % 2 % (0-3); HEMATOCRIT 36.8 % (39.0-53.0); HEMOGLOBIN 12.5 g/dL (13.0-17.5); LYMPH # 1.6 x10^3/uL (1.0-4.8); LYMPH % 31 % (24-48); MEAN CORPUSCULAR HEMOGLOBIN 33 pg (25-35); MEAN CORPUSCULAR HGB CONC 34 g/dL (31-37); MEAN CORPUSCULAR VOLUME 98 fL (79-100); MONO # 0.5 x10^3/uL (0.0-1.1); MONO % 11 % (0-9); NEUT # 2.9 x10^3/uL (1.8-7.7); NEUT % 56 % (31-73); PLATELET COUNT 196 x10^3/uL (140-400); RED BLOOD COUNT 3.75 x10^6/uL (4.30-5.70); RED CELL DISTRIBUTION WIDTH 13.2 % (11.5-14.5); WHITE BLOOD COUNT 5.1 x10^3/uL (4.0-11.0)
[2020-04-29 12:57] LABS: PROTHROMBIN TIME PATIENT 14.3 SEC (11.7-14.0)
[2020-04-29 13:20] LABS: CALCIUM 8.7 mg/dL (8.5-10.1); CREATININE 1.3 mg/dL (0.7-1.3); GFR 63.8; POTASSIUM 4.1 mmol/L (3.5-5.1)
[2020-04-29 13:25] LABS: ALBUMIN 2.5 g/dL (3.4-5.0); DIRECT BILIRUBIN 0.2 mg/dL (0.0-0.2); TOTAL BILIRUBIN 0.6 mg/dL (0.2-1.0); TOTAL PROTEIN 6.4 g/dL (6.4-8.2)
--- NOTE | 2020-04-29 13:27 | RAD ---
Examination: CT ANGIOGRAPHY HEAD AND NECK History: Reason: SYNCOPE AND LUE WEAKNESS / Spl. Instructions: [id number] / History: Comparison/Correlation: 11/13/2017 CTA head and neck TECHNIQUE: Computed tomographic angiography of the head and neck was performed following IV contrast according to arteriography protocol. Three-dimensional reconstructions were also performed. Maximum intensity projection images were provided. FINDINGS: Angiographic findings: The aortic arch has a typical branching pattern. Approximately 50 percent stenosis of the left carotid artery is again seen measuring length of 0.5 cm distal to the left vertebral artery origin. No aortic arch branch vessel stenosis otherwise seen. Significant calcific involvement of the distal right common carotid artery and proximal internal carotid artery noted with approximately percent stenosis. Associated noncalcific plaque also is present to a much lesser extent. Calcific involvement of the distal left common carotid artery and carotid bulb also seen with no significant stenosis. Supraclinoid right internal carotid artery calcific plaque is notable with up to 60 percent stenosis. This is similar upon correlation with the previous exam. Calcific plaque of the left intracranial internal carotid arteries also present but without significant stenosis. Anterior cerebral, middle cerebral, and posterior cerebral arteries are patent. No significant stenoses. No aneurysm evident. Tortuosity of the basilar artery is evident. Vertebral arteries are patent with no significant stenoses. Dominant left vertebral artery is identified. No suspicious intracranial enhancement. The vertex was not fully included. No enlarged cervical lymph nodes. Mild emphysematous involvement of the lung apices noted. Severe multilevel disc space narrowing is present. Postoperative decompression of the cervical spine with bilateral laminectomy from C3 to C6 is present. Spinal rods and associated screws bilaterally are seen involving the cervical spine. Left maxillary sinus mucous retention cyst noted. Soft tissues of the neck are unremarkable. Thyroid gland is unremarkable. True and false cords are symmetric. The epiglottis is normal. 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 Significant calcific plaque involves the distal right common carotid artery bifurcation and carotid bulb as well as proximal right internal carotid artery with stenosis of approximately 50 percent similar to the prior exam. 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 No aneurysm or dissection. 04/29/2020 1:05 PM, results discussed with referring ED physician. PQRS Compliance Statement - Stenosis calculations for CT, MR and conventional angiography are based upon measurement of the distal ICA diameter in accordance with the NASCET methodology. Stenosis calculations for carotid ultrasound studies are derived from validated velocity criteria which are known to correlate with the NASCET methodology. *One or more of the following individualized dose reduction techniques were utilized for this examination: 1. Automated exposure control. 2. Adjustment of the mA and/or kV according to patient size. 3. Use of iterative reconstruction technique. Electronically signed by: Juan Carlos Wright MD (04/29/2020 1:24 PM) [id number]
[2020-04-29] MEDS ORDERED: IV NORMAL SALINE 1000ML BAG 1,000 ML IV SCH (13:44)
[2020-04-29 14:00] LABS: BILIRUBIN,URINE NEGATIVE (NEG); CLARITY,URINE CLEAR; COLOR,URINE YELLOW; NITRITE,URINE NEGATIVE (NEG); PROTEIN,URINE NEGATIVE (NEG-TRACE)
[2020-04-29 14:06] LABS: BACTERIA,URINE 0 /HPF (0-FEW); HYALINE CASTS, URINE FEW /HPF; RBC,URINE OCC /HPF (0-2); WBC,URINE 0 /HPF (0-4)
[2020-04-29] MEDS ORDERED: DOCUSATE SODIUM 100 MG CAPSULE. PO PRN ×2 (15:45)
[2020-04-29] MEDS ORDERED: ALBUTEROL SULFATE 2.5 MG/3 ML NEBU. NEB PRN ×2 (15:45)
[2020-04-29] MEDS ORDERED: ONDANSETRON PF 4 MG/2 ML VIAL. IV PRN (15:45)
[2020-04-29] MEDS ORDERED: guaiFENesin ORAL 200 MG/10 ML LIQUID. PO PRN ×2 (15:45)
--- NOTE | 2020-04-29 16:09 | PDOC2 ---
NEUROLOGY CONSULT Date of Service DOS: DATE: 04/29/20 TIME: 15:55 Referring Physician Referring Physician: Hospitalist Source Source: Caregiver (), Chart review, Patient History of Present Illness History of Present Illness The patient is an 84-year-old right-handed male with several episodes of syncope. Systolic blood pressure was 80 in the field. He has had several falls over the past several months. He was admitted here with a fall in February. He went to the correction. He has been in and out of the correction, coming home on April 14. His notes that he has great difficulty walking. He seems to favor his left arm for the last several weeks, she says. She has been told that he has had strokes, but knows no details. She says the usually comes here, but the last time neurology saw him was in November 2017, when he came in with syncope. EEG showed slowing. He already had a diagnosis of dementia at that time. He has never had a convulsive seizure or significant head injury. He also has a diagnosis of cervical spinal stenosis and a spinal cord contusion treated with laminectomy in 2014. Past Medical History Cardiovascular: CAD, HTN, RI, Hyperlipidemia CENTRAL NERVOUS SYSTEM: CVA, Dementia, Other (Cervical spinal stenosis) GI: GERD, Other (Dysphagia) Musculoskeletal: low back pain, Osteoarthritis ENT: Other (Bilateral hearing loss) Renal/: UTI, Benign prostatic enlarg., Urinary Incontinence Past Surgical History Past Surgical History: CABG, Cataract Removal, Hernia Repair, Other (Cervical laminectomy at C3-C4, C4-C5, and C5-C6 with instrumentation) Family History Family History: No pertinent hx Social History Social History , remote use of alcohol and tobacco, retired Current Medications Current Medications Current Medications Sodium Chloride 500 ml @ 500 mls/hr 1X ONCE IV Last administered on 04/29/20at 12:45; Start 04/29/20 at 12:30; Stop 04/29/20 at 13:29; Status DC Iohexol (Omnipaque 350 Mg/ml) 75 ml 1X ONCE IV Last administered on 04/29/20at 12:40; Start 04/29/20 at 12:30; Stop 04/29/20 at 12:31; Status DC Info (CONTRAST GIVEN -- Rx MONITORING) 1 each PRN DAILY PRN MC SEE COMMENTS; Start 04/29/20 at 12:30; Stop 05/01/20 at 12:29 Sodium Chloride 1,000 ml @ 100 mls/hr Q10H IV ; Start 04/29/20 at 13:44; Stop 04/29/20 at 17:43 Albuterol Sulfate (Ventolin Neb Soln) 2.5 mg PRN Q4HRS PRN NEB SHORTNESS OF BREATH; Start 04/29/20 at 15:45 Amlodipine Besylate (Norvasc) 5 mg DAILY PO ; Start 04/30/20 at 09:00 Aspirin (Ecotrin) 325 mg DAILY PO ; Start 04/30/20 at 09:00 Atorvastatin Calcium (Lipitor) 10 mg HS PO ; Start 04/29/20 at 21:00; Status UNV Docusate Sodium (Colace) 100 mg PRN BID PRN PO HARD STOOLS 1ST CHOICE; Start 04/29/20 at 15:45 Guaifenesin (Robitussin) 200 mg PRN Q4HRS PRN PO COUGH; Start 04/29/20 at 15:45 Lactobacillus Rhamnosus (Culturelle) 1 cap BID PO ; Start 04/29/20 at 21:00; St atus UNV Latanoprost (Xalatan) 1 drop QHS OU ; Start 04/29/20 at 21:00; Status UNV Lisinopril (Prinivil) 5 mg DAILY PO ; Start 04/30/20 at 09:00; Status UNV Tamsulosin HCl (Flomax) 0.4 mg DAILY PO ; Start 04/30/20 at 09:00; Status UNV Ondansetron HCl (Zofran) 4 mg PRN Q4HRS PRN IV NAUSEA/VOMITING; Start 04/29/20 at 15:45 Acetaminophen (Tylenol) 650 mg PRN Q4HRS PRN PO TEMP OVER 100.4F OR MILD PAIN; Start 04/29/20 at 15:45 Docusate Sodium (Colace) 100 mg PRN BID PRN PO HARD STOOLS; Start 04/29/20 at 15:45; Status UNV Albuterol Sulfate (Ventolin Neb Soln) 2.5 mg PRN Q4HRS PRN NEB SHORTNESS OF BREATH; Start 04/29/20 at 15:45; Status UNV Guaifenesin (Robitussin) 200 mg PRN Q4HRS PRN PO COUGH; Start 04/29/20 at 15:45; Status UNV Lorazepam (Ativan) 0.5 mg PRN Q4HRS PRN PO ANXIETY / AGITATION; Start 04/29/20 at 15:45 Enoxaparin Sodium (Lovenox 40mg Syringe) 40 mg Q24H SQ ; Start 04/29/20 at 15:45; Status UNV Active Scripts Active Augmentin 500-125 Tablet (Amoxicillin/Potassium Clav) 1 Each Tablet 1 Tab PO BID 7 Days Culturelle (Lactobacillus Rhamnosus Gg) 1 Each Cap.sprink 1 Cap PO BID 30 Days Dok (Docusate Sodium) 100 Mg Capsule 100 Mg PO PRN BID PRN 30 Days Guaifenesin 100 Mg/5 Ml Liquid 200 Mg PO PRN Q4HRS PRN 10 Days Proair Hfa (Albuterol Sulfate) 8.5 Gm Hfa.aer.ad 2.5 Mg NEB PRN Q4HRS PRN 14 Days Reported Latanoprost 2.5 Ml Drops 1 Drop EACHEYE QHS Atorvastatin Calcium 10 Mg Tablet 10 Mg PO HS Flomax (Tamsulosin Hcl) 0.4 Mg Cap.er.24h 0.4 Mg PO DAILY Amlodipine Besylate 5 Mg Tablet 5 Mg PO DAILY Lisinopril 5 Mg Tablet 5 Mg PO DAILY Ecotrin (Aspirin) 325 Mg Tablet.dr 325 Mg PO DAILY Allergies Allergies: Coded Allergies: No Known Drug Allergies (Unverified , 07/28/15) ROS Review of System Negative for fever, chills, weight loss, shortness of breath, chest pain, indigestion, hematochezia, melena, and dysuria. Full 14-point review of systems is negative. Physical Exam Physical Examination General: Well-developed, well-nourished black male in no acute distress HEENT: Normocephalic andatraumatic. Temporal arteriespulsatile and nontender. Neck: Supple without bruit, no meningismus Musculoskeletal: Stability:see neurologic. Gait exam:see neurologic. Tone:see neurologic.Strength:see neurologic. Neurological: Mental Status: orientation, memory, attention span/concentration, language, fund of knowledge: Alert, says that he is at [facility], does not know the date, does not know precise location, names and repeats well, he is hard of hearing. Cranial Nerves:Pupils equal and reactive to light, extraocular movements areintact, visual cardona are full to confrontation. Facial sensation is normal. There is no facial asymmetry. Vestibulo-ocular reflex is intact. Palate elevates and tongue protrudes in midline. All other cranial related problems are negative except as mentioned before.Reflexes:1+ and symmetric with flexor plantar responses. Motor:3/5 left arm, 4-/5 left leg, 5-/5 on right, increased tone on the left. Coordination:Finger-nose finger and myxp-qt-[id number] testing are normal. Rapid alternating movements and fine finger movements are intact, accounting for hemiparesis. Gait:not tested. Sensory:Normal pinprick, vibration, light touch, proprioception. Vitals VITALS Vital Signs Date Time Temp Pulse Resp B/P (MAP) Pulse Ox O2 Delivery O2 Flow Rate FiO2 04/29/20 12:15 97.1 67 16 142/63 (89) 100 Room Air 97.1 Labs Labs Laboratory Tests Test 04/29/20 12:20 04/29/20 12:25 04/29/20 13:00 04/29/20 13:45 Glucose (Fingerstick) 89 mg/dL (70-99) White Blood Count 5.1 x10^3/uL (4.0-11.0) Red Blood Count 3.75 x10^6/uL (4.30-5.70) Hemoglobin 12.5 g/dL (13.0-17.5) Hematocrit 36.8 % (39.0-53.0) Mean Corpuscular Volume 98 fL (79-100) Mean Corpuscular Hemoglobin 33 pg (25-35) Mean Corpuscular Hemoglobin Concent 34 g/dL (31-37) Red Cell Distribution Width 13.2 % (11.5-14.5) Platelet Count 196 x10^3/uL (140-400) Neutrophils (%) (Auto) 56 % (31-73) Lymphocytes (%) (Auto) 31 % (24-48) Monocytes (%) (Auto) 11 % (0-9) Eosinophils (%) (Auto) 2 % (0-3) Basophils (%) (Auto) 1 % (0-3) Neutrophils # (Auto) 2.9 x10^3/uL (1.8-7.7) Lymphocytes # (Auto) 1.6 x10^3/uL (1.0-4.8) Monocytes # (Auto) 0.5 x10^3/uL (0.0-1.1) Eosinophils # (Auto) 0.1 x10^3/uL (0.0-0.7) Basophils # (Auto) 0.0 x10^3/uL (0.0-0.2) Prothrombin Time 14.3 SEC (11.7-14.0) Prothromb Time International Ratio 1.2 (0.8-1.1) Activated Partial Thromboplast Time 29 SEC (24-38) Sodium Level 137 mmol/L (136-145) Potassium Level 4.1 mmol/L (3.5-5.1) Chloride Level 105 mmol/L (98-107) Carbon Dioxide Level 26 mmol/L (21-32) Anion Gap 6 (6-14) Blood Urea Nitrogen 22 mg/dL (8-26) Creatinine 1.3 mg/dL (0.7-1.3) Estimated GFR (Cockcroft-Gault) 63.8 Glucose Level 80 mg/dL (70-99) Calcium Level 8.7 mg/dL (8.5-10.1) Total Bilirubin 0.6 mg/dL (0.2-1.0) Direct Bilirubin 0.2 mg/dL (0.0-0.2) Aspartate Amino Transf (AST/SGOT) 71 U/L (15-37) Alanine Aminotransferase (ALT/SGPT) 81 U/L (16-63) Alkaline Phosphatase 117 U/L (46-116) Troponin I Quantitative < 0.017 ng/mL (0.000-0.055) NP-Ikh-U-Type Natriuretic Peptide 352 pg/mL (0-449) Total Protein 6.4 g/dL (6.4-8.2) Albumin 2.5 g/dL (3.4-5.0) Lipase 150 U/L (73-393) Urine Collection Type U cath Urine Color Yellow Urine Clarity Clear Urine pH 7.0 (<5.0-8.0) Urine Specific [place] 1.025 (1.000-1.030) Urine Protein Negative mg/dL (NEG-TRACE) Urine Glucose (UA) Negative mg/dL (NEG) Urine Ketones (Stick) Negative mg/dL (NEG) Urine Blood Negative (NEG) Urine Nitrite Negative (NEG) Urine Bilirubin Negative (NEG) Urine Urobilinogen Dipstick 1.0 mg/dL (0.2 mg/dL) Urine Leukocyte Esterase Negative (NEG) Urine RBC Occ /HPF (0-2) Urine WBC 0 /HPF (0-4) Urine Bacteria 0 /HPF (0-FEW) Urine Hyaline Casts Few /HPF Urine Mucus Mod /LPF Laboratory Tests Test 04/29/20 12:20 04/29/20 12:25 04/29/20 13:00 04/29/20 13:45 Glucose (Fingerstick) 89 mg/dL (70-99) White Blood Count 5.1 x10^3/uL (4.0-11.0) Red Blood Count 3.75 x10^6/uL (4.30-5.70) Hemoglobin 12.5 g/dL (13.0-17.5) Hematocrit 36.8 % (39.0-53.0) Mean Corpuscular Volume 98 fL (79-100) Mean Corpuscular Hemoglobin 33 pg (25-35) Mean Corpuscular Hemoglobin Concent 34 g/dL (31-37) Red Cell Distribution Width 13.2 % (11.5-14.5) Platelet Count 196 x10^3/uL (140-400) Neutrophils (%) (Auto) 56 % (31-73) Lymphocytes (%) (Auto) 31 % (24-48) Monocytes (%) (Auto) 11 % (0-9) Eosinophils (%) (Auto) 2 % (0-3) Basophils (%) (Auto) 1 % (0-3) Neutrophils # (Auto) 2.9 x10^3/uL (1.8-7.7) Lymphocytes # (Auto) 1.6 x10^3/uL (1.0-4.8) Monocytes # (Auto) 0.5 x10^3/uL (0.0-1.1) Eosinophils # (Auto) 0.1 x10^3/uL (0.0-0.7) Basophils # (Auto) 0.0 x10^3/uL (0.0-0.2) Prothrombin Time 14.3 SEC (11.7-14.0) Prothromb Time International Ratio 1.2 (0.8-1.1) Activated Partial Thromboplast Time 29 SEC (24-38) Sodium Level 137 mmol/L (136-145) Potassium Level 4.1 mmol/L (3.5-5.1) Chloride Level 105 mmol/L (98-107) Carbon Dioxide Level 26 mmol/L (21-32) Anion Gap 6 (6-14) Blood Urea Nitrogen 22 mg/dL (8-26) Creatinine 1.3 mg/dL (0.7-1.3) Estimated GFR (Cockcroft-Gault) 63.8 Glucose Level 80 mg/dL (70-99) Calcium Level 8.7 mg/dL (8.5-10.1) Total Bilirubin 0.6 mg/dL (0.2-1.0) Direct Bilirubin 0.2 mg/dL (0.0-0.2) Aspartate Amino Transf (AST/SGOT) 71 U/L (15-37) Alanine Aminotransferase (ALT/SGPT) 81 U/L (16-63) Alkaline Phosphatase 117 U/L (46-116) Troponin I Quantitative < 0.017 ng/mL (0.000-0.055) SC-Atj-U-Type Natriuretic Peptide 352 pg/mL (0-449) Total Protein 6.4 g/dL (6.4-8.2) Albumin 2.5 g/dL (3.4-5.0) Lipase 150 U/L (73-393) Urine Collection Type U cath Urine Color Yellow Urine Clarity Clear Urine pH 7.0 (<5.0-8.0) Urine Specific [place] 1.025 (1.000-1.030) Urine Protein Negative mg/dL (NEG-TRACE) Urine Glucose (UA) Negative mg/dL (NEG) Urine Ketones (Stick) Negative mg/dL (NEG) Urine Blood Negative (NEG) Urine Nitrite Negative (NEG) Urine Bilirubin Negative (NEG) Urine Urobilinogen Dipstick 1.0 mg/dL (0.2 mg/dL) Urine Leukocyte Esterase Negative (NEG) Urine RBC Occ /HPF (0-2) Urine WBC 0 /HPF (0-4) Urine Bacteria 0 /HPF (0-FEW) Urine Hyaline Casts Few /HPF Urine Mucus Mod /LPF Images Images CT head without contrast Findings: Axial images were obtained without contrast. Coronal reformatted images were provided. Atrophy and chronic ischemic changes in the white matter noted. Right external capsular lacunar infarct is present. Old pontine infarcts again seen. No midline shift or mass effect. No evidence of evolving infarct. Bony structures are grossly unremarkable. Postoperative cervical spine fusion noted with rods and screws apparently seen on the tomogram. Impression: Atrophy and chronic ischemic change. Old infarcts. No acute process. Consider further imaging if infarct is a persistent concern. CT ANGIOGRAPHY HEAD AND NECK History: Reason: SYNCOPE AND LUE WEAKNESS / Spl. Instructions: [id number] / History: Comparison/Correlation: 11/13/2017 CTA head and neck TECHNIQUE: Computed tomographic angiography of the head and neck was performed following IV contrast according to arteriography protocol. Three-dimensional reconstructions were also performed. Maximum intensity projection images were provided. FINDINGS: Angiographic findings: The aortic arch has a typical branching pattern. Approximately 50 percent stenosis of the left carotid artery is again seen measuring length of 0.5 cm distal to the left vertebral artery origin. No aortic arch branch vessel stenosis otherwise seen. Significant calcific involvement of the distal right common carotid artery and proximal internal carotid artery noted with approximately percent stenosis. Associated noncalcific plaque also is present to a much lesser extent. Calcific involvement of the distal left common carotid artery and carotid bulb also seen with no significant stenosis. Supraclinoid right internal carotid artery calcific plaque is notable with up to 60 percent stenosis. This is similar upon correlation with the previous exam. Calcific plaque of the left intracranial internal carotid arteries also present but without significant stenosis. Anterior cerebral, middle cerebral, and posterior cerebral arteries are patent. No significant stenoses. No aneurysm evident. Tortuosity of the basilar artery is evident. Vertebral arteries are patent with no significant stenoses. Dominant left vertebral artery is identified. No suspicious intracranial enhancement. The vertex was not fully included. No enlarged cervical lymph nodes. Mild emphysematous involvement of the lung apices noted. Severe multilevel disc space narrowing is present. Postoperative decompression of the cervical spine with bilateral laminectomy from C3 to C6 is present. Spinal rods and associated screws bilaterally are seen involving the cervical spine. Left maxillary sinus mucous retention cyst noted. Soft tissues of the neck are unremarkable. Thyroid gland is unremarkable. True and false cords are symmetric. The epiglottis is normal. 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 Significant calcific plaque involves the distal right common carotid artery bifurcation and carotid bulb as well as proximal right internal carotid artery with stenosis of approximately 50 percent similar to the prior exam. 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 No aneurysm or dissection. Assessment/Plan Assessment/Plan Impression: Clearly a case of prior right hemispheric stroke, with spasticity and weakness on the left side, this probably happened sometime in the last several months. 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 60 percent supraclinoid right internal carotid arterial stenosis due to calcific plaque Recommendations: Again, no acute stroke, no relevance of alteplase. Aspirin and statin Rehabilitation modalities Cardiac work-up I will send off some laboratory studies for easily reversible causes of dementia. Patient has an appointment with neurology regarding his dementia in about a month. I asked the to check and see if the patient had been on dementia medication such as donepezil or memantine, she thinks he has been on the latter, but they decided to stop it. Medical treatment of the internal carotid artery stenosis. Fully discussed with the patient's . Discussed with Dr. Braga Thank you for letting me help with the patient's care. SALTY FORDE MD Apr 29, 2020 16:09
--- NOTE | 2020-04-29 17:12 | PDOC1 ---
History and Physical Date of Admission Date of Admission 04/29/2020 Identification/Chief Complaint Chief Complaint he was unresponsive Source Source: Caregiver, Chart review, Patient History of Present Illness History of Present Illness Patient is a right handed gentleman who has several commrobitdities including CAD, HTN history of dyslipidemia and dementia who was in his usual state of ehalth until the day of his admission when he had an episode of "fainting" as per his family member who is at bedside helping with the history taking. Patient had been in a rehab facility until April 14 and had been doing quite a lright at home. He had regained his independence but presented an episode similar to the events today more or less a week ago. Patient has not had changes to his medications. He denies lightheadedness, no aura type of symptoms, he has not presented seizure like activity and did not have post ictal period either. He has been prescribed "memory pills " in the past but currently is not taking medications, He has an appointment with neurolgy in the outpatient setting to discuss medication adjustment. Patient denies headache blurred vision no vision loss, no odynophagia slurred speech no facial droop. No chest pain palpitations or shortness of breath has been reported. No nausea vomiting or diarrhea. Oral intake has bee adequate as per family members. Patient at the time of my evaluation seems to be in no acute distress,He responds slowly to questions and is very interested in knowing how long he will need to be in the hospital. Plan of care discussed with patient and family member at bedside. Past Medical History Cardiovascular: CAD, HTN, CT, Hyperlipidemia Pulmonary: No pertinent hx CENTRAL NERVOUS SYSTEM: CVA, Dementia, Other (Cervical spinal stenosis) GI: GERD, Other (Dysphagia) Heme/Onc: No pertinent hx Hepatobiliary: No pertinent hx Psych: No pertinent hx Rheumatologic: No pertinent hx Infectious disease: No pertinent hx ENT: Other (Bilateral hearing loss) Renal/: UTI, Benign prostatic enlarg., Urinary Incontinence Endocrine: No pertinent hx Past Surgical History Past Surgical History: CABG, Cataract Removal, Hernia Repair, Other (Cervical laminectomy at C3-C4, C4-C5, and C5-C6 with instrumentation) Family History Family History: Heart Disease, High Cholestrol Social History ALCOHOL: none Drugs: None Current Problem List Problem List Problems Medical Problems: (1) Left arm weakness Status: Acute (2) Syncope Status: Acute Current Medications Current Medications Current Medications Medications (Trade) Dose Ordered Sig/Kay Start Time Stop Time Status Last Admin Dose Admin Acetaminophen (Tylenol) 650 mg PRN Q4HRS PRN 04/29/20 15:45 Albuterol Sulfate (Ventolin Neb Soln) 2.5 mg PRN Q4HRS PRN 04/29/20 15:45 UNV Amlodipine Besylate (Norvasc) 5 mg DAILY 04/30/20 09:00 Aspirin (Ecotrin) 325 mg DAILY 04/30/20 09:00 Atorvastatin Calcium (Lipitor) 10 mg HS 04/29/20 21:00 UNV Docusate Sodium (Colace) 100 mg PRN BID PRN 04/29/20 15:45 UNV Enoxaparin Sodium (Lovenox 40mg Syringe) 40 mg Q24H 04/29/20 15:45 UNV Guaifenesin (Robitussin) 200 mg PRN Q4HRS PRN 04/29/20 15:45 UNV Info (CONTRAST GIVEN -- Rx MONITORING) 1 each PRN DAILY PRN 04/29/20 12:30 05/01/20 12:29 Iohexol (Omnipaque 350 Mg/ml) 75 ml 1X ONCE 04/29/20 12:30 04/29/20 12:31 DC 04/29/20 12:40 75 ML Lactobacillus Rhamnosus (Culturelle) 1 cap BID 04/29/20 21:00 UNV Latanoprost (Xalatan) 1 drop QHS 04/29/20 21:00 UNV Lisinopril (Prinivil) 5 mg DAILY 04/30/20 09:00 UNV Lorazepam (Ativan) 0.5 mg PRN Q4HRS PRN 04/29/20 15:45 Ondansetron HCl (Zofran) 4 mg PRN Q4HRS PRN 04/29/20 15:45 Sodium Chloride 1,000 ml @ 100 mls/hr Q10H 04/29/20 13:44 04/29/20 17:43 Tamsulosin HCl (Flomax) 0.4 mg DAILY 04/30/20 09:00 UNV Allergies Allergies Allergies Coded Allergies Type Severity Reaction Last Updated Verified No Known Drug Allergies 07/28/15 No ROS Review of System CONSTITUTIONAL: No fever or chills EYES: No recent changes SKIN: No rash or itching CARDIOVASCULAR: No chest pain, syncope, palpitations, or edema RESPIRATORY: No SOB or cough GASTROINTESTINAL: No nausea, vomiting or abdominal pain NEUROLOGICAL: No headaches or weakness ENDOCRINE: No cold or heat intolerance GENITOURINARY: No urgency or frequency of urination MUSCULOSKELETAL: No back pain or joint pain LYMPHATICS: No enlarged lymph nodes PSYCHIATRIC: No anxiety or depression unreliable given cognitive impairment. Physical Exam Physical Exam GEN.: No apparent distress. Alert and oriented. HEENT: Head is normocephalic, atraumatic NECK: Supple. LUNGS: Clear to auscultation. HEART: RRR, S1, S2 present. Peripheral pulses intact ABDOMEN: Soft, nontender. Positive bowel sounds. EXTREMITIES: Without any cyanosis. NEUROLOGIC: Seems to be oriented in person and in place nevertheless he calls the [facility]. Cranial nerves II through XII intact overall no motor nor sensory deficits appreciated PSYCHIATRIC: Normal affect, normal mood. SKIN: No ulcerations Vitals Vitals Vital Signs Date Time Temp Pulse Resp B/P (MAP) Pulse Ox O2 Delivery O2 Flow Rate FiO2 04/29/20 12:15 97.1 67 16 142/63 (89) 100 Room Air 97.1 Labs Labs Laboratory Tests Test 04/29/20 12:20 04/29/20 12:25 04/29/20 13:00 04/29/20 13:45 Glucose (Fingerstick) 89 mg/dL (70-99) White Blood Count 5.1 x10^3/uL (4.0-11.0) Red Blood Count 3.75 x10^6/uL (4.30-5.70) Hemoglobin 12.5 g/dL (13.0-17.5) Hematocrit 36.8 % (39.0-53.0) Mean Corpuscular Volume 98 fL (79-100) Mean Corpuscular Hemoglobin 33 pg (25-35) Mean Corpuscular Hemoglobin Concent 34 g/dL (31-37) Red Cell Distribution Width 13.2 % (11.5-14.5) Platelet Count 196 x10^3/uL (140-400) Neutrophils (%) (Auto) 56 % (31-73) Lymphocytes (%) (Auto) 31 % (24-48) Monocytes (%) (Auto) 11 % (0-9) Eosinophils (%) (Auto) 2 % (0-3) Basophils (%) (Auto) 1 % (0-3) Neutrophils # (Auto) 2.9 x10^3/uL (1.8-7.7) Lymphocytes # (Auto) 1.6 x10^3/uL (1.0-4.8) Monocytes # (Auto) 0.5 x10^3/uL (0.0-1.1) Eosinophils # (Auto) 0.1 x10^3/uL (0.0-0.7) Basophils # (Auto) 0.0 x10^3/uL (0.0-0.2) Prothrombin Time 14.3 SEC (11.7-14.0) Prothromb Time International Ratio 1.2 (0.8-1.1) Activated Partial Thromboplast Time 29 SEC (24-38) Sodium Level 137 mmol/L (136-145) Potassium Level 4.1 mmol/L (3.5-5.1) Chloride Level 105 mmol/L (98-107) Carbon Dioxide Level 26 mmol/L (21-32) Anion Gap 6 (6-14) Blood Urea Nitrogen 22 mg/dL (8-26) Creatinine 1.3 mg/dL (0.7-1.3) Estimated GFR (Cockcroft-Gault) 63.8 Glucose Level 80 mg/dL (70-99) Calcium Level 8.7 mg/dL (8.5-10.1) Total Bilirubin 0.6 mg/dL (0.2-1.0) Direct Bilirubin 0.2 mg/dL (0.0-0.2) Aspartate Amino Transf (AST/SGOT) 71 U/L (15-37) Alanine Aminotransferase (ALT/SGPT) 81 U/L (16-63) Alkaline Phosphatase 117 U/L (46-116) Troponin I Quantitative < 0.017 ng/mL (0.000-0.055) PR-Izi-Z-Type Natriuretic Peptide 352 pg/mL (0-449) Total Protein 6.4 g/dL (6.4-8.2) Albumin 2.5 g/dL (3.4-5.0) Lipase 150 U/L (73-393) Urine Collection Type U cath Urine Color Yellow Urine Clarity Clear Urine pH 7.0 (<5.0-8.0) Urine Specific Galt 1.025 (1.000-1.030) Urine Protein Negative mg/dL (NEG-TRACE) Urine Glucose (UA) Negative mg/dL (NEG) Urine Ketones (Stick) Negative mg/dL (NEG) Urine Blood Negative (NEG) Urine Nitrite Negative (NEG) Urine Bilirubin Negative (NEG) Urine Urobilinogen Dipstick 1.0 mg/dL (0.2 mg/dL) Urine Leukocyte Esterase Negative (NEG) Urine RBC Occ /HPF (0-2) Urine WBC 0 /HPF (0-4) Urine Bacteria 0 /HPF (0-FEW) Urine Hyaline Casts Few /HPF Urine Mucus Mod /LPF Laboratory Tests Test 04/29/20 12:20 04/29/20 12:25 04/29/20 13:00 04/29/20 13:45 Glucose (Fingerstick) 89 mg/dL (70-99) White Blood Count 5.1 x10^3/uL (4.0-11.0) Red Blood Count 3.75 x10^6/uL (4.30-5.70) Hemoglobin 12.5 g/dL (13.0-17.5) Hematocrit 36.8 % (39.0-53.0) Mean Corpuscular Volume 98 fL (79-100) Mean Corpuscular Hemoglobin 33 pg (25-35) Mean Corpuscular Hemoglobin Concent 34 g/dL (31-37) Red Cell Distribution Width 13.2 % (11.5-14.5) Platelet Count 196 x10^3/uL (140-400) Neutrophils (%) (Auto) 56 % (31-73) Lymphocytes (%) (Auto) 31 % (24-48) Monocytes (%) (Auto) 11 % (0-9) Eosinophils (%) (Auto) 2 % (0-3) Basophils (%) (Auto) 1 % (0-3) Neutrophils # (Auto) 2.9 x10^3/uL (1.8-7.7) Lymphocytes # (Auto) 1.6 x10^3/uL (1.0-4.8) Monocytes # (Auto) 0.5 x10^3/uL (0.0-1.1) Eosinophils # (Auto) 0.1 x10^3/uL (0.0-0.7) Basophils # (Auto) 0.0 x10^3/uL (0.0-0.2) Prothrombin Time 14.3 SEC (11.7-14.0) Prothromb Time International Ratio 1.2 (0.8-1.1) Activated Partial Thromboplast Time 29 SEC (24-38) Sodium Level 137 mmol/L (136-145) Potassium Level 4.1 mmol/L (3.5-5.1) Chloride Level 105 mmol/L (98-107) Carbon Dioxide Level 26 mmol/L (21-32) Anion Gap 6 (6-14) Blood Urea Nitrogen 22 mg/dL (8-26) Creatinine 1.3 mg/dL (0.7-1.3) Estimated GFR (Cockcroft-Gault) 63.8 Glucose Level 80 mg/dL (70-99) Calcium Level 8.7 mg/dL (8.5-10.1) Total Bilirubin 0.6 mg/dL (0.2-1.0) Direct Bilirubin 0.2 mg/dL (0.0-0.2) Aspartate Amino Transf (AST/SGOT) 71 U/L (15-37) Alanine Aminotransferase (ALT/SGPT) 81 U/L (16-63) Alkaline Phosphatase 117 U/L (46-116) Troponin I Quantitative < 0.017 ng/mL (0.000-0.055) EB-Yao-V-Type Natriuretic Peptide 352 pg/mL (0-449) Total Protein 6.4 g/dL (6.4-8.2) Albumin 2.5 g/dL (3.4-5.0) Lipase 150 U/L (73-393) Urine Collection Type U cath Urine Color Yellow Urine Clarity Clear Urine pH 7.0 (<5.0-8.0) Urine Specific Galt 1.025 (1.000-1.030) Urine Protein Negative mg/dL (NEG-TRACE) Urine Glucose (UA) Negative mg/dL (NEG) Urine Ketones (Stick) Negative mg/dL (NEG) Urine Blood Negative (NEG) Urine Nitrite Negative (NEG) Urine Bilirubin Negative (NEG) Urine Urobilinogen Dipstick 1.0 mg/dL (0.2 mg/dL) Urine Leukocyte Esterase Negative (NEG) Urine RBC Occ /HPF (0-2) Urine WBC 0 /HPF (0-4) Urine Bacteria 0 /HPF (0-FEW) Urine Hyaline Casts Few /HPF Urine Mucus Mod /LPF Images Images CT head without contrast Findings: Axial images were obtained without contrast. Coronal reformatted images were provided. Atrophy and chronic ischemic changes in the white matter noted. Right external capsular lacunar infarct is present. Old pontine infarcts again seen. No midline shift or mass effect. No evidence of evolving infarct. Bony structures are grossly unremarkable. Postoperative cervical spine fusion noted with rods and screws apparently seen on the tomogram. Impression: Atrophy and chronic ischemic change. Old infarcts. No acute process. Consider further imaging if infarct is a persistent concern. CT ANGIOGRAPHY HEAD AND NECK History: Reason: SYNCOPE AND LUE WEAKNESS / Spl. Instructions: [id number] 75ML / History: Comparison/Correlation: 11/13/2017 CTA head and neck TECHNIQUE: Computed tomographic angiography of the head and neck was performed following IV contrast according to arteriography protocol. Three-dimensional reconstructions were also performed. Maximum intensity projection images were provided. FINDINGS: Angiographic findings: The aortic arch has a typical branching pattern. Approximately 50 percent stenosis of the left carotid artery is again seen measuring length of 0.5 cm distal to the left vertebral artery origin. No aortic arch branch vessel stenosis otherwise seen. Significant calcific involvement of the distal right common carotid artery and proximal internal carotid artery noted with approximately percent stenosis. Associated noncalcific plaque also is present to a much lesser extent. Calcific involvement of the distal left common carotid artery and carotid bulb also seen with no significant stenosis. Supraclinoid right internal carotid artery calcific plaque is notable with up to 60 percent stenosis. This is similar upon correlation with the previous exam. Calcific plaque of the left intracranial internal carotid arteries also present but without significant stenosis. Anterior cerebral, middle cerebral, and posterior cerebral arteries are patent. No significant stenoses. No aneurysm evident. Tortuosity of the basilar artery is evident. Vertebral arteries are patent with no significant stenoses. Dominant left vertebral artery is identified. No suspicious intracranial enhancement. The vertex was not fully included. No enlarged cervical lymph nodes. Mild emphysematous involvement of the lung apices noted. Severe multilevel disc space narrowing is present. Postoperative decompression of the cervical spine with bilateral laminectomy from C3 to C6 is present. Spinal rods and associated screws bilaterally are seen involving the cervical spine. Left maxillary sinus mucous retention cyst noted. Soft tissues of the neck are unremarkable. Thyroid gland is unremarkable. True and false cords are symmetric. The epiglottis is normal. 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 Significant calcific plaque involves the distal right common carotid artery bifurcation and carotid bulb as well as proximal right internal carotid artery with stenosis of approximately 50 percent similar to the prior exam. 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 No aneurysm or dissection. VTE Prophylaxis Ordered VTE Prophylaxis Devices: Yes VTE Pharmacological Prophylaxi: Yes Assessment/Plan Assessment/Plan Syncope etiology undetermined at the present time. Neuro vs Cardiac in nature History of dementia which most liekly is Alzheimer's type Carotid stenosis history of CAd asymptomatic history of essential hypertension history of dyslipidemia mild transaminitis of unknown clinical significance. Plan: patient will be admitted for neurological evaluation will do orthostatics resume home meds once available for review further recommendations based on clinical course dVT prophylaxis: Lovenox Justifications for Admission Other Justification AMANDA HARRIS MD Apr 29, 2020 17:12
[2020-04-29 17:45] VITALS: BP 142/64
[2020-04-29] MEDS ORDERED: ASPI81TA59 PO (18:04)
[2020-04-29] MEDS ORDERED: FLU VACC QS 2020-21(6MOS+)/PF 0.5 ML SYRINGE. VAX IM ONE (18:15)
[2020-04-29 19:00] VITALS: BP 169/88
[2020-04-29] MEDS: ACETAMINOPHEN 325 MG TABLET. PO PRN (21:56)
[2020-04-29] MEDS: LORazepam 0.5 MG TABLET PO PRN (21:56)
[2020-04-29] MEDS: LACTOBACILLUS RHAMNOSUS GG 1 CAPSULE. PO SCH (21:56)
[2020-04-29] MEDS: ATORVASTATIN CALCIUM 10 MG TABLET. PO SCH (21:56)
[2020-04-29] MEDS: LATANOPROST 0.005% OPHTH SOLUTION 2.5ML BOTTLE. OU SCH (21:57)
[2020-04-29] MEDS: ENOXAPARIN 40 MG/0.4 ML SYRINGE. SQ SCH (21:59)
[2020-04-29 23:01] VITALS: BP 160/83
[2020-04-30 03:02] VITALS: BP 164/81
[2020-04-30 07:00] VITALS: BP 166/83
--- NOTE | 2020-04-30 08:17 | PDOC ---
PROGRESS NOTES Date of Service: DATE: 04/30/20 TIME: 08:16 Chief Complaint Chief Complaint VTE Prophylaxis Ordered VTE Prophylaxis Devices: Yes VTE Pharmacological Prophylaxi: Yes IMPRESSION Assessment/Plan Syncope etiology undetermined Neuro vs Cardiac History of dementia which most liekly is Alzheimer's type Atrophy and chronic ischemic change. 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 Plan: admitted for neurological evaluation orthostatics resume home meds once available for review further recommendations based on clinical course dVT prophylaxis: Lovenox cardiology consult 37 min pt exam, chart review, > 50% of time spent with exam, chart review, pt care coordination Justifications for Admission Justifications for Admission Other Justification History of Present Illness History of Present Illness History of Present Illness History of Present Illness Patient is a right handed gentleman who has several commrobitdities including CAD, HTN history of dyslipidemia and dementia who was in his usual state of health until the day of his admission when he had an episode of "fainting" as per his family member who is at bedside helping with the history taking. Patient had been in a rehab facility until April 14 and had been doing quite alright at home. He had regained his independence but presented an episode similar to the events today more or less a week ago. Patient has not had changes to his medications. He denies lightheadedness, no aura type of symptoms, he has not presented seizure like activity and did not have post ictal period either. He has been prescribed "memory pills " in the past but currently is not taking medications, He has an appointment with neurolgy in the outpatient setting to discuss medication adjustment. Patient denies headache blurred vision no vision loss, no odynophagia slurred speech no facial droop. No chest pain palpitations or shortness of breath has been reported. No nausea vomiting or diarrhea. Oral intake has been adequate as per family members. Patient at the time of my evaluation seems to be in no acute distress,He responds slowly to questions and is very interested in knowing how long he will need to be in the hospital. Plan of care discussed with patient and family member at bedside. Past Medical History Cardiovascular: CAD, HTN, [place], Hyperlipidemia Pulmonary: No pertinent hx CENTRAL NERVOUS SYSTEM: CVA, Dementia, Other (Cervical spinal stenosis) GI: GERD, Other (Dysphagia) Heme/Onc: No pertinent hx Hepatobiliary: No pertinent hx Psych: No pertinent hx Rheumatologic: No pertinent hx Infectious disease: No pertinent hx ENT: Other (Bilateral hearing loss) Renal/: UTI, Benign prostatic enlarg., Urinary Incontinence Endocrine: No pertinent hx Past Surgical History Past Surgical History: CABG, Cataract Removal, Hernia Repair, Other (Cervical laminectomy at C3-C4, C4-C5, and C5-C6 with instrumentation) Family History Family History: Heart Disease, High Cholestrol Social History ALCOHOL: none Drugs: None Current Problem List Problem List Problems Medical Problems: (1) Left arm weakness Status: Acute (2) Syncope Status: Acute Vitals Vitals Vital Signs Date Time Temp Pulse Resp B/P (MAP) Pulse Ox O2 Delivery O2 Flow Rate FiO2 04/30/20 07:00 97.6 69 16 166/83 (110) 98 Room Air 97.6 Physical Exam Physical Exam GEN.: No apparent distress. Alert and oriented. HEENT: Head is normocephalic, atraumatic NECK: Supple. LUNGS: Clear to auscultation. HEART: RRR, S1, S2 present. Peripheral pulses intact ABDOMEN: Soft, nontender. Positive bowel sounds. EXTREMITIES: Without any cyanosis. NEUROLOGIC: Seems to be oriented in person Cranial nerves II through XII intact overall no motor nor sensory deficits appreciated PSYCHIATRIC: Normal affect, normal mood. SKIN: No ulcerations General: Alert, Cooperative, No acute distress Lungs: Clear Abdomen: Soft, No tenderness Extremities: No cyanosis Labs LABS Examination: CT ANGIOGRAPHY HEAD AND NECK History: Reason: SYNCOPE AND LUE WEAKNESS / Spl. Instructions: [id number] / History: Comparison/Correlation: 11/13/2017 CTA head and neck TECHNIQUE: Computed tomographic angiography of the head and neck was performed following IV contrast according to arteriography protocol. Three-dimensional reconstructions were also performed. Maximum intensity projection images were provided. FINDINGS: Angiographic findings: The aortic arch has a typical branching pattern. Approximately 50 percent stenosis of the left carotid artery is again seen measuring length of 0.5 cm distal to the left vertebral artery origin. No aortic arch branch vessel stenosis otherwise seen. Significant calcific involvement of the distal right common carotid artery and proximal internal carotid artery noted with approximately percent stenosis. Associated noncalcific plaque also is present to a much lesser extent. Calcific involvement of the distal left common carotid artery and carotid bulb also seen with no significant stenosis. Supraclinoid right internal carotid artery calcific plaque is notable with up to 60 percent stenosis. This is similar upon correlation with the previous exam. Calcific plaque of the left intracranial internal carotid arteries also present but without significant stenosis. Anterior cerebral, middle cerebral, and posterior cerebral arteries are patent. No significant stenoses. No aneurysm evident. Tortuosity of the basilar artery is evident. Vertebral arteries are patent with no significant stenoses. Dominant left vertebral artery is identified. No suspicious intracranial enhancement. The vertex was not fully included. No enlarged cervical lymph nodes. Mild emphysematous involvement of the lung apices noted. Severe multilevel disc space narrowing is present. Postoperative decompression of the cervical spine with bilateral laminectomy from C3 to C6 is present. Spinal rods and associated screws bilaterally are seen involving the cervical spine. Left maxillary sinus mucous retention cyst noted. Soft tissues of the neck are unremarkable. Thyroid gland is unremarkable. True and false cords are symmetric. The epiglottis is normal. 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 Significant calcific plaque involves the distal right common carotid artery bifurcation and carotid bulb as well as proximal right internal carotid artery with stenosis of approximately 50 percent similar to the prior exam. 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 No aneurysm or dissection. 04/29/2020 1:05 PM, results discussed with referring ED physician. PQRS Compliance Statement - Stenosis calculations for CT, MR and conventional angiography are based upon measurement of the distal ICA diameter in accordance with the NASCET methodology. Stenosis calculations for carotid ultrasound studies are derived from validated velocity criteria which are known to correlate with the NASCET methodology. *One or more of the following individualized dose reduction techniques were utilized for this examination: 1. Automated exposure control. 2. Adjustment of the mA and/or kV according to patient size. 3. Use of iterative reconstruction technique. Electronically signed by: Matt Woods MD (04/29/2020 1:24 PM) [email or web address] DICTATED and SIGNED BY: MATT WOODS MD DATE: 04/29/20 1324 Examination: CT CODE STROKE HEAD WO History: Reason: SYNCOPE AND LUE WEAKNESS / Spl. Instructions: / History: Comparison/Correlation: 03/08/2020 CT head without contrast Findings: Axial images were obtained without contrast. Coronal reformatted images were provided. Atrophy and chronic ischemic changes in the white matter noted. Right external capsular lacunar infarct is present. Old pontine infarcts again seen. No midline shift or mass effect. No evidence of evolving infarct. Bony structures are grossly unremarkable. Postoperative cervical spine fusion noted with rods and screws apparently seen on the tomogram. Impression: Atrophy and chronic ischemic change. Old infarcts. No acute process. Consider further imaging if infarct is a persistent concern. Discussed with referring ED provider 04/29/2020 at 12:41 PM. PQRS Compliance Statement: One or more of the following individualized dose reduction techniques were utilized for this examination: 1. Automated exposure control 2. Adjustment of the mA and/or kV according to patient size 3. Use of iterative reconstruction technique Electronically signed by: Matt Woods MD (04/29/2020 12:42 PM) [email or web address] DICTATED and SIGNED BY: MATT WOODS MD DATE: 04/29/20 1242 Laboratory Tests Test 04/29/20 12:20 04/29/20 12:25 04/29/20 13:00 04/29/20 13:45 Glucose (Fingerstick) 89 mg/dL (70-99) White Blood Count 5.1 x10^3/uL (4.0-11.0) Red Blood Count 3.75 x10^6/uL (4.30-5.70) Hemoglobin 12.5 g/dL (13.0-17.5) Hematocrit 36.8 % (39.0-53.0) Mean Corpuscular Volume 98 fL (79-100) Mean Corpuscular Hemoglobin 33 pg (25-35) Mean Corpuscular Hemoglobin Concent 34 g/dL (31-37) Red Cell Distribution Width 13.2 % (11.5-14.5) Platelet Count 196 x10^3/uL (140-400) Neutrophils (%) (Auto) 56 % (31-73) Lymphocytes (%) (Auto) 31 % (24-48) Monocytes (%) (Auto) 11 % (0-9) Eosinophils (%) (Auto) 2 % (0-3) Basophils (%) (Auto) 1 % (0-3) Neutrophils # (Auto) 2.9 x10^3/uL (1.8-7.7) Lymphocytes # (Auto) 1.6 x10^3/uL (1.0-4.8) Monocytes # (Auto) 0.5 x10^3/uL (0.0-1.1) Eosinophils # (Auto) 0.1 x10^3/uL (0.0-0.7) Basophils # (Auto) 0.0 x10^3/uL (0.0-0.2) Prothrombin Time 14.3 SEC (11.7-14.0) Prothromb Time International Ratio 1.2 (0.8-1.1) Activated Partial Thromboplast Time 29 SEC (24-38) Sodium Level 137 mmol/L (136-145) Potassium Level 4.1 mmol/L (3.5-5.1) Chloride Level 105 mmol/L (98-107) Carbon Dioxide Level 26 mmol/L (21-32) Anion Gap 6 (6-14) Blood Urea Nitrogen 22 mg/dL (8-26) Creatinine 1.3 mg/dL (0.7-1.3) Estimated GFR (Cockcroft-Gault) 63.8 Glucose Level 80 mg/dL (70-99) Calcium Level 8.7 mg/dL (8.5-10.1) Total Bilirubin 0.6 mg/dL (0.2-1.0) Direct Bilirubin 0.2 mg/dL (0.0-0.2) Aspartate Amino Transf (AST/SGOT) 71 U/L (15-37) Alanine Aminotransferase (ALT/SGPT) 81 U/L (16-63) Alkaline Phosphatase 117 U/L (46-116) Troponin I Quantitative < 0.017 ng/mL (0.000-0.055) XP-Ceu-G-Type Natriuretic Peptide 352 pg/mL (0-449) Total Protein 6.4 g/dL (6.4-8.2) Albumin 2.5 g/dL (3.4-5.0) Lipase 150 U/L (73-393) Urine Collection Type U cath Urine Color Yellow Urine Clarity Clear Urine pH 7.0 (<5.0-8.0) Urine Specific [place] 1.025 (1.000-1.030) Urine Protein Negative mg/dL (NEG-TRACE) Urine Glucose (UA) Negative mg/dL (NEG) Urine Ketones (Stick) Negative mg/dL (NEG) Urine Blood Negative (NEG) Urine Nitrite Negative (NEG) Urine Bilirubin Negative (NEG) Urine Urobilinogen Dipstick 1.0 mg/dL (0.2 mg/dL) Urine Leukocyte Esterase Negative (NEG) Urine RBC Occ /HPF (0-2) Urine WBC 0 /HPF (0-4) Urine Bacteria 0 /HPF (0-FEW) Urine Hyaline Casts Few /HPF Urine Mucus Mod /LPF Assessment and Plan Assessmemt and Plan Problems Medical Problems: (1) Left arm weakness Status: Acute (2) Syncope Status: Acute DPOA REVIEW 19 MIN What Is a Power of Web Development Intern? A power of commercial litigation attorney (POA) is a legal document giving one person (the agent or asscbdbo-dy-fyyk) the power to act for another person (the principal). The agent can have broad legal authority or limited authority to make legal decisions about the principal's property, finances or medical care. The power of commercial litigation attorney is frequently used in the event of a principal's illness or disability, or when the principal can't be present to sign necessary legal documents for financial transactions. A power of commercial litigation attorney can end for a number of reasons, such as when the principal dies, the principal revokes it, a court invalidates it, the principal divorces their spouse, who happens to be the agent, or the agent can no longer carry out the outlined responsibilities. Conventional POAs lapse when the creator becomes incapacitated, but a durable POA remains in force to enable the agent to manage the creators affairs, and a springing POA comes into effect only if and when the creator of the POA becomes incapacitated. A medical or healthcare POA enables an agent to make medical decisions on behalf of an incapacitated person. [place] Take[employer] A power of commercial litigation attorney (POA) is a legal document giving one person, the agent or [id number] the power to act for another person, the principal. The agent can have broad legal authority or limited authority to make decisions about the principal's property, finances or medical care. The power of commercial litigation attorney is often used when a principal becomes ill or disabled, or when they can't be present to sign necessary legal documents for financial transactions. Understanding Power of Web Development Intern A power of commercial litigation attorney should be considered when planning for long-term care. There are different types of POAs that fall under either a general power of commercial litigation attorney or limited power of commercial litigation attorney. A general power of commercial litigation attorney acts on behalf of the principal in any and all matters, as allowed by the state. The agent under a general POA agreement may be authorized to take care of issues such as handling bank accounts, signing checks, selling property and assets like stocks, f A limited power of commercial litigation attorney gives the agent the power to act on behalf of the principal in specific matters or events. For example, the limited POA may explicitly state that the agent is only allowed to manage the principal's senior care accounts. A limited POA may also be limited to a specific period of time (e.g., if the principal will be out of the country for, say, two years). Most hickey of commercial litigation attorney documents allow an agent to represent the principal in all property and financial matters as long as the principals mental state of mind is good. If a situation occurs where the principal becomes incapable of making decisions for him or herself, the POA agreement would automatically end. However, someone who wants the POA to remain in effect after the persons health deteriorates would need to sign a durable power of commercial litigation attorney (DPOA). What is an advance directive? An advance directive is a legal document that says how you want to be cared for if you are unable to make decisions. You can include what medical treatments you would want and who you would trust to make decisions for you. An advance directive can also include other legal documents. A living will is a list of treatment preferences. It can be used to indicate whether you would want cardiopulmonary resuscitation (CPR), tube feedings, a breathing machine, or certain medicines, like antibiotics. The durable power of commercial litigation attorney for health care document identifies the person you would want to make medical decisions for you. This person is also called a proxy. Your proxy should be familiar with your values and wishes. How do I get started? You can get advance directive documents for your state from your doctor's office or from [email or web address].org. Review the forms, and ask your doctor if you have any questions. Pick a person to be your proxy, and talk it over with that person. Comment Review of Relevant I have reviewed the following items rahul (where applicable) has been applied. Labs Laboratory Tests Test 04/29/20 12:20 04/29/20 12:25 04/29/20 13:00 04/29/20 13:45 Glucose (Fingerstick) 89 mg/dL (70-99) White Blood Count 5.1 x10^3/uL (4.0-11.0) Red Blood Count 3.75 x10^6/uL (4.30-5.70) Hemoglobin 12.5 g/dL (13.0-17.5) Hematocrit 36.8 % (39.0-53.0) Mean Corpuscular Volume 98 fL (79-100) Mean Corpuscular Hemoglobin 33 pg (25-35) Mean Corpuscular Hemoglobin Concent 34 g/dL (31-37) Red Cell Distribution Width 13.2 % (11.5-14.5) Platelet Count 196 x10^3/uL (140-400) Neutrophils (%) (Auto) 56 % (31-73) Lymphocytes (%) (Auto) 31 % (24-48) Monocytes (%) (Auto) 11 % (0-9) Eosinophils (%) (Auto) 2 % (0-3) Basophils (%) (Auto) 1 % (0-3) Neutrophils # (Auto) 2.9 x10^3/uL (1.8-7.7) Lymphocytes # (Auto) 1.6 x10^3/uL (1.0-4.8) Monocytes # (Auto) 0.5 x10^3/uL (0.0-1.1) Eosinophils # (Auto) 0.1 x10^3/uL (0.0-0.7) Basophils # (Auto) 0.0 x10^3/uL (0.0-0.2) Prothrombin Time 14.3 SEC (11.7-14.0) Prothromb Time International Ratio 1.2 (0.8-1.1) Activated Partial Thromboplast Time 29 SEC (24-38) Sodium Level 137 mmol/L (136-145) Potassium Level 4.1 mmol/L (3.5-5.1) Chloride Level 105 mmol/L (98-107) Carbon Dioxide Level 26 mmol/L (21-32) Anion Gap 6 (6-14) Blood Urea Nitrogen 22 mg/dL (8-26) Creatinine 1.3 mg/dL (0.7-1.3) Estimated GFR (Cockcroft-Gault) 63.8 Glucose Level 80 mg/dL (70-99) Calcium Level 8.7 mg/dL (8.5-10.1) Total Bilirubin 0.6 mg/dL (0.2-1.0) Direct Bilirubin 0.2 mg/dL (0.0-0.2) Aspartate Amino Transf (AST/SGOT) 71 U/L (15-37) Alanine Aminotransferase (ALT/SGPT) 81 U/L (16-63) Alkaline Phosphatase 117 U/L (46-116) Troponin I Quantitative < 0.017 ng/mL (0.000-0.055) SF-Hhy-A-Type Natriuretic Peptide 352 pg/mL (0-449) Total Protein 6.4 g/dL (6.4-8.2) Albumin 2.5 g/dL (3.4-5.0) Lipase 150 U/L (73-393) Urine Collection Type U cath Urine Color Yellow Urine Clarity Clear Urine pH 7.0 (<5.0-8.0) Urine Specific [place] 1.025 (1.000-1.030) Urine Protein Negative mg/dL (NEG-TRACE) Urine Glucose (UA) Negative mg/dL (NEG) Urine Ketones (Stick) Negative mg/dL (NEG) Urine Blood Negative (NEG) Urine Nitrite Negative (NEG) Urine Bilirubin Negative (NEG) Urine Urobilinogen Dipstick 1.0 mg/dL (0.2 mg/dL) Urine Leukocyte Esterase Negative (NEG) Urine RBC Occ /HPF (0-2) Urine WBC 0 /HPF (0-4) Urine Bacteria 0 /HPF (0-FEW) Urine Hyaline Casts Few /HPF Urine Mucus Mod /LPF Laboratory Tests Test 04/29/20 12:20 04/29/20 12:25 04/29/20 13:00 04/29/20 13:45 Glucose (Fingerstick) 89 mg/dL (70-99) White Blood Count 5.1 x10^3/uL (4.0-11.0) Red Blood Count 3.75 x10^6/uL (4.30-5.70) Hemoglobin 12.5 g/dL (13.0-17.5) Hematocrit 36.8 % (39.0-53.0) Mean Corpuscular Volume 98 fL (79-100) Mean Corpuscular Hemoglobin 33 pg (25-35) Mean Corpuscular Hemoglobin Concent 34 g/dL (31-37) Red Cell Distribution Width 13.2 % (11.5-14.5) Platelet Count 196 x10^3/uL (140-400) Neutrophils (%) (Auto) 56 % (31-73) Lymphocytes (%) (Auto) 31 % (24-48) Monocytes (%) (Auto) 11 % (0-9) Eosinophils (%) (Auto) 2 % (0-3) Basophils (%) (Auto) 1 % (0-3) Neutrophils # (Auto) 2.9 x10^3/uL (1.8-7.7) Lymphocytes # (Auto) 1.6 x10^3/uL (1.0-4.8) Monocytes # (Auto) 0.5 x10^3/uL (0.0-1.1) Eosinophils # (Auto) 0.1 x10^3/uL (0.0-0.7) Basophils # (Auto) 0.0 x10^3/uL (0.0-0.2) Prothrombin Time 14.3 SEC (11.7-14.0) Prothromb Time International Ratio 1.2 (0.8-1.1) Activated Partial Thromboplast Time 29 SEC (24-38) Sodium Level 137 mmol/L (136-145) Potassium Level 4.1 mmol/L (3.5-5.1) Chloride Level 105 mmol/L (98-107) Carbon Dioxide Level 26 mmol/L (21-32) Anion Gap 6 (6-14) Blood Urea Nitrogen 22 mg/dL (8-26) Creatinine 1.3 mg/dL (0.7-1.3) Estimated GFR (Cockcroft-Gault) 63.8 Glucose Level 80 mg/dL (70-99) Calcium Level 8.7 mg/dL (8.5-10.1) Total Bilirubin 0.6 mg/dL (0.2-1.0) Direct Bilirubin 0.2 mg/dL (0.0-0.2) Aspartate Amino Transf (AST/SGOT) 71 U/L (15-37) Alanine Aminotransferase (ALT/SGPT) 81 U/L (16-63) Alkaline Phosphatase 117 U/L (46-116) Troponin I Quantitative < 0.017 ng/mL (0.000-0.055) TU-Qcr-I-Type Natriuretic Peptide 352 pg/mL (0-449) Total Protein 6.4 g/dL (6.4-8.2) Albumin 2.5 g/dL (3.4-5.0) Lipase 150 U/L (73-393) Urine Collection Type U cath Urine Color Yellow Urine Clarity Clear Urine pH 7.0 (<5.0-8.0) Urine Specific [place] 1.025 (1.000-1.030) Urine Protein Negative mg/dL (NEG-TRACE) Urine Glucose (UA) Negative mg/dL (NEG) Urine Ketones (Stick) Negative mg/dL (NEG) Urine Blood Negative (NEG) Urine Nitrite Negative (NEG) Urine Bilirubin Negative (NEG) Urine Urobilinogen Dipstick 1.0 mg/dL (0.2 mg/dL) Urine Leukocyte Esterase Negative (NEG) Urine RBC Occ /HPF (0-2) Urine WBC 0 /HPF (0-4) Urine Bacteria 0 /HPF (0-FEW) Urine Hyaline Casts Few /HPF Urine Mucus Mod /LPF Medications Current Medications Sodium Chloride 500 ml @ 500 mls/hr 1X ONCE IV Last administered on 04/29/20at 12:45; Start 04/29/20 at 12:30; Stop 04/29/20 at 13:29; Status DC Iohexol (Omnipaque 350 Mg/ml) 75 ml 1X ONCE IV Last administered on 04/29/20at 12:40; Start 04/29/20 at 12:30; Stop 04/29/20 at 12:31; Status DC Info (CONTRAST GIVEN -- Rx MONITORING) 1 each PRN DAILY PRN MC SEE COMMENTS; Start 04/29/20 at 12:30; Stop 05/01/20 at 12:29 Sodium Chloride 1,000 ml @ 100 mls/hr Q10H IV Last administered on 04/29/20at 17:48; Start 04/29/20 at 13:44; Stop 04/29/20 at 17:43; Status DC Albuterol Sulfate (Ventolin Neb Soln) 2.5 mg PRN Q4HRS PRN NEB SHORTNESS OF BREATH; Start 04/29/20 at 15:45 Amlodipine Besylate (Norvasc) 5 mg DAILY PO ; Start 04/30/20 at 09:00 Aspirin (Ecotrin) 325 mg DAILY PO ; Start 04/30/20 at 09:00 Atorvastatin Calcium (Lipitor) 10 mg HS PO Last administered on 04/29/20at 21:56; Start 04/29/20 at 21:00 Docusate Sodium (Colace) 100 mg PRN BID PRN PO HARD STOOLS 1ST CHOICE; Start 04/29/20 at 15:45 Guaifenesin (Robitussin) 200 mg PRN Q4HRS PRN PO COUGH; Start 04/29/20 at 15:45 Lactobacillus Rhamnosus (Culturelle) 1 cap BID PO Last administered on 04/29/20at 21:56; Start 04/29/20 at 21:00 Latanoprost (Xalatan) 1 drop QHS OU Last administered on 04/29/20at 21:57; Start 04/29/20 at 21:00 Lisinopril (Prinivil) 5 mg DAILY PO ; Start 04/30/20 at 09:00 Tamsulosin HCl (Flomax) 0.4 mg DAILY PO ; Start 04/30/20 at 09:00 Ondansetron HCl (Zofran) 4 mg PRN Q4HRS PRN IV NAUSEA/VOMITING; Start 04/29/20 at 15:45 Acetaminophen (Tylenol) 650 mg PRN Q4HRS PRN PO TEMP OVER 100.4F OR MILD PAIN Last administered on 04/29/20at 21:56; Start 04/29/20 at 15:45 Docusate Sodium (Colace) 100 mg PRN BID PRN PO HARD STOOLS; Start 04/29/20 at 15:45 Albuterol Sulfate (Ventolin Neb Soln) 2.5 mg PRN Q4HRS PRN NEB SHORTNESS OF BREATH; Start 04/29/20 at 15:45 Guaifenesin (Robitussin) 200 mg PRN Q4HRS PRN PO COUGH; Start 04/29/20 at 15:45 Lorazepam (Ativan) 0.5 mg PRN Q4HRS PRN PO ANXIETY / AGITATION Last administered on 04/29/20at 21:56; Start 04/29/20 at 15:45 Enoxaparin Sodium (Lovenox 40mg Syringe) 40 mg Q24H SQ Last administered on 04/29/20at 21:59; Start 04/29/20 at 21:00 Influenza Virus Vaccine Quadrival (Fluzone Quad Syringe) 0.5 ml ONCE ONCE VAX IM Last administered on 04/29/20at 18:15; Start 04/29/20 at 18:15; Stop 04/29/20 at 18:16; Status DC Active Scripts Active Culturelle (Lactobacillus Rhamnosus Gg) 1 Each Cap.sprink 1 Cap PO BID 30 Days Dok (Docusate Sodium) 100 Mg Capsule 100 Mg PO PRN BID PRN 30 Days Guaifenesin 100 Mg/5 Ml Liquid 200 Mg PO PRN Q4HRS PRN 10 Days Proair Hfa (Albuterol Sulfate) 8.5 Gm Hfa.aer.ad 2.5 Mg NEB PRN Q4HRS PRN 14 Days Reported Children's Aspirin (Aspirin) 81 Mg Tab.chew 81 Mg PO DAILY Latanoprost 2.5 Ml Drops 1 Drop EACHEYE QHS Atorvastatin Calcium 10 Mg Tablet 10 Mg PO HS Flomax (Tamsulosin Hcl) 0.4 Mg Cap.er.24h 0.4 Mg PO DAILY Lisinopril 5 Mg Tablet 5 Mg PO DAILY Vitals/I & O Vital Sign - Last 24 Hours 04/29/20 04/29/20 04/29/20 04/29/20 12:15 13:34 14:34 15:34 Temp 97.1 97.1 Pulse 67 70 70 72 Resp 16 B/P (MAP) 142/63 (89) 132/60 (84) 165/80 (108) 166/73 (104) Pulse Ox 100 99 100 100 O2 Delivery Room Air Room Air Room Air Room Air 04/29/20 04/29/20 04/29/20 04/29/20 16:34 17:04 17:45 18:32 Temp 97.2 97.2 Pulse 76 72 68 Resp 17 B/P (MAP) 172/90 (117) 164/74 (104) 142/64 (90) Pulse Ox 100 95 O2 Delivery Room Air Room Air Room Air Room Air 04/29/20 04/29/20 04/29/20 04/30/20 19:00 20:00 23:01 03:02 Temp 98.3 98.1 97.6 98.3 98.1 97.6 Pulse 74 63 68 Resp 20 20 20 B/P (MAP) 169/88 (115) 160/83 (108) 164/81 (108) Pulse Ox 97 98 99 O2 Delivery Room Air Room Air Room Air Room Air 04/30/20 07:00 Temp 97.6 97.6 Pulse 69 Resp 16 B/P (MAP) 166/83 (110) Pulse Ox 98 O2 Delivery Room Air Intake and Output 04/29/20 04/29/20 04/30/20 15:00 23:00 07:00 Intake Total 500 ml Balance 500 ml Justicifation of Admission Dx: Justifications for Admission: Justification of Admission Dx: Yes JERMAIN GOMEZ MD Apr 30, 2020 08:17
[2020-04-30] MEDS: LACTOBACILLUS RHAMNOSUS GG 1 CAPSULE. PO SCH ×2 (08:24→20:28)
[2020-04-30] MEDS: TAMSULOSIN 0.4 MG CAP.ER.24H. PO SCH (08:24)
[2020-04-30] MEDS: ASPIRIN ENTERIC COATED 325 MG TABLET.DR. PO SCH (08:24)
[2020-04-30] MEDS: amLODIPine BESYLATE 5 MG TABLET PO SCH (08:25)
[2020-04-30] MEDS: LISINOPRIL 5 MG TABLET. PO SCH (08:25)
--- NOTE | 2020-04-30 09:31 | NUR ---
PREETHI following. Discussed with RN, pt from home, room air, cardiac diet. New consult for Dr. Garcia. PT/OT ordered. Pt has been to [facility] in the past (March). PREETHI sent message to Vilma at [facility] to determine if pt has any SNU days left. PREETHI will continue to follow. Addendum: 04/30/20 at 1503 by NICHOLE ORO PT/OT recommending home health. Vilma at [facility] notified PREETHI pt discharged from [facility] with [facility]. PREETHI verified with [facility] pt is current. PREETHI faxed clinical updates to [facility] (ph: [phone], fax: [phone]). 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 PREETHI will continue to follow.
[2020-04-30 10:09] LABS: BASO % 1 % (0-3); EOS # 0.1 x10^3/uL (0.0-0.7); EOS % 1 % (0-3); HEMOGLOBIN 12.8 g/dL (13.0-17.5); LYMPH # 1.1 x10^3/uL (1.0-4.8); LYMPH % 20 % (24-48); MEAN CORPUSCULAR HEMOGLOBIN 32 pg (25-35); MEAN CORPUSCULAR HGB CONC 33 g/dL (31-37); MEAN CORPUSCULAR VOLUME 99 fL (79-100); MONO # 0.4 x10^3/uL (0.0-1.1); MONO % 7 % (0-9); NEUT # 3.7 x10^3/uL (1.8-7.7); NEUT % 71 % (31-73); PLATELET COUNT 159 x10^3/uL (140-400); RED BLOOD COUNT 3.95 x10^6/uL (4.30-5.70); RED CELL DISTRIBUTION WIDTH 13.2 % (11.5-14.5); WHITE BLOOD COUNT 5.3 x10^3/uL (4.0-11.0)
--- NOTE | 2020-04-30 10:18 | PDOC ---
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 Patient took memantine in the past, it made him sleepy, he has never been on donepezil. 60 percent supraclinoid right internal carotid arterial stenosis due to calcific plaque Plan Aspirin and statin Rehabilitation modalities Cardiac work-up Await laboratory studies for easily reversible causes of dementia. Medical treatment of the internal carotid artery stenosis. will consider a trial of donepezil, I discussed side effects. Instead of going to neurology, patient is welcome to follow-up with me in the office. Fully discussed with the patient's . Subjective No complaints Objective Vital Signs Date Time Temp Pulse Resp B/P (MAP) Pulse Ox O2 Delivery O2 Flow Rate FiO2 04/30/20 08:25 69 166/83 04/30/20 07:45 Room Air 04/30/20 07:00 97.6 16 98 97.6 Intake and Output 04/30/20 07:00 Intake Total 500 ml Balance 500 ml IV Total 500 ml # Voids 4 # Bowel Movements 2 PHYSICAL EXAM Alert. Oriented only to person. PERRL. EOMI. CN: no focal findings. Muscle tone: increased on the left. Muscle strength: 3/5 left arm, 4-/5 left leg, 5-/5 on right DTR: 1+ Plantar reflex: flexor Gait: not examined in bed. Sensory exam: no abnormal findings. No cerebellar signs elicited. Review of Relevant I have reviewed the following items rahul (where applicable) has been applied. Labs Laboratory Tests Test 04/29/20 12:20 04/29/20 12:25 04/29/20 13:00 04/29/20 13:45 Glucose (Fingerstick) 89 mg/dL (70-99) White Blood Count 5.1 x10^3/uL (4.0-11.0) Red Blood Count 3.75 x10^6/uL (4.30-5.70) Hemoglobin 12.5 g/dL (13.0-17.5) Hematocrit 36.8 % (39.0-53.0) Mean Corpuscular Volume 98 fL (79-100) Mean Corpuscular Hemoglobin 33 pg (25-35) Mean Corpuscular Hemoglobin Concent 34 g/dL (31-37) Red Cell Distribution Width 13.2 % (11.5-14.5) Platelet Count 196 x10^3/uL (140-400) Neutrophils (%) (Auto) 56 % (31-73) Lymphocytes (%) (Auto) 31 % (24-48) Monocytes (%) (Auto) 11 % (0-9) Eosinophils (%) (Auto) 2 % (0-3) Basophils (%) (Auto) 1 % (0-3) Neutrophils # (Auto) 2.9 x10^3/uL (1.8-7.7) Lymphocytes # (Auto) 1.6 x10^3/uL (1.0-4.8) Monocytes # (Auto) 0.5 x10^3/uL (0.0-1.1) Eosinophils # (Auto) 0.1 x10^3/uL (0.0-0.7) Basophils # (Auto) 0.0 x10^3/uL (0.0-0.2) Prothrombin Time 14.3 SEC (11.7-14.0) Prothromb Time International Ratio 1.2 (0.8-1.1) Activated Partial Thromboplast Time 29 SEC (24-38) Sodium Level 137 mmol/L (136-145) Potassium Level 4.1 mmol/L (3.5-5.1) Chloride Level 105 mmol/L (98-107) Carbon Dioxide Level 26 mmol/L (21-32) Anion Gap 6 (6-14) Blood Urea Nitrogen 22 mg/dL (8-26) Creatinine 1.3 mg/dL (0.7-1.3) Estimated GFR (Cockcroft-Gault) 63.8 Glucose Level 80 mg/dL (70-99) Calcium Level 8.7 mg/dL (8.5-10.1) Total Bilirubin 0.6 mg/dL (0.2-1.0) Direct Bilirubin 0.2 mg/dL (0.0-0.2) Aspartate Amino Transf (AST/SGOT) 71 U/L (15-37) Alanine Aminotransferase (ALT/SGPT) 81 U/L (16-63) Alkaline Phosphatase 117 U/L (46-116) Troponin I Quantitative < 0.017 ng/mL (0.000-0.055) ST-Xrb-I-Type Natriuretic Peptide 352 pg/mL (0-449) Total Protein 6.4 g/dL (6.4-8.2) Albumin 2.5 g/dL (3.4-5.0) Lipase 150 U/L (73-393) Urine Collection Type U cath Urine Color Yellow Urine Clarity Clear Urine pH 7.0 (<5.0-8.0) Urine Specific Ackworth 1.025 (1.000-1.030) Urine Protein Negative mg/dL (NEG-TRACE) Urine Glucose (UA) Negative mg/dL (NEG) Urine Ketones (Stick) Negative mg/dL (NEG) Urine Blood Negative (NEG) Urine Nitrite Negative (NEG) Urine Bilirubin Negative (NEG) Urine Urobilinogen Dipstick 1.0 mg/dL (0.2 mg/dL) Urine Leukocyte Esterase Negative (NEG) Urine RBC Occ /HPF (0-2) Urine WBC 0 /HPF (0-4) Urine Bacteria 0 /HPF (0-FEW) Urine Hyaline Casts Few /HPF Urine Mucus Mod /LPF Laboratory Tests Test 04/29/20 12:20 04/29/20 12:25 04/29/20 13:00 04/29/20 13:45 Glucose (Fingerstick) 89 mg/dL (70-99) White Blood Count 5.1 x10^3/uL (4.0-11.0) Red Blood Count 3.75 x10^6/uL (4.30-5.70) Hemoglobin 12.5 g/dL (13.0-17.5) Hematocrit 36.8 % (39.0-53.0) Mean Corpuscular Volume 98 fL (79-100) Mean Corpuscular Hemoglobin 33 pg (25-35) Mean Corpuscular Hemoglobin Concent 34 g/dL (31-37) Red Cell Distribution Width 13.2 % (11.5-14.5) Platelet Count 196 x10^3/uL (140-400) Neutrophils (%) (Auto) 56 % (31-73) Lymphocytes (%) (Auto) 31 % (24-48) Monocytes (%) (Auto) 11 % (0-9) Eosinophils (%) (Auto) 2 % (0-3) Basophils (%) (Auto) 1 % (0-3) Neutrophils # (Auto) 2.9 x10^3/uL (1.8-7.7) Lymphocytes # (Auto) 1.6 x10^3/uL (1.0-4.8) Monocytes # (Auto) 0.5 x10^3/uL (0.0-1.1) Eosinophils # (Auto) 0.1 x10^3/uL (0.0-0.7) Basophils # (Auto) 0.0 x10^3/uL (0.0-0.2) Prothrombin Time 14.3 SEC (11.7-14.0) Prothromb Time International Ratio 1.2 (0.8-1.1) Activated Partial Thromboplast Time 29 SEC (24-38) Sodium Level 137 mmol/L (136-145) Potassium Level 4.1 mmol/L (3.5-5.1) Chloride Level 105 mmol/L (98-107) Carbon Dioxide Level 26 mmol/L (21-32) Anion Gap 6 (6-14) Blood Urea Nitrogen 22 mg/dL (8-26) Creatinine 1.3 mg/dL (0.7-1.3) Estimated GFR (Cockcroft-Gault) 63.8 Glucose Level 80 mg/dL (70-99) Calcium Level 8.7 mg/dL (8.5-10.1) Total Bilirubin 0.6 mg/dL (0.2-1.0) Direct Bilirubin 0.2 mg/dL (0.0-0.2) Aspartate Amino Transf (AST/SGOT) 71 U/L (15-37) Alanine Aminotransferase (ALT/SGPT) 81 U/L (16-63) Alkaline Phosphatase 117 U/L (46-116) Troponin I Quantitative < 0.017 ng/mL (0.000-0.055) CS-Ige-L-Type Natriuretic Peptide 352 pg/mL (0-449) Total Protein 6.4 g/dL (6.4-8.2) Albumin 2.5 g/dL (3.4-5.0) Lipase 150 U/L (73-393) Urine Collection Type U cath Urine Color Yellow Urine Clarity Clear Urine pH 7.0 (<5.0-8.0) Urine Specific Ackworth 1.025 (1.000-1.030) Urine Protein Negative mg/dL (NEG-TRACE) Urine Glucose (UA) Negative mg/dL (NEG) Urine Ketones (Stick) Negative mg/dL (NEG) Urine Blood Negative (NEG) Urine Nitrite Negative (NEG) Urine Bilirubin Negative (NEG) Urine Urobilinogen Dipstick 1.0 mg/dL (0.2 mg/dL) Urine Leukocyte Esterase Negative (NEG) Urine RBC Occ /HPF (0-2) Urine WBC 0 /HPF (0-4) Urine Bacteria 0 /HPF (0-FEW) Urine Hyaline Casts Few /HPF Urine Mucus Mod /LPF Medications Current Medications Sodium Chloride 500 ml @ 500 mls/hr 1X ONCE IV Last administered on 04/29/20at 12:45; Start 04/29/20 at 12:30; Stop 04/29/20 at 13:29; Status DC Iohexol (Omnipaque 350 Mg/ml) 75 ml 1X ONCE IV Last administered on 04/29/20at 12:40; Start 04/29/20 at 12:30; Stop 04/29/20 at 12:31; Status DC Info (CONTRAST GIVEN -- Rx MONITORING) 1 each PRN DAILY PRN MC SEE COMMENTS; Start 04/29/20 at 12:30; Stop 05/01/20 at 12:29 Sodium Chloride 1,000 ml @ 100 mls/hr Q10H IV Last administered on 04/29/20at 17:48; Start 04/29/20 at 13:44; Stop 04/29/20 at 17:43; Status DC Albuterol Sulfate (Ventolin Neb Soln) 2.5 mg PRN Q4HRS PRN NEB SHORTNESS OF B REATH; Start 04/29/20 at 15:45 Amlodipine Besylate (Norvasc) 5 mg DAILY PO Last administered on 04/30/20at 08:25; Start 04/30/20 at 09:00 Aspirin (Ecotrin) 325 mg DAILY PO Last administered on 04/30/20at 08:24; Start 04/30/20 at 09:00 Atorvastatin Calcium (Lipitor) 10 mg HS PO Last administered on 04/29/20at 21:56; Start 04/29/20 at 21:00 Docusate Sodium (Colace) 100 mg PRN BID PRN PO HARD STOOLS 1ST CHOICE; Start 04/29/20 at 15:45 Guaifenesin (Robitussin) 200 mg PRN Q4HRS PRN PO COUGH; Start 04/29/20 at 15:45 Lactobacillus Rhamnosus (Culturelle) 1 cap BID PO Last administered on 04/30/20at 08:24; Start 04/29/20 at 21:00 Latanoprost (Xalatan) 1 drop QHS OU Last administered on 04/29/20at 21:57; Start 04/29/20 at 21:00 Lisinopril (Prinivil) 5 mg DAILY PO Last administered on 04/30/20at 08:25; Start 04/30/20 at 09:00 Tamsulosin HCl (Flomax) 0.4 mg DAILY PO Last administered on 04/30/20at 08:24; Start 04/30/20 at 09:00 Ondansetron HCl (Zofran) 4 mg PRN Q4HRS PRN IV NAUSEA/VOMITING; Start 04/29/20 at 15:45 Acetaminophen (Tylenol) 650 mg PRN Q4HRS PRN PO TEMP OVER 100.4F OR MILD PAIN Last administered on 04/29/20at 21:56; Start 04/29/20 at 15:45 Docusate Sodium (Colace) 100 mg PRN BID PRN PO HARD STOOLS; Start 04/29/20 at 15:45 Albuterol Sulfate (Ventolin Neb Soln) 2.5 mg PRN Q4HRS PRN NEB SHORTNESS OF BREATH; Start 04/29/20 at 15:45 Guaifenesin (Robitussin) 200 mg PRN Q4HRS PRN PO COUGH; Start 04/29/20 at 15:45 Lorazepam (Ativan) 0.5 mg PRN Q4HRS PRN PO ANXIETY / AGITATION Last administered on 04/29/20at 21:56; Start 04/29/20 at 15:45 Enoxaparin Sodium (Lovenox 40mg Syringe) 40 mg Q24H SQ Last administered on 04/29/20at 21:59; Start 04/29/20 at 21:00 Influenza Virus Vaccine Quadrival (Fluzone Quad Syringe) 0.5 ml ONCE ONCE VAX IM Last administered on 04/29/20at 18:15; Start 04/29/20 at 18:15; Stop 04/29/20 at 18:16; Status DC Active Scripts Active Culturelle (Lactobacillus Rhamnosus Gg) 1 Each Cap.sprink 1 Cap PO BID 30 Days Dok (Docusate Sodium) 100 Mg Capsule 100 Mg PO PRN BID PRN 30 Days Guaifenesin 100 Mg/5 Ml Liquid 200 Mg PO PRN Q4HRS PRN 10 Days Proair Hfa (Albuterol Sulfate) 8.5 Gm Hfa.aer.ad 2.5 Mg NEB PRN Q4HRS PRN 14 Days Reported Children's Aspirin (Aspirin) 81 Mg Tab.chew 81 Mg PO DAILY Latanoprost 2.5 Ml Drops 1 Drop EACHEYE QHS Atorvastatin Calcium 10 Mg Tablet 10 Mg PO HS Flomax (Tamsulosin Hcl) 0.4 Mg Cap.er.24h 0.4 Mg PO DAILY Lisinopril 5 Mg Tablet 5 Mg PO DAILY Vitals/I & O Vital Sign - Last 24 Hours 04/29/20 04/29/20 04/29/20 04/29/20 12:15 13:34 14:34 15:34 Temp 97.1 97.1 Pulse 67 70 70 72 Resp 16 B/P (MAP) 142/63 (89) 132/60 (84) 165/80 (108) 166/73 (104) Pulse Ox 100 99 100 100 O2 Delivery Room Air Room Air Room Air Room Air 04/29/20 04/29/20 04/29/20 04/29/20 16:34 17:04 17:45 18:32 Temp 97.2 97.2 Pulse 76 72 68 Resp 17 B/P (MAP) 172/90 (117) 164/74 (104) 142/64 (90) Pulse Ox 100 95 O2 Delivery Room Air Room Air Room Air Room Air 04/29/20 04/29/20 04/29/20 04/30/20 19:00 20:00 23:01 03:02 Temp 98.3 98.1 97.6 98.3 98.1 97.6 Pulse 74 63 68 Resp 20 20 20 B/P (MAP) 169/88 (115) 160/83 (108) 164/81 (108) Pulse Ox 97 98 99 O2 Delivery Room Air Room Air Room Air Room Air 04/30/20 04/30/20 04/30/20 04/30/20 07:00 07:45 08:25 08:25 Temp 97.6 97.6 Pulse 69 69 69 Resp 16 B/P (MAP) 166/83 (110) 166/83 166/83 Pulse Ox 98 O2 Delivery Room Air Room Air Intake and Output 04/29/20 04/29/20 04/30/20 15:00 23:00 07:00 Intake Total 500 ml Balance 500 ml Justicifation of Admission Dx: Justifications for Admission: Justification of Admission Dx: Yes SALTY FORDE MD Apr 30, 2020 10:18
[2020-04-30 10:26] LABS: CALCIUM 8.8 mg/dL (8.5-10.1); GFR 86.3; POTASSIUM 4.3 mmol/L (3.5-5.1)
[2020-04-30] MEDS ORDERED: ACET325T21 PO (10:29)
[2020-04-30] MEDS ORDERED: MEMA10TA PO (10:29)
[2020-04-30] MEDS ORDERED: CHLO25TA10 PO (10:29)
[2020-04-30] MEDS ORDERED: ASPI325T11 PO (10:29)
[2020-04-30] MEDS ORDERED: ALOE25CA PO (10:29)
[2020-04-30] MEDS ORDERED: MULT-658 PO (10:29)
[2020-04-30] MEDS ORDERED: METH-38 PO (10:29)
[2020-04-30] MEDS ORDERED: BACL10TA PO (10:29)
[2020-04-30] MEDS ORDERED: TEMA15CA PO (10:29)
[2020-04-30 10:33] VITALS: BP 103/53
[2020-04-30 14:48] VITALS: BP 130/69
--- NOTE | 2020-04-30 14:57 | CARD ---
MR#: [id number] Date of Study: 04/30/2020 Ordering Physician: KAILEY LAZARO, Referring Physician: KAILEY LAZARO, Tech: Stella Escalante [facility] APPROVED REPORT EXAM: Two-dimensional and M-mode echocardiogram with Doppler and color Doppler. Other Information Quality : Good INDICATION Syncope 2D DIMENSIONS Left Atrium(2D)2.9 (1.6-4.0cm)IVSd0.9 (0.7-1.1cm) Aortic Root(2D)3.2 (2.0-3.7cm)LVDd3.5 (3.9-5.9cm) LVOT Diameter1.8 (1.8-2.4cm)PWd0.9 (0.7-1.1cm) LVDs2.2 (2.5-4.0cm)FS (%) 36.9 % SV34.0 mlLVEF(%)60.0 (>50%) Aortic Valve AoV Peak Arvin.107.9cm/sAoV VTI22.2cm AO Peak GR.4.7mmHgLVOT VTI 17.40cm AO Mean GR.2mmHgAVA (VTI)2.11cm2 Mitral Valve MV E Dzdiuxob74.1cm/sMV DECEL [id number] MV A Nssdsdgf17.1cm/sE/A Ratio0.7 TDI Lateral E' P. V7.66cm/sMedial E' P. V7.47cm/s E/Lateral E'7.1E/Medial E'7.2 LEFT VENTRICLE The left ventricle is normal size. There is borderline concentric left ventricular hypertrophy. The l eft ventricular systolic function is normal and the ejection fraction is within normal range. The Eje ction Fraction is 60-65%. There is normal LV segmental wall motion. Transmitral Doppler flow pattern is Grade I-abnormal relaxation pattern. RIGHT VENTRICLE The right ventricle is normal size. The right ventricular systolic function is normal. ATRIA The left atrium size is normal. The right atrium size is normal. The interatrial septum is intact wit h no evidence for an atrial septal defect or patent foramen ovale as noted on 2-D or Doppler imaging. AORTIC VALVE The aortic valve is not well visualized but appears thickened. Doppler and Color Flow revealed no sig nificant aortic regurgitation. There is no significant aortic valvular stenosis. MITRAL VALVE The mitral valve is calcified but opens well. Mitral annular calcification is mild. There is no evide nce of mitral valve prolapse. There is no mitral valve stenosis. Doppler and Color-flow revealed trac e mitral regurgitation. TRICUSPID VALVE The tricuspid valve is normal in structure and function. Doppler and Color Flow revealed no tricuspid valve regurgitation noted. There is no tricuspid valve stenosis. PULMONIC VALVE The pulmonic valve is not well visualized. GREAT VESSELS The aortic root is normal in size. The ascending aorta is not well seen. The IVC is normal in size an d collapses >50% with inspiration. PERICARDIAL EFFUSION There is no evidence of significant pericardial effusion. Critical Notification Critical Value: No <Conclusion> The left ventricle is normal size. The left ventricular systolic function is normal and the ejection fraction is within normal range. The Ejection Fraction is 60-65%. There is borderline concentric left ventricular hypertrophy. Doppler and Color Flow revealed no significant aortic regurgitation. There is no significant aortic valvular stenosis. Doppler and Color-flow revealed trace mitral regurgitation. Doppler and Color Flow revealed no tricuspid valve regurgitation noted. Signed by : Sid Dodd MD Electronically Approved : 04/30/2020 14:57:03
--- NOTE | 2020-04-30 15:12 | PDOC2 ---
KAILEY LAZARO TUB ATTENDANT 04/30/20 1512: CARDIAC CONSULT DATE OF CONSULT Date of Consult DATE: 04/30/20 TIME: 14:57 REASON FOR CONSULT Reason for Consult: syncope vs near syncope, hx of CAD REFERRING PHYSICIAN Referring Physician: Fullbright SOURCE Source: Chart review HISTORY OF PRESENT ILLNESS HISTORY OF PRESENT ILLNESS This is a 84 yo male admitted for multiple syncopal episodes. He was then noted yesterday with left sided weakness and facial droop. He was noted with low BP initially. It is unclear in regards to other symptoms as pt has dementia and presently confused. He is WC bound and full 2 P assist for transfers. Presently he sal any discomfort and not in any distress. No significant arrhythmias so far and BP has been stable. No CP or SOA. No symptoms of palpitations. PAST MEDICAL HISTORY Past Medical History Cardiovascular: CAD (s/p CABG), HTN, Hyperlipidemia Pulmonary: No pertinent hx CENTRAL NERVOUS SYSTEM: Other (no pertinent hx) GI: GERD Heme/Onc: No pertinent hx Hepatobiliary: No pertinent hx Psych: No pertinent hx Musculoskeletal: Other (DJD) Rheumatologic: No pertinent hx Infectious disease: No pertinent hx ENT: No pertinent hx Renal/: BPH Endocrine: No pertinent hx Dermatology: No pertinent hx PAST SURGICAL HISTORY Past Surgical History CABG, Hernia Repair, Other (neck surgery) FAMILY HISTORY Family History: Heart Disease SOCIAL HISTORY Smoke: Quit ALCOHOL: none Drugs: None Lives: with Family CURRENT MEDICATIONS CURRENT MEDICATIONS Current Medications Medications (Trade) Dose Ordered Sig/Kay Route PRN Reason Start Time Stop Time Status Last Admin Dose Admin Amlodipine Besylate (Norvasc) 5 mg DAILY PO 04/30/20 09:00 04/30/20 08:25 Aspirin (Ecotrin) 325 mg DAILY PO 04/30/20 09:00 04/30/20 08:24 Atorvastatin Calcium (Lipitor) 10 mg HS PO 04/29/20 21:00 04/29/20 21:56 Lactobacillus Rhamnosus (Culturelle) 1 cap BID PO 04/29/20 21:00 04/30/20 08:24 Latanoprost (Xalatan) 1 drop QHS OU 04/29/20 21:00 04/29/20 21:57 Lisinopril (Prinivil) 5 mg DAILY PO 04/30/20 09:00 04/30/20 08:25 Tamsulosin HCl (Flomax) 0.4 mg DAILY PO 04/30/20 09:00 04/30/20 08:24 Acetaminophen (Tylenol) 650 mg PRN Q4HRS PRN PO TEMP OVER 100.4F OR MILD PAIN 04/29/20 15:45 04/29/20 21:56 Lorazepam (Ativan) 0.5 mg PRN Q4HRS PRN PO ANXIETY / AGITATION 04/29/20 15:45 04/29/20 21:56 Enoxaparin Sodium (Lovenox 40mg Syringe) 40 mg Q24H SQ 04/29/20 21:00 04/29/20 21:59 Influenza Virus Vaccine Quadrival (Fluzone Quad Syringe) 0.5 ml ONCE ONCE VAX IM 04/29/20 18:15 04/29/20 18:16 DC 04/29/20 18:15 ALLERGIES ALLERGIES: Coded Allergies: No Known Drug Allergies (Unverified , 07/28/15) ROS Review of System unreliable, confuse PHYSICAL EXAM General: Alert, Cooperative, No acute distress HEENT: Atraumatic, Mucous membr. moist/pink Lungs: Clear to auscultation Heart: Regular rate (SR), Normal S1, Normal S2, No murmurs Abdomen: Soft, No tenderness Extremities: No edema Skin: No significant lesion Neuro: Normal speech, Sensation intact Psych/Mental Status: Other (confuse) MUSCULOSKELETAL: Osteoarthritic changes both hands VITALS/I&O VITALS/I&O: Vital Signs Date Time Temp Pulse Resp B/P (MAP) Pulse Ox O2 Delivery O2 Flow Rate FiO2 04/30/20 14:48 97.8 68 17 130/69 (89) 95 Room Air 97.8 I & O 04/29/20 04/29/20 04/30/20 15:00 23:00 07:00 Intake Total 500 ml Balance 500 ml LABS Lab: Laboratory Tests Test 04/30/20 10:00 White Blood Count 5.3 x10^3/uL (4.0-11.0) Red Blood Count 3.95 x10^6/uL (4.30-5.70) L Hemoglobin 12.8 g/dL (13.0-17.5) L Hematocrit 39.0 % (39.0-53.0) Mean Corpuscular Volume 99 fL (79-100) Mean Corpuscular Hemoglobin 32 pg (25-35) Mean Corpuscular Hemoglobin Concent 33 g/dL (31-37) Red Cell Distribution Width 13.2 % (11.5-14.5) Platelet Count 159 x10^3/uL (140-400) Neutrophils (%) (Auto) 71 % (31-73) Lymphocytes (%) (Auto) 20 % (24-48) L Monocytes (%) (Auto) 7 % (0-9) Eosinophils (%) (Auto) 1 % (0-3) Basophils (%) (Auto) 1 % (0-3) Neutrophils # (Auto) 3.7 x10^3/uL (1.8-7.7) Lymphocytes # (Auto) 1.1 x10^3/uL (1.0-4.8) Monocytes # (Auto) 0.4 x10^3/uL (0.0-1.1) Eosinophils # (Auto) 0.1 x10^3/uL (0.0-0.7) Basophils # (Auto) 0.0 x10^3/uL (0.0-0.2) Sodium Level 139 mmol/L (136-145) Potassium Level 4.3 mmol/L (3.5-5.1) Chloride Level 105 mmol/L (98-107) Carbon Dioxide Level 24 mmol/L (21-32) Anion Gap 10 (6-14) Blood Urea Nitrogen 18 mg/dL (8-26) Creatinine 1.0 mg/dL (0.7-1.3) Estimated GFR (Cockcroft-Gault) 86.3 Glucose Level 97 mg/dL (70-99) Calcium Level 8.8 mg/dL (8.5-10.1) C-Reactive Protein, Quantitative 13.5 mg/L (0-3.3) H Vitamin B12 Level 1821 pg/mL (247-911) H Thyroid Stimulating Hormone (TSH) 1.835 uIU/mL (0.358-3.74) Laboratory Tests 04/30/20 10:00 Laboratory Tests 04/30/20 10:00 ECHOCARDIOGRAM ECHOCARDIOGRAM <Conclusion> The left ventricle is normal size. The left ventricular systolic function is normal and the ejection fraction is within normal range. The Ejection Fraction is 60-65%. There is borderline concentric left ventricular hypertrophy. Doppler and Color Flow revealed no significant aortic regurgitation. There is no significant aortic valvular stenosis. Doppler and Color-flow revealed trace mitral regurgitation. Doppler and Color Flow revealed no tricuspid valve regurgitation noted. DATE: 04/30/20 1428 STRESS TEST STRESS TEST Conclusion 1. No evidence of stress induced EKG changes 2. Normal myocardial perfusion at stress and rest. 3. Normal EF with stress. EF 70% 4. Low risk study DATE: 07/06/15 1510 ASSESSMENT/PLAN ASSESSMENT/PLAN 1. Syncope with known past vasovagal syncope: No noted arrhythmia involvement so far 2. Possible TIA with past hx of CVA: neurology following. EF and WM nml 3. CAD: past CABG. clinically stable 4. Hx of asymptomatic SB: 4. HTN: labile 5. HLP; controlled 6. Carotid artery disease 7. Debility/Dementia/WC bound Recommendations 1. Continue with secondary prevention, monitor overnight for any significant rhythm changes. Would not recommend aricept with issues with bradycardia in the past. 2. Encouraged hydration adequacy. 3. Avoid AV toy blocking agents. Continue home BP regime 4. Supportive care JAMI MOSLEY MD 05/01/20 1050: CARDIAC CONSULT ASSESSMENT/PLAN ASSESSMENT/PLAN Patient seen and examined. Agree with W[employer] SALES CONSULTANT's assessment and plan Syncope vasovagal Presently in SR without any arrhythmias CAD clinically stable CVA old per neurology Agree with holding rate lowering meds due to sinus umesh Thank you for your consultation KAILEY LAZARO APRN Apr 30, 2020 15:12 JAMI MOSLEY MD May 01, 2020 10:50
[2020-04-30 19:00] VITALS: BP 190/91
[2020-04-30] MEDS: LATANOPROST 0.005% OPHTH SOLUTION 2.5ML BOTTLE. OU SCH (20:28)
[2020-04-30] MEDS: LORazepam 0.5 MG TABLET PO PRN (20:28)
[2020-04-30] MEDS: ENOXAPARIN 40 MG/0.4 ML SYRINGE. SQ SCH (20:29)
[2020-04-30] MEDS: ATORVASTATIN CALCIUM 10 MG TABLET. PO SCH (20:29)
[2020-04-30] MEDS: ACETAMINOPHEN 325 MG TABLET. PO PRN (20:29)
[2020-04-30 23:00] VITALS: BP 122/65
[2020-05-01 03:00] VITALS: BP 168/81
[2020-05-01 07:59] VITALS: BP 160/91
[2020-05-01] MEDS: TAMSULOSIN 0.4 MG CAP.ER.24H. PO SCH (08:59)
[2020-05-01] MEDS: LACTOBACILLUS RHAMNOSUS GG 1 CAPSULE. PO SCH ×2 (08:59→21:26)
[2020-05-01] MEDS: ASPIRIN ENTERIC COATED 325 MG TABLET.DR. PO SCH (08:59)
[2020-05-01] MEDS: amLODIPine BESYLATE 5 MG TABLET PO SCH (09:01)
[2020-05-01] MEDS: LISINOPRIL 5 MG TABLET. PO SCH (09:02)
--- NOTE | 2020-05-01 10:06 | PDOC ---
PROGRESS NOTES Date of Service: DATE: 05/01/20 TIME: 10:06 Chief Complaint Chief Complaint VTE Prophylaxis Ordered VTE Prophylaxis Devices: Yes VTE Pharmacological Prophylaxi: Yes IMPRESSION Assessment/Plan Syncope etiology undetermined Neuro vs Cardiac History of dementia which most liekly is Alzheimer's type Atrophy and chronic ischemic change. 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 Plan: admitted for neurological evaluation orthostatics resume home meds once available for review further recommendations based on clinical course dVT prophylaxis: Lovenox cardiology consult d/c aricept 27 min pt exam, chart review, > 50% of time spent with exam, chart review, pt care coordination Justifications for Admission Justifications for Admission Other Justification History of Present Illness History of Present Illness History of Present Illness History of Present Illness Patient is a right handed gentleman who has several commrobitdities including CAD, HTN history of dyslipidemia and dementia who was in his usual state of health until the day of his admission when he had an episode of "fainting" as per his family member who is at bedside helping with the history taking. Patient had been in a rehab facility until April 14 and had been doing quite alri ght at home. He had regained his independence but presented an episode similar to the events today more or less a week ago. Patient has not had changes to his medications. He denies lightheadedness, no aura type of symptoms, he has not presented seizure like activity and did not have post ictal period either. He has been prescribed "memory pills " in the past but currently is not taking medications, He has an appointment with neurolgy in the outpatient setting to discuss medication adjustment. Patient denies headache blurred vision no vision loss, no odynophagia slurred speech no facial droop. No chest pain palpitations or shortness of breath has been reported. No nausea vomiting or diarrhea. Oral intake has been adequate as per family members. Patient at the time of my evaluation seems to be in no acute distress,He responds slowly to questions and is very interested in knowing how long he will need to be in the hospital. Plan of care discussed with patient and family member at bedside. Past Medical History Cardiovascular: CAD, HTN, PR, Hyperlipidemia Pulmonary: No pertinent hx CENTRAL NERVOUS SYSTEM: CVA, Dementia, Other (Cervical spinal stenosis) GI: GERD, Other (Dysphagia) Heme/Onc: No pertinent hx Hepatobiliary: No pertinent hx Psych: No pertinent hx Rheumatologic: No pertinent hx Infectious disease: No pertinent hx ENT: Other (Bilateral hearing loss) Renal/: UTI, Benign prostatic enlarg., Urinary Incontinence Endocrine: No pertinent hx Past Surgical History Past Surgical History: CABG, Cataract Removal, Hernia Repair, Other (Cervical laminectomy at C3-C4, C4-C5, and C5-C6 with instrumentation) Family History Family History: Heart Disease, High Cholestrol Social History ALCOHOL: none Drugs: None Current Problem List Problem List Problems Medical Problems: (1) Left arm weakness Status: Acute (2) Syncope Status: Acute Vitals Vitals Vital Signs Date Time Temp Pulse Resp B/P (MAP) Pulse Ox O2 Delivery O2 Flow Rate FiO2 05/01/20 09:02 72 154/88 05/01/20 08:00 Room Air 05/01/20 07:59 97.7 22 98 97.7 Physical Exam Physical Exam GEN.: No apparent distress. Alert and oriented. HEENT: Head is normocephalic, atraumatic NECK: Supple. LUNGS: Clear to auscultation. HEART: RRR, S1, S2 present. Peripheral pulses intact ABDOMEN: Soft, nontender. Positive bowel sounds. EXTREMITIES: Without any cyanosis. NEUROLOGIC: Seems to be oriented in person Cranial nerves II through XII intact overall no motor nor sensory deficits appreciated PSYCHIATRIC: Normal affect, normal mood. SKIN: No ulcerations General: Alert, Cooperative, No acute distress Heart: Regular rate (SR), Normal S1, Normal S2, No murmurs Lungs: Clear Abdomen: Soft, No tenderness Extremities: No edema Skin: No significant lesion Assessment and Plan Assessmemt and Plan Problems Medical Problems: (1) Left arm weakness Status: Acute (2) Syncope Status: Acute Comment Review of Relevant I have reviewed the following items rahul (where applicable) has been applied. Labs Laboratory Tests Test 04/29/20 12:20 04/29/20 12:25 04/29/20 13:00 04/29/20 13:45 Glucose (Fingerstick) 89 mg/dL (70-99) White Blood Count 5.1 x10^3/uL (4.0-11.0) Red Blood Count 3.75 x10^6/uL (4.30-5.70) Hemoglobin 12.5 g/dL (13.0-17.5) Hematocrit 36.8 % (39.0-53.0) Mean Corpuscular Volume 98 fL (79-100) Mean Corpuscular Hemoglobin 33 pg (25-35) Mean Corpuscular Hemoglobin Concent 34 g/dL (31-37) Red Cell Distribution Width 13.2 % (11.5-14.5) Platelet Count 196 x10^3/uL (140-400) Neutrophils (%) (Auto) 56 % (31-73) Lymphocytes (%) (Auto) 31 % (24-48) Monocytes (%) (Auto) 11 % (0-9) Eosinophils (%) (Auto) 2 % (0-3) Basophils (%) (Auto) 1 % (0-3) Neutrophils # (Auto) 2.9 x10^3/uL (1.8-7.7) Lymphocytes # (Auto) 1.6 x10^3/uL (1.0-4.8) Monocytes # (Auto) 0.5 x10^3/uL (0.0-1.1) Eosinophils # (Auto) 0.1 x10^3/uL (0.0-0.7) Basophils # (Auto) 0.0 x10^3/uL (0.0-0.2) Prothrombin Time 14.3 SEC (11.7-14.0) Prothromb Time International Ratio 1.2 (0.8-1.1) Activated Partial Thromboplast Time 29 SEC (24-38) Sodium Level 137 mmol/L (136-145) Potassium Level 4.1 mmol/L (3.5-5.1) Chloride Level 105 mmol/L (98-107) Carbon Dioxide Level 26 mmol/L (21-32) Anion Gap 6 (6-14) Blood Urea Nitrogen 22 mg/dL (8-26) Creatinine 1.3 mg/dL (0.7-1.3) Estimated GFR (Cockcroft-Gault) 63.8 Glucose Level 80 mg/dL (70-99) Calcium Level 8.7 mg/dL (8.5-10.1) Total Bilirubin 0.6 mg/dL (0.2-1.0) Direct Bilirubin 0.2 mg/dL (0.0-0.2) Aspartate Amino Transf (AST/SGOT) 71 U/L (15-37) Alanine Aminotransferase (ALT/SGPT) 81 U/L (16-63) Alkaline Phosphatase 117 U/L (46-116) Troponin I Quantitative < 0.017 ng/mL (0.000-0.055) MG-Ysj-V-Type Natriuretic Peptide 352 pg/mL (0-449) Total Protein 6.4 g/dL (6.4-8.2) Albumin 2.5 g/dL (3.4-5.0) Lipase 150 U/L (73-393) Urine Collection Type U cath Urine Color Yellow Urine Clarity Clear Urine pH 7.0 (<5.0-8.0) Urine Specific [place] 1.025 (1.000-1.030) Urine Protein Negative mg/dL (NEG-TRACE) Urine Glucose (UA) Negative mg/dL (NEG) Urine Ketones (Stick) Negative mg/dL (NEG) Urine Blood Negative (NEG) Urine Nitrite Negative (NEG) Urine Bilirubin Negative (NEG) Urine Urobilinogen Dipstick 1.0 mg/dL (0.2 mg/dL) Urine Leukocyte Esterase Negative (NEG) Urine RBC Occ /HPF (0-2) Urine WBC 0 /HPF (0-4) Urine Bacteria 0 /HPF (0-FEW) Urine Hyaline Casts Few /HPF Urine Mucus Mod /LPF Test 04/30/20 10:00 White Blood Count 5.3 x10^3/uL (4.0-11.0) Red Blood Count 3.95 x10^6/uL (4.30-5.70) Hemoglobin 12.8 g/dL (13.0-17.5) Hematocrit 39.0 % (39.0-53.0) Mean Corpuscular Volume 99 fL (79-100) Mean Corpuscular Hemoglobin 32 pg (25-35) Mean Corpuscular Hemoglobin Concent 33 g/dL (31-37) Red Cell Distribution Width 13.2 % (11.5-14.5) Platelet Count 159 x10^3/uL (140-400) Neutrophils (%) (Auto) 71 % (31-73) Lymphocytes (%) (Auto) 20 % (24-48) Monocytes (%) (Auto) 7 % (0-9) Eosinophils (%) (Auto) 1 % (0-3) Basophils (%) (Auto) 1 % (0-3) Neutrophils # (Auto) 3.7 x10^3/uL (1.8-7.7) Lymphocytes # (Auto) 1.1 x10^3/uL (1.0-4.8) Monocytes # (Auto) 0.4 x10^3/uL (0.0-1.1) Eosinophils # (Auto) 0.1 x10^3/uL (0.0-0.7) Basophils # (Auto) 0.0 x10^3/uL (0.0-0.2) Sodium Level 139 mmol/L (136-145) Potassium Level 4.3 mmol/L (3.5-5.1) Chloride Level 105 mmol/L (98-107) Carbon Dioxide Level 24 mmol/L (21-32) Anion Gap 10 (6-14) Blood Urea Nitrogen 18 mg/dL (8-26) Creatinine 1.0 mg/dL (0.7-1.3) Estimated GFR (Cockcroft-Gault) 86.3 Glucose Level 97 mg/dL (70-99) Calcium Level 8.8 mg/dL (8.5-10.1) C-Reactive Protein, Quantitative 13.5 mg/L (0-3.3) Vitamin B12 Level 1821 pg/mL (247-911) Thyroid Stimulating Hormone (TSH) 1.835 uIU/mL (0.358-3.74) Medications Current Medications Sodium Chloride 500 ml @ 500 mls/hr 1X ONCE IV Last administered on 04/29/20at 12:45; Start 04/29/20 at 12:30; Stop 04/29/20 at 13:29; Status DC Iohexol (Omnipaque 350 Mg/ml) 75 ml 1X ONCE IV Last administered on 04/29/20at 12:40; Start 04/29/20 at 12:30; Stop 04/29/20 at 12:31; Status DC Info (CONTRAST GIVEN -- Rx MONITORING) 1 each PRN DAILY PRN MC SEE COMMENTS; Start 04/29/20 at 12:30; Stop 05/01/20 at 12:29 Sodium Chloride 1,000 ml @ 100 mls/hr Q10H IV Last administered on 04/29/20at 17:48; Start 04/29/20 at 13:44; Stop 04/29/20 at 17:43; Status DC Albuterol Sulfate (Ventolin Neb Soln) 2.5 mg PRN Q4HRS PRN NEB SHORTNESS OF BREATH; Start 04/29/20 at 15:45; Stop 04/30/20 at 13:05; Status DC Amlodipine Besylate (Norvasc) 5 mg DAILY PO Last administered on 05/01/20at 09:01; Start 04/30/20 at 09:00 Aspirin (Ecotrin) 325 mg DAILY PO Last administered on 05/01/20at 08:59; Start 04/30/20 at 09:00 Atorvastatin Calcium (Lipitor) 10 mg HS PO Last administered on 04/30/20at 20:29; Start 04/29/20 at 21:00 Docusate Sodium (Colace) 100 mg PRN BID PRN PO HARD STOOLS 1ST CHOICE; Start 04/29/20 at 15:45; Stop 04/30/20 at 13:06; Status DC Guaifenesin (Robitussin) 200 mg PRN Q4HRS PRN PO COUGH; Start 04/29/20 at 15:45; Stop 04/30/20 at 13:06; Status DC Lactobacillus Rhamnosus (Culturelle) 1 cap BID PO Last administered on at 08:59; Start 04/29/20 at 21:00 Latanoprost (Xalatan) 1 drop QHS OU Last administered on 04/30/20at 20:28; Start 04/29/20 at 21:00 Lisinopril (Prinivil) 5 mg DAILY PO Last administered on 05/01/20at 09:02; Start 04/30/20 at 09:00 Tamsulosin HCl (Flomax) 0.4 mg DAILY PO Last administered on 05/01/20at 08:59; Start 04/30/20 at 09:00 Ondansetron HCl (Zofran) 4 mg PRN Q4HRS PRN IV NAUSEA/VOMITING; Start 04/29/20 at 15:45 Acetaminophen (Tylenol) 650 mg PRN Q4HRS PRN PO TEMP OVER 100.4F OR MILD PAIN Last administered on 04/30/20at 20:29; Start 04/29/20 at 15:45 Docusate Sodium (Colace) 100 mg PRN BID PRN PO HARD STOOLS; Start 04/29/20 at 15:45 Albuterol Sulfate (Ventolin Neb Soln) 2.5 mg PRN Q4HRS PRN NEB SHORTNESS OF BREATH; Start 04/29/20 at 15:45 Guaifenesin (Robitussin) 200 mg PRN Q4HRS PRN PO COUGH; Start 04/29/20 at 15:45 Lorazepam (Ativan) 0.5 mg PRN Q4HRS PRN PO ANXIETY / AGITATION Last administered on 04/30/20at 20:28; Start 04/29/20 at 15:45 Enoxaparin Sodium (Lovenox 40mg Syringe) 40 mg Q24H SQ Last administered on 04/30/20at 20:29; Start 04/29/20 at 21:00 Influenza Virus Vaccine Quadrival (Fluzone Quad Syringe) 0.5 ml ONCE ONCE VAX IM Last administered on 04/29/20at 18:15; Start 04/29/20 at 18:15; Stop 04/29/20 at 18:16; Status DC Active Scripts Active Culturelle (Lactobacillus Rhamnosus Gg) 1 Each Cap.sprink 1 Cap PO BID 30 Days Dok (Docusate Sodium) 100 Mg Capsule 100 Mg PO PRN BID PRN 30 Days Guaifenesin 100 Mg/5 Ml Liquid 200 Mg PO PRN Q4HRS PRN 10 Days Proair Hfa (Albuterol Sulfate) 8.5 Gm Hfa.aer.ad 2.5 Mg NEB PRN Q4HRS PRN 14 Days Reported Baclofen 10 Mg Tablet 5 Mg PO BID Aspirin Ec (Aspirin) 325 Mg Tablet.dr 325 Mg PO DAILY Aloe Vera 25 Mg Capsule 25 Mg PO DAILY Acetaminophen 325 Mg Tablet 650 Mg PO PRN Q8HRS PRN Latanoprost 2.5 Ml Drops 1 Drop EACHEYE QHS Atorvastatin Calcium 10 Mg Tablet 10 Mg PO HS Flomax (Tamsulosin Hcl) 0.4 Mg Cap.er.24h 0.4 Mg PO HS Lisinopril 5 Mg Tablet 5 Mg PO DAILY Namenda (Memantine Hcl) 10 Mg Tablet 5 Mg PO HS Chlorthalidone (Chlorthalidone) 25 Mg Tablet 25 Mg PO DAILY Vitals/I & O Vital Sign - Last 24 Hours 04/30/20 04/30/20 04/30/20 04/30/20 10:33 14:48 19:00 20:00 Temp 97.7 97.8 98.4 97.7 97.8 98.4 Pulse 80 68 82 Resp 16 17 18 B/P (MAP) 103/53 (70) 130/69 (89) 190/91 (124) Pulse Ox 98 95 97 O2 Delivery Room Air Room Air Room Air Room Air 04/30/20 05/01/20 05/01/20 05/01/20 23:00 03:00 07:59 08:00 Temp 98.2 97.9 97.7 98.2 97.9 97.7 Pulse 70 74 74 Resp 20 20 22 B/P (MAP) 122/65 (84) 168/81 (110) 160/91 (114) Pulse Ox 90 98 98 O2 Delivery Room Air Room Air Room Air Room Air 05/01/20 05/01/20 09:01 09:02 Pulse 72 72 B/P (MAP) 154/88 154/88 Intake and Output 04/30/20 04/30/20 05/01/20 15:00 23:00 07:00 Intake Total 600 ml 450 ml 440 ml Balance 600 ml 450 ml 440 ml Justicifation of Admission Dx: Justifications for Admission: Justification of Admission Dx: Yes JERMAIN GOMEZ MD May 01, 2020 10:06
[2020-05-01 11:15] VITALS: BP 132/90
[2020-05-01 15:59] VITALS: BP 154/75
[2020-05-01 19:00] VITALS: BP 171/87
[2020-05-01] MEDS: ENOXAPARIN 40 MG/0.4 ML SYRINGE. SQ SCH (21:26)
[2020-05-01] MEDS: ATORVASTATIN CALCIUM 10 MG TABLET. PO SCH (21:26)
[2020-05-01] MEDS: LATANOPROST 0.005% OPHTH SOLUTION 2.5ML BOTTLE. OU SCH (21:26)
[2020-05-01 23:01] VITALS: BP 173/82
[2020-05-01] MEDS: LORazepam 0.5 MG TABLET PO PRN (23:19)
[2020-05-01] MEDS: ACETAMINOPHEN 325 MG TABLET. PO PRN (23:19)
[2020-05-02 03:07] VITALS: BP 156/45
[2020-05-02 07:00] VITALS: BP 113/55
[2020-05-02] MEDS: LISINOPRIL 5 MG TABLET. PO SCH (10:26)
[2020-05-02] MEDS: ASPIRIN ENTERIC COATED 325 MG TABLET.DR. PO SCH (10:26)
[2020-05-02] MEDS: TAMSULOSIN 0.4 MG CAP.ER.24H. PO SCH (10:27)
[2020-05-02] MEDS: LACTOBACILLUS RHAMNOSUS GG 1 CAPSULE. PO SCH (10:27)
[2020-05-02] MEDS: amLODIPine BESYLATE 5 MG TABLET PO SCH (10:27)
[2020-05-02 11:00] VITALS: BP 177/94
--- NOTE | 2020-05-02 11:08 | PDOC ---
PROGRESS NOTES Date of Service: DATE: 05/02/20 TIME: 11:06 Chief Complaint Chief Complaint VTE Prophylaxis Ordered VTE Prophylaxis Devices: Yes VTE Pharmacological Prophylaxi: Yes discharge dx === Assessment/Plan Syncope etiology undetermined Neuro vs Cardiac History of dementia which most liekly is Alzheimer's type Atrophy and chronic ischemic change. 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 Atrophy and chronic ischemic change. Old infarcts. Plan: admitted for neurological evaluation orthostatics pending resume home meds hold aricept dVT prophylaxis: Lovenox cardiology consult d/c aricept 05/02 home with home health d/c planning 29 min 27 min pt exam, chart review, > 50% of time spent with exam, chart review, pt care coordination Justifications for Admission Justifications for Admission Other Justification History of Present Illness History of Present Illness History of Present Illness History of Present Illness Patient is a right handed gentleman who has several commrobitdities including CAD, HTN history of dyslipidemia and dementia who was in his usual state of health until the day of his admission when he had an episode of "fainting" as per his family member who is at bedside helping with the history taking. Patient had been in a rehab facility until April 14 and had been doing quite alright at home. He had regained his independence but presented an episode si milar to the events today more or less a week ago. Patient has not had changes to his medications. He denies lightheadedness, no aura type of symptoms, he has not presented seizure like activity and did not have post ictal period either. He has been prescribed "memory pills " in the past but currently is not taking medications, He has an appointment with neurolgy in the outpatient setting to discuss medication adjustment. Patient denies headache blurred vision no vision loss, no odynophagia slurred speech no facial droop. No chest pain palpitations or shortness of breath has been reported. No nausea vomiting or diarrhea. Oral intake has been adequate as per family members. Patient at the time of my evaluation seems to be in no acute distress,He responds slowly to questions and is very interested in knowing how long he will need to be in the hospital. Plan of care discussed with patient and family member at bedside. Past Medical History Cardiovascular: CAD, HTN, SD, Hyperlipidemia Pulmonary: No pertinent hx CENTRAL NERVOUS SYSTEM: CVA, Dementia, Other (Cervical spinal stenosis) GI: GERD, Other (Dysphagia) Heme/Onc: No pertinent hx Hepatobiliary: No pertinent hx Psych: No pertinent hx Rheumatologic: No pertinent hx Infectious disease: No pertinent hx ENT: Other (Bilateral hearing loss) Renal/: UTI, Benign prostatic enlarg., Urinary Incontinence Endocrine: No pertinent hx Past Surgical History Past Surgical History: CABG, Cataract Removal, Hernia Repair, Other (Cervical laminectomy at C3-C4, C4-C5, and C5-C6 with instrumentation) Family History Family History: Heart Disease, High Cholestrol Social History ALCOHOL: none Drugs: None Current Problem List Problem List Problems Medical Problems: (1) Left arm weakness Status: Acute (2) Syncope Status: Acute Vitals Vitals Vital Signs Date Time Temp Pulse Resp B/P (MAP) Pulse Ox O2 Delivery O2 Flow Rate FiO2 05/02/20 10:27 71 113/55 05/02/20 07:00 97.5 16 Room Air 97.5 05/02/20 03:07 100 Physical Exam Physical Exam GEN.: No apparent distress. Alert confused to details HEENT: Head is normocephalic, atraumatic NECK: Supple. LUNGS: Clear to auscultation. HEART: RRR, S1, S2 present. Peripheral pulses intact ABDOMEN: Soft, nontender. Positive bowel sounds. EXTREMITIES: Without any cyanosis. NEUROLOGIC: Seems to be oriented in person Cranial nerves II through XII intact overall no motor nor sensory deficits appreciated PSYCHIATRIC: Normal affect, normal mood. SKIN: No ulcerations General: Alert, Cooperative, No acute distress Heart: Regular rate (SR), Normal S1, Normal S2, No murmurs Lungs: Clear Abdomen: Normal bowel sounds, Soft, No tenderness Extremities: No cyanosis, No edema Skin: No significant lesion Labs LABS Examination: CT CODE STROKE HEAD WO History: Reason: SYNCOPE AND LUE WEAKNESS / Spl. Instructions: / History: Comparison/Correlation: 03/08/2020 CT head without contrast Findings: Axial images were obtained without contrast. Coronal reformatted images were provided. Atrophy and chronic ischemic changes in the white matter noted. Right external capsular lacunar infarct is present. Old pontine infarcts again seen. No midline shift or mass effect. No evidence of evolving infarct. Bony structures are grossly unremarkable. Postoperative cervical spine fusion noted with rods and screws apparently seen on the tomogram. Impression: Atrophy and chronic ischemic change. Old infarcts. No acute process. Consider further imaging if infarct is a persistent concern. Discussed with referring ED provider 04/29/2020 at 12:41 PM. PQRS Compliance Statement: One or more of the following individualized dose reduction techniques were utilized for this examination: 1. Automated exposure control 2. Adjustment of the mA and/or kV according to patient size 3. Use of iterative reconstruction technique Electronically signed by: Juan Carlos Woods MD (04/29/2020 12:42 PM) [id number] DICTATED and SIGNED BY: JUAN CARLOS WOODS MD DATE: 04/29/20 1242 FINDINGS: Angiographic findings: The aortic arch has a typical branching pattern. Approximately 50 percent stenosis of the left carotid artery is again seen measuring length of 0.5 cm distal to the left vertebral artery origin. No aortic arch branch vessel stenosis otherwise seen. Significant calcific involvement of the distal right common carotid artery and proximal internal carotid artery noted with approximately percent stenosis. Associated noncalcific plaque also is present to a much lesser extent. Calcific involvement of the distal left common carotid artery and carotid bulb also seen with no significant stenosis. Supraclinoid right internal carotid artery calcific plaque is notable with up to 60 percent stenosis. This is similar upon correlation with the previous exam. Calcific plaque of the left intracranial internal carotid arteries also present but without significant stenosis. Anterior cerebral, middle cerebral, and posterior cerebral arteries are patent. No significant stenoses. No aneurysm evident. Tortuosity of the basilar artery is evident. Vertebral arteries are patent with no significant stenoses. Dominant left vertebral artery is identified. No suspicious intracranial enhancement. The vertex was not fully included. No enlarged cervical lymph nodes. Mild emphysematous involvement of the lung apices noted. Severe multilevel disc space narrowing is present. Postoperative decompression of the cervical spine with bilateral laminectomy from C3 to C6 is present. Spinal rods and associated screws bilaterally are seen involving the cervical spine. Left maxillary sinus mucous retention cyst noted. Soft tissues of the neck are unremarkable. Thyroid gland is unremarkable. True and false cords are symmetric. The epiglottis is normal. 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 Significant calcific plaque involves the distal right common carotid artery bifurcation and carotid bulb as well as proximal right internal carotid artery with stenosis of approximately 50 percent similar to the prior exam. 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 No aneurysm or dissection. 04/29/2020 1:05 PM, results discussed with referring ED physician. LEFT VENTRICLE The left ventricle is normal size. There is borderline concentric left ventricul ar hypertrophy. The left ventricular systolic function is normal and the ejection fraction is within normal range. The Ejection Fraction is 60-65%. There is normal LV segmental wall motion. Transmitral Doppler flow pattern is Grade I- abnormal relaxation pattern. RIGHT VENTRICLE The right ventricle is normal size. The right ventricular systolic function is normal. ATRIA The left atrium size is normal. The right atrium size is normal. The interatrial septum is intact with no evidence for an atrial septal defect or patent foramen ovale as noted on 2-D or Doppler imaging. AORTIC VALVE The aortic valve is not well visualized but appears thickened. Doppler and Color Flow revealed no significant aortic regurgitation. There is no significant aortic valvular stenosis. MITRAL VALVE The mitral valve is calcified but opens well. Mitral annular calcification is mild. There is no evidence of mitral valve prolapse. There is no mitral valve stenosis. Doppler and Color-flow revealed trace mitral regurgitation. TRICUSPID VALVE The tricuspid valve is normal in structure and function. Doppler and Color Flow revealed no tricuspid valve regurgitation noted. There is no tricuspid valve stenosis. PULMONIC VALVE The pulmonic valve is not well visualized. GREAT VESSELS The aortic root is normal in size. The ascending aorta is not well seen. The IVC is normal in size and collapses >50% with inspiration. PERICARDIAL EFFUSION There is no evidence of significant pericardial effusion. Critical Notification Critical Value: No <Conclusion> The left ventricle is normal size. The left ventricular systolic function is normal and the ejection fraction is within normal range. The Ejection Fraction is 60-65%. There is borderline concentric left ventricular hypertrophy. Doppler and Color Flow revealed no significant aortic regurgitation. There is no significant aortic valvular stenosis. Doppler and Color-flow revealed trace mitral regurgitation. Doppler and Color Flow revealed no tricuspid valve regurgitation noted. Signed by : Benji Dodd MD Electronically Approved : 04/30/2020 14:57:03 DICTATED and SIGNED BY: BENJI DODD MD DATE: 04/30/20 2870 Assessment and Plan Assessmemt and Plan Problems Medical Problems: (1) Left arm weakness Status: Acute (2) Syncope Status: Acute to recliner chair without AD. Other Information * RN approved PT/OT eval, pt supine in bed agreeable to participte. Pt with difficulty following commands at times, required hand over hand assist and tactile cues. Stood for approximately 4 minutes with MAX assist and bilat UE support on FWW while OT assisted with pericare. Pt remained seated in recliner chair, all items in reach, chair alarm on, RN updated to have 2 people assist with stand pivot transfers. Recommend home with 26/02 assist and home health. reports pt is near mobility baseline. Rehab Potential to Achieve Goals * Fair Learning Preferences * One-on-One Instruction Factors Facilitating Goal Achievement * Supportive caregiver Problem List (body system elements) * Impaired fnctnl mobility * Strength * Blood Pressure * Cognition * Balance * Coordination Clinical Presentation * Evolving Evaluation Complexity Level * Moderate Complexity Pt/caregiver agrees with plan of care/goals * Yes * Decreased Mentation Patient condition at conclusion of therapy * Pt in chair * Personal alarm on * Call light in reach * PtIn no apparent distress * Pt denies further needs * Visitor with patient Communicated Patient Care With (Name, Title) * Luciana OT; FLYNN Scanlon Goal 1 - Bed Mobility Assistance Required * Max Assistance Goal 2 - Transfers Assistance Required * Max Assistance Goal 2 - Transfer Type * Stand-Step Treatment Plan * Therapeutic Exercise * Bed Mobility Training * Transfer training * Gait Training Frequency of Treatment Expected * 6 visits/week Duration of Treatment Expected * 2 weeks Discharge Recommendations * Home with Home Health * Home with 24hr care Discharge Recommendation - DME * None Discharge Recommendation Comments * Pt has a walker and wheelchair Comment Review of Relevant I have reviewed the following items rahul (where applicable) has been applied. Medications Current Medications Sodium Chloride 500 ml @ 500 mls/hr 1X ONCE IV Last administered on 04/29/20at 12:45; Start 04/29/20 at 12:30; Stop 04/29/20 at 13:29; Status DC Iohexol (Omnipaque 350 Mg/ml) 75 ml 1X ONCE IV Last administered on 04/29/20at 12:40; Start 04/29/20 at 12:30; Stop 04/29/20 at 12:31; Status DC Info (CONTRAST GIVEN -- Rx MONITORING) 1 each PRN DAILY PRN MC SEE COMMENTS; Start 04/29/20 at 12:30; Stop 05/01/20 at 12:29; Status DC Sodium Chloride 1,000 ml @ 100 mls/hr Q10H IV Last administered on 04/29/20at 17:48; Start 04/29/20 at 13:44; Stop 04/29/20 at 17:43; Status DC Albuterol Sulfate (Ventolin Neb Soln) 2.5 mg PRN Q4HRS PRN NEB SHORTNESS OF BREATH; Start 04/29/20 at 15:45; Stop 04/30/20 at 13:05; Status DC Amlodipine Besylate (Norvasc) 5 mg DAILY PO Last administered on 05/02/20at 10:27; Start 04/30/20 at 09:00 Aspirin (Ecotrin) 325 mg DAILY PO Last administered on 05/02/20at 10:26; Start 04/30/20 at 09:00 Atorvastatin Calcium (Lipitor) 10 mg HS PO Last administered on 05/01/20at 21:26; Start 04/29/20 at 21:00 Docusate Sodium (Colace) 100 mg PRN BID PRN PO HARD STOOLS 1ST CHOICE; Start 04/29/20 at 15:45; Stop 04/30/20 at 13:06; Status DC Guaifenesin (Robitussin) 200 mg PRN Q4HRS PRN PO COUGH; Start 04/29/20 at 15:45; Stop 04/30/20 at 13:06; Status DC Lactobacillus Rhamnosus (Culturelle) 1 cap BID PO Last administered on 05/02/20at 10:27; Start 04/29/20 at 21:00 Latanoprost (Xalatan) 1 drop QHS OU Last administered on 05/01/20at 21:26; Start 04/29/20 at 21:00 Lisinopril (Prinivil) 5 mg DAILY PO Last administered on 05/02/20at 10:26; Start 04/30/20 at 09:00 Tamsulosin HCl (Flomax) 0.4 mg DAILY PO Last administered on 05/02/20at 10:27; Start 04/30/20 at 09:00 Ondansetron HCl (Zofran) 4 mg PRN Q4HRS PRN IV NAUSEA/VOMITING; Start 04/29/20 at 15:45 Acetaminophen (Tylenol) 650 mg PRN Q4HRS PRN PO TEMP OVER 100.4F OR MILD PAIN Last administered on 05/01/20at 23:19; Start 04/29/20 at 15:45 Docusate Sodium (Colace) 100 mg PRN BID PRN PO HARD STOOLS; Start 04/29/20 at 15:45 Albuterol Sulfate (Ventolin Neb Soln) 2.5 mg PRN Q4HRS PRN NEB SHORTNESS OF BREATH; Start 04/29/20 at 15:45 Guaifenesin (Robitussin) 200 mg PRN Q4HRS PRN PO COUGH; Start 04/29/20 at 15:45 Lorazepam (Ativan) 0.5 mg PRN Q4HRS PRN PO ANXIETY / AGITATION Last administe red on 05/01/20at 23:19; Start 04/29/20 at 15:45 Enoxaparin Sodium (Lovenox 40mg Syringe) 40 mg Q24H SQ Last administered on 04/07 01/23at 21:26; Start 04/29/20 at 21:00 Influenza Virus Vaccine Quadrival (Fluzone Quad Syringe) 0.5 ml ONCE ONCE VAX IM Last administered on 04/29/20at 18:15; Start 04/29/20 at 18:15; Stop 04/29/20 at 18:16; Status DC Active Scripts Active Culturelle (Lactobacillus Rhamnosus Gg) 1 Each Cap.sprink 1 Cap PO BID 30 Days Dok (Docusate Sodium) 100 Mg Capsule 100 Mg PO PRN BID PRN 30 Days Guaifenesin 100 Mg/5 Ml Liquid 200 Mg PO PRN Q4HRS PRN 10 Days Proair Hfa (Albuterol Sulfate) 8.5 Gm Hfa.aer.ad 2.5 Mg NEB PRN Q4HRS PRN 14 Days Reported Baclofen 10 Mg Tablet 5 Mg PO BID Aspirin Ec (Aspirin) 325 Mg Tablet.dr 325 Mg PO DAILY Aloe Vera 25 Mg Capsule 25 Mg PO DAILY Acetaminophen 325 Mg Tablet 650 Mg PO PRN Q8HRS PRN Latanoprost 2.5 Ml Drops 1 Drop EACHEYE QHS Atorvastatin Calcium 10 Mg Tablet 10 Mg PO HS Flomax (Tamsulosin Hcl) 0.4 Mg Cap.er.24h 0.4 Mg PO HS Lisinopril 5 Mg Tablet 5 Mg PO DAILY Namenda (Memantine Hcl) 10 Mg Tablet 5 Mg PO HS Chlorthalidone (Chlorthalidone) 25 Mg Tablet 25 Mg PO DAILY Vitals/I & O Vital Sign - Last 24 Hours 05/01/20 05/01/20 05/01/20 05/01/20 11:15 15:59 19:00 20:10 Temp 97.9 98.2 98.0 97.9 98.2 98.0 Pulse 74 76 74 Resp 20 20 18 B/P (MAP) 132/90 (104) 154/75 (101) 171/87 (115) Pulse Ox 96 99 98 O2 Delivery Room Air Room Air Room Air Room Air 05/01/20 05/02/20 05/02/20 05/02/20 23:01 03:07 07:00 10:26 Temp 98.8 97.9 97.5 98.8 97.9 97.5 Pulse 74 59 71 71 Resp 20 20 16 B/P (MAP) 173/82 (112) 156/45 (82) 113/55 (74) 113/55 Pulse Ox 98 100 O2 Delivery Room Air Room Air Room Air 05/02/20 10:27 Pulse 71 B/P (MAP) 113/55 Intake and Output 05/01/20 05/01/20 05/02/20 14:59 22:59 06:59 Intake Total 120 ml Output Total 0 ml Balance 120 ml 0 ml Justicifation of Admission Dx: Justifications for Admission: Justification of Admission Dx: Yes JERMAIN GOMEZ MD May 02, 2020 11:08
--- NOTE | 2020-05-02 11:14 | PDOC3 ---
Discharge Summary Date of Admission: Apr 29, 2020 Date of Discharge: May 02, 2020 Follow-Up: 1-2 days Admitting Diagnosis comment: discharge dx === Assessment/Plan Syncope etiology undetermined Neuro vs Cardiac History of dementia which most liekly is Alzheimer's type Atrophy and chronic ischemic change. 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 Atrophy and chronic ischemic change. Old infarcts. Plan: admitted for neurological evaluation orthostatics pending resume home meds hold aricept dVT prophylaxis: Lovenox cardiology consult d/c aricept 05/02 home with home health d/c planning 29 min 27 min pt exam, chart review, > 50% of time spent with exam, chart review, pt care coordination Justifications for Admission Justifications for Admission Other Justification History of Present Illness History of Present Illness History of Present Illness History of Present Illness Patient is a right handed gentleman who has several commrobitdities including CAD, HTN history of dyslipidemia and dementia who was in his usual state of health until the day of his admission when he had an episode of "fainting" as per his family member who is at bedside helping with the history taking. Patient had been in a rehab facility until April 14 and had been doing quite alright at home. He had regained his independence but presented an episode similar to the events today more or less a week ago. Patient has not had changes to his medications. He denies lightheadedness, no aura type of symptoms, he has not presented seizure like activity and did not have post ictal period either. He has been prescribed "memory pills " in the past but currently is not taking medications, He has an appointment with neurolgy in the outpatient setting to discuss medication adjustment. Patient denies headache blurred vision no vision loss, no odynophagia slurred speech no facial droop. No chest pain palpitations or shortness of breath has been reported. No nausea vomiting or diarrhea. Oral intake has been adequate as per family members. Patient at the time of my ev aluation seems to be in no acute distress,He responds slowly to questions and is very interested in knowing how long he will need to be in the hospital. Plan of care discussed with patient and family member at bedside. Past Medical History Cardiovascular: CAD, HTN, GA, Hyperlipidemia Pulmonary: No pertinent hx CENTRAL NERVOUS SYSTEM: CVA, Dementia, Other (Cervical spinal stenosis) GI: GERD, Other (Dysphagia) Heme/Onc: No pertinent hx Hepatobiliary: No pertinent hx Psych: No pertinent hx Rheumatologic: No pertinent hx Infectious disease: No pertinent hx ENT: Other (Bilateral hearing loss) Renal/: UTI, Benign prostatic enlarg., Urinary Incontinence Endocrine: No pertinent hx Past Surgical History Past Surgical History: CABG, Cataract Removal, Hernia Repair, Other (Cervical laminectomy at C3-C4, C4-C5, and C5-C6 with instrumentation) Family History Family History: Heart Disease, High Cholestrol Social History ALCOHOL: none Drugs: None Current Problem List Problem List Problems Medical Problems: (1) Left arm weakness Status: Acute (2) Syncope Status: Acute Vitals Vitals Vital Signs Date Time Temp Pulse Resp B/P (MAP) Pulse Ox O2 Delivery O2 Flow Rate FiO2 05/02/20 10:27 71 113/55 05/02/20 07:00 97.5 16 Room Air 97.5 05/02/20 03:07 100 Physical Exam Physical Exam GEN.: No apparent distress. Alert confused to details HEENT: Head is normocephalic, atraumatic NECK: Supple. LUNGS: Clear to auscultation. HEART: RRR, S1, S2 present. Peripheral pulses intact ABDOMEN: Soft, nontender. Positive bowel sounds. EXTREMITIES: Without any cyanosis. NEUROLOGIC: Seems to be oriented in person Cranial nerves II through XII intact overall no motor nor sensory deficits appreciated PSYCHIATRIC: Normal affect, normal mood. SKIN: No ulcerations General: Alert, Cooperative, No acute distress Heart: Regular rate (SR), Normal S1, Normal S2, No murmurs Lungs: Clear Abdomen: Normal bowel sounds, Soft, No tenderness Extremities: No cyanosis, No edema Skin: No significant lesion Labs LABS Examination: CT CODE STROKE HEAD WO History: Reason: SYNCOPE AND LUE WEAKNESS / Spl. Instructions: / History: Comparison/Correlation: 03/08/2020 CT head without contrast Findings: Axial images were obtained without contrast. Coronal reformatted images were provided. Atrophy and chronic ischemic changes in the white matter noted. Right external capsular lacunar infarct is present. Old pontine infarcts again seen. No midline shift or mass effect. No evidence of evolving infarct. Bony structures are grossly unremarkable. Postoperative cervical spine fusion noted with rods and screws apparently seen on the tomogram. Impression: Atrophy and chronic ischemic change. Old infarcts. No acute process. Consider further imaging if infarct is a persistent concern. Discussed with referring ED provider 04/29/2020 at 12:41 PM. PQRS Compliance Statement: One or more of the following individualized dose reduction techniques were utilized for this examination: 1. Automated exposure control 2. Adjustment of the mA and/or kV according to patient size 3. Use of iterative reconstruction technique Electronically signed by: Juan Carlos Wright MD (04/29/2020 12:42 PM) [id number] FINAL DIAGNOSIS Problems Medical Problems: (1) Left arm weakness Status: Acute (2) Syncope Status: Acute Brief Hospital Course Mr. Osorio is a 85 old [sex] who presented with [ syncope] CONDITION AT DISCHARGE: Improved Discharge Medications Current Medications Sodium Chloride 500 ml @ 500 mls/hr 1X ONCE IV Last administered on 04/29/20at 12:45; Start 04/29/20 at 12:30; Stop 04/29/20 at 13:29; Status DC Iohexol (Omnipaque 350 Mg/ml) 75 ml 1X ONCE IV Last administered on 04/29/20at 12:40; Start 04/29/20 at 12:30; Stop 04/29/20 at 12:31; Status DC Info (CONTRAST GIVEN -- Rx MONITORING) 1 each PRN DAILY PRN MC SEE COMMENTS; Start 04/29/20 at 12:30; Stop 05/01/20 at 12:29; Status DC Sodium Chloride 1,000 ml @ 100 mls/hr Q10H IV Last administered on 04/29/20at 17:48; Start 04/29/20 at 13:44; Stop 04/29/20 at 17:43; Status DC Albuterol Sulfate (Ventolin Neb Soln) 2.5 mg PRN Q4HRS PRN NEB SHORTNESS OF BREATH; Start 04/29/20 at 15:45; Stop 04/30/20 at 13:05; Status DC Amlodipine Besylate (Norvasc) 5 mg DAILY PO Last administered on 05/02/20at 10:27; Start 04/30/20 at 09:00 Aspirin (Ecotrin) 325 mg DAILY PO Last administered on 05/02/20at 10:26; Start 04/30/20 at 09:00 Atorvastatin Calcium (Lipitor) 10 mg HS PO Last administered on 05/01/20at 21:26; Start 04/29/20 at 21:00 Docusate Sodium (Colace) 100 mg PRN BID PRN PO HARD STOOLS 1ST CHOICE; Start 04/29/20 at 15:45; Stop 04/30/20 at 13:06; Status DC Guaifenesin (Robitussin) 200 mg PRN Q4HRS PRN PO COUGH; Start 04/29/20 at 15:45; Stop 04/30/20 at 13:06; Status DC Lactobacillus Rhamnosus (Culturelle) 1 cap BID PO Last administered on 05/02at 10:27; Start 04/29/20 at 21:00 Latanoprost (Xalatan) 1 drop QHS OU Last administered on 05/01/20at 21:26; Start 04/29/20 at 21:00 Lisinopril (Prinivil) 5 mg DAILY PO Last administered on 05/02/20at 10:26; Start 04/30/20 at 09:00 Tamsulosin HCl (Flomax) 0.4 mg DAILY PO Last administered on 05/02/20at 10:27; Start 04/30/20 at 09:00 Ondansetron HCl (Zofran) 4 mg PRN Q4HRS PRN IV NAUSEA/VOMITING; Start 04/29/20 at 15:45 Acetaminophen (Tylenol) 650 mg PRN Q4HRS PRN PO TEMP OVER 100.4F OR MILD PAIN Last administered on 05/01/20at 23:19; Start 04/29/20 at 15:45 Docusate Sodium (Colace) 100 mg PRN BID PRN PO HARD STOOLS; Start 04/29/20 at 15:45 Albuterol Sulfate (Ventolin Neb Soln) 2.5 mg PRN Q4HRS PRN NEB SHORTNESS OF BREATH; Start 04/29/20 at 15:45 Guaifenesin (Robitussin) 200 mg PRN Q4HRS PRN PO COUGH; Start 04/29/20 at 15:45 Lorazepam (Ativan) 0.5 mg PRN Q4HRS PRN PO ANXIETY / AGITATION Last administered on 05/01/20at 23:19; Start 04/29/20 at 15:45 Enoxaparin Sodium (Lovenox 40mg Syringe) 40 mg Q24H SQ Last administered on 05/01/20at 21:26; Start 04/29/20 at 21:00 Influenza Virus Vaccine Quadrival (Fluzone Quad Syringe) 0.5 ml ONCE ONCE VAX IM Last administered on 04/29/20at 18:15; Start 04/29/20 at 18:15; Stop 04/29/20 at 18:16; Status DC Active Scripts Active Culturelle (Lactobacillus Rhamnosus Gg) 1 Each Cap.sprink 1 Cap PO BID 30 Days Dok (Docusate Sodium) 100 Mg Capsule 100 Mg PO PRN BID PRN 30 Days Guaifenesin 100 Mg/5 Ml Liquid 200 Mg PO PRN Q4HRS PRN 10 Days Proair Hfa (Albuterol Sulfate) 8.5 Gm Hfa.aer.ad 2.5 Mg NEB PRN Q4HRS PRN 14 Days Reported Baclofen 10 Mg Tablet 5 Mg PO BID Aspirin Ec (Aspirin) 325 Mg Tablet.dr 325 Mg PO DAILY Aloe Vera 25 Mg Capsule 25 Mg PO DAILY Acetaminophen 325 Mg Tablet 650 Mg PO PRN Q8HRS PRN Latanoprost 2.5 Ml Drops 1 Drop EACHEYE QHS Atorvastatin Calcium 10 Mg Tablet 10 Mg PO HS Flomax (Tamsulosin Hcl) 0.4 Mg Cap.er.24h 0.4 Mg PO HS Lisinopril 5 Mg Tablet 5 Mg PO DAILY Namenda (Memantine Hcl) 10 Mg Tablet 5 Mg PO HS Chlorthalidone (Chlorthalidone) 25 Mg Tablet 25 Mg PO DAILY Vital Signs Vital Signs Date Time Temp Pulse Resp B/P (MAP) Pulse Ox O2 Delivery O2 Flow Rate FiO2 05/02/20 10:27 71 113/55 05/02/20 07:00 97.5 16 Room Air 97.5 05/02/20 03:07 100 Allergies Allergies Coded Allergies Type Severity Reaction Last Updated Verified No Known Drug Allergies 07/28/15 No Disposition/Orders: D/C to Home w/ HH Justicifation of Admission Dx: Justifications for Admission: Justification of Admission Dx: Yes JERMAIN GOMEZ MD May 02, 2020 11:14
--- NOTE | 2020-05-02 11:17 | SNU/HH DC ---
DISCHARGE WITH HOME HEALTH DISCHARGE INFORMATION: Final Diagnosis: Problems Medical Problems: (1) Left arm weakness Status: Acute (2) Syncope Status: Acute Condition on Discharge: Stable CODE STATUS: Code Status: Full HOME HEALTH: Face to Face: I certify this patient is under my care and that I, or a nurse practitioner or physician's assistant cross country coach working with me, had a face to face encounter that meets the physician face to face encounter requirements with this patient on []. Medical Complications: Dementia, Falls, HTN Halfway For: Admin/Educate Injections, Assess Cardiopulm Status, Assess/Skilled Observatio, Bowel/Bladder Training, Medication Management, Pain Management RN For Eval/Treatment: Yes Physical Therapy For: Evalulation/Treatment Occupational Therapy For: Evaluation/Treatment Speech Language Pathology For: Evaluation/Treatment Home Health Aide For: Self-care [employer] For: Community Resources Pt Meets Homebound Status: Fatigue w/ amb. POST DISCHARGE ORDERS: Activity Instructions for Disc: Activity as tolerated Weight Bearing Status after Di: As tolerated Bathing Instructions: Shower-keep dressing dry DIET AFTER DISCHARGE: Cardiac Wound/Incision Care: Change dressing CHECKS AFTER DISCHARGE: Checks after discharge: Check blood press - daily FOLLOW-UP: PCP to follow Home Health: see 05/03 Follow up with: PCP THIS WEEK TREATMENT/EQUIPMENT ORDERS: Adaptive Equipment Issued: None, Front wheeled walker Discharge Respiratory Equipmen: Nebulizer CERTIFICATION STATEMENT: Certification Statement: Certification Statement: Based on the above finding, I certify that this patient is confined to the home and needs intermittent group home care, physical therapy and/or speech therapy, or continues to need occupational therapy.~ This patient is under my care, and I have initiated the establishment of the plan of care.~ This patient will be followed by myself or a community physician who will periodically review the plan of care. Home Meds Active Scripts Lactobacillus Rhamnosus Gg (CULTURELLE) 1 Each Cap.sprink, 1 CAP PO BID for SUPPLEMENT for 30 Days, #60 CAP Prov:JERMAIN GOMEZ MD 03/10/20 Docusate Sodium (DOK) 100 Mg Capsule, 100 MG PO PRN BID PRN for HARD STOOLS 1ST CHOICE for 30 Days, #60 CAP Prov:JERMAIN GOMEZ MD 03/10/20 Guaifenesin (GUAIFENESIN) 100 Mg/5 Ml Liquid, 200 MG PO PRN Q4HRS PRN for COUGH for 10 Days, #240 LIQUID Prov:JERMAIN GOMEZ MD 03/10/20 Albuterol Sulfate (Proair Hfa) 8.5 Gm Hfa.aer.ad, 2.5 MG NEB PRN Q4HRS PRN for SHORTNESS OF BREATH for 14 Days, #90 EACH Prov:JERMAIN GOMEZ MD 03/10/20 Reported Medications Multivits-Min/Fa/Lycopene/Lut (CENTRUM SILVER TABLET) 1 Each Tablet, 1 EACH PO DAILY for SUPPLEMENT, TAB 04/30/20 Aspirin (ASPIRIN EC) 325 Mg Tablet.dr, 325 MG PO DAILY for HEART HEALTH, TAB.SR 04/30/20 Aloe Vera (ALOE VERA) 25 Mg Capsule, 25 MG PO DAILY for HOME MED, CAP 04/30/20 Acetaminophen (ACETAMINOPHEN) 325 Mg Tablet, 650 MG PO PRN Q8HRS PRN for PAIN, TAB 04/30/20 Latanoprost (LATANOPROST) 2.5 Ml Drops, 1 DROP EACHEYE QHS for dry eye, #7.5 ML 3 Refills 03/03/20 Atorvastatin Calcium (ATORVASTATIN CALCIUM) 10 Mg Tablet, 10 MG PO HS for FOR CHOLESTEROL, #30 TAB 0 Refills 03/03/20 Tamsulosin Hcl (FLOMAX) 0.4 Mg Cap.er.24h, 0.4 MG PO HS for prostate, TAB 03/03/20 Lisinopril (LISINOPRIL) 5 Mg Tablet, 5 MG PO DAILY for FOR HYPERTENSION, #30 TAB 0 Refills 06/18/15 Discontinued Reported Medications Temazepam (TEMAZEPAM) 15 Mg Capsule, 15 MG PO HS for INSOMNIA, CAP 04/30/20 Methocarbamol (ROBAXIN-750) 750 Mg Tablet, 1 TAB PO TID for MUSCLE RELAXANT for 30 Days, #90 TAB 0 Refills 04/30/20 Memantine Hcl (NAMENDA) 10 Mg Tablet, 5 MG PO HS for MEMORY, TAB 04/30/20 Chlorthalidone (CHLORTHALIDONE ) 25 Mg Tablet, 25 MG PO DAILY for DIURETIC, TAB 04/30/20 Baclofen (BACLOFEN) 10 Mg Tablet, 5 MG PO BID for MUSCLE RELAXER, #30 TAB 0 Refills 04/30/20 Aspirin (Children's Aspirin) 81 Mg Tab.chew, 81 MG PO DAILY for heart, TAB.CHEW 04/29/20 JERMAIN GOMEZ MD May 02, 2020 11:17
[2020-05-02] MEDS: ACETAMINOPHEN 325 MG TABLET. PO PRN (11:48)
--- NOTE | 2020-05-02 15:59 | NUR ---
pt was discharged home with his own home health care. pt did not have any scripts to send with him. His came and took him home with his own wheelchair. Caesar Winkler RN
== END 2020-05-02 16:03 | disposition home health service (06) | DRG 312 ==
LOC: ER 12:13 → ED HOLD 13:24 → 5 NORTH 15:24
PROVIDERS: ADMIT Internal Medicine; ATTEND Internal Medicine
DX: R55 Syncope and collapse (principal); I95.9 Hypotension, unspecified; E78.00 Pure hypercholesterolemia, unspecified; E78.5 Hyperlipidemia, unspecified; F02.80 Dementia in other diseases classified elsewhere, unspecified severity, without behavioral disturbance, psychotic disturbance, mood disturbance, and anxiety; G30.9 Alzheimer's disease, unspecified; H91.93 Unspecified hearing loss, bilateral; I11.9 Hypertensive heart disease without heart failure; I25.10 Atherosclerotic heart disease of native coronary artery without angina pectoris; M48.02 Spinal stenosis, cervical region; N40.0 Benign prostatic hyperplasia without lower urinary tract symptoms; R29.810 Facial weakness; R32 Unspecified urinary incontinence; Z82.49 Family history of ischemic heart disease and other diseases of the circulatory system; Z86.73 Personal history of transient ischemic attack (TIA), and cerebral infarction without residual deficits; Z87.891 Personal history of nicotine dependence; Z91.81 History of falling; Z95.1 Presence of aortocoronary bypass graft; Z99.3 Dependence on wheelchair; K21.9 Gastro-esophageal reflux disease without esophagitis; M19.90 Unspecified osteoarthritis, unspecified site; I65.21 Occlusion and stenosis of right carotid artery
CPT/HCPCS: 36415; 70450; 70496; 70498; 80048; 80076; 81001; 82607; 82962; 83690; 83880; 84443; 84484; 85025; 85610; 85730; 86140; 90471; 90686; 93005; 93306; 96360; 99285; J1650; J7030; J7040; Q9967; 97535-GO; G0378

== ENCOUNTER 2020-05-10 12:05 | Emergency (ER) | payer MEDICARE, OTHER ==
[~2020-05-10] VITALS: Ht 170.2 cm; Wt 59.2 kg
[~2020-05-10 12:05] MED LIST changes: +ACET325T21 PO; +ALOE25CA PO; +ASPI325T11 PO; +ASPI81TA59 PO; +BACL10TA PO; +CHLO25TA10 PO; +MEMA10TA PO; +METH-38 PO; +MULT-658 PO; +TEMA15CA PO
[2020-05-10 12:35] LABS: BASO % 1 % (0-3); EOS # 0.1 x10^3/uL (0.0-0.7); EOS % 2 % (0-3); HEMOGLOBIN 12.4 g/dL (13.0-17.5); LYMPH # 1.5 x10^3/uL (1.0-4.8); LYMPH % 29 % (24-48); MEAN CORPUSCULAR HEMOGLOBIN 33 pg (25-35); MEAN CORPUSCULAR HGB CONC 33 g/dL (31-37); MEAN CORPUSCULAR VOLUME 98 fL (79-100); MONO # 0.4 x10^3/uL (0.0-1.1); MONO % 8 % (0-9); NEUT # 3.2 x10^3/uL (1.8-7.7); NEUT % 60 % (31-73); PLATELET COUNT 160 x10^3/uL (140-400); RED BLOOD COUNT 3.78 x10^6/uL (4.30-5.70); RED CELL DISTRIBUTION WIDTH 13.4 % (11.5-14.5); WHITE BLOOD COUNT 5.3 x10^3/uL (4.0-11.0)
--- NOTE | 2020-05-10 12:38 | RAD ---
EXAM: CT head without contrast INDICATION: Stroke altered mental status, facial droop COMPARISON: CT head 04/29/2020 TECHNIQUE: Axial CT imaging through the head without intravenous contrast. Coronal reformats were obtained. One or more of the following individualized dose reduction techniques were utilized for this examination: 1. Automated exposure control 2. Adjustment of the mA and/or kV according to patient size 3. Use of iterative reconstruction technique. FINDINGS: The ventricles and sulci are mildly enlarged, reflecting age-related volume loss. There is a mild to moderate burden of periventricular and deep hypoattenuating white matter lesions. Houser-white matter differentiation is maintained. There is no intracranial hemorrhage, acute infarct, or mass lesion. Basal cisterns are clear. There are calcifications in the carotid arteries and left vertebral artery. The skull and scalp are intact. Mild thickening of the paranasal sinuses. Mastoid air cells are clear. Globes and orbits are intact. IMPRESSION: 1. No acute intracranial abnormality. 2. Unchanged mild to moderate volume loss and white matter disease, likely related to chronic microvascular ischemia. Results discussed by Dr. Sparkle Glaser at 12:32 PM on 05/10/2020. FOR INTERNAL CODING PURPOSES Critical result: Findings discussed with ANTONETTE WONG at 05/10/2020 12:32 PM. RESULT CODE: (C) Electronically signed by: Jessica Villagran MD (05/10/2020 12:35 PM) [id number]
[2020-05-10 12:44] LABS: PROTHROMBIN TIME PATIENT 14.4 SEC (11.7-14.0)
--- NOTE | 2020-05-10 12:48 | EKG ---
[facility] [address] [place] [address] Test Date: 2020-05-10 Test Time: 12:16:52 Pat Name: SALTY COLLAZO Department: Room: Gender: M [employer]: : [id number] Requested By: ANTONETTE WONG Order Number: [id number] Reading MD: Measurements Intervals [place] Rate: 60 P: 52 NC: 122 QRS: 27 QRSD: 82 T: 114 QT: 418 QTc: 422 Interpretive Statements SINUS RHYTHM QRS(T) CONTOUR ABNORMALITY CONSISTENT WITH ANTEROSEPTAL INFARCT PROBABLY OLD T ABNORMALITY IN ANTEROLATERAL LEADS ABNORMAL ECG RI6.01 No previous ECG available for comparison
[2020-05-10 12:50] LABS: CALCIUM 8.9 mg/dL (8.5-10.1); CREATININE 1.4 mg/dL (0.7-1.3); GFR 58.4; POTASSIUM 4.1 mmol/L (3.5-5.1)
[2020-05-10 12:56] LABS: ALBUMIN 2.6 g/dL (3.4-5.0); ALBUMIN/GLOBULIN RATIO 0.6 (1.0-1.7); TOTAL BILIRUBIN 0.6 mg/dL (0.2-1.0); TOTAL PROTEIN 6.9 g/dL (6.4-8.2)
--- NOTE | 2020-05-10 13:09 | RAD ---
EXAM: CHEST 1 VIEW History: Aspiration, code troke COMPARISON: 03/08/2020 TECHNIQUE: Single portable radiograph of the chest FINDINGS: The cardiac silhouette is unremarkable. Mild elevation of the left hemidiaphragm. Mild bibasilar lung atelectasis or infiltrates IMPRESSION: Mild bibasilar lung airspace opacities likely atelectasis or infiltrates. Electronically signed by: Lan Saleh MD (05/10/2020 1:06 PM) [id number]
--- NOTE | 2020-05-10 13:53 | PHYS DOC ---
Past Medical History Past Medical History: Arthritis, CVA, Dementia, GERD, High Cholesterol, Heart Disease, Hypertension, [place], Other Additional Past Medical Histor: BACK PAIN Past Surgical History: Other Additional Past Surgical Histo: CARDIAC SURGERY, neck Smoking Status: Former Smoker Alcohol Use: Sober Drug Use: None General Adult EDM: Chief Complaint: NEURO SYMPTOMS/DEFICITS HPI: HPI: Patient is a 85 year old male who was brought here by EMS from home after he was found unresponsive in the recliner. Patient's stated that she left him at 11:30 AM today in the recliner, she went out and about. She came home and found him unresponsive, his head was tilled to the left side. She could not wake him up so she called EMS to bring him here for evaluation. EMS came and found him with left-sided weakness, left pupil dilated, so they called here to activate code stroke. Upon arrival to room, patient was taken directly to CT scan for CT scan of head, patient was observed talking and moving his extremity, with left side facial droop slightly. However upon discussed with patient , she indicated that he always had left-sided facial droop and left-sided weakness from previous stroke. Patient has been evaluated multiple times due to syncopal episodes. Patient was evaluated here on April 29, 2020 for the same problem, code stroke was activated. Patient was evaluated by neurology and cardiology, did not find any acute problem. Patient was discharged home on May 02, 2020. Patient had no history of seizure disorder, patient had normal EEG in the past. Patient denies any cough or fever. Patient denies any chest pain. Review of Systems: Review of Systems: Constitutional: Denies fever or chills. [] Eyes: Denies change in visual acuity. [] HENT: Denies nasal congestion or sore throat. [] Respiratory: Denies cough or shortness of breath. [] Cardiovascular: Denies chest pain or edema. [] GI: Denies abdominal pain, nausea, vomiting, bloody stools or diarrhea. [] : Denies dysuria. [] Musculoskeletal: Denies back pain or joint pain. [] Integument: Denies rash. [] Neurologic: Denies headache, focal weakness or sensory changes. [] Endocrine: Denies polyuria or polydipsia. [] Lymphatic: Denies swollen glands. [] Psychiatric: Denies depression or anxiety. [] Heart Score: Risk Factors: Risk Factors: DM, Current or recent (<one month) smoker, HTN, HLP, family history of CAD, obesity. Risk Scores: Score 0 - 3: 2.5% MACE over next 6 weeks - Discharge Home Score 4 - 6: 20.3% MACE over next 6 weeks - Admit for Clinical Observation Score 7 - 10: 72.7% MACE over next 6 weeks - Early Invasive Strategies Allergies: Allergies: Allergies Coded Allergies Type Severity Reaction Last Updated Verified No Known Drug Allergies 07/28/15 No Physical Exam: PE: Constitutional: Well developed, well nourished, no acute distress, non-toxic appearance. [] HENT: Normocephalic, atraumatic, bilateral external ears normal, oropharynx moist, no oral exudates, nose normal. [] Eyes: Left pupil dilated with tear drop shape consistent with history of cataract surgery in the past, EOMI, conjunctiva normal, no discharge. [] Neck: Normal range of motion, no tenderness, supple, no stridor. [] Cardiovascular:Heart rate regular rhythm, no murmur [] Lungs & Thorax: Bilateral breath sounds clear to auscultation [] Abdomen: Bowel sounds normal, soft, no tenderness, no masses, no pulsatile masses. [] Skin: Warm, dry, no erythema, no rash. [] Back: No tenderness, no CVA tenderness. [] Extremities: No tenderness, no cyanosis, no clubbing, ROM intact, no edema. [] Neurologic: patient is awake, alert, mild left side facial droop (old finding per ), left side weaker than right side which is old per . Psychologic: Affect normal, judgement normal, mood normal. [] Current Patient Data: Labs: Laboratory Tests Test 05/10/20 12:16 05/10/20 12:20 Glucose (Fingerstick) 111 mg/dL (70-99) H White Blood Count 5.3 x10^3/uL (4.0-11.0) Red Blood Count 3.78 x10^6/uL (4.30-5.70) L Hemoglobin 12.4 g/dL (13.0-17.5) L Hematocrit 37.0 % (39.0-53.0) L Mean Corpuscular Volume 98 fL (79-100) Mean Corpuscular Hemoglobin 33 pg (25-35) Mean Corpuscular Hemoglobin Concent 33 g/dL (31-37) Red Cell Distribution Width 13.4 % (11.5-14.5) Platelet Count 160 x10^3/uL (140-400) Neutrophils (%) (Auto) 60 % (31-73) Lymphocytes (%) (Auto) 29 % (24-48) Monocytes (%) (Auto) 8 % (0-9) Eosinophils (%) (Auto) 2 % (0-3) Basophils (%) (Auto) 1 % (0-3) Neutrophils # (Auto) 3.2 x10^3/uL (1.8-7.7) Lymphocytes # (Auto) 1.5 x10^3/uL (1.0-4.8) Monocytes # (Auto) 0.4 x10^3/uL (0.0-1.1) Eosinophils # (Auto) 0.1 x10^3/uL (0.0-0.7) Basophils # (Auto) 0.0 x10^3/uL (0.0-0.2) Prothrombin Time 14.4 SEC (11.7-14.0) H Prothrombin Time INR 1.2 (0.8-1.1) H Activated Partial Thromboplast Time 28 SEC (24-38) Sodium Level 136 mmol/L (136-145) Potassium Level 4.1 mmol/L (3.5-5.1) Chloride Level 105 mmol/L (98-107) Carbon Dioxide Level 27 mmol/L (21-32) Anion Gap 4 (6-14) L Blood Urea Nitrogen 15 mg/dL (8-26) Creatinine 1.4 mg/dL (0.7-1.3) H Estimated GFR (Cockcroft-Gault) 58.4 BUN/Creatinine Ratio 11 (6-20) Glucose Level 123 mg/dL (70-99) H Calcium Level 8.9 mg/dL (8.5-10.1) Magnesium Level 2.0 mg/dL (1.8-2.4) Total Bilirubin 0.6 mg/dL (0.2-1.0) Aspartate Amino Transferase (AST) 63 U/L (15-37) H Alanine Aminotransferase (ALT) 82 U/L (16-63) H Alkaline Phosphatase 108 U/L (46-116) Troponin I Quantitative < 0.017 ng/mL (0.000-0.055) DU-[id number]-X-Type Natriuretic Peptide 562 pg/mL (0-449) H Total Protein 6.9 g/dL (6.4-8.2) Albumin 2.6 g/dL (3.4-5.0) L Albumin/Globulin Ratio 0.6 (1.0-1.7) L Laboratory Tests 05/10/20 12:20 Laboratory Tests 05/10/20 12:20 Vital Signs: Vital Signs Date Time Temp Pulse Resp B/P (MAP) Pulse Ox O2 Delivery O2 Flow Rate FiO2 05/10/20 12:05 66 20 105/61 (45) 94 Room Air EKG: EKG: EKG was done at 1216, heart rate 60 bpm, sinus rhythm, no ST segment elevation. [] Radiology/Procedures: Radiology/Procedures: [][facility] [address] [place] [address] IMAGING REPORT Signed PATIENT: SALTY COLLAZO EACCOUNT: [id number] : 1935 LOCATION: ER AGE: 85 SEX: M EXAM STATUS: PRE ER ORD. PHYSICIAN: ANTONETTE WONG DO REASON: AMS, FACIAL DROOP PROCEDURE: CT CODE STROKE HEAD WO EXAM: CT head without contrast INDICATION: Stroke altered mental status, facial droop COMPARISON: CT head 04/29/2020 TECHNIQUE: Axial CT imaging through the head without intravenous contrast. Coronal reformats were obtained. One or more of the following individualized dose reduction techniques were utilized for this examination: 1. Automated exposure control 2. Adjustment of the mA and/or kV according to patient size 3. Use of iterative reconstruction technique. FINDINGS: The ventricles and sulci are mildly enlarged, reflecting age-related volume loss. There is a mild to moderate burden of periventricular and deep hypoattenuating white matter lesions. Houser-white matter differentiation is maintained. There is no intracranial hemorrhage, acute infarct, or mass lesion. Basal cisterns are clear. There are calcifications in the carotid arteries and left vertebral artery. The skull and scalp are intact. Mild thickening of the paranasal sinuses. Mastoid air cells are clear. Globes and orbits are intact. IMPRESSION: 1. No acute intracranial abnormality. 2. Unchanged mild to moderate volume loss and white matter disease, likely related to chronic microvascular ischemia. Results discussed by Dr. Spakrle Glaser at 12:32 PM on 05/10/2020. FOR INTERNAL CODING PURPOSES Critical result: Findings discussed with ANTONETTE WONG at 05/10/2020 12:32 PM. RESULT CODE: (C) Electronically signed by: Jessica Villagran MD (05/10/2020 12:35 PM) [id number] DICTATED and SIGNED BY: JESSICA VILLAGRAN MD DATE: 05/10/20 1235 [facility] [address] [place] [address] IMAGING REPORT Signed PATIENT: SALTY COLLAZO EACCOUNT: [id number] : 1935 LOCATION: ER AGE: 85 SEX: M EXAM STATUS: REG ER ORD. PHYSICIAN: ANTONETTE WONG DO REASON: ASPIRATION, CODE STROKE PROCEDURE: CHEST AP ONLY EXAM: CHEST 1 VIEW History: Aspiration, code troke COMPARISON: 03/08/2020 TECHNIQUE: Single portable radiograph of the chest FINDINGS: The cardiac silhouette is unremarkable. Mild elevation of the left hemidiaphragm. Mild bibasilar lung atelectasis or infiltrates IMPRESSION: Mild bibasilar lung airspace opacities likely atelectasis or infiltrates. Electronically signed by: Lan Saleh MD (05/10/2020 1:06 PM) [id number] DICTATED and SIGNED BY: LAN SALEH MD DATE: 05/10/20 1306 Course & Med Decision Making: Course & Med Decision Making Pertinent Labs and Imaging studies reviewed. (See chart for details) Patient is an 85-year-old male who was brought here by EMS from home after he pa ssed out while he was in his recliner. Work-up in ER included lab work, EKG, CT head did not show any acute problem. Patient was just admitted here on April 29, 2020 and discharged home on May 02 for the same problem. Patient was evaluated by cardiology, neurology in the hospital. Upon review the medical record here, patient has been evaluated here numerous times for the same problem, did not find any acute problem. Patient is awake alert at this time, he was talking to his without any problem. We will discharge him home. Patient will need to follow-up with his family physician for outpatient reevaluation. Patient and his are amenable to plan of care. Dragon Disclaimer: Dragon Disclaimer: This electronic medical record was generated, in whole or in part, using a voice recognition dictation system. Departure Departure Impression: Primary Impression: Syncope Disposition: HOME, SELF-CARE Condition: IMPROVED Referrals: SAIDA GLYNN MD (PCP) SALTY FORDE MD please call this neurologist for outpatient follow up this week. Patient Instructions: Syncope Additional Instructions: Thank you for visiting our Emergency Department. We appreciate you trusting us with your care. If any additional problems come up don't hesitate to return to visit us. Please follow up with your primary care provider so they can plan additional care if needed and know about the problem that you had. If symptoms worsen come back to the Emergency Department. Any concerning symptoms that start such as chest pain, shortness of air, weakness or numbness on one side of the body, running high fevers or any other concerning symptoms return to the ER. ANTONETTE WONG DO May 10, 2020 13:53
[2020-05-10 14:28] VITALS: BP 164/68
== END 2020-05-10 14:38 | disposition home or self-care (01) ==
LOC: ER 12:05
DX: R55 Syncope and collapse (principal); R53.1 Weakness; R29.810 Facial weakness; M19.90 Unspecified osteoarthritis, unspecified site; I11.9 Hypertensive heart disease without heart failure; K21.9 Gastro-esophageal reflux disease without esophagitis; E78.00 Pure hypercholesterolemia, unspecified; I25.2 Old myocardial infarction; Z98.890 Other specified postprocedural states; Z86.73 Personal history of transient ischemic attack (TIA), and cerebral infarction without residual deficits
CPT/HCPCS: 36415; 70450; 71045; 80053; 82962; 83735; 83880; 84484; 85025; 85610; 85730; 93005; 99285

== ENCOUNTER 2020-06-11 09:36 | Inpatient (IN) | payer MEDICARE, OTHER ==
[~2020-06-11] VITALS: Ht 177.8 cm; Wt 66.2 kg
[~2020-06-11 09:36] MED LIST changes: +AMLO-186 PO; +AMLO-187 PO; -AMLO10TA8 PO; -AMLO5TAB10 PO; +ASPI-886 PO; +ATOR20TA58 PO; +CARB15DR2 OP; +CLOP75TA PO; +SODI44SP14 NS
[2020-06-11] MEDS ORDERED: IV NORMAL SALINE 1000ML BAG 1,000 ML IV ONE (09:45)
[2020-06-11 09:57] LABS: BASO % 1 % (0-3); EOS # 0.1 x10^3/uL (0.0-0.7); EOS % 2 % (0-3); HEMATOCRIT 32.9 % (39.0-53.0); HEMOGLOBIN 10.8 g/dL (13.0-17.5); LYMPH # 1.7 x10^3/uL (1.0-4.8); LYMPH % 36 % (24-48); MEAN CORPUSCULAR HEMOGLOBIN 33 pg (25-35); MEAN CORPUSCULAR HGB CONC 33 g/dL (31-37); MEAN CORPUSCULAR VOLUME 99 fL (79-100); MONO # 0.4 x10^3/uL (0.0-1.1); MONO % 8 % (0-9); NEUT # 2.5 x10^3/uL (1.8-7.7); NEUT % 53 % (31-73); PLATELET COUNT 157 x10^3/uL (140-400); RED BLOOD COUNT 3.33 x10^6/uL (4.30-5.70); RED CELL DISTRIBUTION WIDTH 14.5 % (11.5-14.5); WHITE BLOOD COUNT 4.7 x10^3/uL (4.0-11.0)
--- NOTE | 2020-06-11 10:04 | RAD ---
EXAM: Head CT without contrast. HISTORY: Code stroke. TECHNIQUE: Computed tomographic images of the head were obtained without contrast. *One or more of the following individualized dose reduction techniques were utilized for this examination: 1. Automated exposure control. 2. Adjustment of the mA and/or kV according to patient size. 3. Use of iterative reconstruction technique. COMPARISON: 05/19/2020. FINDINGS: There is no acute or subacute extra-axial or intraparenchymal hemorrhage. There is no mass effect or midline shift. There is no hydrocephalus. There are extensive areas of hypodensity within the cerebral white matter due to chronic small vessel disease. There is a suspected small chronic infarct within the right basal ganglia. There is a chronic infarct within the right tawana. There is cerebral atrophy. The visualized portions of the orbits, paranasal sinuses and mastoid air cells are unremarkable. No suspicious calvarial lesion is seen. IMPRESSION: 1. Extensive scattered areas of hypodensity within the cerebral white matter likely due to chronic small vessel disease. 2. Suspected small chronic infarcts within the taawna and right basal ganglia. 3. Note is made that MRI is more sensitive for acute infarction Findings were discussed with Dr. Andrews in the ED at 100 hours on 06/11/2020. Electronically signed by: Nisha Jerome MD (06/11/2020 10:02 AM) [id number]
[2020-06-11 10:06] LABS: PROTHROMBIN TIME PATIENT 14.4 SEC (11.7-14.0)
[2020-06-11 10:12] LABS: CALCIUM 8.6 mg/dL (8.5-10.1); CREATININE 1.2 mg/dL (0.7-1.3); GFR 69.8; POTASSIUM 3.8 mmol/L (3.5-5.1)
[2020-06-11 10:18] LABS: ALBUMIN 2.6 g/dL (3.4-5.0); ALBUMIN/GLOBULIN RATIO 0.8 (1.0-1.7); MAGNESIUM 1.9 mg/dL (1.8-2.4); TOTAL BILIRUBIN 0.4 mg/dL (0.2-1.0)
[2020-06-11 11:01] LABS: BILIRUBIN,URINE NEGATIVE (NEG); CLARITY,URINE CLEAR; COLOR,URINE YELLOW; NITRITE,URINE NEGATIVE (NEG); PH,URINE 6.5 (<5.0-8.0); PROTEIN,URINE NEGATIVE (NEG-TRACE)
[2020-06-11 11:14] LABS: BACTERIA,URINE 0 /HPF (0-FEW); HYALINE CASTS, URINE MODERATE /HPF; RBC,URINE 0 /HPF (0-2)
--- NOTE | 2020-06-11 12:26 | PDOC1 ---
History and Physical Date of Service: DOS: DATE: 06/11/20 TIME: 12:22 Chief Complaint: Chief Complain: Syncope History of Present Illness: HPI: History obtained from the at bedside and also with the ED physician. Patient is an 85-year-old male with past medical history of history of CVA, CAD with multiple stents, hypertension, dyslipidemia, dementia who comes to the ED due to passing out in his wheelchair after breakfast. It was reported to the from the correction that the patient had breakfast and also took all of his blood pressure medications and patient had a syncopal episode if was found unresponsive in his wheelchair. states that this is happened in the past several times. Patient was also seen recently at [facility], but the was unsure of what was the exact diagnosis. She knows that the did get an EEG. Also she was told that this was likely degenerative disease due to his previous infarcts. Currently, patient is sitting upright in the gurney and eating lunch. Does not seem like there is any swallowing deficits and patient is able to follow commands. Patient currently denies any pain, dizziness, wea kness, abdominal pain. Past Medical/Surgical History: PMH/PSH: Past Medical History: Arthritis, CVA, Dementia, GERD, High Cholesterol, Heart Disease, Hypertension, [place], BACK PAIN Past Surgical History: CARDIAC SURGERY, neck Allergies: Allergies: Coded Allergies: No Known Drug Allergies (Unverified , 07/28/15) Family History: Family History: Reviewed and no relevant findings on the chart. Social History: Social History: Smoking Status: Never Smoker Alcohol Use: None Drug Use: None Current Medications: Current Medications Current Medications Sodium Chloride 1,000 ml @ 1,000 mls/hr 1X ONCE IV Last administered on 06/11/20at 09:45; Start 06/11/20 at 09:45; Stop 06/11/20 at 10:44; Status DC Active Scripts Active Clopidogrel (Clopidogrel Bisulfate) 75 Mg Tablet 1 Tab PO DAILY Atorvastatin Calcium 20 Mg Tablet 1 Tab PO DAILY Proair Hfa (Albuterol Sulfate) 8.5 Gm Hfa.aer.ad 2.5 Mg NEB PRN Q4HRS PRN 14 Days Reported Namenda (Memantine Hcl) 10 Mg Tablet 5 Mg PO HS Temazepam 15 Mg Capsule 1 Cap PO QHS Aspirin Ec (Aspirin) 81 Mg Tablet.dr 1 Tab PO DAILY Robaxin-750 (Methocarbamol) 750 Mg Tablet 1 Tab PO TID 30 Days Refresh Tears (Carboxymethylcellulose Sodium) 15 Ml Drops 15 Ml OP PRN Q4-6HRS PRN Nasal Renton (Sodium Chloride) 44 Ml Renton 1 Renton NS BID 30 Days Centrum Silver Tablet (Multivits-Min/Fa/Lycopene/Lut) 1 Each Tablet 1 Each PO DAILY Aloe Vera 25 Mg Capsule 25 Mg PO DAILY Acetaminophen 325 Mg Tablet 650 Mg PO PRN Q8HRS PRN Latanoprost 2.5 Ml Drops 1 Drop EACHEYE QHS Flomax (Tamsulosin Hcl) 0.4 Mg Cap.er.24h 0.4 Mg PO HS Lisinopril 5 Mg Tablet 5 Mg PO DAILY ROS: Review of Systems Review of System REVIEW OF SYSTEMS: GENERAL: Denies weakness SKIN: No bruising, hair changes or rashes. EYES: No blurred, double or loss of vision. NOSE AND THROAT: No history of nosebleeds, hoarseness or sore throat. HEART: No history of palpitations, chest pain or shortness of breath on exertion. LUNGS: Denies cough, hemoptysis, wheezing or shortness of breath. GASTROINTESTINAL: Denies changes in appetite, nausea, vomiting, diarrhea or constipation. GENITOURINARY: No history of frequency, urgency, hesitancy or nocturia. NEUROLOGIC: Denies history of numbness, tingling, or tremor. PSYCHIATRIC: No history of panic, anxiety or depression. ENDOCRINE: No history of heat or cold intolerance, polyuria or polydipsia. EXTREMITIES: Denies joint pain, pain on walking or stiffness. Physical Exam: Vital Signs: Vital Signs Date Time Temp Pulse Resp B/P (MAP) Pulse Ox O2 Delivery O2 Flow Rate FiO2 06/11/20 11:10 74 06/11/20 09:36 96.4 16 82/56 (65) Room Air 96.4 Physcial Exam: GEN: No apparent distress. Alert and oriented HEENT: Normal cephalic, atraumatic, external auditory canals are patent EYES: Extraocular muscles are intact, pupil are equally round and reactive to light and accommodation MUSCULOSKELETAL: Well developed , well nourished, good range of motion ENDOCRINE: No thyromegaly was palpated LYMPHATICS: No cervical chain or axillary nodes were noted HEMATOPOIETIC: No bruising NECK: Supple, no JVD, no thyromegaly was noted LUNGS: Clear to auscultation in all lung cardona without rhonchi or wheezing HEART: RRR, S!, S2 present. Peripheral pulses intact, no obvious murmurs noted ABDOMEN: Soft, nontender. Positive bowel sounds, no organomegaly, normal bowel sounds EXTREMITIES: Without clubbing, cyanosis, or edema. Pedal pulses intact. Negative Homans sign NEUROLOGIC: Normal speech and tone. A&O x 3, moves all extremities, no obvious focal deficits PSYCHIATRIC: Normal affect, normal mood. Stable SKIN: No ulcerations or rashes, good skin turgor, no jaundice VASCULAR: Good capillary refill, neurovascular bundle appears to be intact Labs: Labs: Laboratory Tests Test 06/11/20 09:45 06/11/20 10:49 White Blood Count 4.7 x10^3/uL (4.0-11.0) Red Blood Count 3.33 x10^6/uL (4.30-5.70) Hemoglobin 10.8 g/dL (13.0-17.5) Hematocrit 32.9 % (39.0-53.0) Mean Corpuscular Volume 99 fL (79-100) Mean Corpuscular Hemoglobin 33 pg (25-35) Mean Corpuscular Hemoglobin Concent 33 g/dL (31-37) Red Cell Distribution Width 14.5 % (11.5-14.5) Platelet Count 157 x10^3/uL (140-400) Neutrophils (%) (Auto) 53 % (31-73) Lymphocytes (%) (Auto) 36 % (24-48) Monocytes (%) (Auto) 8 % (0-9) Eosinophils (%) (Auto) 2 % (0-3) Basophils (%) (Auto) 1 % (0-3) Neutrophils # (Auto) 2.5 x10^3/uL (1.8-7.7) Lymphocytes # (Auto) 1.7 x10^3/uL (1.0-4.8) Monocytes # (Auto) 0.4 x10^3/uL (0.0-1.1) Eosinophils # (Auto) 0.1 x10^3/uL (0.0-0.7) Basophils # (Auto) 0.0 x10^3/uL (0.0-0.2) Prothrombin Time 14.4 SEC (11.7-14.0) Prothromb Time International Ratio 1.2 (0.8-1.1) Activated Partial Thromboplast Time 28 SEC (24-38) Sodium Level 142 mmol/L (136-145) Potassium Level 3.8 mmol/L (3.5-5.1) Chloride Level 109 mmol/L (98-107) Carbon Dioxide Level 24 mmol/L (21-32) Anion Gap 9 (6-14) Blood Urea Nitrogen 24 mg/dL (8-26) Creatinine 1.2 mg/dL (0.7-1.3) Estimated GFR (Cockcroft-Gault) 69.8 BUN/Creatinine Ratio 20 (6-20) Glucose Level 69 mg/dL (70-99) Calcium Level 8.6 mg/dL (8.5-10.1) Magnesium Level 1.9 mg/dL (1.8-2.4) Total Bilirubin 0.4 mg/dL (0.2-1.0) Aspartate Amino Transf (AST/SGOT) 109 U/L (15-37) Alanine Aminotransferase (ALT/SGPT) 34 U/L (16-63) Alkaline Phosphatase 116 U/L (46-116) Troponin I Quantitative < 0.017 ng/mL (0.000-0.055) Total Protein 6.0 g/dL (6.4-8.2) Albumin 2.6 g/dL (3.4-5.0) Albumin/Globulin Ratio 0.8 (1.0-1.7) Urine Collection Type Unknown Urine Color Yellow Urine Clarity Clear Urine pH 6.5 (<5.0-8.0) Urine Specific Casey 1.025 (1.000-1.030) Urine Protein Negative mg/dL (NEG-TRACE) Urine Glucose (UA) Negative mg/dL (NEG) Urine Ketones (Stick) Negative mg/dL (NEG) Urine Blood Negative (NEG) Urine Nitrite Negative (NEG) Urine Bilirubin Negative (NEG) Urine Urobilinogen Dipstick 1.0 mg/dL (0.2 mg/dL) Urine Leukocyte Esterase Negative (NEG) Urine RBC 0 /HPF (0-2) Urine WBC 1-4 /HPF (0-4) Urine Squamous Epithelial Cells Occ /LPF Urine Transitional Epithelial Cells Few /LPF Urine Bacteria 0 /HPF (0-FEW) Urine Hyaline Casts Moderate /HPF Urine Mucus Slight /LPF Laboratory Tests Test 06/11/20 09:45 06/11/20 10:49 White Blood Count 4.7 x10^3/uL (4.0-11.0) Red Blood Count 3.33 x10^6/uL (4.30-5.70) Hemoglobin 10.8 g/dL (13.0-17.5) Hematocrit 32.9 % (39.0-53.0) Mean Corpuscular Volume 99 fL (79-100) Mean Corpuscular Hemoglobin 33 pg (25-35) Mean Corpuscular Hemoglobin Concent 33 g/dL (31-37) Red Cell Distribution Width 14.5 % (11.5-14.5) Platelet Count 157 x10^3/uL (140-400) Neutrophils (%) (Auto) 53 % (31-73) Lymphocytes (%) (Auto) 36 % (24-48) Monocytes (%) (Auto) 8 % (0-9) Eosinophils (%) (Auto) 2 % (0-3) Basophils (%) (Auto) 1 % (0-3) Neutrophils # (Auto) 2.5 x10^3/uL (1.8-7.7) Lymphocytes # (Auto) 1.7 x10^3/uL (1.0-4.8) Monocytes # (Auto) 0.4 x10^3/uL (0.0-1.1) Eosinophils # (Auto) 0.1 x10^3/uL (0.0-0.7) Basophils # (Auto) 0.0 x10^3/uL (0.0-0.2) Prothrombin Time 14.4 SEC (11.7-14.0) Prothromb Time International Ratio 1.2 (0.8-1.1) Activated Partial Thromboplast Time 28 SEC (24-38) Sodium Level 142 mmol/L (136-145) Potassium Level 3.8 mmol/L (3.5-5.1) Chloride Level 109 mmol/L (98-107) Carbon Dioxide Level 24 mmol/L (21-32) Anion Gap 9 (6-14) Blood Urea Nitrogen 24 mg/dL (8-26) Creatinine 1.2 mg/dL (0.7-1.3) Estimated GFR (Cockcroft-Gault) 69.8 BUN/Creatinine Ratio 20 (6-20) Glucose Level 69 mg/dL (70-99) Calcium Level 8.6 mg/dL (8.5-10.1) Magnesium Level 1.9 mg/dL (1.8-2.4) Total Bilirubin 0.4 mg/dL (0.2-1.0) Aspartate Amino Transf (AST/SGOT) 109 U/L (15-37) Alanine Aminotransferase (ALT/SGPT) 34 U/L (16-63) Alkaline Phosphatase 116 U/L (46-116) Troponin I Quantitative < 0.017 ng/mL (0.000-0.055) Total Protein 6.0 g/dL (6.4-8.2) Albumin 2.6 g/dL (3.4-5.0) Albumin/Globulin Ratio 0.8 (1.0-1.7) Urine Collection Type Unknown Urine Color Yellow Urine Clarity Clear Urine pH 6.5 (<5.0-8.0) Urine Specific Casey 1.025 (1.000-1.030) Urine Protein Negative mg/dL (NEG-TRACE) Urine Glucose (UA) Negative mg/dL (NEG) Urine Ketones (Stick) Negative mg/dL (NEG) Urine Blood Negative (NEG) Urine Nitrite Negative (NEG) Urine Bilirubin Negative (NEG) Urine Urobilinogen Dipstick 1.0 mg/dL (0.2 mg/dL) Urine Leukocyte Esterase Negative (NEG) Urine RBC 0 /HPF (0-2) Urine WBC 1-4 /HPF (0-4) Urine Squamous Epithelial Cells Occ /LPF Urine Transitional Epithelial Cells Few /LPF Urine Bacteria 0 /HPF (0-FEW) Urine Hyaline Casts Moderate /HPF Urine Mucus Slight /LPF Images: Images HEAD CT IMPRESSION: 1. Extensive scattered areas of hypodensity within the cerebral white matter likely due to chronic small vessel disease. 2. Suspected small chronic infarcts within the tawana and right basal ganglia. ECHo 04/30 <Conclusion> The left ventricle is normal size. The left ventricular systolic function is normal and the ejection fraction is within normal range. The Ejection Fraction is 60-65%. There is borderline concentric left ventricular hypertrophy. Doppler and Color Flow revealed no significant aortic regurgitation. There is no significant aortic valvular stenosis. Doppler and Color-flow revealed trace mitral regurgitation. Doppler and Color Flow revealed no tricuspid valve regurgitation noted. Assessment/Plan Assessment/Plan Syncope due to multiple etiologies such as postprandial, vasovagal, orthostatic hypotension, cardiovascular etiology, hypoglycemia, anemia, and medications Extensive scattered areas of hypodensity within the cerebral white matter likely due to chronic small vessel disease. Suspected small chronic infarcts within the tawana and right basal ganglia. Hypotension, likely postprandial Hypoglycemia Severe protein malnutrition Debilitation Admit to medicine for observation and evaluation Cardiology consult We will hold off on neurology consult for now due to clinical exam as patient has no focal lateralization or unilateral weakness. No obvious pronator drift observed. Continue telemetry monitoring Fall precautions Orthostatic vital signs Hold all centrally acting medications Hold all antihypertensive medications Pending medication reconciliation SCD for DVT prophylaxis Protonix GI prophylaxis ADA diet Full code Discussed with RN and SW Disposition inpatient management as above Surrogate decision maker is the Advance care planning: A total time of > 17 minutes was spent from 1230 to 1300 face to face in discussion with the patient and family regarding their goals of care, end of life care, and pain management. Patient's was adamant about not pursuing aggressive care and does not want to have any trauma from CODE BLUE. does not wish for her to experience any traumatic chest compressions or even trauma from intubation. Ultimately, the wants her to be comfortable. Justifications for Admission Other Justification ALPHONSO RODRÍGUEZ MD Jun 11, 2020 12:25
--- NOTE | 2020-06-11 12:36 | EKG ---
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
--- NOTE | 2020-06-11 12:39 | ED.ADGEN ---
Past Medical History Past Medical History: Arthritis, CVA, Dementia, GERD, High Cholesterol, Heart Disease, Hypertension, ID, Other Additional Past Medical Histor: BACK PAIN Past Surgical History: Other Additional Past Surgical Histo: CARDIAC SURGERY, neck Smoking Status: Never Smoker Alcohol Use: None Drug Use: None General Adult EDM: Chief Complaint: ALTERED MENTAL STATUS HPI: HPI: Patient is an 85-year-old male who presents to the emergency room with altered mental status. According to EMS report he was being rolled to breakfast when he suddenly slumped over in his chair. He typically has some chronic neuro deficits but does talk. He has been nonverbal for them. He has had multiple episodes like this in the past and recently was discharged from for similar episodes. Review of Systems: Review of Systems: Unable to obtain due to altered mental status Current Medications: Current Medications Medications (Trade) Dose Ordered Sig/Kay Start Time Stop Time Status Last Admin Dose Admin Sodium Chloride 1,000 ml @ 1,000 mls/hr 1X ONCE 06/11/20 09:45 06/11/20 10:44 DC 06/11/20 09:45 1,000 MLS/HR Allergies: Allergies: Allergies Coded Allergies Type Severity Reaction Last Updated Verified No Known Drug Allergies 07/28/15 No Physical Exam: PE: General: Lethargic, minimally responsive. Cachectic HEENT: Atraumatic, EOMI, PERRL, airway patent, moist oral mucosa Neck: Supple, trachea midline Respiratory: CTA bilaterally, normal effort, no wheezing/crackles CV: RRR, no murmur, cap refill <2 GI: Soft, nondistended, nontender, no masses MSK: No obvious deformities Skin: Warm, dry, intact Neuro: GCS 10, not moving any extremities, opens eyes to command, nonverbal Current Patient Data: Labs: Laboratory Tests Test 06/11/20 09:45 06/11/20 10:49 White Blood Count 4.7 x10^3/uL (4.0-11.0) Red Blood Count 3.33 x10^6/uL (4.30-5.70) L Hemoglobin 10.8 g/dL (13.0-17.5) L Hematocrit 32.9 % (39.0-53.0) L Mean Corpuscular Volume 99 fL (79-100) Mean Corpuscular Hemoglobin 33 pg (25-35) Mean Corpuscular Hemoglobin Concent 33 g/dL (31-37) Red Cell Distribution Width 14.5 % (11.5-14.5) Platelet Count 157 x10^3/uL (140-400) Neutrophils (%) (Auto) 53 % (31-73) Lymphocytes (%) (Auto) 36 % (24-48) Monocytes (%) (Auto) 8 % (0-9) Eosinophils (%) (Auto) 2 % (0-3) Basophils (%) (Auto) 1 % (0-3) Neutrophils # (Auto) 2.5 x10^3/uL (1.8-7.7) Lymphocytes # (Auto) 1.7 x10^3/uL (1.0-4.8) Monocytes # (Auto) 0.4 x10^3/uL (0.0-1.1) Eosinophils # (Auto) 0.1 x10^3/uL (0.0-0.7) Basophils # (Auto) 0.0 x10^3/uL (0.0-0.2) Prothrombin Time 14.4 SEC (11.7-14.0) H Prothrombin Time INR 1.2 (0.8-1.1) H Activated Partial Thromboplast Time 28 SEC (24-38) Sodium Level 142 mmol/L (136-145) Potassium Level 3.8 mmol/L (3.5-5.1) Chloride Level 109 mmol/L (98-107) H Carbon Dioxide Level 24 mmol/L (21-32) Anion Gap 9 (6-14) Blood Urea Nitrogen 24 mg/dL (8-26) Creatinine 1.2 mg/dL (0.7-1.3) Estimated GFR (Cockcroft-Gault) 69.8 BUN/Creatinine Ratio 20 (6-20) Glucose Level 69 mg/dL (70-99) L Calcium Level 8.6 mg/dL (8.5-10.1) Magnesium Level 1.9 mg/dL (1.8-2.4) Total Bilirubin 0.4 mg/dL (0.2-1.0) Aspartate Amino Transferase (AST) 109 U/L (15-37) H Alanine Aminotransferase (ALT) 34 U/L (16-63) Alkaline Phosphatase 116 U/L (46-116) Troponin I Quantitative < 0.017 ng/mL (0.000-0.055) Total Protein 6.0 g/dL (6.4-8.2) L Albumin 2.6 g/dL (3.4-5.0) L Albumin/Globulin Ratio 0.8 (1.0-1.7) L Urine Collection Type Unknown Urine Color Yellow Urine Clarity Clear Urine pH 6.5 (<5.0-8.0) Urine Specific [place] 1.025 (1.000-1.030) Urine Protein Negative mg/dL (NEG-TRACE) Urine Glucose (UA) Negative mg/dL (NEG) Urine Ketones (Stick) Negative mg/dL (NEG) Urine Blood Negative (NEG) Urine Nitrite Negative (NEG) Urine Bilirubin Negative (NEG) Urine Urobilinogen Dipstick 1.0 mg/dL (0.2 mg/dL) Urine Leukocyte Esterase Negative (NEG) Urine RBC 0 /HPF (0-2) Urine WBC 1-4 /HPF (0-4) Urine Squamous Epithelial Cells Occ /LPF Urine Transitional Epithelial Cells Few /LPF Urine Bacteria 0 /HPF (0-FEW) Urine Hyaline Casts Moderate /HPF Urine Mucus Slight /LPF Laboratory Tests 06/11/20 09:45 Laboratory Tests 06/11/20 09:45 Vital Signs: Vital Signs Date Time Temp Pulse Resp B/P (MAP) Pulse Ox O2 Delivery O2 Flow Rate FiO2 06/11/20 11:40 76 06/11/20 09:36 96.4 16 82/56 (65) Room Air 96.4 EKG: EKG: [] Heart Score: Risk Factors: Risk Factors: DM, Current or recent (<one month) smoker, HTN, HLP, family history of CAD, obesity. Risk Scores: Score 0 - 3: 2.5% MACE over next 6 weeks - Discharge Home Score 4 - 6: 20.3% MACE over next 6 weeks - Admit for Clinical Observation Score 7 - 10: 72.7% MACE over next 6 weeks - Early Invasive Strategies Radiology/Procedures: Radiology/Procedures: [] Course & Med Decision Making: Course & Med Decision Making Pertinent Labs and Imaging studies reviewed. (See chart for details) Patient is an 85-year-old male who presents to the emergency room with an episode of altered mental status. Patient has had multiple episodes like this previously. He was set off as a code stroke and CT head is negative. At this time this does not appear to be a stroke. He has had stroke work-up for similar symptoms in the past that has been negative. Upon my review of these episodes here at [place] patient is typically hypotensive during these episodes. Patient was hypotensive upon arrival. I think that it is possible these episodes are due to hypotension with chronic ischemic changes in the brain. While in the emergency room he returned to his baseline. He was able to eat lunch without difficulty. Will admit him to the hospitalist for further evaluation. Dragon Disclaimer: Drag[place]uyen Disclaimer: This electronic medical record was generated, in whole or in part, using a voice recognition dictation system. Departure Departure Impression: Primary Impression: Altered mental status Additional Impression: Hypotension Disposition: 09 ADMITTED INPT THIS HOSP Condition: IMPROVED Referrals: NORA CONTRERAS (PCP) Problem Qualifiers ADRIEN PFEIFFER MD Jun 11, 2020 12:38
[2020-06-11] MEDS ORDERED: POTASSIUM CHLORIDE 10MEQ 100 ML IV SCH (13:30)
[2020-06-11] MEDS ORDERED: POTASSIUM CHLORIDE 10MEQ 100 ML IV PRN (13:30)
[2020-06-11] MEDS ORDERED: DEXTROSE 50% 25 GM / 50ML DISP.SYRIN. IV PRN (13:30)
[2020-06-11] MEDS ORDERED: POTASSIUM CHLORIDE 20 MEQ TABLET.ER. PO PRN (13:30)
[2020-06-11] MEDS ORDERED: MAGNESIUM SULFATE 2GM 50 ML IV SCH (13:30)
[2020-06-11] MEDS ORDERED: ONDANSETRON PF 4 MG/2 ML VIAL. IVP PRN (13:30)
[2020-06-11] MEDS ORDERED: THIAMINE INJ 100 MG in IV DEXTROSE 5% 50 ML IV SCH (14:00)
[2020-06-11] MEDS ORDERED: POLYVINYL ALCOHOL 1.4% OPHTH SOLUTION 15ML BOTTLE. OU PRN ×2 (14:00→14:15)
[2020-06-11] MEDS ORDERED: ELECTROLYTE (NON-ICU) PROTOCOL. MC PRN (14:00)
[2020-06-11] MEDS: ASPIRIN ENTERIC COATED 81 MG TABLET.DR. PO SCH (14:59)
[2020-06-11 15:00] VITALS: BP 142/64
--- NOTE | 2020-06-11 15:14 | PDOC2 ---
KAILEY LAZARO ACCOUNT PROCESSOR 06/11/20 1514: CARDIAC CONSULT DATE OF CONSULT Date of Consult DATE: 06/11/20 TIME: 14:50 REASON FOR CONSULT Reason for Consult: Syncope REFERRING PHYSICIAN Referring Physician: Chriss SOURCE Source: Caregiver (spouse), Chart review, Patient HISTORY OF PRESENT ILLNESS HISTORY OF PRESENT ILLNESS This is an 85 yo male admitted for altered mental status. He resides at a [facility] [place] [place] home and was noted to be unresponsive suspected of syncope while sitting on his wheel chair. He is known for past vasovagal episodes but no arrhythmias. He has hx of dementia, CVA and CAD with past stents. He was here in April for the same issue and was just recently DCd from on 06/08/2020 after being admitted on 06/04/2020 treated over there for possible stroke and diagnostics revealed no acute findings but was suspected of TIA and diagnosed with parkinsons prompting start of sinemet. EEG was performed and noted with mild to moderate encephalopathy without no seizures. Presently no discomfort and pleasantly confused. PAST MEDICAL HISTORY Past Medical History Cardiovascular: CAD (s/p CABG), HTN, Hyperlipidemia Pulmonary: No pertinent hx CENTRAL NERVOUS SYSTEM: CVA, TIA, Parkinsons GI: GERD Heme/Onc: anemia Hepatobiliary: No pertinent hx Psych: anxiety Musculoskeletal: Other (DJD), Debility Rheumatologic: No pertinent hx Infectious disease: No pertinent hx ENT: No pertinent hx Renal/: BPH, UTI Endocrine: No pertinent hx Dermatology: No pertinent hx PAST SURGICAL HISTORY Past Surgical History CABG, Hernia Repair, Other (neck surgery) FAMILY HISTORY Family History: Heart Disease SOCIAL HISTORY Smoke: Quit ALCOHOL: none Drugs: None Lives: Skilled Nursing CURRENT MEDICATIONS CURRENT MEDICATIONS Current Medications Medications (Trade) Dose Ordered Sig/Kay Route PRN Reason Start Time Stop Time Status Last Admin Dose Admin Sodium Chloride 1,000 ml @ 1,000 mls/hr 1X ONCE IV 06/11/20 09:45 06/11/20 10:44 DC 06/11/20 09:45 ALLERGIES ALLERGIES: Coded Allergies: No Known Drug Allergies (Unverified , 07/28/15) ROS Review of System unreliable, pt confused VITALS/I&O VITALS/I&O: Vital Signs Date Time Temp Pulse Resp B/P (MAP) Pulse Ox O2 Delivery O2 Flow Rate FiO2 06/11/20 12:10 79 06/11/20 09:36 96.4 16 82/56 (65) Room Air 96.4 LABS Lab: Laboratory Tests Test 06/11/20 09:45 06/11/20 10:49 White Blood Count 4.7 x10^3/uL (4.0-11.0) Red Blood Count 3.33 x10^6/uL (4.30-5.70) L Hemoglobin 10.8 g/dL (13.0-17.5) L Hematocrit 32.9 % (39.0-53.0) L Mean Corpuscular Volume 99 fL (79-100) Mean Corpuscular Hemoglobin 33 pg (25-35) Mean Corpuscular Hemoglobin Concent 33 g/dL (31-37) Red Cell Distribution Width 14.5 % (11.5-14.5) Platelet Count 157 x10^3/uL (140-400) Neutrophils (%) (Auto) 53 % (31-73) Lymphocytes (%) (Auto) 36 % (24-48) Monocytes (%) (Auto) 8 % (0-9) Eosinophils (%) (Auto) 2 % (0-3) Basophils (%) (Auto) 1 % (0-3) Neutrophils # (Auto) 2.5 x10^3/uL (1.8-7.7) Lymphocytes # (Auto) 1.7 x10^3/uL (1.0-4.8) Monocytes # (Auto) 0.4 x10^3/uL (0.0-1.1) Eosinophils # (Auto) 0.1 x10^3/uL (0.0-0.7) Basophils # (Auto) 0.0 x10^3/uL (0.0-0.2) Prothrombin Time 14.4 SEC (11.7-14.0) H Prothrombin Time INR 1.2 (0.8-1.1) H Activated Partial Thromboplast Time 28 SEC (24-38) Sodium Level 142 mmol/L (136-145) Potassium Level 3.8 mmol/L (3.5-5.1) Chloride Level 109 mmol/L (98-107) H Carbon Dioxide Level 24 mmol/L (21-32) Anion Gap 9 (6-14) Blood Urea Nitrogen 24 mg/dL (8-26) Creatinine 1.2 mg/dL (0.7-1.3) Estimated GFR (Cockcroft-Gault) 69.8 BUN/Creatinine Ratio 20 (6-20) Glucose Level 69 mg/dL (70-99) L Calcium Level 8.6 mg/dL (8.5-10.1) Magnesium Level 1.9 mg/dL (1.8-2.4) Total Bilirubin 0.4 mg/dL (0.2-1.0) Aspartate Amino Transferase (AST) 109 U/L (15-37) H Alanine Aminotransferase (ALT) 34 U/L (16-63) Alkaline Phosphatase 116 U/L (46-116) Troponin I Quantitative < 0.017 ng/mL (0.000-0.055) Total Protein 6.0 g/dL (6.4-8.2) L Albumin 2.6 g/dL (3.4-5.0) L Albumin/Globulin Ratio 0.8 (1.0-1.7) L Urine Collection Type Unknown Urine Color Yellow Urine Clarity Clear Urine pH 6.5 (<5.0-8.0) Urine Specific [place] 1.025 (1.000-1.030) Urine Protein Negative mg/dL (NEG-TRACE) Urine Glucose (UA) Negative mg/dL (NEG) Urine Ketones (Stick) Negative mg/dL (NEG) Urine Blood Negative (NEG) Urine Nitrite Negative (NEG) Urine Bilirubin Negative (NEG) Urine Urobilinogen Dipstick 1.0 mg/dL (0.2 mg/dL) Urine Leukocyte Esterase Negative (NEG) Urine RBC 0 /HPF (0-2) Urine WBC 1-4 /HPF (0-4) Urine Squamous Epithelial Cells Occ /LPF Urine Transitional Epithelial Cells Few /LPF Urine Bacteria 0 /HPF (0-FEW) Urine Hyaline Casts Moderate /HPF Urine Mucus Slight /LPF Laboratory Tests 06/11/20 09:45 Laboratory Tests 06/11/20 09:45 IMAGES IMAGES IMPRESSION: Up to 60 percent supraclinoid right internal carotid arterial stenosis due to calcific plaque. Significant calcific plaque involves the distal right common carotid artery bifurcation and carotid bulb as well as proximal right internal carotid artery with stenosis of approximately 50 percent similar to the prior exam. 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 No aneurysm or dissection. DATE: 04/29/20 1324 ECHOCARDIOGRAM ECHOCARDIOGRAM <Conclusion> The left ventricle is normal size. The left ventricular systolic function is normal and the ejection fraction is within normal range. The Ejection Fraction is 60-65%. There is borderline concentric left ventricular hypertrophy. Doppler and Color Flow revealed no significant aortic regurgitation. There is no significant aortic valvular stenosis. Doppler and Color-flow revealed trace mitral regurgitation. Doppler and Color Flow revealed no tricuspid valve regurgitation noted. DATE: 04/30/20 1428 ASSESSMENT/PLAN ASSESSMENT/PLAN 1. Possible syncope with past multiple episodes mainly due to vasovagal episodes vs encephalopathy 2. Hx of CVA/TIA 3. CAD: past CABG. clinically stable 4. Hx of asymptomatic SB: 4. HTN: controlled 5. HLP; controlled 6. Carotid artery disease 7. Debility/Dementia/WC bound 8. 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 SBP on both arms are virtually the same 9. Likely true hypotension initially:likely from BP meds with very poor PO hydration 10. recently diagnosed parkinsons: was started on sinemet at with multiple neuro w/u over there discharged on 06/08 Recommendations 1. Continue with secondary prevention, Avoid AV toy blocking agents 2. May hold BP regimen per BP trend. No further cardiac workup. Conservative measures. 3. Supportive care GERMAN WATTERS MD 06/12/20 0810: CARDIAC CONSULT ASSESSMENT/PLAN ASSESSMENT/PLAN Late entry for 06/11/2020 The patient was seen and interviewed as well as examined at the bedside. The chart was reviewed. The case was discussed. Agree with the plan of care. KAILEY LAZARO APRN Jun 11, 2020 15:14 GERMAN WATTERS MD Jun 12, 2020 08:10
[2020-06-11 19:19] VITALS: BP 120/60
[2020-06-11] MEDS ORDERED: CARB1TAB22 PO (20:03)
[2020-06-11] MEDS ORDERED: GUAI473L15 PO (20:03)
[2020-06-11] MEDS ORDERED: BACL5TAB PO (20:03)
[2020-06-11] MEDS ORDERED: SENN8.6T11 PO (20:03)
[2020-06-11] MEDS ORDERED: LISI-338 PO (20:03)
[2020-06-11] MEDS ORDERED: MELA3TAB4 PO (20:03)
[2020-06-11] MEDS ORDERED: CLOP75TA PO (20:17)
[2020-06-11] MEDS ORDERED: MAGNESIUM OXIDE 400 MG TABLET PO SCH (21:00)
[2020-06-11] MEDS: ATORVASTATIN CALCIUM 20 MG TABLET PO SCH (21:08)
[2020-06-11] MEDS: LATANOPROST 0.005% OPHTH SOLUTION 2.5ML BOTTLE. OU SCH (21:08)
[2020-06-11] MEDS: TEMAZEPAM 15 MG CAPSULE PO SCH (21:08)
[2020-06-11 22:24] VITALS: BP 132/62
[2020-06-12 03:59] VITALS: BP 112/73
[2020-06-12 05:46] LABS: BASO % 1 % (0-3); EOS # 0.1 x10^3/uL (0.0-0.7); EOS % 3 % (0-3); HEMATOCRIT 32.8 % (39.0-53.0); HEMOGLOBIN 10.7 g/dL (13.0-17.5); LYMPH # 2.2 x10^3/uL (1.0-4.8); LYMPH % 46 % (24-48); MEAN CORPUSCULAR HEMOGLOBIN 32 pg (25-35); MEAN CORPUSCULAR HGB CONC 33 g/dL (31-37); MEAN CORPUSCULAR VOLUME 100 fL (79-100); MONO # 0.4 x10^3/uL (0.0-1.1); MONO % 8 % (0-9); NEUT # 2.1 x10^3/uL (1.8-7.7); NEUT % 43 % (31-73); PLATELET COUNT 146 x10^3/uL (140-400); RED CELL DISTRIBUTION WIDTH 14.8 % (11.5-14.5); WHITE BLOOD COUNT 4.9 x10^3/uL (4.0-11.0)
[2020-06-12 06:01] LABS: CALCIUM 8.9 mg/dL (8.5-10.1); CREATININE 0.9 mg/dL (0.7-1.3); GFR 97.3; MAGNESIUM 1.8 mg/dL (1.8-2.4); PHOSPHORUS 2.8 mg/dL (2.6-4.7); POTASSIUM 4.3 mmol/L (3.5-5.1)
[2020-06-12 07:00] VITALS: BP 159/62
[2020-06-12] MEDS: THIAMINE 100 MG TABLET. PO SCH (09:35)
[2020-06-12] MEDS: ASPIRIN ENTERIC COATED 81 MG TABLET.DR. PO SCH (09:35)
[2020-06-12] MEDS: DOCUSATE SODIUM 100 MG CAPSULE. PO PRN (09:35)
[2020-06-12] MEDS: CLOPIDOGREL BISULFATE 75 MG TABLET PO SCH (09:35)
[2020-06-12] MEDS: MULTIVITAMIN with MINERAL TABLET. PO SCH (09:35)
[2020-06-12] MEDS: ACETAMINOPHEN 325 MG TABLET. PO PRN (09:35)
--- NOTE | 2020-06-12 10:39 | PDOC ---
PROGRESS NOTES Date of Service: DATE: 06/12/20 TIME: 10:39 Chief Complaint Chief Complaint IMPRESSION: 1. Extensive scattered areas of hypodensity within the cerebral white matter likely due to chronic small vessel disease. 2. Suspected small chronic infarcts within the tawana and right basal ganglia. ECHo 04/30 <Conclusion> The left ventricle is normal size. The left ventricular systolic function is normal and the ejection fraction is wi thin normal range. The Ejection Fraction is 60-65%. There is borderline concentric left ventricular hypertrophy. Doppler and Color Flow revealed no significant aortic regurgitation. There is no significant aortic valvular stenosis. Doppler and Color-flow revealed trace mitral regurgitation. Doppler and Color Flow revealed no tricuspid valve regurgitation noted. IMPRESSION Assessment/Plan Syncope due to multiple etiologies such as postprandial, vasovagal, orthostatic hypotension, cardiovascular etiology, hypoglycemia, anemia, and medications Extensive scattered areas of hypodensity within the cerebral white matter likely due to chronic small vessel disease. Suspected small chronic infarcts within the tawana and right basal ganglia. Hypotension, likely postprandial Hypoglycemia Severe protein malnutrition Debilitation PLAN CVC BED Admit to medicine for observation and evaluation Cardiology consult We will hold off on neurology consult for now due to clinical exam as patient has no focal lateralization or unilateral weakness. No obvious pronator drift observed. Continue telemetry monitoring Fall precautions Orthostatic vital signs Hold all centrally acting medications Hold all antihypertensive medications Pending medication reconciliation SCD for DVT prophylaxis Protonix GI prophylaxis ADA diet Full code Discussed with RN and SW Disposition inpatient management as above Suspected small chronic infarcts within the tawana and right basal ganglia., consult neurology Surrogate decision maker is the recent MRI HEAD REVIEWED Advance care planning: A total time of > 17 minutes was spent from 1230 to 1300 face to face in discussion with the patient and family regarding their goals of care, end of life care, and pain management. Patient's was adamant about not pursuing aggressive care and does not want to have any trauma from CODE BLUE. does not wish for her to experience any traumatic chest compressions or even trauma from intubation. Ultimately, the wants her to be comfortable. History of Present Illness History of Present Illness Chief Complaint: Chief Complain: Syncope History of Present Illness: HPI: History obtained from the at bedside and also with the ED physician. Patient is an 85-year-old male with past medical history of history of CVA, CAD with multiple stents, hypertension, dyslipidemia, dementia who comes to the ED due to passing out in his wheelchair after breakfast. It was reported to the from the assisted that the patient had breakfast and also took all of his blood pressure medications and patient had a syncopal episode if was found unresponsive in his wheelchair. states that this is happened in the past several times. Patient was also seen recently at [facility], but the was unsure of what was the exact diagnosis. She knows that the did get an EEG. Also she was told that this was likely degenerative disease due to his previous infarcts. Currently, patient is sitting upright in the gurney and eating lunch. Does not seem like there is any swallowing deficits and patient is able to follow commands. Patient currently denies any pain, dizziness, weakness, abdominal pain. Past Medical/Surgical History: PMH/PSH: Past Medical History: Arthritis, CVA, Dementia, GERD, High Cholesterol, Heart Disease, Hypertension, [place], BACK PAIN Past Surgical History: CARDIAC SURGERY, neck Allergies: Allergies: Coded Allergies: No Known Drug Allergies (Unverified , 07/28/15) Family History: Family History: Reviewed and no relevant findings on the chart. Social History: Social History: Smoking Status: Never Smoker Alcohol Use: None Drug Use: None Current Medications: Vitals Vitals Vital Signs Date Time Temp Pulse Resp B/P (MAP) Pulse Ox O2 Delivery O2 Flow Rate FiO2 06/12/20 07:00 97.8 55 16 159/62 (94) 100 Room Air 97.8 Physical Exam Physical Exam Physcial Exam: GEN: No apparent distress. Alert and oriented HEENT: Normal cephalic, atraumatic, external auditory canals are patent EYES: Extraocular muscles are intact, pupil are equally round and reactive to light and accommodation MUSCULOSKELETAL: Well developed , well nourished, good range of motion ENDOCRINE: No thyromegaly was palpated LYMPHATICS: No cervical chain or axillary nodes were noted HEMATOPOIETIC: No bruising NECK: Supple, no JVD, no thyromegaly was noted LUNGS: Clear to auscultation in all lung cardona without rhonchi or wheezing HEART: RRR, S!, S2 present. Peripheral pulses intact, no obvious murmurs noted ABDOMEN: Soft, nontender. Positive bowel sounds, no organomegaly, normal bowel sounds EXTREMITIES: Without clubbing, cyanosis, or edema. Pedal pulses intact. Negative Homans sign NEUROLOGIC: Normal speech and tone. A&O x 3, moves all extremities, no obvious focal deficits PSYCHIATRIC: Normal affect, normal mood. Stable SKIN: No ulcerations or rashes, good skin turgor, no jaundice VASCULAR: Good capillary refill, neurovascular bundle appears to be intact General: Alert, Cooperative Lungs: Clear Labs LABS Examination: BRAIN W/O CONTRAST History: Reason: stroke, CALL REPORT TO [facility] AT [phone] / [facility]. Instructions: / History: Comparison/Correlation: 05/18/2020 CT head without contrast Findings: Multisequence axial, coronal, and sagittal images of the brain were obtained. Atrophy and chronic ischemic changes and white matter are present. Small focus of restricted diffusion involving the right tawana on axial image 12 of the ADC map images noted. Corresponding high signal on diffusion-weighted image 12 is seen. This measures up to 0.35 cm diameter. Old right pontine lacunar infarct is also present. No midline shift or mass effect. No sulcal or gyral effacement. There is no extra-axial fluid collection. Orbits are unremarkable. Normal flow voids are present. Impression: Small pontine lacunar infarct. Old pontine lacunar infarct also seen. Advanced atrophy and chronic ischemic change. The patient's nurse Chrissie was informed on 05/19/2020 2:29 PM. Electronically signed by: Juan Carlos Woods MD (05/19/2020 2:29 PM) [facility] DICTATED and SIGNED BY: JUAN CARLOS WOODS MD DATE: 05/19/20 1429 PATIENT: SALTY COLLAZO EACCOUNT: [id number] : 1935 LOCATION: ER AGE: 85 SEX: M EXAM STATUS: PRE ER ORD. PHYSICIAN: ADRIEN ANDREWS MD REASON: stroke PROCEDURE: CT CODE STROKE HEAD WO EXAM: Head CT without contrast. HISTORY: Code stroke. TECHNIQUE: Computed tomographic images of the head were obtained without contrast. *One or more of the following individualized dose reduction techniques were utilized for this examination: 1. Automated exposure control. 2. Adjustment of the mA and/or kV according to patient size. 3. Use of iterative reconstruction technique. COMPARISON: 05/19/2020. FINDINGS: There is no acute or subacute extra-axial or intraparenchymal hemorrhage. There is no mass effect or midline shift. There is no hydrocephalus. There are extensive areas of hypodensity within the cerebral white matter due to chronic small vessel disease. There is a suspected small chronic infarct within the right basal ganglia. There is a chronic infarct within the right tawana. There is cerebral atrophy. The visualized portions of the orbits, paranasal sinuses and mastoid air cells are unremarkable. No suspicious calvarial lesion is seen. IMPRESSION: 1. Extensive scattered areas of hypodensity within the cerebral white matter likely due to chronic small vessel disease. 2. Suspected small chronic infarcts within the tawana and right basal ganglia. 3. Note is made that MRI is more sensitive for acute infarction Findings were discussed with Dr. Andrews in the ED at 100 hours on 06/11/2020. Electronically signed by: Nisha Jerome MD (06/11/2020 10:02 AM) [id number] Laboratory Tests Test 06/11/20 10:49 06/12/20 05:20 Urine Collection Type Unknown Urine Color Yellow Urine Clarity Clear Urine pH 6.5 (<5.0-8.0) Urine Specific [place] 1.025 (1.000-1.030) Urine Protein Negative mg/dL (NEG-TRACE) Urine Glucose (UA) Negative mg/dL (NEG) Urine Ketones (Stick) Negative mg/dL (NEG) Urine Blood Negative (NEG) Urine Nitrite Negative (NEG) Urine Bilirubin Negative (NEG) Urine Urobilinogen Dipstick 1.0 mg/dL (0.2 mg/dL) Urine Leukocyte Esterase Negative (NEG) Urine RBC 0 /HPF (0-2) Urine WBC 1-4 /HPF (0-4) Urine Squamous Epithelial Cells Occ /LPF Urine Transitional Epithelial Cells Few /LPF Urine Bacteria 0 /HPF (0-FEW) Urine Hyaline Casts Moderate /HPF Urine Mucus Slight /LPF White Blood Count 4.9 x10^3/uL (4.0-11.0) Red Blood Count 3.30 x10^6/uL (4.30-5.70) Hemoglobin 10.7 g/dL (13.0-17.5) Hematocrit 32.8 % (39.0-53.0) Mean Corpuscular Volume 100 fL (79-100) Mean Corpuscular Hemoglobin 32 pg (25-35) Mean Corpuscular Hemoglobin Concent 33 g/dL (31-37) Red Cell Distribution Width 14.8 % (11.5-14.5) Platelet Count 146 x10^3/uL (140-400) Neutrophils (%) (Auto) 43 % (31-73) Lymphocytes (%) (Auto) 46 % (24-48) Monocytes (%) (Auto) 8 % (0-9) Eosinophils (%) (Auto) 3 % (0-3) Basophils (%) (Auto) 1 % (0-3) Neutrophils # (Auto) 2.1 x10^3/uL (1.8-7.7) Lymphocytes # (Auto) 2.2 x10^3/uL (1.0-4.8) Monocytes # (Auto) 0.4 x10^3/uL (0.0-1.1) Eosinophils # (Auto) 0.1 x10^3/uL (0.0-0.7) Basophils # (Auto) 0.0 x10^3/uL (0.0-0.2) Sodium Level 141 mmol/L (136-145) Potassium Level 4.3 mmol/L (3.5-5.1) Chloride Level 109 mmol/L (98-107) Carbon Dioxide Level 25 mmol/L (21-32) Anion Gap 7 (6-14) Blood Urea Nitrogen 18 mg/dL (8-26) Creatinine 0.9 mg/dL (0.7-1.3) Estimated GFR (Cockcroft-Gault) 97.3 Glucose Level 83 mg/dL (70-99) Calcium Level 8.9 mg/dL (8.5-10.1) Phosphorus Level 2.8 mg/dL (2.6-4.7) Magnesium Level 1.8 mg/dL (1.8-2.4) Assessment and Plan Assessmemt and Plan Problems Medical Problems: (1) Hypotension Status: Acute * With Puree Recommended Swallow Strategies * Small Bites/Sips * Upright Position * Alternate Liquids/Solids * Slow Rate Recommended Supervision with Meals * Intermittent Communicated Results With: * Pt and Hortencia; FLYNN villatoro. Additional Details/Impressions * Results as outlined above. Solids w/oral delay and inefficient mastication c/w lack of lower dentition and limited upper dentition. Puree, thin and honey thick liquids appeared safe and efficient. Hyolaryngeal excursion mildly reduced, nilda in anterior excursion, per palp across consistencies w/o evidence of aspiration. IMPRESSIONS: Functional swallow for baseline diet. Regular solids inefficient r/t lack of adequate dentition. Diet at facility [facility] soft w/thin liquids. Would resume same. Anticipate safe and efficient intake of rec'd diet to meet nutritional needs. RECOMMENDATIONS: Dysphagia II diet w/thin liquids. Meds crushed in puree. Precautions posted. Diet orders entered. DW pt and family. Skilled Services Needed * Pt-Caregiver Edu/Training * Dysphagia Tx Patient Stated Goal * Unable to state Half-Way Swallow Goal * Safe intake of [facility]/thin liquids Swallow Goal 1 * Puree w/o s/s Aspiration Swallow Goal 2 * Thin w/o s/s Aspiration Swallow Goal 3 * Safe and efficient swallow of [facility] soft solids. Pt. Agrees with POC * agrees, verbalized understanding. Rehab Potential - To Achieve Goals * Fair Discharge Recommendations * Half-Way Care Treatment Frequency (Days/Week) * 1-2 visits over 7 days x1wk. Comment Review of Relevant I have reviewed the following items rahul (where applicable) has been applied. Labs Laboratory Tests Test 06/11/20 09:45 06/11/20 10:49 06/12/20 05:20 White Blood Count 4.7 x10^3/uL (4.0-11.0) 4.9 x10^3/uL (4.0-11.0) Red Blood Count 3.33 x10^6/uL (4.30-5.70) 3.30 x10^6/uL (4.30-5.70) Hemoglobin 10.8 g/dL (13.0-17.5) 10.7 g/dL (13.0-17.5) Hematocrit 32.9 % (39.0-53.0) 32.8 % (39.0-53.0) Mean Corpuscular Volume 99 fL (79-100) 100 fL (79-100) Mean Corpuscular Hemoglobin 33 pg (25-35) 32 pg (25-35) Mean Corpuscular Hemoglobin Concent 33 g/dL (31-37) 33 g/dL (31-37) Red Cell Distribution Width 14.5 % (11.5-14.5) 14.8 % (11.5-14.5) Platelet Count 157 x10^3/uL (140-400) 146 x10^3/uL (140-400) Neutrophils (%) (Auto) 53 % (31-73) 43 % (31-73) Lymphocytes (%) (Auto) 36 % (24-48) 46 % (24-48) Monocytes (%) (Auto) 8 % (0-9) 8 % (0-9) Eosinophils (%) (Auto) 2 % (0-3) 3 % (0-3) Basophils (%) (Auto) 1 % (0-3) 1 % (0-3) Neutrophils # (Auto) 2.5 x10^3/uL (1.8-7.7) 2.1 x10^3/uL (1.8-7.7) Lymphocytes # (Auto) 1.7 x10^3/uL (1.0-4.8) 2.2 x10^3/uL (1.0-4.8) Monocytes # (Auto) 0.4 x10^3/uL (0.0-1.1) 0.4 x10^3/uL (0.0-1.1) Eosinophils # (Auto) 0.1 x10^3/uL (0.0-0.7) 0.1 x10^3/uL (0.0-0.7) Basophils # (Auto) 0.0 x10^3/uL (0.0-0.2) 0.0 x10^3/uL (0.0-0.2) Prothrombin Time 14.4 SEC (11.7-14.0) Prothromb Time International Ratio 1.2 (0.8-1.1) Activated Partial Thromboplast Time 28 SEC (24-38) Sodium Level 142 mmol/L (136-145) 141 mmol/L (136-145) Potassium Level 3.8 mmol/L (3.5-5.1) 4.3 mmol/L (3.5-5.1) Chloride Level 109 mmol/L (98-107) 109 mmol/L (98-107) Carbon Dioxide Level 24 mmol/L (21-32) 25 mmol/L (21-32) Anion Gap 9 (6-14) 7 (6-14) Blood Urea Nitrogen 24 mg/dL (8-26) 18 mg/dL (8-26) Creatinine 1.2 mg/dL (0.7-1.3) 0.9 mg/dL (0.7-1.3) Estimated GFR (Cockcroft-Gault) 69.8 97.3 BUN/Creatinine Ratio 20 (6-20) Glucose Level 69 mg/dL (70-99) 83 mg/dL (70-99) Calcium Level 8.6 mg/dL (8.5-10.1) 8.9 mg/dL (8.5-10.1) Magnesium Level 1.9 mg/dL (1.8-2.4) 1.8 mg/dL (1.8-2.4) Total Bilirubin 0.4 mg/dL (0.2-1.0) Aspartate Amino Transf (AST/SGOT) 109 U/L (15-37) Alanine Aminotransferase (ALT/SGPT) 34 U/L (16-63) Alkaline Phosphatase 116 U/L (46-116) Troponin I Quantitative < 0.017 ng/mL (0.000-0.055) Total Protein 6.0 g/dL (6.4-8.2) Albumin 2.6 g/dL (3.4-5.0) Albumin/Globulin Ratio 0.8 (1.0-1.7) Urine Collection Type Unknown Urine Color Yellow Urine Clarity Clear Urine pH 6.5 (<5.0-8.0) Urine Specific [place] 1.025 (1.000-1.030) Urine Protein Negative mg/dL (NEG-TRACE) Urine Glucose (UA) Negative mg/dL (NEG) Urine Ketones (Stick) Negative mg/dL (NEG) Urine Blood Negative (NEG) Urine Nitrite Negative (NEG) Urine Bilirubin Negative (NEG) Urine Urobilinogen Dipstick 1.0 mg/dL (0.2 mg/dL) Urine Leukocyte Esterase Negative (NEG) Urine RBC 0 /HPF (0-2) Urine WBC 1-4 /HPF (0-4) Urine Squamous Epithelial Cells Occ /LPF Urine Transitional Epithelial Cells Few /LPF Urine Bacteria 0 /HPF (0-FEW) Urine Hyaline Casts Moderate /HPF Urine Mucus Slight /LPF Phosphorus Level 2.8 mg/dL (2.6-4.7) Laboratory Tests Test 06/11/20 10:49 06/12/20 05:20 Urine Collection Type Unknown Urine Color Yellow Urine Clarity Clear Urine pH 6.5 (<5.0-8.0) Urine Specific [place] 1.025 (1.000-1.030) Urine Protein Negative mg/dL (NEG-TRACE) Urine Glucose (UA) Negative mg/dL (NEG) Urine Ketones (Stick) Negative mg/dL (NEG) Urine Blood Negative (NEG) Urine Nitrite Negative (NEG) Urine Bilirubin Negative (NEG) Urine Urobilinogen Dipstick 1.0 mg/dL (0.2 mg/dL) Urine Leukocyte Esterase Negative (NEG) Urine RBC 0 /HPF (0-2) Urine WBC 1-4 /HPF (0-4) Urine Squamous Epithelial Cells Occ /LPF Urine Transitional Epithelial Cells Few /LPF Urine Bacteria 0 /HPF (0-FEW) Urine Hyaline Casts Moderate /HPF Urine Mucus Slight /LPF White Blood Count 4.9 x10^3/uL (4.0-11.0) Red Blood Count 3.30 x10^6/uL (4.30-5.70) Hemoglobin 10.7 g/dL (13.0-17.5) Hematocrit 32.8 % (39.0-53.0) Mean Corpuscular Volume 100 fL (79-100) Mean Corpuscular Hemoglobin 32 pg (25-35) Mean Corpuscular Hemoglobin Concent 33 g/dL (31-37) Red Cell Distribution Width 14.8 % (11.5-14.5) Platelet Count 146 x10^3/uL (140-400) Neutrophils (%) (Auto) 43 % (31-73) Lymphocytes (%) (Auto) 46 % (24-48) Monocytes (%) (Auto) 8 % (0-9) Eosinophils (%) (Auto) 3 % (0-3) Basophils (%) (Auto) 1 % (0-3) Neutrophils # (Auto) 2.1 x10^3/uL (1.8-7.7) Lymphocytes # (Auto) 2.2 x10^3/uL (1.0-4.8) Monocytes # (Auto) 0.4 x10^3/uL (0.0-1.1) Eosinophils # (Auto) 0.1 x10^3/uL (0.0-0.7) Basophils # (Auto) 0.0 x10^3/uL (0.0-0.2) Sodium Level 141 mmol/L (136-145) Potassium Level 4.3 mmol/L (3.5-5.1) Chloride Level 109 mmol/L (98-107) Carbon Dioxide Level 25 mmol/L (21-32) Anion Gap 7 (6-14) Blood Urea Nitrogen 18 mg/dL (8-26) Creatinine 0.9 mg/dL (0.7-1.3) Estimated GFR (Cockcroft-Gault) 97.3 Glucose Level 83 mg/dL (70-99) Calcium Level 8.9 mg/dL (8.5-10.1) Phosphorus Level 2.8 mg/dL (2.6-4.7) Magnesium Level 1.8 mg/dL (1.8-2.4) Medications Current Medications Sodium Chloride 1,000 ml @ 1,000 mls/hr 1X ONCE IV Last administered on 06/11/20at 09:45; Start 06/11/20 at 09:45; Stop 06/11/20 at 10:44; Status DC Sennosides (Senna) 17.2 mg PRN BID PRN PO CONSTIPATION; Start 06/11/20 at 13:30 Docusate Sodium (Colace) 100 mg PRN DAILY PRN PO HARD STOOLS Last administered on 06/12/20at 09:35; Start 06/11/20 at 13:30 Thiamine HCl 100 mg/Dextrose 51 ml @ 102 mls/hr DAILY IV Last administered on 06/11/20at 15:02; Start 06/11/20 at 14:00; Stop 06/12/20 at 03:50; Status DC Ondansetron HCl (Zofran) 4 mg PRN Q6HRS PRN IVP NAUSEA/VOMITING; Start 06/11/20 at 13:30 Potassium Chloride (Klor-Con) 40 meq 1X PRN PO PER PROTOCOL; Start 06/11/20 at 13:30; Status UNV Magnesium Oxide (Magnesium Oxide) 400 mg BID PO ; Start 06/11/20 at 21:00; Stop 06/13/20 at 09:01; Status UNV Potassium Chloride/Water 100 ml @ 100 mls/hr Q1H IV ; Start 06/11/20 at 13:30; Stop 06/11/20 at 17:29; Status UNV Magnesium Sulfate 50 ml @ 25 mls/hr Q24H IV ; Start 06/11/20 at 13:30; Stop 06/13/20 at 15:29; Status UNV Potassium Chloride/Water 100 ml @ 100 mls/hr Q1H PRN IV low k; Start 06/11/20 at 13:30; Status UNV Dextrose (Dextrose 50%-Water Syringe) 12.5 gm PRN Q15MIN PRN IV SEE COMMENTS; Start 06/11/20 at 13:30 Acetaminophen (Tylenol) 650 mg PRN Q8HRS PRN PO MILD PAIN 1-3 Last administered on 06/12/20at 09:35; Start 06/11/20 at 13:30 Aspirin (Ecotrin) 81 mg DAILY PO Last administered on 06/12/20at 09:35; Start 06/11/20 at 14:00 Atorvastatin Calcium (Lipitor) 20 mg QHS PO Last administered on 06/11/20at 21:08; Start 06/11/20 at 21:00 Clopidogrel Bisulfate (Plavix) 75 mg DAILY PO Last administered on 06/12/20at 09:35; Start 06/12/20 at 09:00 Latanoprost (Xalatan) 1 drop QHS OU Last administered on 06/11/20at 21:08; Sta rt 06/11/20 at 21:00 Temazepam (Restoril) 15 mg QHS PO Last administered on 06/11/20 21:08; Start 06/11/20 at 21:00 Glycerin/ Hypromellose/ Polyethylene (Artificial Tears) 1 drop PRN Q4HRS PRN OU DRY EYE; Start 06/11/20 at 14:00; Status Cancel Multivitamins (Thera M Plus) 1 tab DAILY PO Last administered on 06/12/20at 09:35; Start 06/12/20 at 09:00 Info (Non-Icu Electrolyte Protocol) 1 ea CONT PRN PRN MC SEE COMMENTS; Start 06/11/20 at 14:00 Glycerin/ Hypromellose/ Polyethylene (Artificial Tears) 1 drop PRN Q4HRS PRN OU DRY EYE; Start 06/11/20 at 14:15 Thiamine Mononitrate (Vitamin B-1) 100 mg DAILY PO Last administered on 06/12/20at 09:35; Start 06/12/20 at 09:00 Active Scripts Active Atorvastatin Calcium 20 Mg Tablet 1 Tab PO DAILY Proair Hfa (Albuterol Sulfate) 8.5 Gm Hfa.aer.ad 2.5 Mg NEB PRN Q4HRS PRN 14 Days Reported Clopidogrel (Clopidogrel Bisulfate) 75 Mg Tablet 1 Tab PO DAILY Lisinopril 5 Mg Tablet 2 Tab PO DAILY Senna Laxative (Sennosides) 8.6 Mg Tablet 1 Tab PO BID 30 Days Melatonin 3 Mg Tablet 1 Tab PO QHS PRN Guaifenesin Ac Cough Syrup (Guaifenesin/Codeine Phosphate) 473 Ml Liquid 10 Ml PO PRN Q4-6HRS PRN MDD 60 Milliliter(s) 4 Days Carbidopa-Levodopa 25-100 Tab (Carbidopa/Levodopa) 1 Each Tablet 1 Tab PO QID 30 Days Baclofen 5 Mg Tablet 5 Mg PO QHS PRN Namenda (Memantine Hcl) 10 Mg Tablet 5 Mg PO HS Aspirin Ec (Aspirin) 81 Mg Tablet.dr 1 Tab PO DAILY Robaxin-750 (Methocarbamol) 750 Mg Tablet 1 Tab PO TID 30 Days Refresh Tears (Carboxymethylcellulose Sodium) 15 Ml Drops 15 Ml OP PRN Q4-6HRS PRN Nasal [place] (Sodium Chloride) 44 Ml [place] 1 [place] NS BID 30 Days Centrum Silver Tablet (Multivits-Min/Fa/Lycopene/Lut) 1 Each Tablet 1 Each PO DAILY Acetaminophen 325 Mg Tablet 650 Mg PO PRN Q8HRS PRN Latanoprost 2.5 Ml Drops 1 Drop EACHEYE QHS Flomax (Tamsulosin Hcl) 0.4 Mg Cap.er.24h 0.4 Mg PO HS Vitals/I & O Vital Sign - Last 24 Hours 06/11/20 06/11/20 06/11/20 06/11/20 10:40 10:55 11:10 11:40 Pulse 69 74 74 76 06/11/20 06/11/20 06/11/20 06/11/20 11:55 12:10 15:00 19:19 Temp 98.8 99.5 98.8 99.5 Pulse 77 79 77 75 Resp 18 18 B/P (MAP) 142/64 (90) 120/60 (80) Pulse Ox 100 98 O2 Delivery Room Air Room Air 06/11/20 06/11/20 06/12/20 06/12/20 20:00 22:24 03:59 07:00 Temp 98.3 98.2 97.8 98.3 98.2 97.8 Pulse 72 70 55 Resp 16 16 16 B/P (MAP) 132/62 (85) 112/73 (86) 159/62 (94) Pulse Ox 99 98 100 O2 Delivery Room Air Room Air Room Air Room Air Intake and Output 06/11/20 06/11/20 06/12/20 15:00 23:00 07:00 Intake Total 1000 ml 0 ml Output Total 175 ml Balance 1000 ml -175 ml 0 ml Justicifation of Admission Dx: Justifications for Admission: Justification of Admission Dx: Yes JERMAIN GOMEZ MD Jun 12, 2020 10:39
[2020-06-12 11:12] VITALS: BP 129/55
--- NOTE | 2020-06-12 13:24 | NUR ---
SPoke with patient's , Maru, she wants patient to continue DNR, no CPR, no intubation, had several questions of anything else for advanced directive. Would like Social work and doctors to go over this with her. Maru also wondered if palliative care was necessary, or if he was close to that. DNR outside of hospital is necessary.
--- NOTE | 2020-06-12 13:40 | PDOC2 ---
NEUROLOGY CONSULT Date of Service DOS: DATE: 06/12/20 TIME: 13:28 Reason for Consult Reason for Consult: Syncope Referring Physician Referring Physician: Dr. Lu Source Source: Caregiver (), Chart review, Patient History of Present Illness History of Present Illness The patient is an 85-year-old right-handed male who has had several episodes of syncope. I last saw him in April, blood pressure was 80 in the field. He has had several falls. He was admitted here with a fall in February, I saw him in April, Dr. Buchanan saw him in May, he also was at recently. It sounds like he had a full repeat work-up there including electroencephalogram, which was negative, the says. He was started on carbidopa/levodopa for neurodegenerative disease, but has not noticed any difference on this. She thinks he is only had a few doses. Neurology saw him in November 2017 here, EEG just showed diffuse slowing. He already had a diagnosis of dementia at that time. He has never had a convulsive seizure or significant head injury. He has had several strokes and has some intracranial vascular disease. He also has a diagnosis of cervical spinal stenosis and a spinal cord contusion treated with laminectomy in 2014. Past Medical History Cardiovascular: CAD, HTN, NV, Syncope, Hyperlipidemia CENTRAL NERVOUS SYSTEM: CVA, Dementia, Other (Cervical spinal stenosis) GI: GERD, Other (Dysphagia) Musculoskeletal: low back pain, Osteoarthritis ENT: Other (Bilateral hearing loss) Renal/: UTI, Benign prostatic enlarg., Urinary Incontinence Past Surgical History Past Surgical History: CABG, Cataract Removal, Hernia Repair, Other (Cervical laminectomy at C3-C4, C4-C5, and C5-C6 with instrumentation) Family History Family History: No pertinent hx Social History Social History , remote use of alcohol and tobacco, retired, currently in intermediate Current Medications Current Medications Current Medications Sodium Chloride 1,000 ml @ 1,000 mls/hr 1X ONCE IV Last administered on 06/11/20at 09:45; Start 06/11/20 at 09:45; Stop 06/11/20 at 10:44; Status DC Sennosides (Senna) 17.2 mg PRN BID PRN PO CONSTIPATION; Start 06/11/20 at 13:30 Docusate Sodium (Colace) 100 mg PRN DAILY PRN PO HARD STOOLS Last administered on 06/12/20 09:35; Start 06/11/20 at 13:30 Thiamine HCl 100 mg/Dextrose 51 ml @ 102 mls/hr DAILY IV Last administered on 06/11/20at 15:02; Start 06/11/20 at 14:00; Stop 06/12/20 at 03:50; Status DC Ondansetron HCl (Zofran) 4 mg PRN Q6HRS PRN IVP NAUSEA/VOMITING; Start 06/11/20 at 13:30 Potassium Chloride (Klor-Con) 40 meq 1X PRN PO PER PROTOCOL; Start 06/11/20 at 13:30; Status UNV Magnesium Oxide (Magnesium Oxide) 400 mg BID PO ; Start 06/11/20 at 21:00; Stop 06/13/20 at 09:01; Status UNV Potassium Chloride/Water 100 ml @ 100 mls/hr Q1H IV ; Start 06/11/20 at 13:30; Stop 06/11/20 at 17:29; Status UNV Magnesium Sulfate 50 ml @ 25 mls/hr Q24H IV ; Start 06/11/20 at 13:30; Stop 06/13/20 at 15:29; Status UNV Potassium Chloride/Water 100 ml @ 100 mls/hr Q1H PRN IV low k; Start 06/11/20 at 13:30; Status UNV Dextrose (Dextrose 50%-Water Syringe) 12.5 gm PRN Q15MIN PRN IV SEE COMMENTS; Start 06/11/20 at 13:30 Acetaminophen (Tylenol) 650 mg PRN Q8HRS PRN PO MILD PAIN 1-3 Last administered on 06/12/20at 09:35; Start 06/11/20 at 13:30 Aspirin (Ecotrin) 81 mg DAILY PO Last administered on 06/12/20 09:35; Start 06/11/20 at 14:00 Atorvastatin Calcium (Lipitor) 20 mg QHS PO Last administered on 06/11/20at 21:08; Start 06/11/20 at 21:00 Clopidogrel Bisulfate (Plavix) 75 mg DAILY PO Last administered on 06/12/20at 09:35; Start 06/12/20 at 09:00 Latanoprost (Xalatan) 1 drop QHS OU Last administered on 06/11/20at 21:08; Start 06/11/20 at 21:00 Temazepam (Restoril) 15 mg QHS PO Last administered on 06/11/20at 21:08; Start 06/11/20 at 21:00 Glycerin/ Hypromellose/ Polyethylene (Artificial Tears) 1 drop PRN Q4HRS PRN OU DRY EYE; Start 06/11/20 at 14:00; Status Cancel Multivitamins (Thera M Plus) 1 tab DAILY PO Last administered on 06/12/20at 09:35; Start 06/12/20 at 09:00 Info (Non-Icu Electrolyte Protocol) 1 ea CONT PRN PRN MC SEE COMMENTS; Start 06/11/20 at 14:00 Glycerin/ Hypromellose/ Polyethylene (Artificial Tears) 1 drop PRN Q4HRS PRN OU DRY EYE; Start 06/11/20 at 14:15 Thiamine Mononitrate (Vitamin B-1) 100 mg DAILY PO Last administered on 06/12/20at 09:35; Start 06/12/20 at 09:00 Active Scripts Active Atorvastatin Calcium 20 Mg Tablet 1 Tab PO DAILY Proair Hfa (Albuterol Sulfate) 8.5 Gm Hfa.aer.ad 2.5 Mg NEB PRN Q4HRS PRN 14 Days Reported Clopidogrel (Clopidogrel Bisulfate) 75 Mg Tablet 1 Tab PO DAILY Lisinopril 5 Mg Tablet 2 Tab PO DAILY Senna Laxative (Sennosides) 8.6 Mg Tablet 1 Tab PO BID 30 Days Melatonin 3 Mg Tablet 1 Tab PO QHS PRN Guaifenesin Ac Cough Syrup (Guaifenesin/Codeine Phosphate) 473 Ml Liquid 10 Ml PO PRN Q4-6HRS PRN MDD 60 Milliliter(s) 4 Days Carbidopa-Levodopa 25-100 Tab (Carbidopa/Levodopa) 1 Each Tablet 1 Tab PO QID 30 Days Baclofen 5 Mg Tablet 5 Mg PO QHS PRN Namenda (Memantine Hcl) 10 Mg Tablet 5 Mg PO HS Aspirin Ec (Aspirin) 81 Mg Tablet.dr 1 Tab PO DAILY Robaxin-750 (Methocarbamol) 750 Mg Tablet 1 Tab PO TID 30 Days Refresh Tears (Carboxymethylcellulose Sodium) 15 Ml Drops 15 Ml OP PRN Q4-6HRS PRN Nasal Cullen (Sodium Chloride) 44 Ml Cullen 1 Cullen NS BID 30 Days Centrum Silver Tablet (Multivits-Min/Fa/Lycopene/Lut) 1 Each Tablet 1 Each PO DAILY Acetaminophen 325 Mg Tablet 650 Mg PO PRN Q8HRS PRN Latanoprost 2.5 Ml Drops 1 Drop EACHEYE QHS Flomax (Tamsulosin Hcl) 0.4 Mg Cap.er.24h 0.4 Mg PO HS Allergies Allergies: Coded Allergies: No Known Drug Allergies (Unverified , 07/28/15) ROS Review of System Negative for fever, chills, weight loss, shortness of breath, chest pain, indigestion, hematochezia, melena, and dysuria. Full 14-point review of systems is negative. Physical Exam Physical Examination General: Well-developed, well-nourished black male in no acute distress HEENT: Normocephalic andatraumatic. Temporal arteriespulsatile and nontender. Neck: Supple without bruit, no meningismus Musculoskeletal: Stability:see neurologic. Gait exam:see neurologic. Tone:see neurologic. Strength:see neurologic. Neurological: Mental Status: orientation, memory, attention span/concentration, language, fund of knowledge: Alert, says that he is at [facility], does not know the date, names and repeats well, he is hard of hearing. Cranial Nerves:Pupils equal and reactive to light, extraocular movements areintact, visual cardona are full to confrontation. Facial sensation is normal. There is no facial asymmetry. Vestibulo-ocular reflex is intact. Palate elevates and tongue protrudes in m idline. All other cranial related problems are negative except as mentioned before.Reflexes:1+ and symmetric with flexor plantar responses. Motor:3/5 left arm, 4-/5 left leg, 5-/5 on right, increased tone on the left. Coordination:Finger-nose finger and [id number] testing are normal. Rapid alternating movements and fine finger movements are intact, accounting for hemiparesis. Gait:not tested. Sensory:Normal pinprick, vibration, light touch, proprioception. Vitals VITALS Vital Signs Date Time Temp Pulse Resp B/P (MAP) Pulse Ox O2 Delivery O2 Flow Rate FiO2 06/12/20 11:12 97.6 69 18 129/55 (79) 98 Room Air 97.6 Labs Labs Laboratory Tests Test 06/11/20 09:45 11/6/20 10:49 06/12/20 05:20 White Blood Count 4.7 x10^3/uL (4.0-11.0) 4.9 x10^3/uL (4.0-11.0) Red Blood Count 3.33 x10^6/uL (4.30-5.70) 3.30 x10^6/uL (4.30-5.70) Hemoglobin 10.8 g/dL (13.0-17.5) 10.7 g/dL (13.0-17.5) Hematocrit 32.9 % (39.0-53.0) 32.8 % (39.0-53.0) Mean Corpuscular Volume 99 fL (79-100) 100 fL (79-100) Mean Corpuscular Hemoglobin 33 pg (25-35) 32 pg (25-35) Mean Corpuscular Hemoglobin Concent 33 g/dL (31-37) 33 g/dL (31-37) Red Cell Distribution Width 14.5 % (11.5-14.5) 14.8 % (11.5-14.5) Platelet Count 157 x10^3/uL (140-400) 146 x10^3/uL (140-400) Neutrophils (%) (Auto) 53 % (31-73) 43 % (31-73) Lymphocytes (%) (Auto) 36 % (24-48) 46 % (24-48) Monocytes (%) (Auto) 8 % (0-9) 8 % (0-9) Eosinophils (%) (Auto) 2 % (0-3) 3 % (0-3) Basophils (%) (Auto) 1 % (0-3) 1 % (0-3) Neutrophils # (Auto) 2.5 x10^3/uL (1.8-7.7) 2.1 x10^3/uL (1.8-7.7) Lymphocytes # (Auto) 1.7 x10^3/uL (1.0-4.8) 2.2 x10^3/uL (1.0-4.8) Monocytes # (Auto) 0.4 x10^3/uL (0.0-1.1) 0.4 x10^3/uL (0.0-1.1) Eosinophils # (Auto) 0.1 x10^3/uL (0.0-0.7) 0.1 x10^3/uL (0.0-0.7) Basophils # (Auto) 0.0 x10^3/uL (0.0-0.2) 0.0 x10^3/uL (0.0-0.2) Prothrombin Time 14.4 SEC (11.7-14.0) Prothromb Time International Ratio 1.2 (0.8-1.1) Activated Partial Thromboplast Time 28 SEC (24-38) Sodium Level 142 mmol/L (136-145) 141 mmol/L (136-145) Potassium Level 3.8 mmol/L (3.5-5.1) 4.3 mmol/L (3.5-5.1) Chloride Level 109 mmol/L (98-107) 109 mmol/L (98-107) Carbon Dioxide Level 24 mmol/L (21-32) 25 mmol/L (21-32) Anion Gap 9 (6-14) 7 (6-14) Blood Urea Nitrogen 24 mg/dL (8-26) 18 mg/dL (8-26) Creatinine 1.2 mg/dL (0.7-1.3) 0.9 mg/dL (0.7-1.3) Estimated GFR (Cockcroft-Gault) 69.8 97.3 BUN/Creatinine Ratio 20 (6-20) Glucose Level 69 mg/dL (70-99) 83 mg/dL (70-99) Calcium Level 8.6 mg/dL (8.5-10.1) 8.9 mg/dL (8.5-10.1) Magnesium Level 1.9 mg/dL (1.8-2.4) 1.8 mg/dL (1.8-2.4) Total Bilirubin 0.4 mg/dL (0.2-1.0) Aspartate Amino Transf (AST/SGOT) 109 U/L (15-37) Alanine Aminotransferase (ALT/SGPT) 34 U/L (16-63) Alkaline Phosphatase 116 U/L (46-116) Troponin I Quantitative < 0.017 ng/mL (0.000-0.055) Total Protein 6.0 g/dL (6.4-8.2) Albumin 2.6 g/dL (3.4-5.0) Albumin/Globulin Ratio 0.8 (1.0-1.7) Urine Collection Type Unknown Urine Color Yellow Urine Clarity Clear Urine pH 6.5 (<5.0-8.0) Urine Specific Leckrone 1.025 (1.000-1.030) Urine Protein Negative mg/dL (NEG-TRACE) Urine Glucose (UA) Negative mg/dL (NEG) Urine Ketones (Stick) Negative mg/dL (NEG) Urine Blood Negative (NEG) Urine Nitrite Negative (NEG) Urine Bilirubin Negative (NEG) Urine Urobilinogen Dipstick 1.0 mg/dL (0.2 mg/dL) Urine Leukocyte Esterase Negative (NEG) Urine RBC 0 /HPF (0-2) Urine WBC 1-4 /HPF (0-4) Urine Squamous Epithelial Cells Occ /LPF Urine Transitional Epithelial Cells Few /LPF Urine Bacteria 0 /HPF (0-FEW) Urine Hyaline Casts Moderate /HPF Urine Mucus Slight /LPF Phosphorus Level 2.8 mg/dL (2.6-4.7) Laboratory Tests Test 06/12/20 05:20 White Blood Count 4.9 x10^3/uL (4.0-11.0) Red Blood Count 3.30 x10^6/uL (4.30-5.70) Hemoglobin 10.7 g/dL (13.0-17.5) Hematocrit 32.8 % (39.0-53.0) Mean Corpuscular Volume 100 fL (79-100) Mean Corpuscular Hemoglobin 32 pg (25-35) Mean Corpuscular Hemoglobin Concent 33 g/dL (31-37) Red Cell Distribution Width 14.8 % (11.5-14.5) Platelet Count 146 x10^3/uL (140-400) Neutrophils (%) (Auto) 43 % (31-73) Lymphocytes (%) (Auto) 46 % (24-48) Monocytes (%) (Auto) 8 % (0-9) Eosinophils (%) (Auto) 3 % (0-3) Basophils (%) (Auto) 1 % (0-3) Neutrophils # (Auto) 2.1 x10^3/uL (1.8-7.7) Lymphocytes # (Auto) 2.2 x10^3/uL (1.0-4.8) Monocytes # (Auto) 0.4 x10^3/uL (0.0-1.1) Eosinophils # (Auto) 0.1 x10^3/uL (0.0-0.7) Basophils # (Auto) 0.0 x10^3/uL (0.0-0.2) Sodium Level 141 mmol/L (136-145) Potassium Level 4.3 mmol/L (3.5-5.1) Chloride Level 109 mmol/L (98-107) Carbon Dioxide Level 25 mmol/L (21-32) Anion Gap 7 (6-14) Blood Urea Nitrogen 18 mg/dL (8-26) Creatinine 0.9 mg/dL (0.7-1.3) Estimated GFR (Cockcroft-Gault) 97.3 Glucose Level 83 mg/dL (70-99) Calcium Level 8.9 mg/dL (8.5-10.1) Phosphorus Level 2.8 mg/dL (2.6-4.7) Magnesium Level 1.8 mg/dL (1.8-2.4) Images Images CT head: There is no acute or subacute extra-axial or intraparenchymal hemorrhage. There is no mass effect or midline shift. There is no hydrocephalus. There are extensive areas of hypodensity within the cerebral white matter due to chronic small vessel disease. There is a suspected small chronic infarct within the right basal ganglia. There is a chronic infarct within the right tawana. There is cerebral atrophy. The visualized portions of the orbits, paranasal sinuses and mastoid air cells are unremarkable. No suspicious calvarial lesion is seen. IMPRESSION: 1. Extensive scattered areas of hypodensity within the cerebral white matter likely due to chronic small vessel disease. 2. Suspected small chronic infarcts within the tawana and right basal ganglia. 3. 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 60 percent supraclinoid right internal carotid arterial stenosis due to calcific plaque Recommendations: Aspirin and statin Rehabilitation modalities Continue memantine Do not resume carbidopa/levodopa Medical treatment of the internal carotid artery stenosis. Fully discussed with the patient's . Continue to follow-up with [facility] At some point, continually admitting the patient to the hospital for these fainting episodes is unlikely to lead to a better quality of life. Thank you for letting me help with the patient's care. SALTY FORDE MD Jun 12, 2020 13:40
[2020-06-12 15:13] VITALS: BP 108/45
[2020-06-12 19:16] VITALS: BP 138/62
[2020-06-12] MEDS: ATORVASTATIN CALCIUM 20 MG TABLET PO SCH ×2 (21:03→21:08)
[2020-06-12] MEDS: TEMAZEPAM 15 MG CAPSULE PO SCH ×2 (21:03→21:08)
[2020-06-12] MEDS: LATANOPROST 0.005% OPHTH SOLUTION 2.5ML BOTTLE. OU SCH (21:07)
[2020-06-12 22:31] VITALS: BP 144/59
[2020-06-13 03:10] VITALS: BP 160/59
[2020-06-13 07:00] VITALS: BP 169/77
[2020-06-13] MEDS: DOCUSATE SODIUM 100 MG CAPSULE. PO PRN (08:16)
[2020-06-13] MEDS: SENNOSIDES 8.6 MG TABLET PO PRN (08:16)
[2020-06-13] MEDS: THIAMINE 100 MG TABLET. PO SCH (08:16)
[2020-06-13] MEDS: ASPIRIN ENTERIC COATED 81 MG TABLET.DR. PO SCH (08:16)
[2020-06-13] MEDS: CLOPIDOGREL BISULFATE 75 MG TABLET PO SCH (08:16)
[2020-06-13] MEDS: MULTIVITAMIN with MINERAL TABLET. PO SCH (08:16)
[2020-06-13] MEDS: ACETAMINOPHEN 325 MG TABLET. PO PRN (08:16)
[2020-06-13 10:43] VITALS: BP 100/50
--- NOTE | 2020-06-13 10:52 | PDOC ---
PROGRESS NOTES Date of Service: DATE: 06/13/20 TIME: 10:51 Chief Complaint Chief Complaint IMPRESSION: 1. Extensive scattered areas of hypodensity within the cerebral white matter likely due to chronic small vessel disease. 2. Suspected small chronic infarcts within the tawana and right basal ganglia. ECHo 04/30 <Conclusion> The left ventricle is normal size. The left ventricular systolic function is normal and the ejection fraction is wi thin normal range. The Ejection Fraction is 60-65%. There is borderline concentric left ventricular hypertrophy. Doppler and Color Flow revealed no significant aortic regurgitation. There is no significant aortic valvular stenosis. Doppler and Color-flow revealed trace mitral regurgitation. Doppler and Color Flow revealed no tricuspid valve regurgitation noted. IMPRESSION Assessment/Plan Syncope due to multiple etiologies such as postprandial, vasovagal, orthostatic hypotension, cardiovascular etiology, hypoglycemia, anemia, and medications Extensive scattered areas of hypodensity within the cerebral white matter likely due to chronic small vessel disease. Suspected small chronic infarcts within the t[place]ana and right basal ganglia. Hypotension, likely postprandial Hypoglycemia Severe protein malnutrition Debilitation PLAN CVC BED Admit to medicine for observation and evaluation Cardiology consult We will hold off on neurology consult for now due to clinical exam as patient has no focal lateralization or unilateral weakness. No obvious pronator drift observed. Continue telemetry monitoring Fall precautions Orthostatic vital signs Hold all centrally acting medications Hold all antihypertensive medications Pending medication reconciliation SCD for DVT prophylaxis Protonix GI prophylaxis ADA diet Full code Discussed with RN and SW Disposition inpatient management as above Suspected small chronic infarcts within the taawna and right basal ganglia., consult neurology Surrogate decision maker is the recent MRI HEAD REVIEWED d/w rn Advance care planning: A total time of > 17 minutes was spent from 1230 to 1300 face to face in discussion with the patient and family regarding their goals of care, end of life care, and pain management. Patient's was adamant about not pursuing aggressive care and does not want to have any trauma from CODE BLUE. does not wish for her to experience any traumatic chest c ompressions or even trauma from intubation. Ultimately, the wants her to be comfortable. History of Present Illness History of Present Illness Chief Complaint: Chief Complain: Syncope History of Present Illness: HPI: History obtained from the at bedside and also with the ED physician. Patient is an 85-year-old male with past medical history of history of CVA, CAD with multiple stents, hypertension, dyslipidemia, dementia who comes to the ED due to passing out in his wheelchair after breakfast. It was reported to the from the [facility] that the patient had breakfast and also took all of his blood pressure medications and patient had a syncopal episode if was found unresponsive in his wheelchair. states that this is happened in the past several times. Patient was also seen recently at [facility], but the was unsure of what was the exact diagnosis. She knows that the did get an EEG. Also she was told that this was likely degenerative disease due to his previous infarcts. Currently, patient is sitting upright in the gurney and eating lunch. Does not seem like there is any swallowing deficits and patient is able to follow commands. Patient currently denies any pain, dizziness, weakness, abdominal pain. Past Medical/Surgical History: PMH/PSH: Past Medical History: Arthritis, CVA, Dementia, GERD, High Cholesterol, Heart Disease, Hypertension, NE, BACK PAIN Past Surgical History: CARDIAC SURGERY, neck Allergies: Allergies: Coded Allergies: No Known Drug Allergies (Unverified , 07/28/15) Family History: Family History: Reviewed and no relevant findings on the chart. Social History: Social History: Smoking Status: Never Smoker Alcohol Use: None Drug Use: None Current Medications: Vitals Vitals Vital Signs Date Time Temp Pulse Resp B/P (MAP) Pulse Ox O2 Delivery O2 Flow Rate FiO2 06/13/20 10:43 98.2 70 18 100/50 (67) 99 Room Air 98.2 Physical Exam Physical Exam Physcial Exam: GEN: No apparent distress. Alert and oriented HEENT: Normal cephalic, atraumatic, external auditory canals are patent EYES: Extraocular muscles are intact, pupil are equally round and reactive to light and accommodation MUSCULOSKELETAL: Well developed , well nourished, good range of motion ENDOCRINE: No thyromegaly was palpated LYMPHATICS: No cervical chain or axillary nodes were noted HEMATOPOIETIC: No bruising NECK: Supple, no JVD, no thyromegaly was noted LUNGS: Clear to auscultation in all lung cardona without rhonchi or wheezing HEART: RRR, S!, S2 present. Peripheral pulses intact, no obvious murmurs noted ABDOMEN: Soft, nontender. Positive bowel sounds, no organomegaly, normal bowel sounds EXTREMITIES: Without clubbing, cyanosis, or edema. Pedal pulses intact. Negative Homans sign NEUROLOGIC: Normal speech and tone. A&O x 3, moves all extremities, no obvious focal deficits PSYCHIATRIC: Normal affect, normal mood. Stable SKIN: No ulcerations or rashes, good skin turgor, no jaundice VASCULAR: Good capillary refill, neurovascular bundle appears to be intact General: Alert, Cooperative, No acute distress Heart: Regular rate Lungs: Clear Abdomen: Normal bowel sounds, Soft Extremities: No cyanosis Assessment and Plan Assessmemt and Plan Problems Medical Problems: (1) Hypotension Status: Acute Comment Review of Relevant I have reviewed the following items rahul (where applicable) has been applied. Labs Laboratory Tests Test 06/12/20 05:20 White Blood Count 4.9 x10^3/uL (4.0-11.0) Red Blood Count 3.30 x10^6/uL (4.30-5.70) Hemoglobin 10.7 g/dL (13.0-17.5) Hematocrit 32.8 % (39.0-53.0) Mean Corpuscular Volume 100 fL (79-100) Mean Corpuscular Hemoglobin 32 pg (25-35) Mean Corpuscular Hemoglobin Concent 33 g/dL (31-37) Red Cell Distribution Width 14.8 % (11.5-14.5) Platelet Count 146 x10^3/uL (140-400) Neutrophils (%) (Auto) 43 % (31-73) Lymphocytes (%) (Auto) 46 % (24-48) Monocytes (%) (Auto) 8 % (0-9) Eosinophils (%) (Auto) 3 % (0-3) Basophils (%) (Auto) 1 % (0-3) Neutrophils # (Auto) 2.1 x10^3/uL (1.8-7.7) Lymphocytes # (Auto) 2.2 x10^3/uL (1.0-4.8) Monocytes # (Auto) 0.4 x10^3/uL (0.0-1.1) Eosinophils # (Auto) 0.1 x10^3/uL (0.0-0.7) Basophils # (Auto) 0.0 x10^3/uL (0.0-0.2) Sodium Level 141 mmol/L (136-145) Potassium Level 4.3 mmol/L (3.5-5.1) Chloride Level 109 mmol/L (98-107) Carbon Dioxide Level 25 mmol/L (21-32) Anion Gap 7 (6-14) Blood Urea Nitrogen 18 mg/dL (8-26) Creatinine 0.9 mg/dL (0.7-1.3) Estimated GFR (Cockcroft-Gault) 97.3 Glucose Level 83 mg/dL (70-99) Calcium Level 8.9 mg/dL (8.5-10.1) Phosphorus Level 2.8 mg/dL (2.6-4.7) Magnesium Level 1.8 mg/dL (1.8-2.4) Medications Current Medications Sodium Chloride 1,000 ml @ 1,000 mls/hr 1X ONCE IV Last administered on 06/11/20at 09:45; Start 06/11/20 at 09:45; Stop 06/11/20 at 10:44; Status DC Sennosides (Senna) 17.2 mg PRN BID PRN PO CONSTIPATION Last administered on 06/13/20at 08:16; Start 06/11/20 at 13:30 Docusate Sodium (Colace) 100 mg PRN DAILY PRN PO HARD STOOLS Last administered on 06/13/20at 08:16; Start 06/11/20 at 13:30 Thiamine HCl 100 mg/Dextrose 51 ml @ 102 mls/hr DAILY IV Last administered on 06/11/20at 15:02; Start 06/11/20 at 14:00; Stop 06/12/20 at 03:50; Status DC Ondansetron HCl (Zofran) 4 mg PRN Q6HRS PRN IVP NAUSEA/VOMITING; Start 06/11/20 at 13:30 Potassium Chloride (Klor-Con) 40 meq 1X PRN PO PER PROTOCOL; Start 06/11/20 at 13:30; Status UNV Magnesium Oxide (Magnesium Oxide) 400 mg BID PO ; Start 06/11/20 at 21:00; Stop 06/13/20 at 09:01; Status UNV Potassium Chloride/Water 100 ml @ 100 mls/hr Q1H IV ; Start 06/11/20 at 13:30; Stop 06/11/20 at 17:29; Status UNV Magnesium Sulfate 50 ml @ 25 mls/hr Q24H IV ; Start 06/11/20 at 13:30; Stop 06/13/20 at 15:29; Status UNV Potassium Chloride/Water 100 ml @ 100 mls/hr Q1H PRN IV low k; Start 06/11/20 at 13:30; Status UNV Dextrose (Dextrose 50%-Water Syringe) 12.5 gm PRN Q15MIN PRN IV SEE COMMENTS; Start 06/11/20 at 13:30 Acetaminophen (Tylenol) 650 mg PRN Q8HRS PRN PO MILD PAIN 1-3 Last administered on 06/13/20at 08:16; Start 06/11/20 at 13:30 Aspirin (Ecotrin) 81 mg DAILY PO Last administered on 06/13/20at 08:16; Start 06/11/20 at 14:00 Atorvastatin Calcium (Lipitor) 20 mg QHS PO Last administered on 06/11/20at 21:08; Start 06/11/20 at 21:00 Clopidogrel Bisulfate (Plavix) 75 mg DAILY PO Last administered on 06/13/20at 08:16; Start 06/12/20 at 09:00 Latanoprost (Xalatan) 1 drop QHS OU Last administered on 06/11/20at 21:08; Start 06/11/20 at 21:00 Temazepam (Restoril) 15 mg QHS PO Last administered on 06/11/20at 21:08; Start 06/11/20 at 21:00 Glycerin/ Hypromellose/ Polyethylene (Artificial Tears) 1 drop PRN Q4HRS PRN OU DRY EYE; Start 06/11/20 at 14:00; Status Cancel Multivitamins (Thera M Plus) 1 tab DAILY PO Last administered on 06/13/20at 08:16; Start 06/12/20 at 09:00 Info (Non-Icu Electrolyte Protocol) 1 ea CONT PRN PRN MC SEE COMMENTS; Start 06/11/20 at 14:00 Glycerin/ Hypromellose/ Polyethylene (Artificial Tears) 1 drop PRN Q4HRS PRN OU DRY EYE; Start 06/11/20 at 14:15 Thiamine Mononitrate (Vitamin B-1) 100 mg DAILY PO Last administered on 06/13/20at 08:16; Start 06/12/20 at 09:00 Memantine (Namenda) 5 mg QHS PO ; Start 06/13/20 at 21:00 Active Scripts Active Atorvastatin Calcium 20 Mg Tablet 1 Tab PO DAILY Proair Hfa (Albuterol Sulfate) 8.5 Gm Hfa.aer.ad 2.5 Mg NEB PRN Q4HRS PRN 14 Days Reported Clopidogrel (Clopidogrel Bisulfate) 75 Mg Tablet 1 Tab PO DAILY Lisinopril 5 Mg Tablet 2 Tab PO DAILY Senna Laxative (Sennosides) 8.6 Mg Tablet 1 Tab PO BID 30 Days Melatonin 3 Mg Tablet 1 Tab PO QHS PRN Guaifenesin Ac Cough Syrup (Guaifenesin/Codeine Phosphate) 473 Ml Liquid 10 Ml PO PRN Q4-6HRS PRN MDD 60 Milliliter(s) 4 Days Carbidopa-Levodopa 25-100 Tab (Carbidopa/Levodopa) 1 Each Tablet 1 Tab PO QID 30 Days Baclofen 5 Mg Tablet 5 Mg PO QHS PRN Namenda (Memantine Hcl) 10 Mg Tablet 5 Mg PO HS Aspirin Ec (Aspirin) 81 Mg Tablet.dr 1 Tab PO DAILY Robaxin-750 (Methocarbamol) 750 Mg Tablet 1 Tab PO TID 30 Days Refresh Tears (Carboxymethylcellulose Sodium) 15 Ml Drops 15 Ml OP PRN Q4-6HRS PRN Nasal [place] (Sodium Chloride) 44 Ml [place] 1 [place] NS BID 30 Days Centrum Silver Tablet (Multivits-Min/Fa/Lycopene/Lut) 1 Each Tablet 1 Each PO DAILY Acetaminophen 325 Mg Tablet 650 Mg PO PRN Q8HRS PRN Latanoprost 2.5 Ml Drops 1 Drop EACHEYE QHS Flomax (Tamsulosin Hcl) 0.4 Mg Cap.er.24h 0.4 Mg PO HS Vitals/I & O Vital Sign - Last 24 Hours 06/12/20 06/12/20 06/12/20 06/12/20 11:12 15:13 19:16 19:35 Temp 97.6 98.2 99.1 97.6 98.2 99.1 Pulse 69 68 69 Resp 18 16 16 B/P (MAP) 129/55 (79) 108/45 (66) 138/62 (87) Pulse Ox 98 100 99 O2 Delivery Room Air Room Air Room Air Room Air 06/12/20 06/13/20 06/13/20 06/13/20 22:31 03:10 07:00 08:00 Temp 98.0 98.6 98.5 98.0 98.6 98.5 Pulse 73 58 62 Resp 16 16 20 B/P (MAP) 144/59 (87) 160/59 (92) 169/77 (107) Pulse Ox 99 100 100 O2 Delivery Room Air Room Air Room Air Room Air 06/13/20 10:43 Temp 98.2 98.2 Pulse 70 Resp 18 B/P (MAP) 100/50 (67) Pulse Ox 99 O2 Delivery Room Air Intake and Output 06/12/20 06/12/20 06/13/20 15:00 23:00 07:00 Intake Total 820 ml 0 ml Output Total 225 ml 150 ml Balance 595 ml -150 ml Justicifation of Admission Dx: Justifications for Admission: Justification of Admission Dx: Yes JERMAIN GOMEZ MD Jun 13, 2020 10:52
[2020-06-13 15:00] VITALS: BP 111/49
[2020-06-13 19:25] VITALS: BP 128/60
[2020-06-13] MEDS: LATANOPROST 0.005% OPHTH SOLUTION 2.5ML BOTTLE. OU SCH (20:03)
[2020-06-13] MEDS: ATORVASTATIN CALCIUM 20 MG TABLET PO SCH (20:03)
[2020-06-13] MEDS: MEMANTINE 5 MG TABLET. PO SCH (20:03)
[2020-06-13] MEDS: TEMAZEPAM 15 MG CAPSULE PO SCH (20:03)
[2020-06-13 22:45] VITALS: BP 138/48
[2020-06-14 03:05] VITALS: BP 120/49
[2020-06-14 07:50] VITALS: BP 140/86
[2020-06-14] MEDS: THIAMINE 100 MG TABLET. PO SCH (08:25)
[2020-06-14] MEDS: ASPIRIN ENTERIC COATED 81 MG TABLET.DR. PO SCH (08:25)
[2020-06-14] MEDS: SENNOSIDES 8.6 MG TABLET PO PRN (08:25)
[2020-06-14] MEDS: CLOPIDOGREL BISULFATE 75 MG TABLET PO SCH (08:26)
[2020-06-14] MEDS: MULTIVITAMIN with MINERAL TABLET. PO SCH (08:26)
[2020-06-14] MEDS: DOCUSATE SODIUM 100 MG CAPSULE. PO PRN (08:26)
--- NOTE | 2020-06-14 08:57 | PDOC ---
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 60 percent supraclinoid right internal carotid arterial stenosis due to calcific plaque Plan Aspirin and statin Rehabilitation modalities Continue memantine Do not resume carbidopa/levodopa Medical treatment of the internal carotid artery stenosis. Continue to follow-up with neurology Subjective No complaints Objective Vital Signs Date Time Temp Pulse Resp B/P (MAP) Pulse Ox O2 Delivery O2 Flow Rate FiO2 06/14/20 03:05 98.4 67 18 120/49 (72) 97 Room Air 98.4 Intake and Output 06/14/20 07:00 Intake Total 200 ml Balance 200 ml Intake Oral 200 ml # Voids 5 # Bowel Movements 1 PHYSICAL EXAM Alert. Oriented only to person. PERRL. EOMI. CN: no focal findings. Muscle tone: increased on the left Muscle strength: 3/5 left arm, 4-/5 left leg, 5-/5 on right DTR: 1+ Plantar reflex: flexor Gait: not examined in bed. Sensory exam: no abnormal findings. No cerebellar signs elicited. Review of Relevant I have reviewed the following items rahul (where applicable) has been applied. Medications Current Medications Sodium Chloride 1,000 ml @ 1,000 mls/hr 1X ONCE IV Last administered on 06/11/20at 09:45; Start 06/11/20 at 09:45; Stop 06/11/20 at 10:44; Status DC Sennosides (Senna) 17.2 mg PRN BID PRN PO CONSTIPATION Last administered on 06/14/20at 08:25; Start 06/11/20 at 13:30 Docusate Sodium (Colace) 100 mg PRN DAILY PRN PO HARD STOOLS Last administered on 06/14/20at 08:26; Start 06/11/20 at 13:30 Thiamine HCl 100 mg/Dextrose 51 ml @ 102 mls/hr DAILY IV Last administered on 06/11/20at 15:02; Start 06/11/20 at 14:00; Stop 06/12/20 at 03:50; Status DC Ondansetron HCl (Zofran) 4 mg PRN Q6HRS PRN IVP NAUSEA/VOMITING; Start 06/11/20 at 13:30 Potassium Chloride (Klor-Con) 40 meq 1X PRN PO PER PROTOCOL; Start 06/11/20 at 13:30; Status UNV Magnesium Oxide (Magnesium Oxide) 400 mg BID PO ; Start 06/11/20 at 21:00; Stop 06/13/20 at 09:01; Status UNV Potassium Chloride/Water 100 ml @ 100 mls/hr Q1H IV ; Start 06/11/20 at 13:30; Stop 06/11/20 at 17:29; Status UNV Magnesium Sulfate 50 ml @ 25 mls/hr Q24H IV ; Start 06/11/20 at 13:30; Stop 06/13/20 at 15:29; Status UNV Potassium Chloride/Water 100 ml @ 100 mls/hr Q1H PRN IV low k; Start 06/11/20 at 13:30; Status UNV Dextrose (Dextrose 50%-Water Syringe) 12.5 gm PRN Q15MIN PRN IV SEE COMMENTS; Start 06/11/20 at 13:30 Acetaminophen (Tylenol) 650 mg PRN Q8HRS PRN PO MILD PAIN 1-3 Last administered on 06/13/20at 08:16; Start 06/11/20 at 13:30 Aspirin (Ecotrin) 81 mg DAILY PO Last administered on 06/14/20at 08:25; Start 06/11/20 at 14:00 Atorvastatin Calcium (Lipitor) 20 mg QHS PO Last administered on 06/13/20at 20:03; Start 06/11/20 at 21:00 Clopidogrel Bisulfate (Plavix) 75 mg DAILY PO Last administered on 06/14/20at 08:26; Start 06/12/20 at 09:00 Latanoprost (Xalatan) 1 drop QHS OU Last administered on 06/13/20at 20:03; Start 06/11/20 at 21:00 Temazepam (Restoril) 15 mg QHS PO Last administered on 06/13/20at 20:03; Start 06/11/20 at 21:00 Glycerin/ Hypromellose/ Polyethylene (Artificial Tears) 1 drop PRN Q4HRS PRN OU DRY EYE; Start 06/11/20 at 14:00; Status Cancel Multivitamins (Thera M Plus) 1 tab DAILY PO Last administered on 06/14/20at 08:26; Start 06/12/20 at 09:00 Info (Non-Icu Electrolyte Protocol) 1 ea CONT PRN PRN MC SEE COMMENTS; Start 06/11/20 at 14:00 Glycerin/ Hypromellose/ Polyethylene (Artificial Tears) 1 drop PRN Q4HRS PRN OU DRY EYE; Start 06/11/20 at 14:15 Thiamine Mononitrate (Vitamin B-1) 100 mg DAILY PO Last administered on 06/14/20at 08:25; Start 06/12/20 at 09:00 Memantine (Namenda) 5 mg QHS PO Last administered on 06/13/20at 20:03; Start 06/13/20 at 21:00 Active Scripts Active Atorvastatin Calcium 20 Mg Tablet 1 Tab PO DAILY Proair Hfa (Albuterol Sulfate) 8.5 Gm Hfa.aer.ad 2.5 Mg NEB PRN Q4HRS PRN 14 Days Reported Clopidogrel (Clopidogrel Bisulfate) 75 Mg Tablet 1 Tab PO DAILY Lisinopril 5 Mg Tablet 2 Tab PO DAILY Senna Laxative (Sennosides) 8.6 Mg Tablet 1 Tab PO BID 30 Days Melatonin 3 Mg Tablet 1 Tab PO QHS PRN Guaifenesin Ac Cough Syrup (Guaifenesin/Codeine Phosphate) 473 Ml Liquid 10 Ml PO PRN Q4-6HRS PRN MDD 60 Milliliter(s) 4 Days Carbidopa-Levodopa 25-100 Tab (Carbidopa/Levodopa) 1 Each Tablet 1 Tab PO QID 30 Days Baclofen 5 Mg Tablet 5 Mg PO QHS PRN Namenda (Memantine Hcl) 10 Mg Tablet 5 Mg PO HS Aspirin Ec (Aspirin) 81 Mg Tablet.dr 1 Tab PO DAILY Robaxin-750 (Methocarbamol) 750 Mg Tablet 1 Tab PO TID 30 Days Refresh Tears (Carboxymethylcellulose Sodium) 15 Ml Drops 15 Ml OP PRN Q4-6HRS PRN Nasal [place] (Sodium Chloride) 44 Ml [place] 1 [place] NS BID 30 Days Centrum Silver Tablet (Multivits-Min/Fa/Lycopene/Lut) 1 Each Tablet 1 Each PO DAILY Acetaminophen 325 Mg Tablet 650 Mg PO PRN Q8HRS PRN Latanoprost 2.5 Ml Drops 1 Drop EACHEYE QHS Flomax (Tamsulosin Hcl) 0.4 Mg Cap.er.24h 0.4 Mg PO HS Vitals/I & O Vital Sign - Last 24 Hours 06/13/20 06/13/20 06/13/20 06/13/20 10:43 15:00 19:13 19:25 Temp 98.2 99.1 98.6 98.2 99.1 98.6 Pulse 70 66 70 Resp 18 19 18 B/P (MAP) 100/50 (67) 111/49 (69) 128/60 (82) Pulse Ox 99 98 98 O2 Delivery Room Air Room Air Room Air Room Air 06/13/20 06/14/20 22:45 03:05 Temp 97.9 98.4 97.9 98.4 Pulse 72 67 Resp 18 18 B/P (MAP) 138/48 (78) 120/49 (72) Pulse Ox 96 97 O2 Delivery Room Air Room Air Intake and Output 06/13/20 06/13/20 06/14/20 15:00 23:00 07:00 Intake Total 200 ml 0 ml Balance 200 ml 0 ml Justicifation of Admission Dx: Justifications for Admission: Justification of Admission Dx: Yes SALTY FORDE MD Jun 14, 2020 08:57
--- NOTE | 2020-06-14 10:23 | SNU/HH DC ---
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 right internal carotid arterial stenosis Problems Medical Problems: (1) Hypotension Status: Acute CONDITION ON DISCHARGE: Stable CODE STATUS: Code Status: DNR/DNI LONG-TERM: SNF STAY <30 DAYS: No HOSPICE: HOSPICE: Yes POST DISCHARGE ORDERS: ACTIVITY ORDERS: Activity as tolerated WEIGHT BEARING STATUS: As tolerated BATHING ORDERS: Shower-keep dressing dry DIET AFTER DISCHARGE: Cardiac WOUND/INCISION CARE: Change dressing CHECKS AFTER DISCHARGE: CHECKS AFTER DISCHARGE: Check blood press - daily FOLLOW-UP: PHYSICIAN FOLLOW-UP: [facility] as able ADDITIONAL FOLLOW-UP: primary care TREATMENT/EQUIPMENT ORDERS: ADAPTIVE EQUIPMENT NEEDED: None RESPIRATORY EQUIPMENT NEEDED: Nebulizer Physical Therapy For: Evalulation/Treatment Occupational Therapy For: Evaluation/Treatment DISCHARGE MEDICATIONS: Home Meds Active Scripts Atorvastatin Calcium (ATORVASTATIN CALCIUM) 20 Mg Tablet, 1 TAB PO DAILY for CVA, #30 TAB 5 Refills Prov:SHAILESH DENTON MD 05/20/20 Albuterol Sulfate (Proair Hfa) 8.5 Gm Hfa.aer.ad, 2.5 MG NEB PRN Q4HRS PRN for SHORTNESS OF BREATH for 14 Days, #90 EACH Prov:JERMAIN GOMEZ MD 03/10/20 Reported Medications Clopidogrel Bisulfate (CLOPIDOGREL) 75 Mg Tablet, 1 TAB PO DAILY for cva, #90 TAB 1 Refill 06/11/20 Lisinopril (LISINOPRIL) 5 Mg Tablet, 2 TAB PO DAILY for htn, #30 TAB 5 Refills 06/11/20 Sennosides (SENNA LAXATIVE) 8.6 Mg Tablet, 1 TAB PO BID for constipation for 30 Days, #60 TAB 0 Refills 06/11/20 Melatonin (MELATONIN) 3 Mg Tablet, 1 TAB PO QHS PRN for INSOMNIA, #30 TAB 2 Refills 06/11/20 Guaifenesin/Codeine Phosphate (GUAIFENESIN AC COUGH SYRUP) 473 Ml Liquid, 10 ML PO PRN Q4-6HRS PRN for cough and congestion MDD 60 Milliliter(s) for 4 Days, #240 ML 0 Refills 06/11/20 Baclofen (Baclofen) 5 Mg Tablet, 5 MG PO QHS PRN for muscle relaxer, TAB 06/11/20 Memantine Hcl (NAMENDA) 10 Mg Tablet, 5 MG PO HS for mental health, TAB 05/18/20 Aspirin (ASPIRIN EC) 81 Mg Tablet.dr, 1 TAB PO DAILY for blood thinner, #30 TAB 3 Refills 05/18/20 Carboxymethylcellulose Sodium (REFRESH TEARS) 15 Ml Drops, 15 ML OP PRN Q4-6HRS PRN for ALLERGIES, DROP 05/18/20 Sodium Chloride (NASAL SPRAY) 44 Ml [employer], 1 SPRAY NS BID for sinuses for 30 Days, #44 ML 0 Refills 05/18/20 Multivits-Min/Fa/Lycopene/Lut (CENTRUM SILVER TABLET) 1 Each Tablet, 1 EACH PO DAILY for SUPPLEMENT, TAB 04/30/20 Acetaminophen (ACETAMINOPHEN) 325 Mg Tablet, 650 MG PO PRN Q8HRS PRN for PAIN, TAB 04/30/20 Latanoprost (LATANOPROST) 2.5 Ml Drops, 1 DROP EACHEYE QHS for dry eye, #7.5 ML 3 Refills 03/03/20 Tamsulosin Hcl (FLOMAX) 0.4 Mg Cap.er.24h, 0.4 MG PO HS for prostate, TAB 03/03/20 Discontinued Reported Medications Carbidopa/Levodopa (CARBIDOPA-LEVODOPA 25-100 TAB) 1 Each Tablet, 1 TAB PO QID for parkinson's for 30 Days, #120 TAB 0 Refills 06/11/20 Methocarbamol (ROBAXIN-750) 750 Mg Tablet, 1 TAB PO TID for muscle spasms for 30 Days, #90 TAB 0 Refills 05/18/20 Temazepam (TEMAZEPAM) 15 Mg Capsule, 1 CAP PO QHS for sleep, #30 CAP 1 Refill 05/18/20 Aloe Vera (ALOE VERA) 25 Mg Capsule, 25 MG PO DAILY for HOME MED, CAP 04/30/20 Lisinopril (LISINOPRIL) 5 Mg Tablet, 5 MG PO DAILY for FOR HYPERTENSION, #30 TAB 0 Refills 06/18/15 SAIDA GLYNN MD Jun 14, 2020 10:23
--- NOTE | 2020-06-14 10:27 | PDOC3 ---
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 60 percent supraclinoid right internal carotid arterial stenosis due to calcific plaque Syncope due to multiple etiologies such as postprandial, vasovagal, orthostatic hypotension, cardiovascular etiology, Hypotension, likely postprandial Hypoglycemia Severe protein malnutrition Debilitation, weakness Problems Medical Problems: (1) Hypotension Status: Acute Brief Hospital Course Allergies Allergies Coded Allergies Type Severity Reaction Last Updated Verified No Known Drug Allergies 07/28/15 No Vital Signs Vital Signs Date Time Temp Pulse Resp B/P (MAP) Pulse Ox O2 Delivery O2 Flow Rate FiO2 06/14/20 08:00 Room Air 06/14/20 07:50 97.9 59 16 140/86 (104) 97.9 06/14/20 03:05 97 Brief Hospital Course Mr. Osorio is a 85 old male, admit with acute on chronic confusion, prior strokes, likely vascualr dementia and alzheimers plan Aspirin and statin Rehabilitation modalities Continue memantine Do not resume carbidopa/levodopa Medical treatment of the internal carotid artery stenosis. Continue to follow-up with neurology Discharge Information Condition at Discharge: Improved Disposition/Orders: D/C to Another Facility Scheduled Aspirin (Aspirin Ec) 81 Mg Tablet.dr, 1 TAB PO DAILY for blood thinner, #30 Ref 3 (Reported) Entered as Reported by: TAYLOR WOODS on 05/18/20 6017 Last Action: Reviewed on 06/11/202002 by BRAXTON WHARTON RN Atorvastatin Calcium (Atorvastatin Calcium) 20 Mg Tablet, 1 TAB PO DAILY for CVA, #30 Ref 5 Prescribed by: SHAILESH DENTON MD on 05/20/20 1125 Last Action: Reviewed on 06/11/202002 by BRAXTON WHARTON RN Clopidogrel Bisulfate (Clopidogrel) 75 Mg Tablet, 1 TAB PO DAILY for cva, #90 Ref 1 (Reported) Entered as Reported by: BRAXTON WHARTON RN on 06/11/202016 Last Action: New Order on 06/11/202016 by BRAXTON WHARTON RN Latanoprost (Latanoprost) 2.5 Ml Drops, 1 DROP EACHEYE QHS for dry eye, #7.5 Ref 3 (Reported) Entered as Reported by: TABITHA TOLBERT on 03/03/20 1567 Last Action: Reviewed on 06/11/202002 by BRAXTON WHARTON RN Lisinopril (Lisinopril) 5 Mg Tablet, 2 TAB PO DAILY for htn, #30 Ref 5 (Reported) Entered as Reported by: BRAXTON WHARTON RN on 06/11/202002 Last Action: New Order on 06/11/202002 by BRAXTON WHARTON RN Memantine Hcl (Namenda) 10 Mg Tablet, 5 MG PO HS for mental health, (Reported) Entered as Reported by: TAYLOR WOODS on 05/18/202308 Last Action: Continued on 06/12/201337 by Kota David Multivits-Min/Fa/Lycopene/Lut (Centrum Silver Tablet) 1 Each Tablet, 1 EACH PO DAILY for SUPPLEMENT, (Reported) Entered as Reported by: DIANA PENALOZA on 04/30/20 102 Last Action: Reviewed on 06/11/202002 by BRAXTON WHARTON RN Sennosides (Senna Laxative) 8.6 Mg Tablet, 1 TAB PO BID for constipation for 30 Days, #60 Ref 0 (Reported) Entered as Reported by: BRAXTON WHARTON RN on 06/11/202002 Last Action: New Order on 06/11/202002 by BRAXTON WHARTON RN Sodium Chloride (Nasal Machias) 44 Ml [place]ias, 1 SPRAY NS BID for sinuses for 30 Days, #44 Ref 0 (Reported) Entered as Reported by: TAYLOR WOODS on 05/18/202308 Tamsulosin Hcl (Flomax) 0.4 Mg Cap.er.24h, 0.4 MG PO HS for prostate, (Reported) Entered as Reported by: TABITHA TOLBERT on 03/03/20 8967 Last Action: Reviewed on 06/11/202002 by BRAXTON WHARTON RN Scheduled PRN Acetaminophen (Acetaminophen) 325 Mg Tablet, 650 MG PO PRN Q8HRS PRN for PAIN, (Reported) Entered as Reported by: DIANA PENALOZA on 04/30/20 1029 Last Action: Reviewed on 06/11/202002 by BRAXTON WHARTON RN Albuterol Sulfate (Proair Hfa) 8.5 Gm Hfa.aer.ad, 2.5 MG NEB PRN Q4HRS PRN for SHORTNESS OF BREATH for 14 Days, #90 Prescribed by: JERMAIN GOMEZ MD on 03/10/20 1054 Last Action: Reviewed on 06/11/202002 by BRAXTON WHARTON RN Baclofen (Baclofen) 5 Mg Tablet, 5 MG PO QHS PRN for muscle relaxer, (Reported) Entered as Reported by: BRAXTON WHARTON RN on 06/11/202002 Last Action: New Order on 06/11/202002 by BRAXTON WHARTON RN Carboxymethylcellulose Sodium (Refresh Tears) 15 Ml Drops, 15 ML OP PRN Q4-6HRS PRN for ALLERGIES, (Reported) Entered as Reported by: TAYLOR WOODS on 05/18/20 2309 Last Action: Converted on 06/11/20 1335 by ALPHONSO RODRÍGUEZ MD Guaifenesin/Codeine Phosphate (Guaifenesin Ac Cough Syrup) 473 Ml Liquid, 10 ML PO PRN Q4-6HRS PRN for cough and congestion MDD 60 Milliliter(s) for 4 Days, #240 Ref 0 (Reported) Entered as Reported by: BRAXTON WHARTON RN on 06/11/202002 Last Action: New Order on 06/11/202002 by BRAXTON WHARTON RN Melatonin (Melatonin) 3 Mg Tablet, 1 TAB PO QHS PRN for INSOMNIA, #30 Ref 2 (Reported) Entered as Reported by: BRAXTON WHARTON RN on 06/11/202002 Last Action: New Order on 06/11/202002 by BRAXTON WHARTON RN Discontinued Medications Aloe Vera (Aloe Vera) 25 Mg Capsule, 25 MG PO DAILY for HOME MED, (Reported) Entered as Reported by: DIANA PENALOZA on 04/30/20 1029 Last Action: Discontinued on 06/11/202002 by BRAXTON WHARTON RN Carbidopa/Levodopa (Carbidopa-Levodopa 25-100 Tab) 1 Each Tablet, 1 TAB PO QID for parkinson's for 30 Days, #120 Ref 0 (Reported) Entered as Reported by: BRAXTON WHARTON RN on 06/11/202002 Last Action: New Order on 06/11/202002 by BRAXTON WHARTON RN Lisinopril (Lisinopril) 5 Mg Tablet, 5 MG PO DAILY for FOR HYPERTENSION, #30 Ref 0 (Reported) Entered as Reported by: SABRINA CHEN on 06/18/15 1134 Last Action: Discontinued on 06/11/202002 by BRAXTON WHARTON RN Methocarbamol (Robaxin-750) 750 Mg Tablet, 1 TAB PO TID for muscle spasms for 30 Days, #90 Ref 0 (Reported) Entered as Reported by: TAYLOR WOODS on 05/18/202308 Last Action: Reviewed on 06/11/202002 by BRAXTON WHARTON RN Temazepam (Temazepam) 15 Mg Capsule, 1 CAP PO QHS for sleep, #30 Ref 1 (Reported) Entered as Reported by: TAYLOR WOODS on 05/18/202308 Last Action: Discontinued on 06/11/202002 by BRAXTON WHARTON, FLYNN Patient Instructions Patient Instructions > 30 min face to face, will see at [place] Justicifation of Admission Dx: Justifications for Admission: Justification of Admission Dx: Yes SAIDA GLYNN MD Jun 14, 2020 10:27
[2020-06-14 11:00] VITALS: BP 130/60
--- NOTE | 2020-06-14 13:58 | NUR ---
SS following for discharge planning. SS reviewed pt chart and discussed with pt RN. Pt is skilled rehabilitation resident from [facility], ; fax [phone]. Pt is currently on room air. COVID19 negative. Discharge orders received for return to [facility]. SS phoned and faxed discharge orders and clinical to [facility]. Pt, pt's family, and pt's RN notified.
--- NOTE | 2020-06-14 14:32 | PDOC ---
PROGRESS NOTES Date of Service: DATE: 06/14/20 TIME: 14:31 Chief Complaint Chief Complaint 1. Extensive scattered areas of hypodensity within the cerebral white matter likely due to chronic small vessel disease. 2. Suspected small chronic infarcts within the tawana and right basal ganglia. ECHO The left ventricle is normal size. The left ventricular systolic function is normal and the ejection fraction is within normal range. The Ejection Fraction is 60-65%. There is borderline concentric left ventricular hypertrophy. Doppler and Color Flow revealed no significant aortic regurgitation. There is no significant aortic valvular stenosis. Doppler and Color-flow revealed trace mitral regurgitation. Doppler and Color Flow revealed no tricuspid valve regurgitation noted. IMPRESSION Assessment/Plan Syncope due to multiple etiologies such as postprandial, vasovagal, orthostatic hypotension, cardiovascular etiology, hypoglycemia, anemia, and medications Extensive scattered areas of hypodensity within the cerebral white matter likely due to chronic small vessel disease. Suspected small chronic infarcts within the tawana and right basal ganglia. Hypotension, likely postprandial Hypoglycemia Severe protein malnutrition Debilitation PLAN CVC BED Admit to medicine for observation and evaluation Cardiology consult We will hold off on neurology consult for now due to clinical exam as patient has no focal lateralization or unilateral weakness. No obvious pronator drift observed. Continue telemetry monitoring Fall precautions Orthostatic vital signs Hold all centrally acting medications Hold all antihypertensive medications Pending medication reconciliation SCD for DVT prophylaxis Protonix GI prophylaxis ADA diet Full code Discussed with RN and SW Disposition inpatient management as above Suspected small chronic infarcts within the tawana and right basal ganglia., consult neurology Surrogate decision maker is the recent MRI HEAD REVIEWED d/w rn Advance care planning: A total time of > 17 minutes was spent from 1230 to 1300 face to face in discussion with the patient and family regarding their goals of care, end of life care, and pain management. Patient's was adamant about not pursuing aggressive care and does not want to have any trauma from CODE BLUE. does not wish for her to experience any traumatic chest compressions or even trauma from intubation. Ultimately, the wants her to be comfortable. History of Present Illness History of Present Illness Chief Complaint: Chief Complain: Syncope History of Present Illness: HPI: History obtained from the at bedside and also with the ED physician. Patient is an 85-year-old male with past medical history of history of CVA, CAD with multiple stents, hypertension, dyslipidemia, dementia who comes to the ED due to passing out in his wheelchair after breakfast. It was reported to the from the snf that the patient had breakfast and also took all of his blood pressure medications and patient had a syncopal episode if was found unresponsive in his wheelchair. states that this is happened in the past several times. Patient was also seen recently at [facility], but the was unsure of what was the exact diagnosis. She knows that the did get an EEG. Also she was told that this was likely degenerative disease due to his previous infarcts. Currently, patient is sitting upright in the gurney and eating lunch. Does not seem like there is any swallowing deficits and patient is able to follow commands. Patient currently denies any pain, dizziness, weakness, abdominal pain. Past Medical/Surgical History: PMH/PSH: Past Medical History: Arthritis, CVA, Dementia, GERD, High Cholesterol, Heart Disease, Hypertension, [place], BACK PAIN Past Surgical History: CARDIAC SURGERY, neck Allergies: Allergies: Coded Allergies: No Known Drug Allergies (Unverified , 07/28/15) Family History: Family History: Reviewed and no relevant findings on the chart. Social History: Social History: Smoking Status: Never Smoker Alcohol Use: None Drug Use: None Current Medications: Vitals Vitals Vital Signs Date Time Temp Pulse Resp B/P (MAP) Pulse Ox O2 Delivery O2 Flow Rate FiO2 06/14/20 11:00 97.8 74 20 130/60 (83) 99 Room Air 97.8 Physical Exam Physical Exam Physcial Exam: GEN: No apparent distress. Alert and oriented HEENT: Normal cephalic, atraumatic, external auditory canals are patent EYES: Extraocular muscles are intact, pupil are equally round and reactive to light and accommodation MUSCULOSKELETAL: Well developed , well nourished, good range of motion ENDOCRINE: No thyromegaly was palpated LYMPHATICS: No cervical chain or axillary nodes were noted HEMATOPOIETIC: No bruising NECK: Supple, no JVD, no thyromegaly was noted LUNGS: Clear to auscultation in all lung cardona without rhonchi or wheezing HEART: RRR, S!, S2 present. Peripheral pulses intact, no obvious murmurs noted ABDOMEN: Soft, nontender. Positive bowel sounds, no organomegaly, normal bowel sounds EXTREMITIES: Without clubbing, cyanosis, or edema. Pedal pulses intact. Negative Homans sign NEUROLOGIC: Normal speech and tone. A&O x 3, moves all extremities, no obvious focal deficits PSYCHIATRIC: Normal affect, normal mood. Stable SKIN: No ulcerations or rashes, good skin turgor, no jaundice VASCULAR: Good capillary refill, neurovascular bundle appears to be intact General: Alert, Cooperative, No acute distress Heart: Regular rate Lungs: Clear Abdomen: Normal bowel sounds, Soft Extremities: No cyanosis Labs LABS Laboratory Tests Test 06/14/20 11:50 SARS-CoV-2 Antigen (Rapid) Negative (NEGATIVE) Assessment and Plan Assessmemt and Plan Problems Medical Problems: (1) Hypotension Status: Acute Comment Review of Relevant I have reviewed the following items rahul (where applicable) has been applied. Labs Laboratory Tests Test 06/14/20 11:50 SARS-CoV-2 Antigen (Rapid) Negative (NEGATIVE) Laboratory Tests Test 06/14/20 11:50 SARS-CoV-2 Antigen (Rapid) Negative (NEGATIVE) Medications Current Medications Sodium Chloride 1,000 ml @ 1,000 mls/hr 1X ONCE IV Last administered on 06/11/20at 09:45; Start 06/11/20 at 09:45; Stop 06/11/20 at 10:44; Status DC Sennosides (Senna) 17.2 mg PRN BID PRN PO CONSTIPATION Last administered on 06/14/20at 08:25; Start 06/11/20 at 13:30 Docusate Sodium (Colace) 100 mg PRN DAILY PRN PO HARD STOOLS Last administered on 06/14/20at 08:26; Start 06/11/20 at 13:30 Thiamine HCl 100 mg/Dextrose 51 ml @ 102 mls/hr DAILY IV Last administered on 06/11/20at 15:02; Start 06/11/20 at 14:00; Stop 06/12/20 at 03:50; Status DC Ondansetron HCl (Zofran) 4 mg PRN Q6HRS PRN IVP NAUSEA/VOMITING; Start 06/11/20 at 13:30 Potassium Chloride (Klor-Con) 40 meq 1X PRN PO PER PROTOCOL; Start 06/11/20 at 13:30; Status UNV Magnesium Oxide (Magnesium Oxide) 400 mg BID PO ; Start 06/11/20 at 21:00; Stop 06/13/20 at 09:01; Status UNV Potassium Chloride/Water 100 ml @ 100 mls/hr Q1H IV ; Start 06/11/20 at 13:30; Stop 06/11/20 at 17:29; Status UNV Magnesium Sulfate 50 ml @ 25 mls/hr Q24H IV ; Start 06/11/20 at 13:30; Stop 06/13/20 at 15:29; Status UNV Potassium Chloride/Water 100 ml @ 100 mls/hr Q1H PRN IV low k; Start 06/11/20 at 13:30; Status UNV Dextrose (Dextrose 50%-Water Syringe) 12.5 gm PRN Q15MIN PRN IV SEE COMMENTS; Start 06/11/20 at 13:30 Acetaminophen (Tylenol) 650 mg PRN Q8HRS PRN PO MILD PAIN 1-3 Last administered on 06/13/20at 08:16; Start 06/11/20 at 13:30 Aspirin (Ecotrin) 81 mg DAILY PO Last administered on 06/14/20 08:25; Start 06/11/20 at 14:00 Atorvastatin Calcium (Lipitor) 20 mg QHS PO Last administered on 06/13/20at 20:03; Start 06/11/20 at 21:00 Clopidogrel Bisulfate (Plavix) 75 mg DAILY PO Last administered on 06/14/20 08:26; Start 06/12/20 at 09:00 Latanoprost (Xalatan) 1 drop QHS OU Last administered on 06/13/20 20:03; Start 06/11/20 at 21:00 Temazepam (Restoril) 15 mg QHS PO Last administered on 06/13/20 20:03; Start 06/11/20 at 21:00 Glycerin/ Hypromellose/ Polyethylene (Artificial Tears) 1 drop PRN Q4HRS PRN OU DRY EYE; Start 06/11/20 at 14:00; Status Cancel Multivitamins (Thera M Plus) 1 tab DAILY PO Last administered on 06/14/20at 08:26; Start 06/12/20 at 09:00 Info (Non-Icu Electrolyte Protocol) 1 ea CONT PRN PRN MC SEE COMMENTS; Start 06/11/20 at 14:00 Glycerin/ Hypromellose/ Polyethylene (Artificial Tears) 1 drop PRN Q4HRS PRN OU DRY EYE; Start 06/11/20 at 14:15 Thiamine Mononitrate (Vitamin B-1) 100 mg DAILY PO Last administered on 06/14/20at 08:25; Start 06/12/20 at 09:00 Memantine (Namenda) 5 mg QHS PO Last administered on 06/13/20at 20:03; Start 06/13/20 at 21:00 Active Scripts Active Atorvastatin Calcium 20 Mg Tablet 1 Tab PO DAILY Proair Hfa (Albuterol Sulfate) 8.5 Gm Hfa.aer.ad 2.5 Mg NEB PRN Q4HRS PRN 14 Days Reported Clopidogrel (Clopidogrel Bisulfate) 75 Mg Tablet 1 Tab PO DAILY Lisinopril 5 Mg Tablet 2 Tab PO DAILY Senna Laxative (Sennosides) 8.6 Mg Tablet 1 Tab PO BID 30 Days Melatonin 3 Mg Tablet 1 Tab PO QHS PRN Guaifenesin Ac Cough Syrup (Guaifenesin/Codeine Phosphate) 473 Ml Liquid 10 Ml PO PRN Q4-6HRS PRN MDD 60 Milliliter(s) 4 Days Baclofen 5 Mg Tablet 5 Mg PO QHS PRN Namenda (Memantine Hcl) 10 Mg Tablet 5 Mg PO HS Aspirin Ec (Aspirin) 81 Mg Tablet.dr 1 Tab PO DAILY Refresh Tears (Carboxymethylcellulose Sodium) 15 Ml Drops 15 Ml OP PRN Q4-6HRS PRN Nasal [place] (Sodium Chloride) 44 Ml [place] 1 [place] NS BID 30 Days Centrum Silver Tablet (Multivits-Min/Fa/Lycopene/Lut) 1 Each Tablet 1 Each PO DAILY Acetaminophen 325 Mg Tablet 650 Mg PO PRN Q8HRS PRN Latanoprost 2.5 Ml Drops 1 Drop EACHEYE QHS Flomax (Tamsulosin Hcl) 0.4 Mg Cap.er.24h 0.4 Mg PO HS Vitals/I & O Vital Sign - Last 24 Hours 06/13/20 06/13/20 06/13/20 06/13/20 15:00 19:13 19:25 22:45 Temp 99.1 98.6 97.9 99.1 98.6 97.9 Pulse 66 70 72 Resp 19 18 18 B/P (MAP) 111/49 (69) 128/60 (82) 138/48 (78) Pulse Ox 98 98 96 O2 Delivery Room Air Room Air Room Air Room Air 06/14/20 06/14/20 06/14/20 06/14/20 03:05 07:50 08:00 11:00 Temp 98.4 97.9 97.8 98.4 97.9 97.8 Pulse 67 59 74 Resp 18 16 20 B/P (MAP) 120/49 (72) 140/86 (104) 130/60 (83) Pulse Ox 97 99 O2 Delivery Room Air Room Air Room Air Room Air Intake and Output 06/13/20 06/13/20 06/14/20 15:00 23:00 07:00 Intake Total 200 ml 0 ml Balance 200 ml 0 ml Justicifation of Admission Dx: Justifications for Admission: Justification of Admission Dx: Yes SAIDA GLYNN MD Jun 14, 2020 14:32
--- NOTE | 2020-06-14 14:50 | NUR ---
SS following up with discharge planning. Pt had syncopal episode today. Physician met with pt's family in room and pt's family wanting to discharge to home with hospice and requested referral to [facility], ; fax [phone]. SS phoned and faxed referral to [facility]. SS will continue to follow for discharge planning.
[2020-06-14 15:00] VITALS: BP 103/51
--- NOTE | 2020-06-14 17:07 | NUR ---
Wound Care WC consult for buttock wound. Per Rahul PRUETT, pt is leaving tomorrow with hospice. Wound was pictured and measured and already dressed for the day. WC will sign off as pt is now comfort care. Please reconsult if status changes.
[2020-06-14 19:35] VITALS: BP 117/48
[2020-06-14] MEDS: MEMANTINE 5 MG TABLET. PO SCH (21:00)
[2020-06-14] MEDS: TEMAZEPAM 15 MG CAPSULE PO SCH (21:00)
[2020-06-14] MEDS: ATORVASTATIN CALCIUM 20 MG TABLET PO SCH (21:00)
[2020-06-14] MEDS: LATANOPROST 0.005% OPHTH SOLUTION 2.5ML BOTTLE. OU SCH (21:00)
[2020-06-14 23:15] VITALS: BP 102/41
[2020-06-15 03:00] VITALS: BP 137/61
[2020-06-15 07:00] VITALS: BP 142/63
[2020-06-15] MEDS: ASPIRIN ENTERIC COATED 81 MG TABLET.DR. PO SCH (08:41)
[2020-06-15] MEDS: THIAMINE 100 MG TABLET. PO SCH (08:41)
[2020-06-15] MEDS: CLOPIDOGREL BISULFATE 75 MG TABLET PO SCH (08:41)
[2020-06-15] MEDS: MULTIVITAMIN with MINERAL TABLET. PO SCH (08:41)
[2020-06-15 10:36] VITALS: BP 138/50
--- NOTE | 2020-06-15 14:15 | NUR ---
Discharge Note: SALTY COLLAZO Discharge instructions and discharge home medications reviewed with Patient and a copy given. All questions have been answered and understanding verbalized. The following instructions and handouts were given: Discontinued IV line Patient discharged to home with hospice via stretcher
== END 2020-06-15 14:05 | disposition hospice, home (50) | DRG 73 ==
LOC: ER 09:36 → 2 SOUTH 11:49
PROVIDERS: ADMIT Internal Medicine; ATTEND Internal Medicine
DX: G90.8 Other disorders of autonomic nervous system (principal); E43 Unspecified severe protein-calorie malnutrition; I69.354 Hemiplegia and hemiparesis following cerebral infarction affecting left non-dominant side; Z51.5 Encounter for palliative care; E16.2 Hypoglycemia, unspecified; E78.00 Pure hypercholesterolemia, unspecified; E78.5 Hyperlipidemia, unspecified; F01.50 Vascular dementia, unspecified severity, without behavioral disturbance, psychotic disturbance, mood disturbance, and anxiety; G20 Parkinson's disease; F02.80 Dementia in other diseases classified elsewhere, unspecified severity, without behavioral disturbance, psychotic disturbance, mood disturbance, and anxiety; G30.9 Alzheimer's disease, unspecified; I11.9 Hypertensive heart disease without heart failure; I25.10 Atherosclerotic heart disease of native coronary artery without angina pectoris; I70.8 Atherosclerosis of other arteries; N40.0 Benign prostatic hyperplasia without lower urinary tract symptoms; F41.9 Anxiety disorder, unspecified; K21.9 Gastro-esophageal reflux disease without esophagitis; M19.90 Unspecified osteoarthritis, unspecified site; D64.9 Anemia, unspecified; I95.1 Orthostatic hypotension; I34.0 Nonrheumatic mitral (valve) insufficiency; Z20.828 Contact with and (suspected) exposure to other viral communicable diseases; I65.21 Occlusion and stenosis of right carotid artery; Z79.02 Long term (current) use of antithrombotics/antiplatelets; Z79.82 Long term (current) use of aspirin; Z79.899 Other long term (current) drug therapy; Z91.81 History of falling; Z95.1 Presence of aortocoronary bypass graft; Z95.5 Presence of coronary angioplasty implant and graft; Z99.3 Dependence on wheelchair; Z68.20 Body mass index [BMI] 20.0-20.9, adult; I25.2 Old myocardial infarction; Z82.49 Family history of ischemic heart disease and other diseases of the circulatory system; Z87.440 Personal history of urinary (tract) infections
CPT/HCPCS: 36415; 70450; 80048; 80053; 81001; 83735; 84100; 84484; 85025; 85610; 85730; 87426; 93005; 96361; 96365; J3411; J7030; J7060; U0003; 92526-GN; 92610-GN; 97110-GP; 97530-GP; 99285-25; G0378

== ENCOUNTER 2020-07-08 11:36 | Emergency (ER) | payer MEDICARE, OTHER ==
[~2020-07-08] VITALS: Ht 170.2 cm; Wt 56.8 kg
[~2020-07-08 11:36] MED LIST changes: +BACL5TAB PO; +CARB1TAB22 PO; +GUAI473L15 PO; +MELA3TAB4 PO; +SENN8.6T11 PO
--- NOTE | 2020-07-08 12:35 | NUR ---
Preformed straight cath on patient, he tolerated procedure, but before procedure and after proceture there was blood coming from the tip of the penis. said it is the first time she has seen that condition with him and that he had a clot in his urine eariler this morning. Was unable to collect any urine and removed straight cath device after about 2 minutes of waiting. Notifed RN.
[2020-07-08 12:59] LABS: BASO % 1 % (0-3); EOS # 0.1 x10^3/uL (0.0-0.7); EOS % 2 % (0-3); HEMATOCRIT 36.4 % (39.0-53.0); HEMOGLOBIN 12.3 g/dL (13.0-17.5); LYMPH # 1.7 x10^3/uL (1.0-4.8); LYMPH % 32 % (24-48); MEAN CORPUSCULAR HEMOGLOBIN 34 pg (25-35); MEAN CORPUSCULAR HGB CONC 34 g/dL (31-37); MEAN CORPUSCULAR VOLUME 99 fL (79-100); MONO # 0.5 x10^3/uL (0.0-1.1); MONO % 9 % (0-9); NEUT % 56 % (31-73); PLATELET COUNT 132 x10^3/uL (140-400); RED BLOOD COUNT 3.66 x10^6/uL (4.30-5.70); RED CELL DISTRIBUTION WIDTH 14.5 % (11.5-14.5); WHITE BLOOD COUNT 5.3 x10^3/uL (4.0-11.0)
[2020-07-08 13:00] LABS: BILIRUBIN,URINE NEGATIVE (NEG); CLARITY,URINE CLEAR; COLOR,URINE YELLOW; NITRITE,URINE NEGATIVE (NEG); PROTEIN,URINE NEGATIVE (NEG-TRACE)
[2020-07-08 13:08] VITALS: BP 160/70
[2020-07-08 13:11] LABS: RBC,URINE TNTC /HPF (0-2)
[2020-07-08 13:12] LABS: BACTERIA,URINE MANY /HPF (0-FEW); WBC,URINE 20-40 /HPF (0-4)
[2020-07-08 13:14] LABS: CALCIUM 8.1 mg/dL (8.5-10.1); CREATININE 0.9 mg/dL (0.7-1.3); GFR 97.3; POTASSIUM 4.1 mmol/L (3.5-5.1)
[2020-07-08 13:20] LABS: ALBUMIN 2.5 g/dL (3.4-5.0); ALBUMIN/GLOBULIN RATIO 0.7 (1.0-1.7); MAGNESIUM 1.8 mg/dL (1.8-2.4); TOTAL BILIRUBIN 0.5 mg/dL (0.2-1.0); TOTAL PROTEIN 6.3 g/dL (6.4-8.2)
[2020-07-08] MEDS ORDERED: cefTRIAXone IV Push 1 GM VIAL. IVP ONE (13:30)
[2020-07-08] MEDS ORDERED: IV NORMAL SALINE 500ML BAG 500 ML IV ONE (13:30)
[2020-07-08] MEDS ORDERED: CIPR500T94 PO (14:07)
--- NOTE | 2020-07-08 14:08 | ED.ADGEN ---
Past Medical History Past Medical History: Arthritis, CVA, Dementia, GERD, High Cholesterol, Heart Disease, Hypertension, MS, Other Additional Past Medical Histor: BACK PAIN Past Surgical History: Other Additional Past Surgical Histo: CARDIAC SURGERY, neck Smoking Status: Former Smoker Alcohol Use: None Drug Use: None General Adult EDM: Chief Complaint: BLOOD IN URINE HPI: HPI: Patient is a 85 year old AA male, accompanied by his , who presents to the emergency department with complaints of blood in his urine today. He denies any abdominal pain, nausea, vomiting, diarrhea, dysuria, difficulty voiding, fever, cough, shortness of breath, chest pain, or palpitations. Patient states he has had some low back pain. He denies any fever, body aches, or fatigue. Patient currently denies any pain. Review of Systems: Review of Systems: Complete ROS is negative unless otherwise noted in HPI. Current Medications: Current Medications Medications (Trade) Dose Ordered Sig/Kay Start Time Stop Time Status Last Admin Dose Admin Ceftriaxone Sodium (Rocephin) 1 gm 1X ONCE 07/08/20 13:30 07/08/20 13:31 DC 07/08/20 13:37 1 GM Sodium Chloride 500 ml @ 500 mls/hr 1X ONCE 07/08/20 13:30 07/08/20 14:29 07/08/20 13:37 500 MLS/HR Allergies: Allergies: Allergies Coded Allergies Type Severity Reaction Last Updated Verified No Known Drug Allergies 07/28/15 No Physical Exam: PE: See Above Constitutional: Well developed, well nourished, no acute distress, non-toxic appearance. [] HENT: Normocephalic, atraumatic, bilateral external ears normal, nose normal. [] Eyes: PERRLA, EOMI, conjunctiva normal, no discharge. [] Neck: Normal range of motion, no stridor. [] Cardiovascular:Heart rate regular rhythm Lungs & Thorax: Respirations even and unlabored, no retractions, no respiratory distress Abdomen: soft, no tenderness Back: Nontender, no CVA tenderness to palpation Skin: Warm, dry, no erythema, no rash. [] Extremities: No cyanosis, ROM intact, no edema. [] Neurologic: Alert and oriented X 3, no focal deficits noted. [] Psychologic: Affect normal, judgement normal, mood normal. [] Current Patient Data: Labs: Laboratory Tests Test 12/3/20 12:40 07/08/20 12:45 White Blood Count 5.3 x10^3/uL (4.0-11.0) Red Blood Count 3.66 x10^6/uL (4.30-5.70) L Hemoglobin 12.3 g/dL (13.0-17.5) L Hematocrit 36.4 % (39.0-53.0) L Mean Corpuscular Volume 99 fL (79-100) Mean Corpuscular Hemoglobin 34 pg (25-35) Mean Corpuscular Hemoglobin Concent 34 g/dL (31-37) Red Cell Distribution Width 14.5 % (11.5-14.5) Platelet Count 132 x10^3/uL (140-400) L Neutrophils (%) (Auto) 56 % (31-73) Lymphocytes (%) (Auto) 32 % (24-48) Monocytes (%) (Auto) 9 % (0-9) Eosinophils (%) (Auto) 2 % (0-3) Basophils (%) (Auto) 1 % (0-3) Neutrophils # (Auto) 3.0 x10^3/uL (1.8-7.7) Lymphocytes # (Auto) 1.7 x10^3/uL (1.0-4.8) Monocytes # (Auto) 0.5 x10^3/uL (0.0-1.1) Eosinophils # (Auto) 0.1 x10^3/uL (0.0-0.7) Basophils # (Auto) 0.0 x10^3/uL (0.0-0.2) Sodium Level 137 mmol/L (136-145) Potassium Level 4.1 mmol/L (3.5-5.1) Chloride Level 107 mmol/L (98-107) Carbon Dioxide Level 28 mmol/L (21-32) Anion Gap 2 (6-14) L Blood Urea Nitrogen 12 mg/dL (8-26) Creatinine 0.9 mg/dL (0.7-1.3) Estimated GFR (Cockcroft-Gault) 97.3 BUN/Creatinine Ratio 13 (6-20) Glucose Level 72 mg/dL (70-99) Calcium Level 8.1 mg/dL (8.5-10.1) L Magnesium Level 1.8 mg/dL (1.8-2.4) Total Bilirubin 0.5 mg/dL (0.2-1.0) Aspartate Amino Transferase (AST) 75 U/L (15-37) H Alanine Aminotransferase (ALT) 109 U/L (16-63) H Alkaline Phosphatase 129 U/L (46-116) H Total Protein 6.3 g/dL (6.4-8.2) L Albumin 2.5 g/dL (3.4-5.0) L Albumin/Globulin Ratio 0.7 (1.0-1.7) L Urine Collection Type U cath Urine Color Yellow Urine Clarity Clear Urine pH 7.0 (<5.0-8.0) Urine Specific [place] 1.015 (1.000-1.030) Urine Protein Negative mg/dL (NEG-TRACE) Urine Glucose (UA) Negative mg/dL (NEG) Urine Ketones (Stick) Negative mg/dL (NEG) Urine Blood Large (NEG) Urine Nitrite Negative (NEG) Urine Bilirubin Negative (NEG) Urine Urobilinogen Dipstick 1.0 mg/dL (0.2 mg/dL) Urine Leukocyte Esterase Moderate (NEG) Urine RBC Tntc /HPF (0-2) Urine WBC 20-40 /HPF (0-4) Urine Bacteria Many /HPF (0-FEW) Laboratory Tests 07/08/20 12:40 Laboratory Tests 07/08/20 12:40 Vital Signs: Vital Signs Date Time Temp Pulse Resp B/P (MAP) Pulse Ox O2 Delivery O2 Flow Rate FiO2 07/08/20 13:08 62 160/70 (100) 100 Room Air 07/08/20 12:21 98.1 18 98.1 EKG: EKG: [] Heart Score: Risk Factors: Risk Factors: DM, Current or recent (<one month) smoker, HTN, HLP, family history of CAD, obesity. Risk Scores: Score 0 - 3: 2.5% MACE over next 6 weeks - Discharge Home Score 4 - 6: 20.3% MACE over next 6 weeks - Admit for Clinical Observation Score 7 - 10: 72.7% MACE over next 6 weeks - Early Invasive Strategies Radiology/Procedures: Radiology/Procedures: [] Course & Med Decision Making: Course & Med Decision Making Pertinent Labs and Imaging studies reviewed. (See chart for details) 85-year-old male presented to the emergency room with concerns of blood in his urine. UA is concerning for urinary tract infection with too many to count red blood cells and 20-40 white blood cells, and many bacteria CBC is unremarkable, CMP revealed elevated AST at 75, ALT at 109, and alk phos of 129 9. Dragon Disclaimer: Dragon Disclaimer: This electronic medical record was generated, in whole or in part, using a voice recognition dictation system. Departure Departure Impression: Primary Impression: UTI (urinary tract infection) Disposition: 01 DC HOME SELF CARE/HOMELESS Condition: STABLE Referrals: NORA CONTRERAS (PCP) Patient Instructions: Urinary Tract Infection, [id number] Additional Instructions: Fill prescription(s) and use as directed. Avoid bladder irritants such as caffeine, carbonation, and spicy foods. Increase clear fluids. Follow up with your primary care doctor if symptoms persist, return to the ER if symptoms worsen. Scripts Ciprofloxacin Hcl (CIPRO) 500 Mg Tablet 1 TAB PO BID for 3 Days, #6 TAB 0 Refills Prov: COCO WERNER APRN 07/08/20 Problem Qualifiers Primary Impression: UTI (urinary tract infection) Urinary tract infection type: acute cystitis Hematuria presence: with hematuria Qualified Codes: N30.01 - Acute cystitis with hematuria COCO WERNER HOT END OPERATOR Jul 08, 2020 14:07
== END 2020-07-08 14:35 | disposition home or self-care (01) ==
LOC: ER 11:36
DX: N39.0 Urinary tract infection, site not specified (principal); K21.9 Gastro-esophageal reflux disease without esophagitis; E78.00 Pure hypercholesterolemia, unspecified; I11.9 Hypertensive heart disease without heart failure; F03.90 Unspecified dementia, unspecified severity, without behavioral disturbance, psychotic disturbance, mood disturbance, and anxiety; Z86.73 Personal history of transient ischemic attack (TIA), and cerebral infarction without residual deficits; I25.2 Old myocardial infarction; Z87.891 Personal history of nicotine dependence
CPT/HCPCS: 36415; 51702; 80053; 81001; 83735; 85025; 87086; 96374; 99284; J0696; J7040

== ENCOUNTER 2020-12-30 09:17 | Emergency (ER) | payer MEDICARE, OTHER ==
[~2020-12-30] VITALS: Ht 167.6 cm; Wt 63.4 kg
[~2020-12-30 09:17] MED LIST changes: +CIPR500T94 PO; -LISI-338 PO; +LISI-517 PO; +METH-562 PO; -METH750T2 PO
--- NOTE | 2020-12-30 09:38 | PHYS DOC ---
Past Medical History Past Medical History: Arthritis, CVA, Dementia, GERD, High Cholesterol, Heart Disease, Hypertension, [place], Other Additional Past Medical Histor: BACK PAIN Past Surgical History: Other Additional Past Surgical Histo: CARDIAC SURGERY, neck Smoking Status: Former Smoker Alcohol Use: None Drug Use: None General Adult EDM: Chief Complaint: ALTERED MENTAL STATUS HPI: HPI: 85-year-old male presenting the emergency department today by EMS. EMS reports that family was at the kitchen table having breakfast when suddenly the patient collapsed and became unresponsive. Upon EMS arrival the patient was unconscious bradycardic and hypotensive. The patient's heart rate was in the 40s with a blood pressure of 40/20. EMS placed a left humeral IO and bring the patient in for further evaluation and treatment. Upon arrival the patient is more responsive opens his eyes spontaneously. He does not follow commands or answer questions. On arrival the patient is protecting his airway and breathing comfortably. Initial blood pressure is 120/80 approximately. Initial heart rate is in the mid 50s and then came up into the 70s without any intervention. Onset today. Location generalized. Duration intermittent. No alleviating factors. Review of systems negative for chest pain abdominal pain vomiting diaphoresis fevers or chills. All other review of systems negative. ED course: 85-year-old male presents emergency department today with an unresponsive episode which was brief with hypotension and bradycardia. EKG obtained and reviewed by myself shows sinus rhythm with a heart rate of 55. ST segments show mild repolarization in the anterior leads. Does not meet STEMI criteria. IV established. We called family to clarify the patient's baseline mental status. They report that the patient has had speech disturbances for about a week or more and he has very limited mobility in his legs is wheelchair- bound and report decreased movement of the left side of his arm and leg over the past week or so. The patient's last known well is more than 5 days ago. CBC shows mild anemia 11.9. Chemistry panel unremarkable. Troponin within normal limits. Malnourishment demonstrated by low albumin of 2.8. CT head shows no acute intracranial findings, CT angiogram shows no acute large vessel occlusion. Chest x-ray shows elevation of the left hemidiaphragm which is unchanged. I went and spoke with the patient's . The patient is apparently on hospice. I had a discussion with her about goals of care and hospice care. The patient's is concerned about these episodes and reports that the patient is healthy and reports desiring treatment for medical conditions that are acute but then communicates that the patient is on hospice and her communication is contradictory intrinsically. I tried to help explain goals of care with hospice care and need for intervention. The patient is DNR at this time. Given the un certainty and confusion of goals of care my plan initially was to admit the patient to the hospital for further discussion about goals of care. Our hospitalist came down to evaluate the patient. He was able to speak with the and explained in a more detailed fashion hospice goals. He will discharge the patient back to hospice care from the emergency department. Heart Score: C/O Chest Pain: No Risk Factors: Risk Factors: DM, Current or recent (<one month) smoker, HTN, HLP, family history of CAD, obesity. Risk Scores: Score 0 - 3: 2.5% MACE over next 6 weeks - Discharge Home Score 4 - 6: 20.3% MACE over next 6 weeks - Admit for Clinical Observation Score 7 - 10: 72.7% MACE over next 6 weeks - Early Invasive Strategies Allergies: Allergies: Allergies Coded Allergies Type Severity Reaction Last Updated Verified No Known Drug Allergies 07/28/15 No Physical Exam: PE: Constitutional: Patient opens eyes spontaneously, he is making incomprehensible sounds. He is able to hold his arms up without drift. He will not lift either of his legs for me but does wince with painful stimulation bilaterally HENT: Normocephalic, atraumatic, bilateral external ears normal, oropharynx moist, no oral exudates, nose normal. [] Eyes: PERRLA, EOMI, conjunctiva normal, no discharge. [] Neck: Normal range of motion, no tenderness, supple, no stridor. [] Cardiovascular:Heart rate regular rhythm, no murmur [] Lungs & Thorax: Bilateral breath sounds clear to auscultation [] Abdomen: Bowel sounds normal, soft, no tenderness, no masses, no pulsatile masses. [] Skin: Warm, dry, no erythema, no rash. [] Back: No tenderness, no CVA tenderness. [] Extremities: No tenderness, no cyanosis, no clubbing, ROM intact, no edema. [] Neurologic: Mental status:Patient opens eyes spontaneously, he is making incomprehensible sounds. Cranial nerves: smile symmetric, uvula elevation nl, shoulder shrug intact bilaterally, tongue protrusion normal garbled speech Sensation: equal and normal in all extremities Strength: 4/5 in upper extremities bilaterally, equal in strength. Patient wont wiggle toes for me. his legs drop to the bed bilaterally. Psychologic: mood normal. EKG: EKG: [] Radiology/Procedures: Radiology/Procedures: [] Course & Med Decision Making: Course & Med Decision Making Pertinent Labs and Imaging studies reviewed. (See chart for details) [] Dragon Disclaimer: Dragon Disclaimer: This electronic medical record was generated, in whole or in part, using a voice recognition dictation system. Departure Departure Impression: Primary Impression: Unresponsive episode Disposition: ADMITTED INPATIENT Condition: STABLE Referrals: NORA CONTRERAS (PCP) HANNAH BRYANT MD December 30, 2020 09:38
[2020-12-30 09:44] LABS: CALCIUM 8.5 mg/dL (8.5-10.1); CREATININE 1.1 mg/dL (0.7-1.3); GFR 77.2; POTASSIUM 4.4 mmol/L (3.5-5.1)
[2020-12-30 09:50] LABS: ALBUMIN 2.8 g/dL (3.4-5.0); DIRECT BILIRUBIN 0.2 mg/dL (0.0-0.2); TOTAL BILIRUBIN 0.7 mg/dL (0.2-1.0); TOTAL PROTEIN 6.4 g/dL (6.4-8.2)
[2020-12-30] MEDS ORDERED: IOHEXOL 350 MG/ML 100 ML VIAL. IV ONE (10:00)
[2020-12-30] MEDS ORDERED: CONTRAST GIVEN. MC PRN (10:00)
[2020-12-30 10:29] LABS: BASO % 0 % (0-3); EOS # 0.1 x10^3/uL (0.0-0.7); EOS % 2 % (0-3); HEMATOCRIT 35.8 % (39.0-53.0); HEMOGLOBIN 11.9 g/dL (13.0-17.5); LYMPH # 1.3 x10^3/uL (1.0-4.8); LYMPH % 29 % (24-48); MEAN CORPUSCULAR HEMOGLOBIN 33 pg (25-35); MEAN CORPUSCULAR HGB CONC 33 g/dL (31-37); MEAN CORPUSCULAR VOLUME 98 fL (79-100); MONO # 0.3 x10^3/uL (0.0-1.1); MONO % 7 % (0-9); NEUT # 2.8 x10^3/uL (1.8-7.7); NEUT % 62 % (31-73); PLATELET COUNT 100 x10^3/uL (140-400); RED BLOOD COUNT 3.64 x10^6/uL (4.30-5.70); RED CELL DISTRIBUTION WIDTH 14.3 % (11.5-14.5); WHITE BLOOD COUNT 4.5 x10^3/uL (4.0-11.0)
--- NOTE | 2020-12-30 10:33 | RAD ---
EXAM: CHEST ONE VIEW. HISTORY: Chest pain. COMPARISON: 02/16/2020. FINDINGS: A frontal view of the chest is obtained. There are changes of coronary artery bypass grafti ng. Cervical fusion changes are partially visualized. The left hemidiaphragm is moderately elevated. The multiple bowel loops are again noted under the lef t hemidiaphragm. There is associated left basilar atelectasis. The inspiration is small. There is no pneumothorax or clear pleural effusion. The heart is not enlarged. IMPRESSION: 1. 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 Small inspiration with basilar atelectasis. Electronically signed by: Tasha Farnsworth MD (12/30/2020 10:30 AM) [facility]
--- NOTE | 2020-12-30 10:34 | RAD ---
EXAM: CT HEAD WITHOUT CONTRAST. HISTORY: Altered mental status. TECHNIQUE: Computed tomography of the head was performed without intravenous contrast. One or more of the following individualized dose reduction techniques were utilized for this examination: 1. Automated exposure control. 2. Adjustment of the mA and/or kV according to patient size. 3. Use of iterative reconstruction technique. COMPARISON: 06/11/2020. FINDINGS: There is no intracranial hemorrhage. Hypoattenuation within the white matter indicates mode rate chronic microangiopathic change. There is a chronic lacunar infarcts within the right anterior l imb internal capsule. Prominence of the lateral ventricles and hemispheric sulci indicates mild atrop hy. There is mucosal thickening in the right ethmoid air cells. There is some debris within the right asp ect of the sphenoid sinus. The orbits are unremarkable. The temporal bones are unremarkable. The calv arium reveals no suspicious lesions. There are atherosclerotic calcifications of the internal carotid and vertebral arteries. IMPRESSION: 1. No acute intracranial findings. 2. Mild atrophy and moderate chronic microangiopathic white matter change. Electronically signed by: Tasha Farnsworth MD (12/30/2020 10:32 AM) [facility]
--- NOTE | 2020-12-30 10:47 | RAD ---
EXAM: 1. CTA HEAD WITH AND WITHOUT CONTRAST. 2. CTA NECK WITH AND WITHOUT CONTRAST. HISTORY: Altered mental status. TECHNIQUE: Computed tomographic angiography of the head and neck was performed before and after the i ntravenous administration of 75 mL Isovue-370. Three-dimensional reconstructions were also performed. One or more of the following individualized dose reduction techniques were utilized for this examina tion: 1. Automated exposure control. 2. Adjustment of the mA and/or kV according to patient size. 3. Use of iterative reconstruction technique. COMPARISON: Today's CT, 04/29/2020. FINDINGS: Angiographic findings: The aortic arch has a typical branching pattern. There is no arch vessel steno sis. There is moderate mostly calcified plaquing at both carotid bulbs. There is no common carotid artery stenosis. Mixed plaquing results in <50% stenosis at the origin of the cervical internal carotid tati raphael. There is no cervical internal carotid artery on the left. The external carotid systems are giang nt. The left vertebral artery is dominant. The the right is small but patent. Scattered atherosclerotic c alcifications are noted without clear stenosis. The basilar artery is tortuous but patent. Both posterior cerebral arteries are patent. The posterior communicating arteries are diminutive but visualized. There is at least moderate plaquing along both cavernous and supraclinoid internal carotid artery is. This results in multifocal mild stenosis in the left, <50%. Approximately 60% stenosis is again note d along the right supraclinoid internal carotid artery. The middle cerebral arteries are patent. The anterior cerebral arteries are patent. The anterior communicating artery is visualized. Nonangiographic findings: There is no intracranial hemorrhage. Hypoattenuation within the periventric ular white matter indicates moderate chronic small vessel ischemic white matter change. There is a ch ronic lacunar infarct in the anterior limb of the right internal capsule. Prominence of the lateral v entricles and hemispheric sulci indicate mild atrophy. There is a small amount of debris in the right aspect of the sphenoid sinus. There is mucosal thicken ing in the right ethmoid air cells. There are changes of bilateral cataract surgery. The temporal bon es are unremarkable. Bone windows reveal no suspicious lesions. There is instrumented posterior fusio n from C3 through C7 with laminectomies. Median sternotomy changes are noted. The lung apices demonst rate no acute abnormality. The parotid glands are unremarkable. The submandibular glands are atrophic bilaterally. The thyroid g land demonstrates no suspicious lesions. There are no laryngeal or pharyngeal masses. There are no pathologically enlarged lymph nodes. IMPRESSION: 1. 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 2. Approximately 60% stenosis of the right supraclinoid internal carotid artery. Multifocal moderate plaquing throughout both cavernous internal carotid arteries. 3. No acute large vessel occlusion. PQRS Compliance Statement - Stenosis calculations for CT, MR and conventional angiography are based u larry measurement of the distal ICA diameter in accordance with the NASCET methodology. Stenosis calcu lations for carotid ultrasound studies are derived from validated velocity criteria which are known t o correlate with the NASCET methodology. Electronically signed by: Tasha Farnsworth MD (12/30/2020 10:44 AM) [facility]
[2020-12-30 11:01] LABS: PROTHROMBIN TIME PATIENT 14.8 SEC (11.7-14.0)
[2020-12-30 11:38] VITALS: BP 177/76
--- NOTE | 2020-12-30 12:32 | PDOC1 ---
History and Physical Date of Admission Date of Admission DATE: 12/30/20 TIME: 12:30 Identification/Chief Complaint Chief Complaint Syncope Source Source: Caregiver, Chart review History of Present Illness History of Present Illness Patient is a 85-year-old male with past medical history multiple CVA, Alzheimer's dementia, who currently receives home hospice with [facility]. Patient presents to the ED for evaluation of syncopal episode that occurred after eating. He has had multiple lesions over the past year for syncope and falls. Today patient's reports that his syncopal episode occurred after eating, and admits that all his syncopal episodes occur after eating. During his most recent admission on 06/11/2020 he was evaluated by neurology, and recommended not to resume carbidopa/levodopa, follow-up at neurology, and that continued admissions for fainting spells unlikely to lead to better quality of life. I had a conversation with patient's in the ED, she states he is currently back to his baseline. After she contacted [facility] to inform them of the events, they informed her that they would have to discontinue his home hospice services. I spoke with [facility] personally and asked that they do not discontinue his home hospice services as he is currently back to his baseline and I would not be admitting the patient. [facility] stated that since he would be discharged that they would not discontinue his home hospice services and in the future patient's needs to contact [facility] if she has any concerns about her 's wellbeing. Patient's was thankful and in agreement with discharging home to continue his home hospice services. Past Medical History Cardiovascular: CAD, HTN, NV, Syncope, Hyperlipidemia Pulmonary: No pertinent hx CENTRAL NERVOUS SYSTEM: CVA, Dementia, Other GI: GERD, Other Heme/Onc: No pertinent hx Hepatobiliary: No pertinent hx Psych: No pertinent hx Musculoskeletal: low back pain, Osteoarthritis Rheumatologic: No pertinent hx Infectious disease: No pertinent hx Renal/: UTI, Benign prostatic enlarg., Urinary Incontinence Endocrine: No pertinent hx Past Surgical History Past Surgical History: CABG, Cataract Removal, Hernia Repair, Other Family History Family History: Heart Disease Social History Smoke: No ALCOHOL: none Drugs: None Current Problem List Problem List Problems Medical Problems: (1) Unresponsive episode Status: Acute Current Medications Current Medications Current Medications Iohexol (Omnipaque 350 Mg/ml) 75 ml 1X ONCE IV Last administered on 12/30/20at 09:57; Start 12/30/20 at 10:00; Stop 12/30/20 at 10:01; Status DC Info (CONTRAST GIVEN -- Rx MONITORING) 1 each PRN DAILY PRN MC SEE COMMENTS; Start 12/30/20 at 10:00; Stop 01/01/21 at 09:59 Active Scripts Active Atorvastatin Calcium 20 Mg Tablet 1 Tab PO DAILY Proair Hfa (Albuterol Sulfate) 8.5 Gm Hfa.aer.ad 2.5 Mg NEB PRN Q4HRS PRN 14 Days Reported Clopidogrel (Clopidogrel Bisulfate) 75 Mg Tablet 1 Tab PO DAILY Senna Laxative (Sennosides) 8.6 Mg Tablet 1 Tab PO BID 30 Days Melatonin 3 Mg Tablet 1 Tab PO QHS PRN Guaifenesin Ac Cough Syrup (Guaifenesin/Codeine Phosphate) 473 Ml Liquid 10 Ml PO PRN Q4-6HRS PRN MDD 60 Milliliter(s) 4 Days Baclofen 5 Mg Tablet 5 Mg PO QHS PRN Namenda (Memantine Hcl) 10 Mg Tablet 5 Mg PO HS Aspirin Ec (Aspirin) 81 Mg Tablet.dr 1 Tab PO DAILY Refresh Tears (Carboxymethylcellulose Sodium) 15 Ml Drops 15 Ml OP PRN Q4-6HRS PRN Nasal Xenia (Sodium Chloride) 44 Ml Xenia 1 Xenia NS BID 30 Days Centrum Silver Tablet (Multivits-Min/Fa/Lycopene/Lut) 1 Each Tablet 1 Each PO DAILY Acetaminophen 325 Mg Tablet 650 Mg PO PRN Q8HRS PRN Latanoprost 2.5 Ml Drops 1 Drop EACHEYE QHS Flomax (Tamsulosin Hcl) 0.4 Mg Cap.er.24h 0.4 Mg PO HS Allergies Allergies: Coded Allergies: No Known Drug Allergies (Unverified , 07/28/15) ROS Review of System Reviewed with patient unable to obtain due to clinical condition Physical Exam Physical Exam General: Alert, Cooperative, No acute distress HEENT: PERRLA, EOMI Lungs: Clear to auscultation, Normal air movement Heart: RRR, no murmurs Cardiovascular: S1, S2 Abdomen: Normal bowel sounds, Soft, No tenderness Extremities: No clubbing, No cyanosis Skin: No rashes, No significant lesion Neuro: Normal tone, Sensation intact Psych/Mental Status: Confused, Mood NL Vitals Vitals Vital Signs Date Time Temp Pulse Resp B/P (MAP) Pulse Ox O2 Delivery O2 Flow Rate FiO2 12/30/20 11:38 64 177/76 (109) 99 Room Air 12/30/20 09:17 97.5 24 97.5 Labs Labs Laboratory Tests Test 12/30/20 09:20 12/30/20 10:20 12/30/20 10:35 Sodium Level 142 mmol/L (136-145) Potassium Level 4.4 mmol/L (3.5-5.1) Chloride Level 109 mmol/L (98-107) Carbon Dioxide Level 24 mmol/L (21-32) Anion Gap 9 (6-14) Blood Urea Nitrogen 13 mg/dL (8-26) Creatinine 1.1 mg/dL (0.7-1.3) Estimated GFR (Cockcroft-Gault) 77.2 Glucose Level 96 mg/dL (70-99) Calcium Level 8.5 mg/dL (8.5-10.1) Total Bilirubin 0.7 mg/dL (0.2-1.0) Direct Bilirubin 0.2 mg/dL (0.0-0.2) Aspartate Amino Transf (AST/SGOT) 58 U/L (15-37) Alanine Aminotransferase (ALT/SGPT) 80 U/L (16-63) Alkaline Phosphatase 91 U/L (46-116) Troponin I Quantitative < 0.017 ng/mL (0.000-0.055) PA-Xln-D-Type Natriuretic Peptide 206 pg/mL (0-449) Total Protein 6.4 g/dL (6.4-8.2) Albumin 2.8 g/dL (3.4-5.0) Lipase 145 U/L (73-393) White Blood Count 4.5 x10^3/uL (4.0-11.0) Red Blood Count 3.64 x10^6/uL (4.30-5.70) Hemoglobin 11.9 g/dL (13.0-17.5) Hematocrit 35.8 % (39.0-53.0) Mean Corpuscular Volume 98 fL (79-100) Mean Corpuscular Hemoglobin 33 pg (25-35) Mean Corpuscular Hemoglobin Concent 33 g/dL (31-37) Red Cell Distribution Width 14.3 % (11.5-14.5) Platelet Count 100 x10^3/uL (140-400) Neutrophils (%) (Auto) 62 % (31-73) Lymphocytes (%) (Auto) 29 % (24-48) Monocytes (%) (Auto) 7 % (0-9) Eosinophils (%) (Auto) 2 % (0-3) Basophils (%) (Auto) 0 % (0-3) Neutrophils # (Auto) 2.8 x10^3/uL (1.8-7.7) Lymphocytes # (Auto) 1.3 x10^3/uL (1.0-4.8) Monocytes # (Auto) 0.3 x10^3/uL (0.0-1.1) Eosinophils # (Auto) 0.1 x10^3/uL (0.0-0.7) Basophils # (Auto) 0.0 x10^3/uL (0.0-0.2) Prothrombin Time 14.8 SEC (11.7-14.0) Prothromb Time International Ratio 1.2 (0.8-1.1) Activated Partial Thromboplast Time 27 SEC (24-38) Laboratory Tests Test 12/30/20 09:20 12/30/20 10:20 12/30/20 10:35 Sodium Level 142 mmol/L (136-145) Potassium Level 4.4 mmol/L (3.5-5.1) Chloride Level 109 mmol/L (98-107) Carbon Dioxide Level 24 mmol/L (21-32) Anion Gap 9 (6-14) Blood Urea Nitrogen 13 mg/dL (8-26) Creatinine 1.1 mg/dL (0.7-1.3) Estimated GFR (Cockcroft-Gault) 77.2 Glucose Level 96 mg/dL (70-99) Calcium Level 8.5 mg/dL (8.5-10.1) Total Bilirubin 0.7 mg/dL (0.2-1.0) Direct Bilirubin 0.2 mg/dL (0.0-0.2) Aspartate Amino Transf (AST/SGOT) 58 U/L (15-37) Alanine Aminotransferase (ALT/SGPT) 80 U/L (16-63) Alkaline Phosphatase 91 U/L (46-116) Troponin I Quantitative < 0.017 ng/mL (0.000-0.055) AW-Zbs-K-Type Natriuretic Peptide 206 pg/mL (0-449) Total Protein 6.4 g/dL (6.4-8.2) Albumin 2.8 g/dL (3.4-5.0) Lipase 145 U/L (73-393) White Blood Count 4.5 x10^3/uL (4.0-11.0) Red Blood Count 3.64 x10^6/uL (4.30-5.70) Hemoglobin 11.9 g/dL (13.0-17.5) Hematocrit 35.8 % (39.0-53.0) Mean Corpuscular Volume 98 fL (79-100) Mean Corpuscular Hemoglobin 33 pg (25-35) Mean Corpuscular Hemoglobin Concent 33 g/dL (31-37) Red Cell Distribution Width 14.3 % (11.5-14.5) Platelet Count 100 x10^3/uL (140-400) Neutrophils (%) (Auto) 62 % (31-73) Lymphocytes (%) (Auto) 29 % (24-48) Monocytes (%) (Auto) 7 % (0-9) Eosinophils (%) (Auto) 2 % (0-3) Basophils (%) (Auto) 0 % (0-3) Neutrophils # (Auto) 2.8 x10^3/uL (1.8-7.7) Lymphocytes # (Auto) 1.3 x10^3/uL (1.0-4.8) Monocytes # (Auto) 0.3 x10^3/uL (0.0-1.1) Eosinophils # (Auto) 0.1 x10^3/uL (0.0-0.7) Basophils # (Auto) 0.0 x10^3/uL (0.0-0.2) Prothrombin Time 14.8 SEC (11.7-14.0) Prothromb Time International Ratio 1.2 (0.8-1.1) Activated Partial Thromboplast Time 27 SEC (24-38) Images Images CHEST AP ONLY EXAM: CHEST ONE VIEW. HISTORY: Chest pain. COMPARISON: 02/16/2020. FINDINGS: A frontal view of the chest is obtained. There are changes of coronary artery bypass grafting. Cervical fusion changes are partially visualized. The left hemidiaphragm is moderately elevated. The multiple bowel loops are again noted under the left hemidiaphragm. There is associated left basilar atelectasis. The inspiration is small. There is no pneumothorax or clear pleural effusion. The heart is not enlarged. IMPRESSION: 1. Elevation of the left hemidiaphragm versus left diaphragmatic hernia, uncha nged. Small inspiration with basilar atelectasis. CT HEAD WO CONTRAST EXAM: CT HEAD WITHOUT CONTRAST. HISTORY: Altered mental status. TECHNIQUE: Computed tomography of the head was performed without intravenous contrast. One or more of the following individualized dose reduction techniques were utilized for this examination: 1. Automated exposure control. 2. Adjustment of the mA and/or kV according to patient size. 3. Use of iterative reconstruction technique. COMPARISON: 06/11/2020. FINDINGS: There is no intracranial hemorrhage. Hypoattenuation within the white matter indicates moderate chronic microangiopathic change. There is a chronic lacunar infarcts within the right anterior limb internal capsule. Prominence of the lateral ventricles and hemispheric sulci indicates mild atrophy. There is mucosal thickening in the right ethmoid air cells. There is some debris within the right aspect of the sphenoid sinus. The orbits are unremarkable. The temporal bones are unremarkable. The calvarium reveals no suspicious lesions. There are atherosclerotic calcifications of the internal carotid and vertebral arteries. IMPRESSION: 1. No acute intracranial findings. 2. Mild atrophy and moderate chronic microangiopathic white matter change. CT ANGIOGRAPHY HEAD AND NECK EXAM: 1. CTA HEAD WITH AND WITHOUT CONTRAST. 2. CTA NECK WITH AND WITHOUT CONTRAST. HISTORY: Altered mental status. TECHNIQUE: Computed tomographic angiography of the head and neck was performed before and after the intravenous administration of 75 mL [id number]. Three- dimensional reconstructions were also performed. One or more of the following individualized dose reduction techniques were utilized for this examination: 1. Automated exposure control. 2. Adjustment of the mA and/or kV according to patient size. 3. Use of iterative reconstruction technique. COMPARISON: Today's CT, 04/29/2020. FINDINGS: Angiographic findings: The aortic arch has a typical branching pattern. There is no arch vessel stenosis. There is moderate mostly calcified plaquing at both carotid bulbs. There is no common carotid artery stenosis. Mixed plaquing results in <50% stenosis at the origin of the cervical internal carotid arteries. There is no cervical internal carotid artery on the left. The external carotid systems are patent. The left vertebral artery is dominant. The the right is small but patent. Scattered atherosclerotic calcifications are noted without clear stenosis. The basilar artery is tortuous but patent. Both posterior cerebral arteries are patent. The posterior communicating arteries are diminutive but visualized. There is at least moderate plaquing along both cavernous and supraclinoid internal carotid artery is. This results in multifocal mild stenosis in the left, <50%. Approximately 60% stenosis is again noted along the right supraclinoid internal carotid artery. The middle cerebral arteries are patent. The anterior cerebral arteries are patent. The anterior communicating artery is visualized. Nonangiographic findings: There is no intracranial hemorrhage. Hypoattenuation within the periventricular white matter indicates moderate chronic small vessel ischemic white matter change. There is a chronic lacunar infarct in the anterior limb of the right internal capsule. Prominence of the lateral ventricles and hemispheric sulci indicate mild atrophy. There is a small amount of debris in the right aspect of the sphenoid sinus. There is mucosal thickening in the right ethmoid air cells. There are changes of bilateral cataract surgery. The temporal bones are unremarkable. Bone windows reveal no suspicious lesions. There is instrumented posterior fusion from C3 through C7 with laminectomies. Median sternotomy changes are noted. The lung apices demonstrate no acute abnormality. The parotid glands are unremarkable. The submandibular glands are atrophic bilaterally. The thyroid gland demonstrates no suspicious lesions. There are no laryngeal or pharyngeal masses. There are no pathologically enlarged lymph nodes. IMPRESSION: 1. 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 2. Approximately 60% stenosis of the right supraclinoid internal carotid artery. Multifocal moderate plaquing throughout both cavernous internal carotid arteries. 3. No acute large vessel occlusion. VTE Prophylaxis Ordered VTE Prophylaxis Devices: No VTE Pharmacological Prophylaxi: No Assessment/Plan Assessment/Plan Postprandial syncope Postprandial hypotension History of multiple CVA History Alzheimer's dementia Moderate protein malnutrition Physical debilitation Plan: I spoke with patient's at great lengths about the purpose of home hospice and the need to contact [facility] in the future if she has concerns about her 's wellbeing. Provided my business card if patient's had further questions. Echocardiogram 04/30/2020 showed normal left ventricular size and function, with EF within normal range (60-65%) ; no significant aortic valvular stenosis. Will discharge patient home under his existing home hospice care. Justifications for Admission Other Justification SHAILESH DENTON MD December 30, 2020 12:31
== END 2020-12-30 13:28 | disposition hospice, home (50) ==
LOC: ER 09:17
DX: R07.89 Other chest pain (principal); R55 Syncope and collapse; R00.1 Bradycardia, unspecified; I95.9 Hypotension, unspecified; M19.90 Unspecified osteoarthritis, unspecified site; F03.90 Unspecified dementia, unspecified severity, without behavioral disturbance, psychotic disturbance, mood disturbance, and anxiety; K21.9 Gastro-esophageal reflux disease without esophagitis; E78.00 Pure hypercholesterolemia, unspecified; I11.9 Hypertensive heart disease without heart failure; I25.2 Old myocardial infarction; Z86.73 Personal history of transient ischemic attack (TIA), and cerebral infarction without residual deficits
CPT/HCPCS: 36415; 70450; 70496; 70498; 71045; 80048; 80076; 83690; 83880; 84484; 85025; 85610; 85730; 93005; 99285; Q9967